=== PATIENT | male | born 1955 | race Caucasian/White ===

== ENCOUNTER 2021-10-07 08:50 | Outpatient (CLI) | payer MEDICARE, BC, SELFPAY ==
[2021-10-07 15:24] LABS: Basophils Absolute Auto 0.04 K/uL (0.00-0.30); Basophils Percent Auto 0.7 % (0.0-3.0); Eosinophils Absolute Auto 0.11 K/uL (0.00-0.50); Eosinophils Percent Auto 1.8 % (0.0-7.0); Hemoglobin* 15.2 gm/dL (13.5-17.5); Lymphocytes Absolute Auto 2.24 K/uL (0.90-2.90); Lymphocytes Percent Auto 36.6 % (20-44); Mean Corpuscular HGB Conc 32 gm/dL (32-36); Mean Corpuscular Hemoglobin 28 pg (26-34); Mean Corpuscular Volume 86 fL (80-100); Monocytes Percent Auto 10.8 % (0.0-11.0); Neutrophils Absolute Auto 3.07 K/uL (1.7-7.0); Neutrophils Percent Auto 50.1 % (42.0-72.0); Platelet Count* 306 K/uL (140-440); RDW Coefficient of Variation % 13.1 % (11.5-15.5); Red Blood Count 5.45 m/uL (4.30-5.90); White Blood Count* 6.12 K/uL (4.50-11.00)
[2021-10-07 15:26] LABS: Chloride* 105 mmol/L (96-114); Potassium* 4.9 mmol/L (3.6-5.1); Sodium* 140 mmol/L (135-149)
[2021-10-07 15:29] LABS: Blood Urea Nitrogen* 14 mg/dL (7-30); Calcium* 9.8 mg/dL (8.4-10.6); Carbon Dioxide* 26 mmol/L (20-32); Estimated Glomerular Filt Rate 82 ml/min; Glucose* 165 mg/dL (60-115)
[2021-10-07 15:34] LABS: Slide Review Reflex No
== END 2021-10-07 08:51 | disposition home or self-care (01) ==
LOC: KYNREF 08:52
PROVIDERS: PCP Nurse Practitioner Family; Visit Provider Nurse Practitioner Family
DX: Z01.818 Encounter for other preprocedural examination (principal)
CPT/HCPCS: 36415; 80048; 85025

== ENCOUNTER 2021-11-14 09:00 | Outpatient (RCR) | payer MEDICARE, BC, SELFPAY ==
--- NOTE | 2021-09-22 11:47 | PT.OPEX ---
PT [place] Outpatient Eval PT [facility] Outpatient Eval Start: 09/22/21 10:55 Freq: Status: Active Protocol: Document 09/22/21 11:01 JANETTE (Rec: 09/22/21 11:28 JANETTE [id number]) E-Signed By Alla Mcdaniel DPT Physical Therapy Outpatient Evaluation Insurance Information Recert Due Date 12/06/21 Insurance Name Medicare B,Blue Cross/Blue [employer] Medical Diagnosis L hip bursitis Treating Diagnosis L hip pain, LB/L buttock pain, core/hip/glut weakness, pelvic instability, limited tolerance for extended standing/walking Subjective Subjective Patient reports chronic L hip/ buttock/LB pain since last Jan . States he was working up on a ladder, trimming branches and had L hip pain afterward. Pain improved some over the winter but flared back up as patient was more active again this spring and summer. He c/ o L lateral hip pain, some pain into L buttock and LB. Denies any hx of issues/ surgery with LB or hip. He reports increased pain with WB , standing, walking, stairs pain up to 8/10. States he has minimal to no pain at rest . Sleep has been ok. He is not using pain meds. Tried ice/heat but with little relief. Patient reports standing/walking is limited to about 10 min and then patient needing to sit and rest. He reports occasional pain that wraps around the front of his thigh. He uses a stationary bike at home, 3-4x/week. Pain range 0-8/10. Date of Last Physician Visit 09/19/21 Current Work Status Retired Precautions Treatment Precautions/Contraindications DM Objective Strength core/hip/glut weakness with chronic L hip/buttock/LB pain and pelvic instability Palpation tight, tender with palpation L lateral hip, L ITB, L buttock region Assessment Assessment/Impression Patient is a 66 year old male with L hip pain, LB/L buttock pain, core/hip/glut weakness, pelvic instability, limited tolerance for extended standing/walking. Pain range 0-8/10. Patient with increased L hip/buttock pain with standing, walking, stairs . Recent xrays and MRI negative. Patient referred to PT for L hip bursitis. Patient is tight, tender with palpation L lateral hip, L ITB , L buttock, and L LB region. Pelvic rotation noted. Able to improve alignment with MET treatment this session. Core/ hip/glut weakness noted with pelvic instability and chronic LB/buttock/hip pain. Patient is limited with standing/ waling activities to about 10 min at this time. He would benefit from skilled PT for pain/sx management, core/hip/ glut strengthening, improved flexibility L hip/buttock/LE musculature, improved pelvic stability, posture/body mechanics training, and establishment of HEP. Plan of Care Rehabilitation Potential Good Physical Therapy Goals 1. Decrease L hip/buttock/LB pain to less than/equal to 4/ 10 with daily/work activities and with the progression of PT activities over the next 4-6 weeks. 2. Patient will be educated on posture/body mechanics and pain management strategies over the next 3-4 weeks for decreased stress to LB/pelvis/ hip and improved pelvic stability. 3. Improve core/hip/glut strength and posture over the next 8-10 weeks for improved posture/body mechanics, decreased stress to LB/pelvis/ hip, improved pelvic stability, and improved tolerance for extended standing/walking activities without flare up of pain. 4. Patient will be I with HEP within 10 weeks for progression toward above goals , ongoing self management of pain/sx, ongoing self improvements in core/hip/glut strength, posture/body mechanics, pelvic stability, and for return to [facility] with daily/work/leisure activities without flare up of pain. Coordination/Communication With Referral Source Treatment Plan/Direct Interventions Manual Therapy,Therapeutic Exercises Frequency/Duration 1-2x/week Patient Will Be Discharged From Therapy Completion of LTG(s),Skills Plateau,Independent w/HEP, Independently Progressing Evaluation Billing Untimed Code Treatment Minutes 18 Complexity Moderate Certification Information Initial Certification Date 09/22/21 Ending Certification Date 12/06/21
== END 2022-03-07 11:12 | disposition home or self-care (01) ==
PROVIDERS: PCP Nurse Practitioner Family; Visit Provider Orthopaedic Surgery
DX: M25.552 Pain in left hip (principal); M70.72 Other bursitis of hip, left hip; Z51.89 Encounter for other specified aftercare
CPT/HCPCS: 97110; 97140; 97162

== ENCOUNTER 2021-11-24 08:39 | Outpatient (CLI) | payer MEDICARE, BC, SELFPAY ==
--- OUTSIDE RECORDS SUMMARY | 2021-11-24 08:45 | XMS_ITS | Encounter Summary ---
:1955 Author Organization [facility] Address [address] [place] [address] Care Team Providers Name Role Phone No Ref-Primary, Physician Primary Care Provider [phone] Reason for Visit Auth/Cert Specialty Diagnoses / Procedures Referred By Contact Refer red To Contact Surgery Diagnoses Hydrocele of testis Hydrocele of testis [N43.3] Sh Periop Services Procedures HC REMV HYDROCELE,SPERM CORD,UNILAT RIGHT HYDROCELECTOMY [address] [place] [address] Phone: Referral ID Status Reason Start Date Expiration Date Visits Requ ested Visits Authorized [id number] 1 1 Encounter Details Date Type Department Care Team Description 10/10/2021 Hospital Encounter [facility] Daryl Barraza [facility] rocele in adult [facility] Phase II MD Siva (Primary Dx) [address] [facility] [place] [address] [address] [phone] [address] [place] [id number] Social History Tobacco Use Types Packs/Day Years Used Date Never Smoker Smokeless Tobacco: Never Used Alcohol Use Standard Drinks/Week Comments Yes 0 (1 standard drink = 0.6 oz pure alcoho l) rare Alcohol Habits Answer Date Recorded How often do you have a drink containing alcohol? Not asked How many drinks containing alcohol do you have on a typical Not asked day when you are drinking? How often do you have six or more drinks on one occasion? No t asked Comment: rare 10/10/2021 Sex Assigned at Date Recorded Not on file COVID-19 Exposure Response Date Recorded In the last 10 days, have you been in contact with No / Unsu re 10/10/2021 8:52 AM CDT someone who was confirmed or suspected to have Coronavirus/COVID-19? documented as of this encounter Last Filed Vital Signs Vital Sign Reading Time Taken Comments Blood Pressure 163/93 10/10/2021 12:30 PM CDT Pulse 77 10/10/2021 12:30 PM CDT Temperature 36.4 ??C (97.5 ??F) 10/10/2021 11:32 AM CDT Respiratory Rate 16 10/10/2021 12:30 PM CDT Oxygen Saturation 94% 10/10/2021 12:30 PM CDT Inhaled Oxygen Concentration - - Weight 110.5 kg (243 lb 9.6 oz) 10/10/2021 8:38 AM CDT Height 185.4 cm (6' 1) 10/10/2021 8:38 AM CDT Body Mass Index 32.14 10/10/2021 8:38 AM CDT documented in this encounter Discharge Instructions Discharge InstructionsVeronica Silva RN - 10/10/2021 12:00 PM CDT Same Day Surgery Discharge Instructions for Sedation and General Anesthesia It's not unusual to feel dizzy, light-headed or faint for up to 24 hours after surgery or while taking pain medication. If you have these symptoms: sit for a few minutes before standing and have someone assist you when you get up to walk or use the bathroom. You should rest and relax for the next 24 hours. We recommend you make arrangements to have an adultstay with you for at least 24 hours after your discharge. Avoid hazardous and strenuous activity. DO NOT DRIVE any vehicle or operate mechanical equipment for 24 hours following the end of your surgery. Even though you may feel normal, your reactions may be affected by the medication you have received. Do not drink alcoholic beverages for 24 hours following surgery. Slowly progress to your regular diet as you feel able. It's not unusual to feel nauseated and/or vomit after receiving anesthesia. If you develop these symptoms, drink clear liquids (apple juice, casey sally, broth, 7-up, etc. ) until you feel better. If your nausea and vomiting persists for 24 hours, please notify your surgeon. All narcotic pain medications, along with inactivity and anesthesia, can cause constipation. Drinking plenty of liquids and increasing fiber intake will help. For any questions of a medical nature, call your surgeon. Do not make important decisions for 24 hours. If you had general anesthesia, you may have a sore throat for a couple of days related to the breathing tube used during surgery. You may use Cepacol lozenges to help with this discomfort. If it worsens or if you develop a fever, contact your surgeon. If you feel your pain is not well managed with the pain medications prescribed by your surgeon, please contact your surgeon's office to let them know so they can address your concerns. Discharge Instructions for Hydrocele/Spermatocele During your recovery: To help reduce swelling, apply an ice pack or cold compress to the scrotum as directed. Do this for no longer than 15 minutes at a time. Continue using the cold pack for 2 days or until swelling improves. Take prescribed pain medications as directed. Care for your incision as instructed. Follow your surgeon???s guidelines for showering. Avoid swimming, tub baths, using a hot tub, and other activities that cause the incision to be covered with water until your doctor says it???s okay. Wear a jockstrap or snug underwear as directed. Avoid heavy lifting and strenuous exercise for 1 week or as directed by surgeon. Sexual intercourse may be resumed after your follow up appointment or as directed by surgeon Do not drive until you are no longer taking pain medication and your doctor says it???s okay. You may have a drain to reduce swelling and infection. The surgeon will remove it in the office. Call Your Surgeon If You Have Any of the Following: Chest pain or trouble breathing (call [phone]) Fever of 100.4??F or higher Symptoms of infection at the incision site such as increased redness or swelling, warmth, worsening pain, or foul-smelling drainage Bleeding from the incision site Pain gets worse or is not relieved by pain medications Increased pain or swelling in the scrotum or groin area Follow-Up Make a follow up appointment with your surgeon as directed. You may also have sutures that need to be removed. Call your surgeon if you have any questions or concerns about your recovery. If you have questions or concerns about your procedure, call Dr. Barraza at [phone] AttachmentsThe following attachments cannot be sent through Care Everywhere. Hydrocele Surgery (Hydrocelectomy) (Botswanan)documented in this encounter Medications at Time of Discharge Medication Sig Dispensed Refills Start Date End Date atorvastatin (LIPITOR) Take 20 mg by mouth 0 20 MG tablet daily celecoxib (CELEBREX) Take 1 capsule (100 mg) 14 capsule 0 100 MG by mouth 2 times daily capsuleIndications: for 7 days Hydrocele in adult gemfibrozil (LOPID) 600 Take 600 mg by mouth 2 0 MG tablet times daily (before meals) glimepiride (AMARYL) 4 Take 8 mg by mouth 0 MG tablet every morning (before breakfast) INSULIN GLARGINE SC Inject 40 Units 0 Subcutaneous At Bedtime losartan (COZAAR) 50 MG Take 50 mg by mouth 0 tablet daily metFORMIN (GLUCOPHAGE) Take 1,000 mg by mouth 0 1000 MG tablet 2 times daily (with meals) multivitamin w/minerals Take 1 tablet by mouth 0 (THERA-VIT-M) tablet daily oxyCODONE (ROXICODONE) Take 1-2 tablets (5-10 10 tablet 0 0 10/10/2021 5 MG tabletIndications: mg) by mouth every 4 Hydrocele in adult hours as needed for moderate to severe pain documented as of this encounter H&P Notes Stew Hsu MD - 10/10/2021 9:00 AM CDT I have reviewed the surgical (or preoperative) H&P that is linked to this encounter, and examined the patient. There are no significant changes Clinical Conditions Present on Arrival: Clinically Significant Risk Factors Present on Admission # Obesity: Estimated body mass index is 32.14 kg/m?? as calculated from the following: Height as of this encounter: 1.854 m (6' 1). Weight as of this encounter: 110.5 kg (243 lb 9.6 oz). Source Note - Tiffanie Bernal - 10/10/2021 6:47 AM CDT documented in this encounter Nursing Notes Debbi Allen RN - 10/10/2021 1:27 PM CDT Added oxycodone to allergy list. Spoke with who recommended just going home with the celebrex for pain. Oxycodone returned for credit. Debbi Allen RN - 10/10/2021 9:03 AM CDT Had covid antigen done 10/07/21-so test is outdated. Retested here. Awaiting result. documented in this encounter Miscellaneous Notes Op Note - Daryl Barraza MD - 10/10/2021 10:40 AM CDT OPERATIVE REPORT PATIENT: Hugh Dennis : 1955, AGE: [age] year old SSN: [id number] SURGEON Daryl Barraza MD Rn Relief Charge: Angelica Barfield, ARINA; Nikole Banks RN Relief Scrub: Kathy Arzate Scrub Person: Courtney Loving PREOP DIAGNOSIS: Right hydrocele POSTOP DIAGNOSIS: Same Procedure(s): RIGHT HYDROCELECTOMY ANESTHESIA General COMPLICATIONS: None FINDINGS Approximately 600 cc of serous fluid drained. Hydrocele sac closed using a Venetian-Blind technique. SPECIMEN 1. None IMPLANT 1. None EBL 20cc TECHNIQUE After informed consent was obtained within the preoperative care unit the patient was transferred tothe operative theater in stable condition. There he was transferred from his [facility] to the operative table placed in supine position. Bilateral lower extremity sequential compression devices were applied and perioperative antibiotic prophylaxis was undertaken with cefazolin. After appropriateinduction of general anesthesia the patient's genitalia was prepped and draped in the usual sterile fashion utilizing Betadine. This point a surgical timeout was performed with all those in attendance agreeing correct patient, procedure, and laterality. Began by creating a 7 cm incision along the midline scrotal raphae with a #15 blade. The Bovie electrocautery was then used to dissect the underlying dartos tissue down to the level of the hydrocele sac. A mixture of sharp and blunt dissection was used to free the sac of all of its attachments and delivered through the incision. Metzenbaum scissors was then used to carefully enter the sac opposite ofthe testicle and spermatic cord. A total of 600 cc of serous fluid was drained. And then used the Bovie to open the sac completely and the antimesenteric side. The edges of the hydrocele sac were then copiously fulgurated to ensure no internal bleeding. Using a Venetian blind technique the sac was then reduced and oversewn. The testicle was returned to its anatomical location and the wound was irrigated and hemostasis was ensured. The dartos tissue was then closed in 2 layers with a 3-0 Vicryl suture. The skin was then closed with a 4-0 Vicryl suture in a running horizontal mattress fashion. The incision was then anesthetized with 0.25% bupivacaine as well as a spermatic cord block. The incision was then dressed with surgical skin glue, scrotal fluffs, and mesh underwear thus concluding the case. Patient tolerated the procedure well and without complication. Estimated blood loss was 20 mL and all surgical counts were correct at its conclusion. Patient was awoken from general anesthesia before being transferred back to his hospital [facility] and discharged to the postanesthesia care unit in stablecondition. PLAN Patient to be discharged home will follow up with me in 4 to 6 weeks for postoperative evaluation. Daryl Barraza MD [facility] Pager: [phone] Office: [phone] Surgical [phone] documented in this encounter Plan of Treatment Not on filedocumented as of this encounter Procedures Procedure Name Priority Date/Time Associated Diagnosis Comme nts GLUCOSE BY METER Routine 10/10/2021 12:14 PM Resu lts for this CDT procedure are i n the results section. HYDROCELECTOMY, 10/10/2021 9:56 AM Hydrocele of testis SCROTAL APPROACH CDT GLUCOSE BY METER Routine 10/10/2021 9:45 AM Resul ts for this CDT procedure are i n the results section. COVID-19 VIRUS STAT 10/10/2021 8:50 AM Results for this (CORONAVIRUS) BY CDT procedure a re in PCR the results section. LAB RESULT - HIM 10/07/2021 12:00 AM SCAN CDT documented in this encounter Results Glucose by meter (10/10/2021 12:14 PM CDT) P athologist Signature GLUCOSE BY 88 70 - 99 10/10/2021 LABORATORY METER POCT mg/dL 12:21 PM CDT POC Specimen (Source) Anatomical Collection Method Collection Time Re ceived Time Location / / Volume Laterality Blood, Capillary BLOOD SPECIMEN / 10/10/2021 12:14 10/2021 Unknown PM CDT 12:21 PM CDT Daryl Amaya [facility] POCT Performing Organization Address City/State/ZIP Code Phon e Number LAB[place]ATORY [place] [address] Care [facility] [address] 1[address] floor, [address] (ABNORMAL) Glucose by meter (10/10/2021 9:45 AM CDT) P athologist Signature GLUCOSE BY 115 (H) 70 - 99 10/10/2021 LABORATORY METER POCT mg/dL 9:52 AM CDT POC Specimen Anatomical Collection Method Collection Time Receive d Time (Source) Location / / Volume Laterality Blood, venous BLOOD SPECIMEN / 10/10/2021 9:45 AM 08/0 10/2021 9:52 Unknown CDT AM CDT Daryl LOPEZ POCT Performing Organization Address City/State/ZIP Code Phon e Number [place]ORY [place] [address] Care Lab [address] floor, [address] Asymptomatic COVID-19 Virus (Coronavirus) by PCR Nasopharyngeal (10/10/2021 8:50 AM CDT) Analysis Performed At Patho logist Time Signature SARS CoV2 PCR Negative Negative 10/10/2021 LABORATORY 9:38 AM CDT Comment: NEGATIVE: SARS-CoV-2 (COVID-19) RNA not detected, presumed negative. Specimen Anatomical Location / Collection Method Collection Elias e Received Time (Source) Laterality / Volume Swab NASOPHARYNGEAL Non-blood 10/10/2021 8:50 10/10/2021 8:57 STRUCTURE / Unknown Collection / AM CDT AM CDT Unknown Narrative LABORATORY - 10/10/2021 9:38 AM CDT Testing was performed using the Xpert Xpress SARS-CoV-2 Assay on the [employer] Instrument Systems. A dditional information about this Emergency Use Authorization (EUA) a ssay can be found via the Lab Guide. This test should be ordered for t he detection of SARS-CoV-2 in individuals who meet SARS-CoV-2 clinical and/or epidemiological criteria. Test performance is unknown in asymptomatic patients. This test is for in vitro diagnostic use unde r the FDA EUA for laboratories certified under CLIA to per form high complexity testing. This test has not been FDA cleared or ap proved. A negative result does not rule out the presence of PCR in hibitors in the specimen or target RNA in concentration below the li andrea of detection for the assay. The possibility of a false negati ve should be considered if the patient's recent exposure or clinica l presentation suggests COVID-19. This test was validated by the [facility]. This laboratory is certified under the Clinical Laboratory Improvement Amendments of 1988 (CLIA-88) as qualified to perform high complexity laboratory testing. Daryl Barraza MD LAB - MICRO GENERAL ORDERABL ES Performing Organization Address City/State/ZIP Code Phon e Number LABORATORY [facility] [place] [address] [facility] [address], [address] LAB RESULT - HIM SCAN (10/07/2021 12:00 AM CDT) Specimen (Source) Anatomical Location Collection Method / Collectio n Time Received Time / Laterality Volume 10/07/2021 Narrative This result has an attachment that is no t available. Provider Outside NON-BEAKER LAB TESTING documented in this encounter Visit Diagnoses Diagnosis Hydrocele in adult - Primary documented in this encounter Administered Medications Inactive Administered Medications - up to 3 most recent administrations Medication Order MAR Action Action Date Dose Rate Site celecoxib (celeBREX) capsule 200 mg 200 mg, Oral, ONCE PRN, moderate pain (4 -6), or mild pain, Starting on Sun10/10/21 at 1139, For 1 dose, One time prior to discharge. HYDROcodone-acetaminophen (NORCO) 5-325 MG per tablet 1 tablet 1 tablet, Oral, ONCE PRN, other, pain co ntrol or improvement in physical function., Starting on Sun10/10/21 at 1139, For 1 dose, Notify pro vider to assess for uncontrolled pain or analgesic side effe cts. Maximum acetaminophen dose from all sources= 75 mg/kg/day not to exceed 4 grams documented in this encounter Active and Recently Administered Medications Times are shown in CDT. Scheduled Medication Order 10/08/2021 10/09/2021 10/10/2021 ceFAZolin Sodium (ANCEF) injection 2 g (COMPLETED) 1015 (Given - Provider: Angelica Ash APRN CRNA) Routine, 2 g, Intravenous, PRE-OP/PRE-PA OCEDURE, Starting on Sun10/10/21 at 0833, For 1 dose, Give first dose within 1 hour PRIOR to incision. If patient weight is greater than or equal to 120 kg increas e dose to 3 g., Indications: Perioperative Pharmacoprophylaxis, Pre-procedure Continuous Medication Order 10/08/2021 10/09/2021 10/10/2021 lactated ringers infusion (CANCELED) 1016 (New Bag - Provider: Angelica Ash APRN CRNA)1135 (New Bag - Provider: Angelica Ash APRN CRNA) at 100 mL/hr, Intravenous, CONTINUOUS, P re-procedure, Starting on Sun10/10/21 at 0900, Until Sun10/10/21 at 1134 PRN Medication Order 10/08/2021 10/09/2021 10/10/2021 bupivacaine (MARCAINE) 0.25 % injection (CANCELED) 1112 (Given - Provider: Daryl Barraza MD) PRN, Starting on Sun10/10/21 at 1112, Intra-procedure celecoxib (celeBREX) capsule 200 mg 200 mg, Oral, ONCE PRN, moderate pain, o r mild pain, Starting on Sun10/10/21 at 1139, For 1 dose, One time prior to discharge. HYDROcodone-acetaminophen (NORCO) 5-325 MG per tablet 1 tablet 1 tablet, Oral, ONCE PRN, other, pain co ntrol or improvement in physical function., Starting on Sun10/10/21 at 1139, For 1 dose, Notify provider to assess for uncontrolled pain or analgesic side effects. Maximum acetaminophen dose from all wilfrid rces= 75 mg/kg/day not to exceed 4 grams sodium chloride 0.9% (bottle) irrigation (CANCELED) 1040 (Given - Provider: Daryl Barraza MD) PRN, Starting on Sun10/10/21 at 1032, Intra-procedure documented in this encounter Care Teams Transportation Economics Teacher Relationship Specialty Start Date End Date No Ref-Primary, Physician PCP - General 10/10/21 documented as of this encounter
--- OUTSIDE RECORDS SUMMARY | 2021-11-24 08:45 | XMS_ITS | Encounter Summary ---
:1955 Author Organization [facility] Address [address] [place], [place] [address]. [place] [address] Care Team Providers Name Role Phone No Ref-Primary, Physician Primary Care Provider [phone] Reason for Visit Auth/Cert Specialty Diagnoses / Procedures Referred By Contact Refer red To Contact Surgery Diagnoses Hydrocele of testis Hydrocele of testis [N43.3] Sh Periop Services Procedures HC REMV HYDROCELE,SPERM CORD,UNILAT RIGHT HYDROCELECTOMY [address], [address] [place] [address] Phone: Referral ID Status Reason Start Date Expiration Date Visits Requ ested Visits Authorized [id number] 1 1 Encounter Details Date Type Department Care Team Description 10/10/2021 Anesthesia Event [facility] Stew Hsu MD [facility] [address] [phone] [facility] Angelica Reynoso, ROOF CEMENT AND PAINT MAKER HELPER HAT TRIMMER [address] [id number], [address] [place] [phone] Anesthesia Record Procedure Summary Procedure Name Responsible Anesthesia Start Anesthesia Stop Anesthesiologist Time Time RIGHT HYDROCELECTOMY Stew Hsu MD 10/10/21 1016 10/10/21 1 135 (Right Groin) Events Date Time Event Comment 10/10/2021 0903 1016 An Start 1017 An Start Data 1018 AN REASSESS I attest that I have identified and re-evaluated the patient immediat segundo before the induction of anesthesia and I am satisfi ed that the anesthetic plan is suitable for the patient' s condition and procedure. The first vital signs mario rded are pre- induction. Angelica Ash APRN HAT TRIMMER 1023 An Induction 1024 An LMA 1040 AN INCISION 1126 LMA Removed 1128 an stop data 1135 An Stop Electronically s igned by Angelica Ash APRN CRNA on October 10, 2021 1 1:35 AM Name Total fentaNYL (SUBLIMAZE) injection 100 mcg lidocaine 2% 100 mg midazolam 1mg/mL 2 mg ondansetron 2mg/mL 4 mg phenylephrine (QUIN-SYNEPHRINE) injection 100 mcg propofol (DIPRIVAN) injection 10 mg/mL vial 200 mg propofol infusion (mcg/kg/min) 58.73 mg ceFAZolin Sodium (ANCEF) injection 2 g 2 g lactated ringers infusion 1,000 mL Agents Name NO HELIOX O2 N2O Air Exp Sevoflurane Exp Isoflurane Exp Desflurane Exp N2O Ins Sevoflurane Ins Isoflurane Ins Desflurane O2 Auxiliary Blood No blood administrations on file. Lines, Drains, and Airways Type Details Placement Removal Incision/Surgical Site 10/10/21; 1101; 10/10/21 1101 by Right; Scrotum Nikole Banks RN Peripheral IV 10/10/21; 0954; 20 G; 10/10/21 0954 by 10/10/21 1333 by Left; Hand Debbi Allen, Amaya Allen RN RN Supraglottic Airway Placement Date: 10/10/21 1035 by 10/10/21 11 26 by 10/10/21; Placement Angelica Ash Da vid Allen, Time: 1034 (created AURELIO Uribe CRNA, APRN via procedure documentation); Airway Type: Standard LMA; Mask Ventilation: 1; LMA Size: 5; Airway Brand: Ambu AuraGain; Attempts: 1 documented in this encounter Social History Tobacco Use Types Packs/Day Years [...] have Coronavirus/COVID-19? documented as of this encounter OR Notes Anesthesia Postprocedure Evaluation - Stew Hsu MD - 10/10/2021 1:54 PM CDT Patient: Hugh Dennis Procedure: Procedure(s): RIGHT HYDROCELECTOMY Anesthesia Type: General Note: Disposition: Outpatient Postop Pain Control: Uneventful Sign Out: Well controlled pain PONV: No Neuro/Psych: Uneventful Sign Out: Acceptable/Baseline neuro status Airway/Respiratory: Uneventful Sign Out: Acceptable/Baseline resp. status CV/Hemodynamics: Uneventful Sign Out: Acceptable CV status; No obvious hypovolemia; No obvious fluid overload Other NRE: NONE DID A NON-ROUTINE EVENT OCCUR? No Last vitals: Vitals Value Taken Time BP 163/93 10/10/21 1230 Temp Pulse 77 10/10/21 1232 Resp 9 10/10/21 1232 SpO2 96 % 10/10/21 1232 Vitals shown include unvalidated device data. Electronically Signed By: Stew Hsu MD October 10, 2021 1:54 PM Anesthesia Procedure Notes - Angelica Ash APRN CRNA - 10/10/2021 10:35 AM CDTAssociated Order(s): Airway Airway Staff - Anesthesiologist: Stew Hsu MD HAT TRIMMER: Angelica Ash APRN HAT TRIMMER Performed By: HAT TRIMMER Consent for Airway Urgency: elective Indications and Patient Condition Indications for airway management: cherise-procedural Induction type:intravenous Mask difficulty assessment: 1 - vent by mask Final Airway Details Final airway type: supraglottic airway Supraglottic Airway Details Type: LMA Brand: Ambu AuraGain LMA size: 5 Post intubation assessment Placement verified by: capnometry, equal breath sounds and chest rise Number of attempts at approach: 1 Number of other approaches attempted: 0 Secured with: pink tape Ease of procedure: easy Dentition: Intact and Unchanged Anesthesia Preprocedure Evaluation - Stew Hsu MD - 10/10/2021 9:00 AM CDT Anesthesia Pre-Procedure Evaluation Patient: Hugh Dennis : 1955 Procedure : Procedure(s): RIGHT HYDROCELECTOMY Past Medical History: Diagnosis Date ??? Back pain ??? Diabetes (H) ??? Hydrocele in adult ? ? Hyperlipidemia LDL goal <100 ??? Hypertension Past Surgical History: Procedure Laterality Date ??? CERVICAL DISCECTOMY ??? COLONOSCOPY ??? HERNIA REPAIR ??? LAP VENTRAL HERNIA REPAIR ??? TOTAL SHOULDER REPLACEMENT No Known Allergies Social History Tobacco Use ??? Smoking status: Never Smoker ??? Smokeless tobacco: Never Used Substance Use Topics ??? Alcohol use: Yes Comment: rare Wt Readings from Last 1 Encounters: 10/10/21 110.5 kg (243 lb 9.6 oz) Anesthesia Evaluation Pt has had prior anesthetic. No history of anesthetic complications ROS/MED HX ENT/Pulmonary: Neurologic: Cardiovascular: (+) hypertension----- METS/Exercise Tolerance: Hematologic: Musculoskeletal: GI/Hepatic: (-) GERD Renal/Genitourinary: Endo: (+) type II DM, Psychiatric/Substance Use: Infectious Disease: Malignancy: Other: Physical Exam Airway Mallampati: I Neck ROM: full Respiratory Devices and Support Dental (+) caps Cardiovascular cardiovascular exam normal Pulmonary pulmonary exam normal OUTSIDE LABS: CBC: No results found for: WBC, HGB, HCT, PLT BMP: No results found for: NA, POTASSIUM, CHLORIDE, CO2, BUN, CR, GLC COAGS: No results found for: PTT, INR, FIBR POC: No results found for: BGM, HCG, HCGS HEPATIC: No results found for: ALBUMIN, PROTTOTAL, ALT, AST, GGT, ALKPHOS, BILITOTAL, BILIDIRECT, MARTIN OTHER: No results found for: PH, LACT, A1C, DAJUAN, PHOS, MAG, LIPASE, AMYLASE, TSH, T4, T3, CRP, SED Anesthesia Plan ASA Status: 2 NPO Status: NPO Appropriate Anesthesia Type: General. - Airway: LMA Induction: Intravenous. Maintenance: Balanced. Consents Anesthesia Plan(s) and associated risks, benefits, and realistic alternatives discussed. Questions answered and patient/apprenticeship representative(s) expressed understanding. - Discussed: - Discussed with: Patient Postoperative Care Pain management: IV analgesics. PONV prophylaxis: Ondansetron (or other 5HT-3) Comments: Stew Hsu MD documented in this encounter Miscellaneous Notes Anesthesia Care Transfer Note - Angelica Ash APRN CRNA - 10/10/2021 11:35 AM CDT Patient: Hugh Dennis Procedure: Procedure(s): RIGHT HYDROCELECTOMY Diagnosis: Hydrocele of testis [N43.3] Diagnosis Additional Information: No value filed. Anesthesia Type: General Note: Oropharynx: oropharynx clear of all foreign objects Level of Consciousness: awake Oxygen Supplementation: face mask Level of Supplemental Oxygen (L/min / FiO2): 6 Independent Airway: airway patency satisfactory and stable Dentition: dentition unchanged Vital Signs Stable: post-procedure vital signs reviewed and stable Report to RN Given: handoff report given Patient transferred to: PACU Handoff Report: Identifed the Patient, Identified the Reponsible Provider, Reviewed the pertinent medical history, Discussed the surgical course, Reviewed Intra-OP anesthesia mangement and issues during anesthesia, Set expectations for post-procedure period and Allowed opportunity for questions and acknowledgement of understanding Vitals: Vitals Value Taken Time BP Temp Pulse Resp SpO2 Electronically Signed By: Angelica Ash APRN CRNA October 10, 2021 11:35 AM documented in this encounter Plan of Treatment Not on filedocumented as of this encounter Procedures Procedure Name Priority Date/Time Associated Comments Diagnosis ANE AIRWAY Routine 10/10/2021 10:35 Results for this SUPRAGLOTTIC AM CDT procedure are i n PERFORMABLE the results section. documented in this encounter Results ANE AIRWAY SUPRAGLOTTIC PERFORMABLE (10/10/2021 10:35 AM CDT) Narrative Angelica sAh APRN CRNA - 10/10/2021 10:35 AM CDT Angelica Ash APRN CRNA ? 10/10/2021 10:35 AM Airway Staff - ? Anesthesiologist: ??Stew Hsu MD ? HAT TRIMMER: Angelica Ash APRN CRNA ? Performed By: HAT TRIMMER Consent for Airway ? Urgency: elective Indications and Patient Condition ? Indications for airway management : cherise-procedural ? Induction type:intravenous ? Mask difficulty assessment: 1 - v ent by mask Final Airway Details ? Final airway type: supraglottic a irway Supraglottic Airway Details ? Type: LMA ? Brand: Ambu AuraGain ? LMA size: 5 Post intubation assessment ? Placement verified by: capnometry , equal breath sounds and chest rise ? Number of attempts at approach: 1 ? Number of other approaches attemp chi: 0 ? Secured with: pink tape ? Ease of procedure: easy ? Dentition: Intact and Unchanged Stew Hsu MD [facility] documented in this encounter Visit Diagnoses Not on filedocumented in this encounter Administered Medications Inactive Administered Medications - up to 3 most recent administrations Medication Order MAR Action Action Date Dose Rate Site ceFAZolin Sodium (ANCEF) injection Given 10/10/2021 10:15 AM CDT 2 g 2 g Routine, 2 g, Intravenous, PRE-OP/PRE-PROCEDURE, Starting on Sun10/10/21 at 0833, For 1 dose, Give first dose within 1 hour PRIOR to incision. If patient weight is greater than or equal to 120 kg increase dose to 3 g., Indications: Perioperative Pharmacoprophylaxis, Pre-procedure fentaNYL (PF) (SUBLIMAZE) injection Given 10/10/2021 10:33 AM CDT 50 mcg Intravenous, PRN, Administer over 3-5 Minutes, Starting on Sun10/10/21 at 1025, Anesthesia Intra-op Given 10/10/2021 10:25 AM CDT 50 mcg lactated ringers infusion New Bag 10/10/2021 11:35 AM CDT at 100 mL/hr, Intravenous, CONTINUOUS, Pre-procedure, Starting on Sun10/10/21 at 0900, Until Sun10/10/21 at 1134 New Bag 10/10/2021 10:16 AM CDT lidocaine 2% injection (MDV) Given 10/10/2021 10:23 AM CDT 100 mg Other, PRN, Starting on Sun10/10/21 at 1023, Anesthesia Intra-op midazolam (VERSED) injection Given 10/10/2021 10:16 AM CDT 2 mg Intravenous, Administer over 2 Minutes, PRN, Starting on Sun10/10/21 at 1016, Anesthesia Intra-op ondansetron (ZOFRAN) injection Given 10/10/2021 10:56 AM CDT 4 mg Intravenous, PRN, Administer over 2-5 Minutes, Starting on Sun10/10/21 at 1056, Anesthesia Intra-op phenylephrine (QUIN-SYNEPHRINE) injection New Bag 10/10/2021 10:37 AM CDT 100 mcg Intravenous, CONTINUOUS PRN, Starting on Sun10/10/21 at 1037, Anesthesia Intra-op propofol (DIPRIVAN) injection New Bag 10/10/2021 10:23 AM 15 m cg/kg/min 7.191 mL/hr 10 mg/mL vial CDT Intravenous, CONTINUOUS PRN, Starting on Sun10/10/21 at 1023, Anesthesia Intra-op propofol (DIPRIVAN) injection 10 mg/mL v ial Given 10/10/2021 10:23 AM CDT 200 mg Intravenous, PRN, Starting on Sun10/10/21 at 1023, Anesthesia Intra-op documented in this encounter Care Teams Livestock Brands Inspector Relationship Specialty Start Date End Date No Ref-Primary, Physician PCP - General 10/10/21 documented as of this encounter
--- OUTSIDE RECORDS SUMMARY | 2021-11-24 08:45 | XMS_ITS | Clinical Summary ---
:1955 Author Organization [facility] Address [address] [place] [address] Care Team Providers Name Role Phone Karma Philip APRN C.N.P. Primary Care Provider [phone] Source Comments Patient records contain information from all sites at [facility]. For routine questions regarding patient records, call [phone] during business hours, M-F 8:00 AM - 5:00 PM Central Time. Record requests for emergency care only can be directed to [phone] at any time.[facility] Allergies No known active allergies Medications Medication Sig Dispensed Refills Start Date End Date Status aspirin [address] Take 1 tablet by 0 08/27/2015 Active tablet mouth daily. B complex-vitamins Take 1 tablet by 0 Active (BALANCE B-50) tablet mouth daily. multivitamin (Daily Take 1 tablet by 0 Active Vitamin Formula) mouth daily. tablet gemfibroziL (LOPID) TAKE 1 TABLET BY 180 tablet 3 10/19/2020 Active 600 mg MOUTH TWICE DAILY tabletIndications: BEFORE BREAKFAST Diabetes Mellitus Type AND DINNER 2 (HCC) glimepiride (AMARYL) 4 TAKE 2 TABLETS BY 180 tablet 3 10/20/19 21 Active mg tabletIndications: MOUTH DAILY WITH Diabetes Mellitus Type BREAKFAST 2 (HCC) atorvastatin (LIPITOR) TAKE 1 TABLET BY 90 tablet 3 10/19/2020 Active 20 mg MOUTH AT BEDTIME tabletIndications: Hyperlipidemia Mixed metFORMIN XR TAKE 4 TABLETS BY 360 tablet 3 10/19/2020 Active (GLUCOPHAGE-XR) 500 mg MOUTH DAILY WITH 24 hr BREAKFAST. tabletIndications: GENERIC Diabetes Mellitus Type EQUIVALENT FOR 2 (HCC) GLUCOPHAGE-XR losartan (COZAAR) 50 TAKE 1 TABLET BY 90 tablet 3 01/11/2021 Active mg tabletIndications: MOUTH DAILY Hypertension Essential Primary insulin glargine Inject 40 Units 40 mL 3 01/11/2021 Active (Lantus Solostar U-100 under the skin at Insulin) 100 unit/mL bedtime. (3 mL) injectionIndications: Diabetes Mellitus Type 2 (HCC), Feed Manager Use Of Insulin Active (HCC) Active Problems Patient Care Coordination Note Formatting of this note might be differe nt from the original. 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 from Last 3 Months Immunizations Name Administration Dates Next Due DT, Pediatric 11/13/2003 HepB, Unspecified 06/08/2004, 12/24/2003, 11/13/2003 Influenza Laiv (Nasal) (Discontinued) 12/20/2011 Influenza high dose QV(65 years or 11/30/2020, 11/26/2019 older) (PF) Influenza, Unspecified 12/17/2013, 02/19/2013, 02/19/2013, 12/20/2011, 01/17/2011, 12/09/2009, 11/19/2008 PCV13 01/23/2019 PPSV23 06/14/2020, 12/29/1999 RZV (SHINGRIX) 05/03/2021 SARS-COV-2 (COVID-19) - MODERNA 06/21/2021, 05/29/2020, 04/06 Tdap 08/03/2011 influenza high dose (65 years or 12/04/2018 older) (PF) typhoid vaccine, parenteral 04/20/2011 (discontinued) Family History Medical History Relation Name Comments Diabetes Father Heart attack Father Hyperlipidemia Father Hypertension Father Osteoarthritis Mother Eye disorder Sister Relation Name Status Comments Brother Alive Father (Age 64) Mother Alive Sister Alive Social History Tobacco Use Types Packs/Day Years Used Date Smoking Tobacco: Never Smokeless Tobacco: Never Tobacco Cessation: Counseling Given: Yes Alcohol Habits Answer Date Recorded How often do you have a drink containing alcohol? Monthly or less 06/23/2020 How many drinks containing alcohol do you have on a 1 or 2 06/23/2020 typical day when you are drinking? How often do you have six or more drinks on one Never 06/23/2020 occasion? Comment: Not asked Social Isolation Answer Date Recorded In a typical week, how many times do you talk on the phone T oscar a week 06/23/2020 with family, friends, or neighbors? How often do you get together with friends or relatives? Onc e a week 06/23/2020 How often do you attend samaritan or hoahaoism services? Never 06/23/2020 Do you belong to any clubs or organizations such as samaritan N o 06/23/2020 groups, unions, fraternal or athletic groups, or school groups? How often do you attend meetings of the clubs or Never 11/20/2019 organizations you belong to? Are you now , , , , never Mar ried 06/23/2020 or living with a partner? Physical Activity Answer Date Recorded On average, how many days per week do you engage in moderate to 6 days 06/23/2020 strenuous exercise (like walking fast, running, jogging, dancing, swimming, biking, or other activities that cause a light or heavy sweat)? On average, how many minutes do you engage in exercise at th is 30 min 06/23/2020 level? Stress Answer Date Recorded Do you feel stress - tense, restless, nervous, or Only a lit tle 06/23/2020 anxious, or unable to sleep at night because your mind is troubled all the time - these days? Financial Resource Strain Answer Date Recorded How hard is it for you to pay for the very basics like Not h jocelynn at all 06/23/2020 food, housing, medical care, and heating? Intimate Partner Violence Answer Date Recorded Within the last year, have you been afraid of your partner o r No 06/23/2020 ex-partner? Within the last year, have you been humiliated or emotionall y No 06/23/2020 abused in other ways by your partner or ex-partner? Within the last year, have you been kicked, hit, slapped, or No 06/23/2020 otherwise physically hurt by your partner or ex-partner? Within the last year, have you been raped or forced to have any No 06/23/2020 kind of sexual activity by your partner or ex-partner? Food Insecurity Answer Date Recorded Within the past 12 months, you worried that your food would Never true 06/23/2020 run out before you got money to buy more. Within the past 12 months, the food you bought just didn't N ever true 06/23/2020 last and you didn't have money to get more. Transportation Needs Answer Date Recorded In the past 12 months, has lack of transportation kept you f rom No 06/23/2020 medical appointments or from getting medications? In the past 12 months, has lack of transportation kept you f rom No 06/23/2020 meetings, work, or getting things needed for daily living? Housing Stability Answer Date Recorded In the last 12 months, was there a time when you were not ab le No 06/23/2020 to pay the mortgage or rent on time? In the last 12 months, how many places have you lived? 1 06/23/2020 In the last 12 months, was there a time when you did not hav e a No 06/23/[address] sleep or slept in a long-term (including now)? Education Answer Date Recorded What is the highest level of school Master's degree (e.g., M A, MS, 08/09/2018 you have completed or the highest Mookie, MEd, EXECUTIVE LEGAL SECRETARY, STEPHANIE) degree you have received? 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 Last Filed Vital Signs Vital Sign Reading Time Taken Comments Blood Pressure 136/79 01/04/2021 10:02 AM CDT Pulse 69 01/04/2021 10:02 AM CDT Temperature 36.8 ??C (98.2 ??F) 01/04/2021 9:55 AM CDT Respiratory Rate 12 01/04/2021 9:55 AM CDT Oxygen Saturation - - Inhaled Oxygen Concentration - - Weight 114 kg (252 lb 5.1 oz) 01/04/2021 9:55 AM CDT Height 187 cm (6' 1.62) 01/04/2021 9:55 AM CDT Body Mass Index 32.73 01/04/2021 9:55 AM CDT Plan of Treatment Health Maintenance Due Date Last Done Comments CT Colonography 1955 Cologuard 1955 FIT 1955 Hepatitis C Screening 1955 Dilated Eye Exam 08/01/2019 07/31/2018 (Performed elsewhere), 07/19/2013 Diabetes Education 11/23/2020 11/24/2019, 02/13/2019, 10/10/2017, Additional history exists Diabetic Office Visit with Foot 11/23/2020 11/24/2019, 02/02, Exam 10/10/2017, Additional history exists Depression Screening (Annual 03/05/2021 PHQ-2) Fall Risk Screen (Annual) 03/05/2021 Hemoglobin A1C 05/18/2021 11/18/2020, 05/18/2020, 11/21/2019, Additional history exists Visit: Chronic Disease, age 18+ 05/20/2021 05/20/2020, 05/03 Zoster Vaccines (2 of 2) 06/28/2021 05/03/2021 DTaP,Tdap,and Td Vaccines (3 - Td 08/02/2021 08/03/2011, or Tdap) COVID-19 Vaccine (5 - Booster for 08/16/2021 06/21/2021, , Moderna series) 05/29/2020, Additional history exists Sodium Level 11/18/2021 11/18/2020, 11/21/2019, 08/13/2018, Additional history exists Urine Albumin 11/18/2021 11/18/2020, 11/21/2019, 08/13/2018, Additional history exists Influenza Vaccine (#1) 2021 11/30/2020, 11/26/2019, 12/04/2018, Additional history exists Office Visit for Blood Pressure 01/04/2022 01/04/2021 Check / Re-check Creatinine Level 10/07/2022 10/07/2021, 11/18/2020, 11/21/2019, Additional history exists Potassium Level 10/07/2022 10/07/2021, 11/18/2020, 11/21/2019, Additional history exists Lipid (Cholesterol) Screening 11/18/2025 11/18/2020, 2019, 08/13/2018, Additional history exists Colonoscopy 07/24/2026 07/24/2016 Colorectal Cancer Screening 07/24/2026 Hepatitis B Vaccines Completed 06/08/2004, 06/08/2004, 12/24/2003, Additional history exists Pneumococcal vaccine (65+ years) Completed 06/14/2020, , 12/29/1999 Insurance Payer Benefit Plan Subscriber ID Effective Phone Address Typ e / Group Dates MEDICARE MEDICARE A [id number] 2018-Pres [address] [place] [address] BLUE CROSS BCBS [place] [id number] 2018-Pres [phone] [address] X Cost Share BLUE SHIELD BLUE COST ent [phone] [address] [place] [phone] (Work) [place] [phone] Care Teams Bilingual Hr Generalist Relationship Specialty Start Date End Date Karma Philip, SAP ARCHITECT, C.N.P. PCP - General 08/17/[address] [place] [address]
--- OUTSIDE RECORDS SUMMARY | 2021-11-24 08:45 | XMS_ITS | Encounter Summary ---
:1955 Author Organization [facility] Address [address] [place] [id number] Care Team Providers Name Role Phone No Ref-Primary, Physician Primary Care Provider [phone] Encounter Details Date Type Department Care Team Description 10/10/2021 Travel Social History Tobacco Use Types Packs/Day Years [...] have Coronavirus/COVID-19? documented as of this encounter Plan of Treatment Not on filedocumented as of this encounter Visit Diagnoses Not on filedocumented in this encounter Care Teams Analytical Engineer Relationship Specialty Start Date End Date No Ref-Primary, Physician PCP - General 10/10/21 documented as of this encounter
--- OUTSIDE RECORDS SUMMARY | 2021-11-24 08:45 | XMS_ITS | Clinical Summary ---
:1955 Author Organization [facility] Address [address] [place] [id number] Care Team Providers Name Role Phone No Ref-Primary, Physician Primary Care Provider [phone] Allergies Active Allergy Reactions Severity Noted Date Comments Oxycodone Other (See Comments) 10/10/2021 Confusi on and anxiety Medications Medication Sig Dispensed Refills Start Date End Date Status atorvastatin Take 20 mg by mouth 0 Active (LIPITOR) 20 MG daily tablet gemfibrozil (LOPID) Take 600 mg by 0 Active 600 MG tablet mouth 2 times daily (before meals) glimepiride (AMARYL) Take 8 mg by mouth 0 Active 4 MG tablet every morning (before breakfast) losartan (COZAAR) 50 Take 50 mg by mouth 0 Active MG tablet daily metFORMIN Take 1,000 mg by 0 Act temo (GLUCOPHAGE) 1000 MG mouth 2 times daily tablet (with meals) multivitamin Take 1 tablet by 0 Active w/minerals mouth daily (THERA-VIT-M) tablet INSULIN GLARGINE SC Inject 40 Units 0 Active Subcutaneous At Bedtime oxyCODONE Take 1-2 tablets 10 tablet 0 10/10/2021 Ac tive (ROXICODONE) 5 MG (5-10 mg) by mouth tabletIndications: every 4 hours as Hydrocele in adult needed for moderate to severe pain celecoxib (CELEBREX) Take 1 capsule (100 14 capsule 0 10/11/19 22 Active 100 MG mg) by mouth 2 capsuleIndications: times daily for 7 Hydrocele in adult days Active Problems Problem Noted Date Hydrocele in adult 10/10/2021 Encounters Date Type Specialty Care Team Description 10/10/2021 Anesthesia Event Surgery Stew Hsu M D Ihry, Amanda Renae Stephanie, APRN CRNA 10/10/2021 Surgery Surgery Daryl Barraza RIGHT HYDROCEL ECTOMY MD [facility] 10/10/2021 Hospital Encounter Daryl Barraza Hydrocel e in adult MD [facility] (Primary Dx) 10/10/2021 Travel from Last 3 Months Social History Tobacco Use Types Packs/Day Years [...] Assigned at Date Recorded Not on file Last Filed Vital Signs Vital Sign Reading [...] Mass Index 32.14 10/10/2021 8:38 AM CDT Plan of Treatment Health Maintenance Due Date Last Done Comments ADVANCE CARE PLANNING 1955 ANNUAL REVIEW OF HM ORDERS 1955 CT COLONOGRAPHY 1955 FIT-DNA (Cologuard) 1955 FIT 1955 FLEX SIG 1955 COLONOSCOPY 1963 COLORECTAL CANCER SCREENING 1963 HEPATITIS C SCREENING 1971 LIPID 1988 AORTIC ANEURYSM SCREENING 2018 (SYSTEM ASSIGNED) FALL RISK ASSESSMENT 2018 MEDICARE ANNUAL WELLNESS 2018 VISIT PHQ-2 (once per calendar 03/05/2021 year) DTAP/TDAP/TD IMMUNIZATION 08/02/2021 08/03/2011 (2 - Td or Tdap) INFLUENZA VACCINE (#1) 2021 11/30/2020, 11/26/2019, 12/04/2018, Additional history exists HEPATITIS B IMMUNIZATION Aged Out 06/08/2004, 06/08/2004, No longer eligible 12/24/2003, Additional based on patient's age history exists to complete this topic Pneumococcal Vaccine: 65+ Completed 06/14/2020, 01/23/2019 , Years 12/29/1999 COVID-19 Vaccine Completed 06/21/2021, 01/02/2021, 05/29/2020, Additional history exists ZOSTER IMMUNIZATION Completed 10/04/2021, 05/03/2021 IPV IMMUNIZATION Aged Out No longer eligi ble based on patient 's age to complete this topic MENINGITIS IMMUNIZATION Aged Out No longe r eligible based on patient 's age to complete this topic Procedures Procedure Name Priority Date/Time Associated Comments Diagnosis GLUCOSE BY METER Routine 10/10/2021 12:14 Results for this PM CDT procedure are i n the results section. ANE AIRWAY Routine 10/10/2021 10:35 Results for this SUPRAGLOTTIC AM CDT procedure are i n PERFORMABLE the results section. HYDROCELECTOMY, 10/10/2021 9:56 AM Hydrocele of testis SCROTAL APPROACH CDT GLUCOSE BY METER Routine 10/10/2021 9:45 AM Resul ts for this CDT procedure are i n the results section. COVID-19 VIRUS STAT 10/10/2021 8:50 AM Results for this (CORONAVIRUS) BY PCR CDT procedu re are in the results section. CREATININE (EXTERNAL Routine 10/07/2021 9:03 AM R esults for this RESULT) CDT procedure are i n the results section. GLUCOSE (EXTERNAL Routine 10/07/2021 9:03 AM Resu lts for this RESULT) CDT procedure are i n the results section. POTASSIUM (EXTERNAL Routine 10/07/2021 9:03 AM Re sults for this RESULT) CDT procedure are i n the results section. LAB RESULT - HIM SCAN 10/07/2021 12:00 AM CDT from Last 3 Months Results Glucose by meter (10/10/2021 12:14 PM CDT)Only the most recent of2 resultswithin the time period is included. P athologist Signature GLUCOSE BY 88 70 - 99 10/10/2021 LABORATORY METER POCT mg/dL 12:21 PM CDT POC Specimen (Source) Anatomical Collection Method Collection Time Re ceived Time Location / / Volume Laterality Blood, Capillary BLOOD SPECIMEN / 10/10/2021 12:14 10/2021 Unknown PM CDT 12:21 PM CDT Daryl Barraza MD LAB - BEAKER POCT Performing Organization Address City/State/ZIP Code Phon e Number LABORATORY [place] [facility] [address] Care Lab [address] 1[address] floor, Room 20B ANE AIRWAY SUPRAGLOTTIC PERFORMABLE (10/10/2021 10:35 AM CDT) Narrative Angelica Ash APRN CRNA - 10/10/2021 10:35 AM CDT Angelica Ash APRN CRNA ? 10/10/2021 10:35 AM Airway Staff - ? Anesthesiologist: ??Stew Hsu MD ? APPRENTICE EMBALMER: Angelica Ash APRN CRNA ? Performed By: APPRENTICE EMBALMER Consent for Airway ? Urgency: elective Indications [...] Dentition: Intact and Unchanged Stew Hsu MD DE ANESTHESIA Asymptomatic COVID-19 Virus (Coronavirus) by PCR Nasopharyngeal [...] the Xpert Xpress SARS-CoV-2 Assay on the [employer]. A dditional information about this [...] COVID-19. This test was validated by the [facility]. This laboratory is certified under the Clinical Laboratory Improvement Amendments of 1988 (CLIA-88) as qualified to perform high complexity laboratory testing. Daryl Barraza MD LAB - MICRO GENERAL ORDERABL ES Performing Organization Address City/State/ZIP Code Phon e Number LABORATORY [facility] [place] [address] Care Lab [address] 1[address] floor, Room [address]B Potassium (External Result) (10/07/2021 9:03 AM CDT) P athologist Signature Potassium 4.9 3.6 - 5.1 [facility] (External) mmol/L [facility] Specimen (Source) Anatomical Collection Method Collection Time Re ceived Time Location / / Volume Laterality Blood 10/07/2021 9:03 AM CDT [facility] - 10/07/2021 9:03 AM CDT LAB RESULTS [facility] ICS Provider Outside LAB - HIM EXTERNAL RESULT Performing Organization Address [facility]/ZIP Code Phon e Number [facility] [address] [place], [place] [address] [place] (ABNORMAL) Glucose (External Result) (10/07/2021 9:03 AM CDT) athologist Signature Glucose 165 (A) 60 - 115 [facility] (External) mg/dL [facility] Specimen (Source) Anatomical Collection Method Collection Time Re ceived Time Location / / Volume Laterality Blood 10/07/2021 9:03 AM CDT [facility] - 10/07/2021 9:03 AM CDT LAB RESULTS [facility] Provider Outside LAB - HIM EXTERNAL RESULT Performing Organization Address [facility]/ZIP [facility] Phon e Number [facility] [address] [place], [place] [address] [place] Creatinine (External Result) (10/07/2021 9:03 AM CDT) P athologist Signature Creatinine 1.0 0.5 - 1.5 [facility] (External) mg/dL [facility] Specimen (Source) Anatomical Collection Method Collection Time Re ceived Time Location / / Volume Laterality Blood 10/07/2021 9:03 AM CDT [facility] - 10/07/2021 9:03 AM CDT LAB RESULTS [facility] Provider Outside LAB - HIM EXTERNAL RESULT Performing Organization Address City/[facility]/ZIP [facility] Phon e Number [facility] [address] [place], [place] [address] [place] LAB RESULT - HIM SCAN (10/07/2021 12:00 AM CDT) Specimen (Source) Anatomical Location Collection Method / Collectio n Time Received Time / Laterality Volume 10/07/2021 Narrative This result has an attachment that is no t available. Provider Outside MH NON-BEAKER LAB TESTING from Last 3 Months Insurance Payer Benefit Plan / Subscriber ID Effective Phone Address T ype Group Dates BCBS BCBS UMKUMIUT [id number] 2018-Prese [phone] [address] [address] PPO BLUE nt 00 [place] [id number] MEDICARE MEDICARE FOR HB [id number] 2018-Prese [phone] ATTN CLAIMS Medicare SUPPLEMENT nt 40 [address] [place] [address] (Home) [place] [id number] [place] [employer] [phone] (Home) [place] [phone] (Work) Care Teams General Production Manager Relationship Specialty Start Date End Date No Ref-Primary, Physician PCP - General 10/10/21
--- OUTSIDE RECORDS SUMMARY | 2021-11-24 08:45 | XMS_ITS | Encounter Summary ---
:1955 Author Organization [facility] Address [address] [place] [address]. [place] [address] Care Team Providers Name Role Phone No Ref-Primary, Physician Primary Care Provider [phone] Reason for Visit Auth/Cert Specialty Diagnoses / Procedures Referred By Contact Refer red To Contact Surgery Diagnoses Hydrocele of testis Hydrocele of testis [N43.3] Periop Services Procedures HC REMV HYDROCELE,SPERM CORD,UNILAT RIGHT HYDROCELECTOMY [address] [place] [address] Phone: Referral ID Status Reason Start Date Expiration Date Visits Requ ested Visits Authorized [id number] 1 1 Encounter Details Date Type Department Care Team Description 10/10/[address] [facility] Daryl Barraza R IGHT HYDROCELECTOMY [facility] PeriOP MD Services [facility] [address] [place] [address] [place] [address] [phone] Surgery Details Date/Time Status Location OR Service Patient Case Class Case Tr auma Class Type Case? 10/10/21 10:10 Posted OR OR 30 Urology Same Day AM Surgery Panel 1 Procedure LRB Anes Op Region Wound Class Commen ts RIGHT HYDROCELECTOMY Right General Groin I-Clean Surgeon Surgeon Role Service Panel Daryl Barraza MD Primary Urology 1 documented in this encounter Social History [...] Sign Reading Time Taken Comments Blood Pressure 150/84 10/10/2021 12:00 PM CDT Pulse 82 10/10/2021 12:00 PM CDT Temperature 36.4 ??C (97.5 ??F) 10/10/2021 11:32 AM CDT Respiratory Rate 16 10/10/2021 12:00 PM CDT Oxygen Saturation 98% 10/10/2021 12:00 PM CDT Inhaled Oxygen Concentration - - [...] Following: Chest pain or trouble breathing (call 911) Fever of 100.4??F or higher Symptoms of [...] about your procedure, call Dr. Barraza at [phone] AttachmentsThe following attachments cannot be sent through Care Everywhere. Hydrocele Surgery (Hydrocelectomy) (British)documented in this encounter Medications at Time of [...] (243 lb 9.6 oz). Source Note - Dolores, Provider - 10/10/2021 6:47 AM CDT documented in [...] old SSN: [id number] SURGEON Daryl Barraza MD Forensic Pathologist: Angelica Barfield RN; Nikole Banks RN Relief Scrub: Kathy Arzate [...] condition. There he was transferred from his [facility] to the operative table placed in [...] anesthesia before being transferred back to his [facility] and discharged to the postanesthesia care unit in stablecondition. PLAN Patient to be discharged home will follow up with me in 4 to 6 weeks for postoperative evaluation. Daryl Barraza MD [facility] Pager: [phone] Office: [phone] Surgical [phone] documented in this encounter Plan of Treatment [...] Unknown PM CDT 12:21 PM CDT Daryl FLORES - AdTotumDAVIDSON POCT Performing Organization Address City/State/ZIP Code Phon e Number LABORATORY POC [facility] [place] [address] Care Lab [address] 1[address] floor, Room 20B (ABNORMAL) Glucose by meter (10/10/2021 9:45 AM CDT) athologist Signature GLUCOSE BY 115 (H) 70 - 99 10/10/2021 LABORATORY METER POCT mg/dL 9:52 AM CDT POC Specimen Anatomical Collection Method Collection Time Receive d Time (Source) Location / / Volume Laterality Blood, venous BLOOD SPECIMEN / 10/10/2021 9:45 AM 08/0 10/2021 9:52 Unknown CDT AM CDT Daryl Amaya BEDAVIDSON POCT Performing Organization Address City/State/ZIP Code Phon e Number LABORATORY POC [facility] [place] [address] Care Lab [address] [...] the Xpert Xpress SARS-CoV-2 Assay on the [employer]. A dditional information about this [...] COVID-19. This test was validated by the [facility]. This laboratory is certified under the Clinical Laboratory Improvement Amendments of 1988 (CLIA-88) as qualified to perform high complexity laboratory testing. Daryl Barraza MD LAB - MICRO GENERAL ORDERABL ES Performing Organization Address City/State/ZIP Code Phon e Number LABORATORY [facility] [place] [address] Care Lab [address] 1[address] floor, Room [address]B LAB RESULT - HIM SCAN (10/07/2021 12:00 AM CDT) Specimen (Source) Anatomical Location Collection Method / Collectio n Time Received Time / Laterality Volume 10/07/2021 Narrative This result has an attachment that is no t available. Provider Outside NON-BEAKER LAB TESTING documented in this encounter Visit Diagnoses Diagnosis Hydrocele in adult - Primary Hydrocele of testis Hydrocele, unspecified documented in this encounter Administered Medications Inactive Administered Medications - up to 3 most recent administrations Medication Order MAR Action Action Date Dose Rate Site bupivacaine (MARCAINE) Given 10/10/2021 11:12 30 mLs Operative 0.25 % injection AM CDT Site/Surgical S ite PRN, Starting on Sun10/10/21 at 1112, Intra-procedure [...] to exceed 4 grams sodium chloride 0.9% Given 10/10/2021 10:40 AM 1,000 mLs Operative (bottle) irrigation CDT Site/Surgical S ite PRN, Starting on Sun10/10/21 at 1032, Intra-procedure documented in this encounter Active and Recently Administered Medications Times are shown in CDT. Scheduled Medication Order 10/08/2021 10/09/2021 10/10/2021 ceFAZolin Sodium (ANCEF) injection 2 g (COMPLETED) 1015 (Given - Provider: Angelica Ash APRN SHOPPER INSIGHTS MANAGER) Routine, 2 g, Intravenous, PRE-OP/PRE-CO OCEDURE, Starting on Sun10/10/21 at 0833, For 1 dose, Give first dose within 1 hour PRIOR to incision. If patient weight is greater than or equal to 120 kg increas e dose to 3 g., Indications: Perioperative Pharmacoprophylaxis, Pre-procedure Continuous Medication Order 10/08/2021 10/09/2021 10/10/2021 lactated ringers infusion (CANCELED) 1016 (New Bag - Provider: Angelica Ash APRN SHOPPER INSIGHTS MANAGER)1135 (New Bag - Provider: Angelica Ash APRN SHOPPER INSIGHTS MANAGER) at 100 mL/hr, Intravenous, CONTINUOUS, P re-procedure, [...] Intra-procedure documented in this encounter Care Teams Manager Plumbing Relationship Specialty Start Date End Date No Ref-Primary, Physician PCP - General 10/10/21 documented as of this encounter
--- OUTSIDE RECORDS SUMMARY | 2021-11-24 08:46 | XMS_ITS | Encounter Summary ---
:1955 Author Organization [facility] Address [address] [place] [address] Care Team Providers Name Role Phone Karma Philip APRN, C.N.P. Primary Care Provider [phone] Reason for Visit Reason Comments Diabetes Check Outpatient (Routine) - Closed Specialty Diagnoses / Procedures Referred By Contact Refer red To Contact Family Medicine Diagnoses Diabetes Mellitus Type 2 (HCC) Retirement Use Of Insulin Active (HCC) Hypertension Essential Primary Hyperlipidemia Mixed Karma Philip APRN, [facility] C.N.P. [address] [place] [address] Referral ID Status Reason Start Date Expiration Date Visits Requ ested Visits Authorized [id number] Closed 02/12/2019 02/12/2020 1 1 Encounter Details Date Type Department Care Team Description 11/24/2019 Office Visit Department of Family Karma Philip Dia betes Mellitus Type 2 (HCC); Medicine, [place] AURELIO, C.N.P. Skip Load Driver Use Of Insulin Active (HCC); Clinic, in [place], [address] Hypertension Essential Primary; [place], [place] Hyperlipidemia Mixed [address] [address] [place], [place] [phone] [address] (Work) [phone] Social History Tobacco Use Types Packs/Day Years [...] week 06/23/2020 How often do you attend orthodoxy or latter-day services? Never 06/23/2020 Do you belong to any clubs or organizations such as orthodoxy N o 06/23/2020 groups, unions, fraternal or [...] place to sleep or slept in a nursing home (including now)? Education Answer Date Recorded What is the highest level of school Master's degree (e.g., M Lola, MS, 08/09/2018 you have completed or the highest Mookie, MEd, ASSET ACCOUNTANT, STEPHANIE) degree you have received? 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 - 11/24/2019 8:30 AM CDT Images from the original note were not included. Patient Education Common Questions & Answers About Diabetes and Nutrition Q: Is it true that I have to eat specific foods or follow a ???diabetic diet?? ? A: No. There is no ???diabetic diet?? or a specific diet that everyone with diabetes needs to follow. The best food choices and meal plans for you depend on your diabetes medication program and your lifestyle. A dietitian can help you make the best plan for you. Q: Are ALL carbohydrates bad for me? A: No. Your body needs carbohydrates for energy. To get a balance of nutrients, everyone is encouraged to eat some amount of carbohydrate at each meal. Carbohydrates are found in all starches, such as bread and cereal, potatoes, pasta and rice, plus milk, yogurt, fruit, and sweets. If you eat too many carbohydrates at one time, your blood sugar may go too high. The quinteros is to choose healthy carbohydrates and eat them in proper serving sizes, at consistent times. Q: My mother was diagnosed with diabetes 30 years ago. She was told then that she shouldn???t eat sugar or sweets of any kind. Is that true for me too? A: That???s not entirely true. You can still eat sugar and sweets in moderation. But everyone, whether they have diabetes or not, should be careful about how much and how often they eat sugar and sweets. Although our body uses sugars in basically the same way, a banana (which has natural sugar) and a brownie are very different types of food. The banana is a heart-healthy food that gives you nutrients, which the brownie does not do. If you choose to eat sugar in food other than dairy or fruit, keep the portion small or eat it on rare occasions. Research has advanced a lot on this topic in the past 20-plus years. How you manage your diabetes --healthy eating, exercise, medication, insulin -- affects your overall eating plan. This may be different for each person and it may globe changer time. Check with your care team, including a dietitian, often to ensure that you have current information. Q: If I avoid all white foods, such as breads, potatoes and rice, will this control my blood sugar? A: No. Avoiding a certain food type will not control your blood sugar. Many foods have carbohydrates. And chances are high that you???ll eat some of those during your typical day. This is okay. Regardless of the type of carbohydrate, when you choose healthy foods and eat them in proper serving sizes at consistent times, you are doing your best to help control your blood sugar. Q: Protein and fat don???t raise blood sugar like carbohydrates do. Does this mean I can eat as muchas I want of those foods? A: No. Protein and fat don???t have the same effect on blood sugar that carbohydrates do. But like many foods, eating too much can cause weight gain and other health problems. Also, if you eat a lot ofprotein and fat and very little carbohydrates, you may not get enough of the important nutrients that come from carbohydrate foods, such as fiber, vitamins and minerals. Q: Can beverages raise my blood sugar? A: Yes. All beverages with calories and sugar will raise your blood sugar. Be careful with portions.To best manage your blood sugar, you should avoid or limit your intake of regular pop/soda, fruit juice (even 100% juice), sugar-sweetened lemonade and tea, all forms of alcohol, and specialty coffee drinks (lattes, cappuccinos, frappuccinos, etc.). Even a healthy drink, like low-fat or fat-free milk,can raise blood sugar too high if your serving is too big. Q: I heard that I???m not supposed to drink diet soda and eat foods that have artificial sweeteners.What can you tell me about that? A: You can eat and drink foods and beverages with artificial sweeteners. The sweeteners used today in commercial products have been approved to eat and drink by the U.S. Food and Drug Administration. Artificial sweeteners do not raise blood sugar. Q: Am I supposed to eat ???sugar-free?? foods? A: This depends. Some ???diet?? or ???sugar-free?? foods, such as diet soda and sugar-free gelatin, do not raise blood sugar like the regular versions because most of the sugar and calories have beenreplaced with artificial sweetener. But some sugar-free foods -- including cookies, cake, pie, ice cream, candy, and other sweets -- still have calories, fat and carbohydrates that do affect your bloodsugar. No matter what the ingredients and nutrients are, sweets are meant to be special treats. Avoid eating them often. When you do have them, limit the amount you eat. Q: Now that I have diabetes, do I have to eat snacks to control blood sugar? A: No. Most people are encouraged to eat 3 balanced meals at regular times. If you follow this guideline, you are less likely to want to snack. Common reasons people eat snacks: ?? They skipped meals or have irregular eating times. ?? They don???t eat balanced meals. ?? They are bored. ?? It???s a habit. Triggers such as watching TV or drinking alcohol may prompt snacking. If you snack for any of these reasons, consider eating only at mealtimes. This may help you better control your weight and blood sugar. If you believe that having a snack helps you avoid over-eating during meals, choose one that???s healthy and fairly low in calories, such as vegetables. Q: Do I need to buy ???diabetic?? cookbooks and use ???diabetic?? recipes? A: No, not necessarily. You should choose heart-healthy recipes as much as possible because people with diabetes are at higher risk of cardiovascular disease. You may also choose cookbooks that have low-fat recipes or ???diabetes- friendly?? recipes. But remember to pay attention to the serving sizes.The amount of food you eat relates directly to your blood sugar control. And the type of food you eat relates to your heart health. Note: If the heart-healthy recipes need a boost of flavor, explore some new seasonings. Use herbs and spices for flavor rather than salt, fat or sugar. Other nutrition tips to consider ?? Meet with a dietitian. A dietitian can help you make healthier food choices, identify the servingsize you need, and help you meet your health and weight goals. ?? Write down what you eat. Sometimes writing down what you eat and drink can show you how much or how little you???re eating. Maybe you tend to reach for crackers every night or don???t realize that you only eat 1 piece of fruit per week. ?? Follow the ???plate method.?? The plate method is a tool to help you decide how much of each type of food to eat at each meal. (See image.) Think about a typical dinner plate like a angoon. It should include: ? Protein for one-quarter (1/4) of the plate. ? A starch for one-quarter (1/4) of the plate. ? Vegetables for the rest (1/2) of the plate -- as much as you need to feel ???full.?? ? Fruit and milk (or yogurt) may be added as well. This method is a simple way to help you eat a well-balanced meal using proper serving sizes. This material is for your education and information only. This content does not replace medical advice, diagnosis or treatment. New medical research may change this information. If you have questions about a medical condition, always talk with your health care provider. ? 2016 [facility] Medical Education and Research ([facility]). All rights reserved. [id number] documented in this encounter Progress Notes Karma Philip APRN, C.N.P. - 11/24/2019 8:30 AM CDT SUBJECTIVE CHIEF COMPLAINT: Chief Complaint Patient presents with ??? Diabetes Check HISTORY OF PRESENT ILLNESS: Hugh is here for diabetes recheck. Labs were drawn November 20. A1c stable at 7.3. He is currently on metformin 2000 mg daily, glimepiride 8 mg before breakfast and Lantus insulin 40 units before bed.He has experienced no hypoglycemia. Blood pressure stable on losartan 50 mg daily. Lipids are stableon atorvastatin 20 mg daily and gemfibrozil 600 mg twice daily without adverse effects. REVIEW OF SYSTEMS: Respiratory: Positive for dyspnea. Cardiovascular: Positive for shortness of breath when lying flat. Musculoskeletal: Positive for arthralgias and pain or stiffness in the joints. The following systems were negative: Constitutional, Skin, Eyes, ENT, GI, , Hematologic, Neuro, Psych The following portions of the patient's history were reviewed and updated as appropriate: allergies,current medications, family history, medical history, social history, surgical history and problem list. ALLERGIES: No Known Allergies MEDICATIONS: Current Outpatient Medications: ??? aspirin [address] tablet, Take 1 tablet by mouth daily. , Disp: , Rfl: ??? atorvastatin (LIPITOR) 20 mg tablet, Take 1 tablet (20 mg total) by mouth at bedtime., Disp: 90 tablet, Rfl: 3 ??? B complex-vitamins (BALANCE B-50) tablet, Take 1 tablet by mouth daily., Disp: , Rfl: ??? gemfibroziL (LOPID) 600 mg tablet, Take 1 tablet (600 mg total) by mouth 2 (two) times a day before breakfast and dinner., Disp: 180 tablet, Rfl: 3 ??? glimepiride (AMARYL) 4 mg tablet, Take 2 tablets (8 mg total) by mouth daily with breakfast., Disp: 180 tablet, Rfl: 3 ??? insulin glargine (Lantus Solostar U-100 Insulin) 100 unit/mL (3 mL) injection, Inject 40 Units under the skin at bedtime., Disp: 45 mL, Rfl: 3 ??? losartan (COZAAR) 50 mg tablet, Take 1 tablet (50 mg total) by mouth daily., Disp: 90 tablet, Rfl: 3 ??? metFORMIN XR (GLUCOPHAGE-XR) 500 mg 24 hr tablet, Take 4 tablets (2,000 mg total) by mouth dailywith breakfast., Disp: 360 tablet, Rfl: 3 ??? multivitamin (Daily Vitamin Formula) tablet, Take 1 tablet by mouth daily., Disp: , Rfl: OBJECTIVE LABS and DIAGNOSTICS: Results for orders placed or performed during the hospital encounter of 11/21/19 Albumin, Random, Urine Result Value Ref Range Microalbumin <7.0 mg/L Creatinine 104 mg/dL Albumin/Creatinine Ratio <7 <17 mg/g VITAL SIGNS: Temperature: [37 ??C] 37 ??C Resp Rate: [20] 20 Blood Pressure: (138)/(64-74) 138/74 Pulse Rate: [71] 71 PHYSICAL EXAM: General: In general, the patient is pleasant and appears stated age. Skin: Without lesion. Eyes: PERRLA. EOMI intact. Fundi sharp discs. Conjunctiva and lids normal. ENT: Tympanic membranes clear bilaterally. Nasal mucosa without erythema or congestion. Mouth without erythema or exudate. Lymph Nodes: Neck supple without adenopathy, no thyromegaly. Carotid pulses are equal bilaterally. Peripheral Vessels: Femoral, dorsal, pedal and posterior tibial pulses are equal. Heart: Regular rate and rhythm without murmur. Lungs: Clear to auscultation, good inspiratory effort. Abdomen: Soft, nontender, no palpable mass, no hepatosplenomegaly. Extremities: Warm, dry, no cyanosis or peripheral edema. Normal sensation tops and bottoms of feet with monofilament. Mental Status: Alert and oriented times three. Neurologic: Deep tendon reflexes are +2 and symmetrical. ASSESSMENT / PLAN #1 Diabetes Mellitus Type 2 (HCC) #2 Retirement Use Of Insulin Active (HCC) Overview: A1c stable at 7.3. Medication refills provided. Schedule dilated eye exam. Recheck A1c in 6 months. ROUTINE DIABETES CARE / DIABETES EDUCATION: Recommend a consistent carbohydrate diet and at least 30 minutes of daily exercise for healthy lifestyle. Standard diabetes management includes: Hemoglobin A1c checked every 3 months (every 6 months ifA1c is within target range); urine checked for microalbumin annually; annual dilated eye exam to scre en for diabetic retinopathy; and meticulous foot care. Your goal blood pressure less than 140/90. You should be on statin therapy and have an annual lipid profile. DM II (or NOS), uncontrolled Orders: - metFORMIN XR (GLUCOPHAGE-XR) 500 mg 24 hr tablet; Take 4 tablets (2,000 mg total) by mouth daily with breakfast., Starting Sun11/24/2019, Normal - glimepiride (AMARYL) 4 mg tablet; Take 2 tablets (8 mg total) by mouth daily with breakfast., Starting Sun11/24/2019, Normal Overview: Retirement Use Of Insulin Active Orders: - insulin glargine (Lantus Solostar U-100 Insulin) 100 unit/mL (3 mL) injection; Inject 40 Units under the skin at bedtime., Starting Sun11/24/2019, Normal #3 Hypertension Essential Primary Stable, no change in medications. Overview: Hypertension (HTN) Essential Primary NOS Orders: - losartan (COZAAR) 50 mg tablet; Take 1 tablet (50 mg total) by mouth daily., Starting Sun11/24/2019, Normal #4 Hyperlipidemia Mixed Continue atorvastatin 20 mg daily and gemfibrozil 600 mg twice daily. - atorvastatin (LIPITOR) 20 mg tablet; Take 1 tablet (20 mg total) by mouth at bedtime., Starting Sun11/24/2019, Normal - gemfibroziL (LOPID) 600 mg tablet; Take 1 tablet (600 mg total) by mouth 2 (two) times a day before breakfast and dinner., Starting Sun11/24/2019, Normal Other orders - Family Medicine office visit (clinic) Learning needs assessment was performed. No learning barriers were identified. Explained diagnosis and treatment plan. Patient expressed understanding and was able to teach back. HEALTH MAINTENANCE: Due for dilated eye exam. documented in this encounter Plan of Treatment Not on filedocumented as of this encounter Visit Diagnoses Diagnosis Diabetes Mellitus Type 2 (HCC) Retirement Use Of Insulin Active (HCC) Hypertension Essential Primary Hyperlipidemia Mixed documented in this encounter Care Teams Housing And Residence Life Director Relationship Specialty Start Date End Date Karma Philip APRN, C.N.P. PCP - General 08/17/[address] [place] [phone] documented as of this encounter
--- OUTSIDE RECORDS SUMMARY | 2021-11-24 08:46 | XMS_ITS | Encounter Summary ---
:1955 Author Organization [facility] Address [address] [place] [address] Care Team Providers Name Role Phone Karma Philip APRN, C.N.P. Primary Care Provider [phone] Encounter Details Date Type Department Care Team Description 12/29/2020 Orders Only [facility] Sa gregory Martell M.D. [address] [place], [place] [phone] (Wo rk) Social History Tobacco Use Types Packs/Day Years Used Date Smoking Tobacco: Never Smokeless Tobacco: Never Alcohol Habits Answer Date Recorded How often [...] do you talk on the phone T wice a week 06/23/2020 with family, friends, or neighbors? How often do you get together with friends or relatives? Onc e a week 06/23/2020 How often do you attend zoroastrianism or sabianist services? Never 06/23/2020 Do you belong to any clubs or organizations such as zoroastrianism N o 06/23/2020 groups, unions, fraternal or [...] place to sleep or slept in a senior care (including now)? Education Answer Date Recorded What is the highest level of school Master's degree (e.g., Ed Davila, , 08/09/2018 you have completed or the highest Mookie, Estefani, WET PROCESS MILLER, STEPHANIE) degree you have received? Sex Assigned at Date Recorded Male 02/12/2017 11:58 AM QUEBRACHO TANNER documented as of this encounter Plan of Treatment Not on filedocumented as of this encounter Visit Diagnoses Not on filedocumented in this encounter Care Teams Sustainable Communities Designer Relationship Specialty Start Date End Date Karma Philip, AURELIO, C.N.P. PCP - General 08/17/16 [address], [place] [address] documented as of this encounter
--- OUTSIDE RECORDS SUMMARY | 2021-11-24 08:46 | XMS_ITS | Encounter Summary ---
:1955 Author Organization [facility] Address [address] [place] [address] Care Team Providers Name Role Phone Karma Philip APRN, C.N.P. Primary Care Provider [phone] Encounter Details Date Type Department Care Team Description 11/09/2020 Orders Only [facility] [place] Karma Philip D iabetes Mellitus Type AURELIO, C.N.P. 2 ([facility]) [address] [place] [address] Social History Tobacco Use Types Packs/Day Years [...] week 06/23/2020 How often do you attend yazdanism or anglican services? Never 06/23/2020 Do you belong to any clubs or organizations such as yazdanism N o 06/23/2020 groups, unions, fraternal or [...] place to sleep or slept in a correction (including now)? Education Answer Date Recorded What is the highest level of school Master's degree (e.g., Ed Davila, MS, 08/09/2018 you have completed or the highest Mookie, MEd, MOBILE SERVICE RV TECHNICIAN, STEPHANIE) degree you have received? Sex Assigned at Date Recorded Male 02/12/2017 11:58 AM SKI BASE TRIMMER documented as of this encounter Plan of Treatment Not on filedocumented as of this encounter Visit Diagnoses Diagnosis Diabetes Mellitus Type 2 (HCC) documented in this encounter Care Teams Forestry Technician Relationship Specialty Start Date End Date Karma Philip, AURELIO, C.N.P. PCP - General 08/17/16 [address] [place] [phone] documented as of this encounter
--- OUTSIDE RECORDS SUMMARY | 2021-11-24 08:46 | XMS_ITS | Encounter Summary ---
:[address] [facility] Address [address] [place] [address] Care Team Providers Name Role Phone Karma Philip APRN C.N.PFrederick Primary Care Provider [phone] Reason for Referral Outpatient (Routine) - Authorized Specialty Diagnoses / Procedures Referred By Contact Refer red To Contact Urology Diagnoses Hydrocele Kary Sims C.N.PFrederick [facility] [address] [place], [place] [address] Referral ID Status Reason Start Date Expiration Date Visits V isits Requested Authorized [id number] Authorized 06/30/2021 06/30/2022 1 1 Encounter Details Date Type Department Care Team Description 06/30/2021 [facility] Kary Sims (Primary AND CLINICS Ed, C.N.P. Dx) [address] [place] [address] [place] [address] [phone] Social History Tobacco Use Types Packs/Day Years [...] week 06/23/2020 How often do you attend mormon or shinto services? Never 06/23/2020 Do you belong to any clubs or organizations such as mormon N o 06/23/2020 groups, unions, fraternal or [...] place to sleep or slept in a group home (including now)? Education Answer Date Recorded What is the highest level of school Master's degree (e.g., M A, MS, 08/09/2018 you have completed or the highest Mookie, MEd, SUPERVISOR PROPELLANT CHARGE LOADING, STEPHANIE) degree you have received? 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 PCP - General 08/17/16 [address], [place] [phone] documented as of this encounter
--- OUTSIDE RECORDS SUMMARY | 2021-11-24 08:46 | XMS_ITS | Encounter Summary ---
:1955 Author Organization [facility] Address [address] [place] [address] Care Team Providers Name Role Phone Karma Philip APRN, C.N.P. Primary Care Provider [phone] Encounter Details Date Type Department Care Team Description 11/21/2019 Hospital Encounter Department of Karma Philip s Mellitus Type 2 (HCC); Laboratory Medicine AURELIO Odonnell, C.N .PFrederick Hypertension Essential Primary; in [place], [address] [place], [place] [address] [facility] [address] [place], [place] [phone] [address] (Work) [phone] Social History Tobacco Use Types Packs/Day Years [...] week 06/23/2020 How often do you attend druze or alevism services? Never 06/23/2020 Do you belong to any clubs or organizations such as druze N o 06/23/2020 groups, unions, fraternal or [...] have completed or the highest Mookie, MEd, SEAPORT PLANNING MANAGER, STEPHANIE) degree you have received? 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 B complex-vitamins Take 1 tablet by 0 (BALANCE B-50) tablet mouth daily. multivitamin (Daily Take 1 tablet by 0 Vitamin Formula) tablet mouth daily. atorvastatin (LIPITOR) 20 Take 1 tablet (20 90 tablet 3 04/201811/24/2019 mg tabletIndications: mg total) by mouth Hyperlipidemia Mixed at bedtime. gemfibrozil (LOPID) 600 Take 1 tablet (600 180 tablet 3 04/201811/24/2019 mg tabletIndications: mg total) by mouth Diabetes Mellitus Type 2 2 (two) times a day (HCC) before breakfast and dinner. glimepiride (AMARYL) 4 mg TAKE 2 TABLETS BY 180 tablet 3 11/24/2019 tabletIndications: MOUTH EVERY DAY Diabetes Mellitus Type 2 WITH BREAKFAST (HCC) insulin glargine (Lantus Inject 40 Units 45 mL 3 201811/24/2019 Solostar U-100 Insulin) under the skin at 100 unit/mL (3 mL) bedtime. injectionIndications: Breastfeeding Peer Counselor Use Of Insulin Active (HCC) losartan (COZAAR) 50 mg Take 1 tablet (50 90 tablet 3 11/0411/24/2019 tabletIndications: mg total) by mouth Hypertension Essential daily. Primary metFORMIN XR Take 4 tablets 120 tablet 0 10/21/2019 11/24/19 20 (GLUCOPHAGE-XR) 500 mg 24 (2,000 mg total) by hr tabletIndications: mouth daily with Diabetes Mellitus Type 2 breakfast. (HCC) documented as of this encounter Plan of Treatment Not on filedocumented as of this encounter Procedures Procedure Name Priority Date/Time Associated Diagnosis Comme nts LIPID PANEL, S Routine 11/21/2019 8:19 Hyperlipidemia Mixed Re sults for this AM CDT procedure are i n the results section. ASPARTATE Routine 11/21/2019 8:19 Hyperlipidemia Mixed Resu lts for this AMINOTRANSFERASE (AST), AM CDT proc edure are in S/P the results section. HEMOGLOBIN A1C, B Routine 11/21/2019 8:19 Diabetes Mellitus Re sults for this AM CDT Type 2 (HCC) procedure are i n the results section. GLUCOSE, FASTING, S/P Routine 11/21/2019 8:19 Diabetes Mellitu s Results for this AM CDT Type 2 (HCC) procedure are i n the results section. BASIC METABOLIC PANEL, Routine 11/21/2019 8:19 Hypertension Re sults for this S/P AM CDT Essential Primary procedure are in the results section. documented in this encounter Results AST (Aspartate Aminotransferase) (11/21/2019 8:19 AM CDT) Patholo gist Method Time Signature Aspartate 26 8 - 48 11/21/2019 [facility] Aminotransferase U/L 11:09 AM CDT (AST), P Specimen Anatomical Collection Method Collection Time Receive d Time (Source) Location / / Volume Laterality Blood (Blood, 11/21/2019 8:19 AM 11/21/19 20 Venous) CDT 10:33 AM CDT Karma Philip APRN CFrederickN.P. LAB BLOOD ADD-ON Performing Organization Address City/State/ZIP Code Phon e Number [facility] [address] [place] [address] [facility] [place] [address] System in [place] [address] (ABNORMAL) Lipid Panel (11/21/2019 8:19 AM CDT) P athologist Signature Cholesterol, 109 mg/dL 11/21/2019 [facility] Total 11:09 AM CDT Comment: ----REFERENCE VALUE---- Desirable: < 200 Borderline high: 200 - 239 High: > or = 240 Triglycerides 141 mg/dL 11/21/2019 11:09 AM CDT [facility] Comment: ----REFERENCE VALUE---- Normal: <150 Borderline high: 150-199 High: 200-499 Very high: > or =500 Cholesterol, HDL 36 (L) >=40 mg/dL 11/21/2019 11:09 AM CD T [facility] Calculated LDL 45 mg/dL 11/21/2019 11:09 AM CDT O JOAN Comment: ----REFERENCE VALUE---- Desirable: <100 Above Desirable: 100-129 Borderline high: 130-159 High: 160-189 Very high: > or =190 Cholesterol, Non-HDL, Calculated 73 mg/dL 020 11:09 AM CDT [facility] Comment: ----REFERENCE VALUE---- Desirable: <130 Above Desirable: 130-159 Borderline high: 160-189 High: 190-219 Very high: > or =220 Specimen Anatomical Collection Method Collection Time Receive d Time (Source) Location / / Volume Laterality Blood (Blood, 11/21/2019 8:19 AM 11/21/19 20 Venous) CDT 10:33 AM CDT Karma Philip APRN, C.N.P. LAB BLOOD ADD-ON Performing Organization Address City/State/ZIP Code Phon e Number [facility]- [address] [place] [address] [facility] [place] [address] System in [place] [address] [facility] (ABNORMAL) Glucose, Fasting (11/21/2019 8:19 AM CDT) P athologist Signature Glucose, P 145 (H) 70 - 100 11/21/2019 [facility] mg/dL 11:13 AM CDT Last Intake 14 hr 11/21/2019 [facility] 10:31 AM CDT Specimen Anatomical Collection Method Collection Time Receive d Time (Source) Location / / Volume Laterality Blood (Blood, 11/21/2019 8:19 AM 11/21/19 20 Venous) CDT 10:31 AM CDT Karma Philip APRN, C.N.P. LAB BLOOD NON ADD-ON Performing Organization Address City/State/ZIP Code Phon e Number [facility]- [address] [place] [address] [facility] [place] [address] System in [place] [address] Basic Metabolic Panel (11/21/2019 8:19 AM CDT) P athologist Signature Potassium, P 4.4 3.6 - 5.2 11/21/2019 [facility] mmol/L 11:09 AM CDT Sodium, P 141 135 - 145 11/21/2019 [facility] mmol/L 11:09 AM CDT Chloride, P 105 98 - 107 11/21/2019 [facility] mmol/L 11:09 AM CDT Bicarbonate, P 26 22 - 29 11/21/2019 [facility] mmol/L 11:09 AM CDT Anion Gap, P 10 7 - 15 11/21/2019 [facility] 11:09 AM CDT BUN (Blood Urea 15 8 - 24 11/21/2019 [facility] Nitrogen), P mg/dL 11:09 AM CDT Creatinine 0.83 0.74 - 11/21/2019 [facility] 1.35 mg/dL 11:09 AM CDT eGFR-Black/Afric >90 >=60 11/21/[address] [place] mL/min/BSA 11:09 AM CDT Comment: ----ADDITIONAL INFORMATION---- Estimated GFR calculated using the 2009 CKD_EPI creatinine equation. eGFR Non-Black/ >90 >=60 mL/min/BSA 11/21/2019 11:09 AM CDT [facility] Comment: ----ADDITIONAL INFORMATION---- Estimated GFR calculated using the 2009 CKD_EPI creatinine equation. Calcium, Total, P 9.2 8.8 - 10.2 mg/dL 11/21/2019 11:0 9 AM CDT [facility] Glucose, P CANCELED mg/dL 11/21/2019 10:33 AM CDT [facility] Comment: Test not performed. See Fasting Glucose result. Result canceled by the ancillary. Specimen Anatomical Collection Method Collection Time Receive d Time (Source) Location / / Volume Laterality Blood (Blood, 11/21/2019 8:19 AM 11/21/19 20 Venous) CDT 10:33 AM CDT Karma Philip APRN, C.N.P. LAB BLOOD ADD-ON Performing Organization Address City/State/ZIP Code Phon e Number [facility]- [address] [place] [address] [place] [address] System in [place] [address] (ABNORMAL) Hemoglobin A1c (11/21/2019 8:19 AM CDT) P athologist Signature Hemoglobin A1c, 7.3 (H) 4.2 - 5.6 11/21/2019 [facility] B % 10:54 AM CDT Comment: Hemoglobin A1c values greater than or eq ual to 6.5 percent are diagnostic for diabetes mellitus. ?? Diagnosis should be confirmed by repeat testing. ??In diabet ic patients, HbA1c goals should be discussed with healthcar e provider. Specimen Anatomical Collection Method Collection Time Receive d Time (Source) Location / / Volume Laterality Blood (Blood, 11/21/2019 8:19 AM 11/21/19 20 Venous) CDT 10:33 AM CDT Karma Philip APRN, C.N.P. LAB BLOOD ADD-ON Performing Organization Address City/State/ZIP Code Phon e Number [facility]- [address] [place] [address] [place] [address] System in [place] [address] [facility] documented in this encounter Visit Diagnoses Diagnosis Diabetes Mellitus Type 2 (HCC) Hypertension Essential Primary Hyperlipidemia Mixed documented in this encounter Care Teams Pony Worker Relationship Specialty Start Date End Date Karma Philip APRN, C.N.P. PCP - General 08/17/[address] [place] [address] documented as of this encounter
--- OUTSIDE RECORDS SUMMARY | 2021-11-24 08:46 | XMS_ITS | Encounter Summary ---
:1955 Author Organization [facility] Address [address] [place] [address] Care Team Providers Name Role Phone Karma Philip APRN, C.N.P. Primary Care Provider [phone] Encounter Details Date Type Department Care Team Description 05/18/2020 Hospital Encounter Department of Karma Philip s Mellitus Type 2 (HCC); Laboratory Medicine AURELIO Odonnell, C.N .PFrederick Screening Examination Prostate Cancer in [address] [address] [place], [place] [phone] [address] (Work) [phone] Social History Tobacco Use Types Packs/Day Years [...] week 06/23/2020 How often do you attend protestant or anabaptist services? Never 06/23/2020 Do you belong to any clubs or organizations such as protestant N o 06/23/2020 groups, unions, fraternal or [...] place to sleep or slept in a fpc (including now)? Education Answer Date Recorded What is the highest level of school Master's degree (e.g., M A, MS, 08/09/2018 you have completed or the highest Mookie, MEd, DUMPER MOLD CLEANER, STEPHANIE) degree you have received? 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 gemfibroziL (LOPID) 600 Take 1 tablet (600 180 tablet 3 11/0410/19/2020 mg tabletIndications: mg total) by mouth Diabetes Mellitus Type 2 2 (two) times a day (HCC) before breakfast and dinner. glimepiride (AMARYL) 4 mg Take 2 tablets (8 180 tablet 3 10/19/2020 tabletIndications: mg total) by mouth Diabetes Mellitus Type 2 daily with (HCC) breakfast. Lantus Solostar U-100 INJECT 40 UNITS 30 mL 3 1 01/11/2021 Insulin 100 unit/mL (3 UNDER THE SKIN AT mL) injectionIndications: BEDTIME Diabetes Mellitus Type 2 (HCC), Fpc Use Of Insulin Active (HCC) losartan (COZAAR) 50 mg Take 1 tablet (50 90 tablet 3 11/2305/20/2020 tabletIndications: mg total) by mouth Hypertension Essential daily. Primary metFORMIN XR Take 4 tablets 360 tablet 3 11/24/2019 10/20/19 21 (GLUCOPHAGE-XR) 500 mg 24 (2,000 mg total) by hr tabletIndications: mouth daily with Diabetes Mellitus Type 2 breakfast. (HCC) documented as of this encounter Miscellaneous Notes Result Encounter Note - Karma Philip APRN, C.N.P. - 05/18/2020 7:20 PM CDT A1c has improved. We will discuss results at your upcoming appointment. documented in this encounter Plan of Treatment Not on filedocumented as of this encounter Procedures Procedure Name Priority Date/Time Associated Diagnosis Comme nts PROSTATE-SPECIFIC AG Routine 05/18/2020 3:04 PM Screening R esults for this (PSA) SCRN, S CDT Examination Prostate proced ure are in Cancer the results section. HEMOGLOBIN A1C, B Routine 05/18/2020 3:04 PM Diabetes Mellitus Results for this CDT Type 2 (HCC) procedure are i n the results section. documented in this encounter Results PSA (Prostate-Specific Antigen) Screen (05/18/2020 3:04 PM CDT) P athologist Signature Prostate-Specif 3.2 <=4.5 ng/mL 05/18/2020 [facility] ic Ag 6:35 PM CDT Comment: Biotin has been identified by the mili garcia as a potential interfering substance. ??Higher concentr ations of biotin may be found in multivitamins, hair/nail supple ments, and workout supplements. ??If the result does not ma [facility] clinical observations, repeat testing after patient refrains fr om the use of supplements for at least 12 hours. ----ADDITIONAL INFORMATION---- The testing method is an electrochemilum inescence assay manufactured by [employer] and performed on the Modular or Tea system . Values obtained with different assay met hods or kits may be different and cannot be used inte rchangeably. Test results cannot be interpreted as ab solute evidence for the presence or absence of malignant disease. Specimen Anatomical Collection Method Collection Time Receive d Time (Source) Location / / Volume Laterality Blood (Blood, 05/18/2020 3:04 PM 05/19/19 21 5:59 Venous) CDT PM CDT Karma Philip APRN, C.N.P. LAB BLOOD ADD-ON Performing Organization Address City/State/ZIP Code Phon e Number [facility]- [address] [place] [address] [place] [address] System in [place] [address] (ABNORMAL) Hemoglobin A1c (05/18/2020 3:04 PM CDT) P athologist Signature Hemoglobin A1c, 6.8 (H) 4.2 - 5.6 05/18/2020 [facility] B % 6:26 PM CDT Comment: Hemoglobin A1c values greater than or eq ual to 6.5 percent are diagnostic for diabetes mellitus. ?? Diagnosis should be confirmed by repeat testing. ??In diabet ic patients, HbA1c goals should be discussed with healthcar e provider. Specimen Anatomical Collection Method Collection Time Receive d Time (Source) Location / / Volume Laterality Blood (Blood, 05/18/2020 3:04 PM 05/19/19 21 5:59 Venous) CDT PM CDT Karma Philip APRN, CFrederickN.P. LAB BLOOD ADD-ON Performing Organization Address City/State/ZIP Code Phon e Number [facility]- [address] [place] [address] [place] [address] System in [place] [address] [facility] documented in this encounter Visit Diagnoses Diagnosis Diabetes Mellitus Type 2 (HCC) Screening Examination Prostate Cancer documented in this encounter Care Teams Third Shift Lieutenant Relationship Specialty Start Date End Date Karma Philip APRN, C.N.P. PCP - General 08/17/[address] [place] [address] documented as of this encounter
--- OUTSIDE RECORDS SUMMARY | 2021-11-24 08:46 | XMS_ITS | Encounter Summary ---
:1955 Author Organization [facility] Address [address] [place] [address] Care Team Providers Name Role Phone Karma Philip APRN C.N.P. Primary Care Provider Encounter Details Date Type Department Care Team Description 11/18/2020 Hospital Encounter Department of Karma Philip s Mellitus Laboratory Medicine AURELIO Odonnell C.N .PFrederick Type 2 (HCC) in [address] [address] [place], [place] [phone] [address] (Work) [phone] Social History Tobacco Use Types Packs/Day Years [...] week 06/23/2020 How often do you attend taoist or scientologist services? Never 06/23/2020 Do you belong to any clubs or organizations such as taoist N o 06/23/2020 groups, unions, fraternal or [...] minutes do you engage in exercise at is 30 min 06/23/2020 level? Stress Answer [...] place to sleep or slept in a skilled nursing (including now)? Education Answer Date Recorded What is the highest level of school Master's degree (e.g., M A, MS, 08/09/2018 you have completed or the highest Mookie, MEd, HEARING EXAMINER, STEPHANIE) degree you have received? 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 atorvastatin (LIPITOR) TAKE 1 TABLET BY 90 tablet 3 021 20 mg tabletIndications: MOUTH AT BEDTIME Hyperlipidemia Mixed B complex-vitamins Take 1 tablet by 0 (BALANCE B-50) tablet mouth daily. gemfibroziL (LOPID) 600 TAKE 1 TABLET BY 180 tablet 3 2020 mg tabletIndications: MOUTH TWICE DAILY Diabetes Mellitus Type 2 BEFORE BREAKFAST AND ([facility]) DINNER glimepiride (AMARYL) 4 TAKE 2 TABLETS BY 180 tablet 3 2020 mg tabletIndications: MOUTH DAILY WITH Diabetes Mellitus Type 2 BREAKFAST ([facility]) metFORMIN XR TAKE 4 TABLETS BY 360 tablet 3 10/19/2020 (GLUCOPHAGE-XR) 500 mg MOUTH DAILY WITH 24 hr tabletIndications: BREAKFAST. GENERIC Diabetes Mellitus Type 2 EQUIVALENT FOR ([facility]) GLUCOPHAGE-XR multivitamin (Daily Take 1 tablet by 0 Vitamin Formula) tablet mouth daily. Lantus Solostar U-100 INJECT 40 UNITS 30 mL 3 1 01/11/2021 Insulin 100 unit/mL (3 UNDER THE SKIN AT mL) BEDTIME injectionIndications: Diabetes Mellitus Type 2 (HCC), Curing Finisher Use Of Insulin Active (HCC) losartan (COZAAR) 50 mg Take 1.5 tablets (75 135 tablet 3 01/11/2021 tabletIndications: mg total) by mouth Hypertension Essential daily. Primary documented as of this encounter Plan of Treatment Not on filedocumented as of this encounter Procedures Procedure Name Priority Date/Time Associated Diagnosis Comme nts ALBUMIN, RANDOM, U Routine 11/18/2020 10:03 AM Diabetes Mellit us Results for this CDT Type 2 (HCC) procedure are i n the results section. documented in this encounter Results Albumin, Random, Urine (11/18/2020 10:03 AM CDT) P athologist Signature Microalbumin <12.0 mg/L 11/18/2020 [facility] 1:49 PM CDT Comment: If clinically indicated, contac t the lab for additional testing. Creatinine 73 mg/dL 11/18/2020 1:49 PM CDT [facility] Albumin/Creatinine Ratio <16 <17 mg/g 11/18/2020 1:49 PM CDT [facility] Comment: This ratio may not correspond with the r eference range because one or both of the values used t o calculate the ratio was above or below the quantificat ion limits. Specimen Anatomical Collection Method Collection Time Receive d Time (Source) Location / / Volume Laterality Urine (Urine, 11/18/2020 10:03 11/18/2020 1:15 Clean Catch) AM CDT PM CDT Karma Philip APRN, C.N.P. LAB URINE ORDERABLES Performing Organization Address City/State/ZIP Code Phon e Number [facility]- [address] [place] [address] [place] [address] System in [place] [address] [facility] documented in this encounter Visit Diagnoses Diagnosis Diabetes Mellitus Type 2 (HCC) documented in this encounter Care Teams Iron Carrier Relationship Specialty Start Date End Date Karma Philip APRN, C.N.P. PCP - General 08/17/[address] [place] [address] documented as of this encounter
--- OUTSIDE RECORDS SUMMARY | 2021-11-24 08:46 | XMS_ITS | Encounter Summary ---
:1955 Author Organization [facility] Address [address] [place] [address] Care Team Providers Name Role Phone Karma Philip APRN, C.N.P. Primary Care Provider [phone] Reason for Visit Reason Comments Med Refill Encounter Details Date Type Department Care Team Description 01/10/2021 Refill Department of Family Medicine, [place] Philip APRN, Med Refill [facility], in [place], [place] [address] [address] [place] [address] [phone] Social History Tobacco Use Types Packs/Day Years [...] week 06/23/2020 How often do you attend adventist or temple services? Never 06/23/2020 Do you belong to any clubs or organizations such as adventist N o 06/23/2020 groups, unions, fraternal or [...] place to sleep or slept in a long term (including now)? Education Answer Date Recorded What is the highest level of school Master's degree (e.g., M Lola, MS, 08/09/2018 you have completed or the highest Mookie, MEd, CODING SPECIALIST, STEPHANIE) degree you have received? 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 PCP - General 08/17/16 [address] [place] [address] documented as of this encounter
--- OUTSIDE RECORDS SUMMARY | 2021-11-24 08:46 | XMS_ITS | Encounter Summary ---
:1955 Author Organization [facility] Address [address] [place] [address] Care Team Providers Name Role Phone Karma Philip APRN, C.N.P. Primary Care Provider [phone] Reason for Visit Outpatient (Routine) - Closed Specialty Diagnoses / Procedures Referred By Contact Refer red To Contact Diagnoses Hypertension Essential Primary Karma Philip APRN, [facility] C.N.P. [address] [place] [address] Referral ID Status Reason Start Date Expiration Date Visits Requ ested Visits Authorized [id number] Closed 06/14/2020 06/14/2021 1 1 Encounter Details Date Type Department Care Team Description 06/23/2020 Nurse Only Department of Family Rachel Philip APRN, C.N.P. [address] [place] [address] [facility] [address] [place] [address] [address] Social History Tobacco Use Types Packs/Day Years [...] week 06/23/2020 How often do you attend taoism or mu-ism services? Never 06/23/2020 Do you belong to any clubs or organizations such as taoism N o 06/23/2020 groups, unions, fraternal or [...] place to sleep or slept in a detention (including now)? Education Answer Date Recorded What is the highest level of school Master's degree (e.g., M Lola, MS, 08/09/2018 you have completed or the highest Mookie, MEd, MANAGER QUALITY SYSTEMS, STEPHANIE) degree you have received? 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 - 06/23/2020 1:45 PM CDT Patient was not seen for appointment. documented in this encounter Plan of Treatment Not on filedocumented as of this encounter Visit Diagnoses Diagnosis Hypertension Essential Primary documented in this encounter Care Teams Chaser Helper Relationship Specialty Start Date End Date Karma Philpi APRN, C.N.P. PCP - General 08/17/16 [address], [place] [address] documented as of this encounter
--- OUTSIDE RECORDS SUMMARY | 2021-11-24 08:46 | XMS_ITS | Encounter Summary ---
:1955 Author Organization [facility] Address [address] [place] [address] Care Team Providers Name Role Phone Karma Philip APRN, C.N.P. Primary Care Provider [phone] Reason for Referral Outpatient (Routine) - Authorized Specialty Diagnoses / Procedures Referred By Contact Refer red To Contact Family Medicine Diagnoses Hyperlipidemia Mixed Diabetes Mellitus Type 2 (HCC) Isa Thompson, [facility] [address] [place] [address] Referral ID Status Reason Start Date Expiration Date Visits V isits Requested Authorized [id number] Authorized 11/22/2021 11/21/2024 1 1 Encounter Details Date Type Department Care Team Description 11/21/2021 Clinical Communication Department of [facility] Magnolia Philip, Medicine, [place] APRN, C.N.PFrederick [facility], in [facility] [address] [place], [place] [address] [facility] [address] [place], [place] [phone] [address] (Work) [phone] Social History Tobacco Use Types Packs/Day Years [...] week 06/23/2020 How often do you attend uatsdin or quaker services? Never 06/23/2020 Do you belong to any clubs or organizations such as uatsdin N o 06/23/2020 groups, unions, fraternal or [...] have completed or the highest Mookie, MEd, EYEGLASS CUTTER, STEPHANIE) degree you have received? 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 male, currently paneled to Karma Philip APRN, C.N.P. Summary of Chart Review Recent Labs 11/18/20 1005 05/18/20 1504 11/21/19 0819 02/12/19 0806 HGBA1C 6.9 H 6.8 H 7.3 H 7.6 H LDLCALC 59 -- 45 -- BP Readings from Last 2 Encounters: 01/04/21 136/79 06/14/20 128/71 Social History Tobacco Use Smoking Status Never Smokeless Tobacco Never Upon today's chart review, patient is not meeting the following D5 criteria: A1C Patient does not have a visit scheduled in Primary Care within the next 3 months. Recent Updates to Diabetes Management Plan The following recommendations regarding patient's diabetes management plan have been made within thelast 12 months: No changes to patient's diabetes management plan have been recommended within the last 12 months. Recommended follow-up RN will: request orders for labs and appt. Orders placed last year are . . Additional Notes Additional notes: None documented in this encounter Plan of Treatment Scheduled Orders Name Type Priority Associated Diagnoses Order S chedule Albumin, Random, Urine Lab Routine Hyperlipi demia Mixed Expected: 11/22/2021 Diabetes Mellitus Type 2 (Ap proximate), (HCC) Expires: 2022 Lipid Panel Lab Routine Hyperlipidemia M ixed Expected: 11/22/2021 Diabetes Mellitus Type 2 (Ap proximate), (HCC) Expires: 2022 Basic Metabolic Panel Lab Routine Hyperlipid emia Mixed Expected: 11/22/2021 Diabetes Mellitus Type 2 (Ap proximate), (HCC) Expires: 2022 AST (Aspartate Lab Routine Hyperlipidemia M ixed Expected: 11/22/2021 Aminotransferase) Diabetes Mellitus Type 2 (Approximate), (HCC) Expires: 2022 Hemoglobin A1c Lab Routine Hyperlipidemia M ixed Expected: 11/22/2021 Diabetes Mellitus Type 2 (Ap proximate), (HCC) Expires: 2022 Scheduled Referrals Name Type Priority Associated Diagnoses [facility] Outpatient Referral Routine Hyperlipidem ia Mixed Expected: office visit Diabetes Mellitus Type 11/22 (clinic) 2 (HCC) (Approximate), Expires: 02/20/2023 documented as of this encounter Visit Diagnoses Diagnosis Hyperlipidemia Mixed - Primary Diabetes Mellitus Type 2 (HCC) documented in this encounter Care Teams Die Casting Machine Setter Relationship Specialty Start Date End Date Karma Philip, CAR BODY MECHANIC, C.N.P. PCP - General 08/17/[address] [place] [address] documented as of this encounter
--- OUTSIDE RECORDS SUMMARY | 2021-11-24 08:46 | XMS_ITS | Encounter Summary ---
:1955 Author Organization [facility] Address [address] [place] [address] Care Team Providers Name Role Phone Karma Philip APRN, C.N.P. 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 [address] [place] [address] Referral ID Status Reason Start Date Expiration Date Visits Requ ested Visits Authorized [id number] Closed 11/18/2020 11/18/2021 1 1 Scheduling Instructions Diabetes recheck Encounter Details Date Type Department Care Team Description 11/18/2020 Orders Only Department of Family Karma Philip Dia betes Mellitus Type 2 (HCC) (Primary Dx); Medicine, [facility] AURELIO, C.N.P. Body Mass Index 33.0 To 33.9 Adult; Clinic, in [facility], [address] Train Brake Operator Use Of Insulin Active (HCC); [place], [place] Hypertension Essential Prima ry; [address] [address] Hyperlipidemia Mixed [place], [place] [phone] [address] (Work) [phone] Social History Tobacco Use Types Packs/Day Years [...] week 06/23/2020 How often do you attend nondenominational or confucianism services? Never 06/23/2020 Do you belong to any clubs or organizations such as nondenominational N o 06/23/2020 groups, unions, fraternal or [...] have completed or the highest Mookie, MEd, HEALTH AIDE, STEPHANIE) degree you have received? 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 documented as of this encounter Plan of Treatment Scheduled Orders Name Type Priority Associated Diagnoses Order S chedule Hemoglobin A1c Lab Routine Diabetes Mellitus Type 2 E xpected: 05/18/2021 (HCC) (Approximate), Expires: 2021 AST (Aspartate Lab Routine Hyperlipidemia Mixed Expec chi: 11/18/2021 Aminotransferase) (Approxima te), Expires: 2021 Basic Metabolic Panel Lab Routine Hypertension Essent ial Expected: 11/18/2021 Primary (Approximate), Expires: 2021 Glucose, Fasting Lab Routine Diabetes Mellitus Type 2 Expected: 11/18/2021 (HCC) (Approximate), Expires: 2021 Lipid Panel Lab Routine Hyperlipidemia Mixed Expecte d: 11/18/2021 (Approximate), Expires: 2021 Albumin, Random, Urine Lab Routine Diabetes Mellitus Type 2 Expected: 11/18/2021 (HCC) (Approximate), Expires: 2021 Scheduled Referrals Name Type Priority Associated Diagnoses Order S [facility] Family Medicine Outpatient Referral Routine Diabetes Mellitus Expected: office visit Type 2 ([facility]) 05/18/2021 (clinic) Body Mass Index 33.0 (Approx imate), To 33.9 Adult Expires: Detention Use Of 11/19/2023 Insulin Active ( [facility]) Hypertension Essential Primar y Hyperlipidemia Mixed documented as of this encounter Visit Diagnoses Diagnosis Diabetes Mellitus Type 2 (HCC) - Primary Body Mass Index 33.0 To 33.9 Adult 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 PCP - General 08/17/16 [address] [place] [address] documented as of this encounter
--- OUTSIDE RECORDS SUMMARY | 2021-11-24 08:46 | XMS_ITS | Encounter Summary ---
:1955 Author Organization [facility] Address [address] [place] [address] Care Team Providers Name Role Phone Karma Phiilp APRN, C.N.P. Primary Care Provider [phone] Encounter Details Date Type Department Care Team Description 05/18/2020 Orders Only Department of Family Karma Philip Dia betes Mellitus Type 2 (HCC) (Primary Dx); Medicine, [place] AURELIO C.N.P. Half-Way Use Of Insulin Active (HCC); Clinic, in [place], [address] Hypertension Essential Primary; [place], [place] Hyperlipidemia Mixed; [facility] [address] [address] Screening Examination Prostate Cancer [place], [place] [phone] (Work) [phone] Social History Tobacco Use Types Packs/Day Years [...] week 06/23/2020 How often do you attend christianity or sabianist services? Never 06/23/2020 Do you belong to any clubs or organizations such as christianity N o 06/23/2020 groups, unions, fraternal or [...] place to sleep or slept in a usp (including now)? Education Answer Date Recorded What is the highest level of school Master's degree (e.g., M Lola, MS, 08/09/2018 you have completed or the highest Mookie, MEd, MANAGER FAST FOOD, STEPHANIE) degree you have received? 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 ?? Diagnosis should be confirmed by repeat testing. ??In diabet ic patients, HbA1c goals should be discussed with healthcar e provider. Specimen Anatomical Collection Method Collection Time Receive d Time (Source) Location / / Volume Laterality Blood (Blood, 11/18/2020 10:05 11/18/2020 1:17 Venous) AM CDT PM CDT Karma Philip APRN, C.N.P. LAB BLOOD ADD-ON Performing Organization Address City/State/ZIP Code Phon e Number [facility]- [address] [place] [address] [place] [address] System in [place] [address] documented in this encounter Visit Diagnoses Diagnosis Diabetes Mellitus Type 2 (HCC) - Primary Skeins Yarn Examiner Use Of Insulin Active (HCC) Hypertension Essential Primary Hyperlipidemia Mixed Screening Examination Prostate Cancer documented in this encounter Care Teams Town Administrator Relationship Specialty Start Date End Date Karma Philip, AURELIO, C.N.P. PCP - General 08/17/[address] [address] documented as of this encounter
--- OUTSIDE RECORDS SUMMARY | 2021-11-24 08:46 | XMS_ITS | Encounter Summary ---
:1955 Author Organization [facility] Address [address] [place] [address] Care Team Providers Name Role Phone Karma Philip APRN C.N.PFrederick Primary Care Provider [phone] Encounter Details Date Type Department Care Team Description 06/14/2020 Orders Only Department of Family Karma Philip, Hyp ertension Essential Medicine, [place] AURELIO C.N.PFrederick [facility], in [address] [address] [place], [place] [phone] (Work) [phone] Social History Tobacco Use Types Packs/Day Years [...] week 06/23/2020 How often do you attend amish or nondenominational services? Never 06/23/2020 Do you belong to any clubs or organizations such as amish N o 06/23/2020 groups, unions, fraternal or [...] place to sleep or slept in a snf (including now)? Education Answer Date Recorded What is the highest level of school Master's degree (e.g., M Lola, MS, 08/09/2018 you have completed or the highest Mookie, MEd, PARTS AND SERVICE MANAGER, STEPHANIE) degree you have received? 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 PCP - General 08/17/160 [address] [address] documented as of this encounter
--- OUTSIDE RECORDS SUMMARY | 2021-11-24 08:46 | XMS_ITS | Encounter Summary ---
:1955 Author Organization [facility] Address [address] [place] [address] Care Team Providers Name Role Phone Karma Philip APRN, C.N.P. Primary Care Provider [phone] Encounter Details Date Type Department Care Team Description 11/21/2019 Hospital Encounter Department of Karma Philipete s Mellitus Laboratory Medicine AURELIO Odonnell C.N .PFrederick Type 2 (HCC) in [address] [address] [place], [place] [phone] [address] (Work) [phone] Social History Tobacco Use Types Packs/Day Years [...] week 06/23/2020 How often do you attend catholic or advent services? Never 06/23/2020 Do you belong to any clubs or organizations such as catholic N o 06/23/2020 groups, unions, fraternal or [...] place to sleep or slept in a halfway (including now)? Education Answer Date Recorded What is the highest level of school Master's degree (e.g., M A, MS, 08/09/2018 you have completed or the highest Mookie, MEd, SLURRY WORKER, STEPHANIE) degree you have received? 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 injectionIndications: Supervisor Forming Department Use Of Insulin Active (HCC) losartan (COZAAR) [...] Diagnosis Comme nts ALBUMIN, RANDOM, U Routine 11/21/2019 8:15 AM Diabetes Mellitu s Results for this CDT Type 2 (HCC) procedure are i n the results section. documented in this encounter Results Albumin, Random, Urine (11/21/2019 8:15 AM CDT) P athologist Signature Microalbumin <7.0 mg/L 11/21/2019 [place] 11:19 AM CDT Creatinine 104 mg/dL 11/21/2019 [place] 11:19 AM CDT Albumin/Creatinin <7 <17 mg/g 11/21/2019 [place] e Ratio 11:19 AM CDT Comment: This ratio may not correspond with the r eference range because one or both of the values used t o calculate the ratio was above or below the quantificat ion limits. Specimen Anatomical Collection Method Collection Time Receive d Time (Source) Location / / Volume Laterality Urine (Urine, 11/21/2019 8:15 AM 11/21/19 20 Clean Catch) CDT 10:31 AM CDT Karma Philip APRN, C.N.P. LAB URINE ORDERABLES Performing Organization Address City/State/ZIP Code Phon e Number [facility]- [address] [place] [address] [place] [address] System in [place] [address] [facility] documented in this encounter Visit Diagnoses Diagnosis Diabetes Mellitus Type 2 (HCC) documented in this encounter Care Teams Medical Secretary Teacher Relationship Specialty Start Date End Date Karma Philip APRN, C.N.P. PCP - General 08/17/[address] [place] [address] documented as of this encounter
--- OUTSIDE RECORDS SUMMARY | 2021-11-24 08:46 | XMS_ITS | Encounter Summary ---
:1955 Author Organization [facility] Address [address] [place] [address] Care Team Providers Name Role Phone Karma Philip APRN C.N.PFrederick Primary Care Provider [phone] Reason for Referral Outpatient (Routine) - Closed Specialty Diagnoses / Procedures Referred By Contact Refer red To Contact Diagnoses Preoperative Exam Clark Ramos M.D. [facility] Procedures ECG [address] [place] [address] Referral ID Status Reason Start Date Expiration Date Visits Requ ested Visits Authorized [id number] Closed 01/04/2021 01/04/2022 1 1 Reason for Visit Outpatient (Routine) - Closed Specialty Diagnoses / Procedures Referred By Contact Refer red To Contact Diagnoses Preoperative Exam [facility] Procedures ECG [address] [place] [address] Referral ID Status Reason Start Date Expiration Date Visits Requ ested Visits Authorized [id number] Closed 01/04/2021 01/04/2022 1 1 Encounter Details Date Type Department Care Team Description 01/04/2021 Hospital Encounter Department of Clark Ramos Preo perative Exam Laboratory Medicine Marilynn in [address] [facility] [address] [place], [place] [phone] [address] (Work) [phone] Social History Tobacco Use Types Packs/Day Years [...] week 06/23/2020 How often do you attend muslim or restorationist services? Never 06/23/2020 Do you belong to any clubs or organizations such as muslim N o 06/23/2020 groups, unions, fraternal or [...] have completed or the highest Mookie, MEd, LOCKSMITH HELPER, STEPHANIE) degree you have received? Sex Assigned at Date Recorded Male 02/12/2017 11:58 AM BREAD ICER documented as of this encounter Medications at [...] Diabetes Mellitus Type 2 BEFORE BREAKFAST AND (HCC) DINNER glimepiride (AMARYL) 4 TAKE 2 TABLETS BY 180 tablet 3 2020 mg tabletIndications: MOUTH DAILY WITH Diabetes Mellitus Type 2 BREAKFAST (HCC) metFORMIN XR TAKE 4 TABLETS BY 360 tablet 3 10/19/2020 (GLUCOPHAGE-XR) 500 mg MOUTH DAILY WITH 24 hr tabletIndications: BREAKFAST. GENERIC Diabetes Mellitus Type 2 EQUIVALENT FOR ([facility]) GLUCOPHAGE-XR multivitamin (Daily Take 1 tablet by 0 Vitamin Formula) tablet mouth daily. Lantus Solostar U-100 INJECT 40 UNITS 30 mL 3 01/11/2021 Insulin 100 unit/mL (3 UNDER THE SKIN AT mL) BEDTIME injectionIndications: Diabetes Mellitus Type 2 ([facility]), Skilled Nursing Use Of Insulin Active ([facility]) losartan (COZAAR) 50 mg Take 1.5 tablets (75 135 tablet 3 01/11/2021 tabletIndications: mg total) by mouth Hypertension Essential daily. Primary documented as of this encounter Plan of Treatment Not on filedocumented as of this encounter Procedures Procedure Name Priority Date/Time Associated Diagnosis Comme nts ECG Routine 01/04/2021 10:41 AM Preoperative Exam Res ults for this CDT procedure are i n the results section . documented in this encounter Results ECG 12 Lead (01/04/2021 10:41 AM CDT) P athologist Signature Ventricular Rate 69 BPM MUSE ECG/Min LA Interval 200 ms MUSE QRSD Interval 88 ms MUSE QT Interval 380 ms MUSE QTC Interval 407 ms MUSE P Bim 16 degrees MUSE R Bim 12 degrees MUSE T Wave Bim 35 degrees MUSE Specimen Anatomical Collection Method Collection Time Receive d Time (Source) Location / / Volume Laterality 01/04/2021 10:41 01/04/2021 AM CDT 10:45 AM CDT Impressions MUSE - 01/04/2021 10:45 AM CDT Normal sinus rhythm Normal ECG No previous ECGs available Reviewed by ROEL Cardenas Narrative This result has an attachment that is no t available. Procedure Note Tobi Shah M.D. - 01/04/2021Format ting of this note might be different from the original. IMPRESSION: Normal sinus rhythm Normal ECG No previous ECGs available Reviewed by ROEL Cardenas Clark Ramos M.D. ECG ORDERABLES Performing Organization Address City/State/ZIP Code Phon e Number MUSE MUSE NA documented in this encounter Visit Diagnoses Diagnosis Preoperative Exam documented in this encounter Care Teams Bottom Finisher Relationship Specialty Start Date End Date Karma Philip, AURELIO, C.N.P. PCP - General 08/17/160 [address] [place] [address] documented as of this encounter
--- OUTSIDE RECORDS SUMMARY | 2021-11-24 08:46 | XMS_ITS | Encounter Summary ---
:1955 Author Organization [facility] Address [address] [place] [address] Care Team Providers Name Role Phone Karma Philip APRN C.N.P. Primary Care Provider [phone] Encounter Details Date Type Department Care Team Description 06/14/2020 Clinical Communication Department of [facility] Magnolia Philip, Medicine, [place] AURELIO C.N.PFrederick [facility], in [address] [address] [place], [place] [phone] [address] (Work) [phone] Social History Tobacco Use Types Packs/Day Years [...] week 06/23/2020 How often do you attend spiritism or church services? Never 06/23/2020 Do you belong to any clubs or organizations such as spiritism N o 06/23/2020 groups, unions, fraternal or [...] place to sleep or slept in a prison (including now)? Education Answer Date Recorded What is the highest level of school Master's degree (e.g., M A, MS, 08/09/2018 you have completed or the highest Mookie, MEd, INTELLIGENCE CHIEF, STEPHANIE) degree you have received? 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 - 06/14/2020 3:09 PM CDT SUBJECTIVE CHIEF COMPLAINT / REASON FOR CALL No chief complaint on file. PLAN The following information was provided: Verified with Kev/pharmacist that the Losartan refill was for 50mg and takes 1.5mg tab daily, also notified Hugh that his script was re filled Information/Education: patient/caller able to teach back The following references were used: provider Karma Philip documented in this encounter Plan of Treatment Not on filedocumented as of this encounter Visit Diagnoses Not on filedocumented in this encounter Care Teams Radiology Assistant Relationship Specialty Start Date End Date Karma Philip APRN, C.N.P. PCP - General 08/17/16 [address], [place] [address] documented as of this encounter
--- OUTSIDE RECORDS SUMMARY | 2021-11-24 08:46 | XMS_ITS | Encounter Summary ---
:1955 Author Organization [facility] Address [address] [place] [address] Care Team Providers Name Role Phone Karma Philip APRN C.N.P. Primary Care Provider [phone] Encounter Details Date Type Department Care Team Description 06/14/2020 Clinical Communication Department of [facility] Magnolia Philip, Medicine, [place] AURELIO C.N.PFrederick [facility], in [address] [address] [place], [place] [phone] [address] (Work) [phone] Social History Tobacco Use Types Packs/Day Years [...] How often do you attend taoist or jain services? Never 06/23/2020 Do you belong to [...] place to sleep or slept in a half-way (including now)? Education Answer Date Recorded What is the highest level of school Master's degree (e.g., M A, MS, 08/09/2018 you have completed or the highest Mookie, MEd, HOSPICE ADMINISTRATOR, STEPHANIE) degree you have received? 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 - 06/14/2020 3:11 PM CDT SUBJECTIVE CHIEF COMPLAINT / REASON FOR CALL No chief complaint on file. PLAN The following information was provided: Notified Hugh that his Losartan dose will remain the same 50mg and he takes 1.5 tabs daily, pharmacist/Kev also confirmed this Information/Education: patient/caller able to teach back The following references were used: provider Karma Philip Telephone Encounter - Nishi Betts L.P.N. - 06/14/2020 2:52 PM CDT I entered his blood pressure reading from today, sorry I failed to do that earlier...bp was 128/71 and his pulse was 66 this morning.... Telephone Encounter - Nishi Betts L.P.N. - 06/14/2020 2:49 PM CDT ----- Message from Karma Philip APRN, C.N.P. sent at 06/14/2020 2:00 PM CDT ----- Regarding: Hypertension Increase losartan to 100 mg daily. Use up losartan 50 mg by taking 2 daily. I sent a new prescription for losartan 100 mg to his pharmacy. Recheck blood pressure in 1 week. ----- Message ----- From: Nishi Betts L.P.N. Sent: 06/14/2020 10:51 AM CDT To: Karma Philip APRN, C.NMarcus documented in this encounter Plan of Treatment Not on filedocumented as of this encounter Visit Diagnoses Not on filedocumented in this encounter Care Teams Greens Keeper Relationship Specialty Start Date End Date Karma Philip APRN, C.NFrederickP. PCP - General 08/17/[address] [address] documented as of this encounter
--- OUTSIDE RECORDS SUMMARY | 2021-11-24 08:46 | XMS_ITS | Encounter Summary ---
:1955 Author Organization [facility] Address [address] [place] [address] Care Team Providers Name Role Phone Karma Philip APRN C.N.P. Primary Care Provider [phone] Encounter Details Date Type Department Care Team Description 07/13/2020 Clinical Communication Department of [facility] [place] Philip, Medicine, [place] AURELIO C[facility]N.[facility], in [address] [address] [place], [place] [phone] (Work) [phone] Social History Tobacco Use Types Packs/Day Years [...] week 06/23/2020 How often do you attend adventism or adventist services? Never 06/23/2020 Do you belong to any clubs or organizations such as adventism N o 06/23/2020 groups, unions, fraternal or [...] place to sleep or slept in a jail (including now)? Education Answer Date Recorded What is the highest level of school Master's degree (e.g., M Lola, MS, 08/09/2018 you have completed or the highest Mookie, MEd, FOREIGN BROADCAST SPECIALIST, STEPHANIE) degree you have received? 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 PCP - General 08/17/[address] [place] [address] documented as of this encounter
--- OUTSIDE RECORDS SUMMARY | 2021-11-24 08:46 | XMS_ITS | Encounter Summary ---
:[address] [facility] Address [address] [place] [id number] Care Team Providers Name Role Phone Karma Philip APRN C.N.PFrederick Primary Care Provider [phone] Reason for Referral Outpatient (Routine) - Closed Specialty Diagnoses / Procedures Referred By Contact Refer red To Contact Diagnoses Preoperative Exam Clark Ramos M.D. [facility] Procedures ECG [address] [place] [address] Referral ID Status Reason Start Date Expiration Date Visits Requ ested Visits Authorized [id number] Closed 01/04/2021 01/04/2022 1 1 Reason for Visit Reason Comments Pre-op Exam shoulder surgery Appointment Request (Routine) - Closed Specialty Diagnoses / Procedures Referred By Contact Refer red To Contact Family Medicine Referral ID Status Reason Start Date Expiration Date Visits Requ ested Visits Authorized [id number] Closed 11/23/2020 11/23/2021 1 1 Encounter Details Date Type Department Care Team Description 01/04/2021 Office Visit Department of Family Clark Ramos, Pre operative Exam MedicineaDvid M.D. (Primary Dx) Clinic, in [address] [facility] [address] [place], [place] [phone] [address] (Work) [phone] Social History Tobacco Use Types Packs/Day Years [...] week 06/23/2020 How often do you attend hindu or anabaptism services? Never 06/23/2020 Do you belong to any clubs or organizations such as hindu N o 06/23/2020 groups, unions, fraternal or [...] have completed or the highest Mookie, MEd, HAT BINDER, STEPHANIE) degree you have received? 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 - 01/04/2021 10:00 AM CDT Chief Complaints: 1. Preanesthetic Medical Consultation Date of Surgery: 01/18/2021 Requesting Physician: Dr. Rodriguez at [facility] History of Present Illness Hugh Dennis is a 65 y.o. male who comes in for a preanesthetic medical consultation for right shoulder surgery. Patient has history of diabetes type 2 on insulin, hyperlipidemia, hypertension, and chronic back pain. He denies any cardiopulmonary disease. He presents at his baseline health and declines any symptoms of chest pain, shortness of breath or exercise intolerance. He is able to conduct his regular activities including going up and down the stairs without any issues. He also declines any past issues with abnormal bleeding, clotting or problems with anesthesia. Past Medical History Past Medical History: Diagnosis Date ??? Diabetes Mellitus Type 2 (HCC) 12/28/2014 DM II (or NOS), uncontrolled ??? Displacement of cervical intervertebral disc without myelopathy 08/04/2009 ??? Hyperlipidemia Mixed 06/15/2016 ??? Hypertension Essential Primary 06/15/2016 Hypertension (HTN) Essential Primary NOS ??? 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 EXCISION OF CERVICAL INTERVERTEBRAL DISC N/A 09/29/2010 Discectomy, anterior, with decompression of spinal cord and/or nerve root(s), including osteophytectomy; cervical, each additional interspace (List separately in addition to code for primary procedure).. ??? HERNIA REPAIR N/A 08/17/2001 Herniorrhaphy ??? REPAIR OF VENTRAL HERNIA N/A 08/18/2003 Ventral herniorrhaphy Family History Family History Problem Relation Age of Onset ??? Osteoarthritis Mother ??? Heart attack Father ??? Diabetes Father ??? Hypertension Father ??? Hyperlipidemia Father ??? Eye disorder Sister Social History Social History Socioeconomic History ??? Marital status: Spouse name: Not on file ??? Number of children: Not on file ??? Years of education: Not on file ??? Highest education level: Master's degree (e.g., MA, MS, Mookie, MEd, HAT BINDER, STEPHANIE) Occupational History ??? Not on file Tobacco Use ??? Smoking status: Never Smoker ??? Smokeless tobacco: Never Used Substance and Sexual Activity ??? Alcohol use: Not on file ??? Drug use: Not on file ??? Sexual activity: Not on file Other Topics Concern ??? Not on file Social History Narrative ??? Not on file Social Determinants of Health Financial Resource Strain: Low Risk ??? Difficulty of Paying Living Expenses: Not hard at all Food Insecurity: No Food Insecurity ??? Worried About Running Out of Food in the Last Year: Never true ??? Ran Out of Food in the Last Year: Never true Transportation Needs: No Transportation Needs ??? Lack of Transportation (Medical): No ??? Lack of Transportation (Non-Medical): No Physical Activity: Sufficiently Active ??? Days of Exercise per Week: 6 days ??? Minutes of Exercise per Session: 30 min Stress: No Stress Concern Present ??? Feeling of Stress : Only a little Social Connections: Moderately Isolated ??? Frequency of Communication with Friends and Family: Twice a week ??? Frequency of Social Gatherings with Friends and Family: Once a week ??? Attends Caodaism Services: Never ??? Active Member of Clubs or Organizations: No ??? Attends Club or Organization Meetings: Not on file ??? Marital Status: Intimate Partner Violence: Not At Risk ??? Fear of Current or Ex-Partner: No ??? Emotionally Abused: No ??? Physically Abused: No ??? Sexually Abused: No Housing Stability: Low Risk ??? Unable to Pay for Housing in the Last Year: No ??? Number of Places Lived in the Last Year: 1 ??? Unstable Housing in the Last Year: No Current Medications Current Outpatient Medications Medication Sig Dispense Refill ??? atorvastatin (LIPITOR) 20 mg tablet TAKE 1 TABLET BY MOUTH AT BEDTIME 90 tablet 3 ??? B complex-vitamins (BALANCE B-50) tablet Take 1 tablet by mouth daily. ??? gemfibroziL (LOPID) 600 mg tablet TAKE 1 TABLET BY MOUTH TWICE DAILY BEFORE BREAKFAST AND TAFUID691 tablet 3 ??? glimepiride (AMARYL) 4 mg tablet TAKE 2 TABLETS BY MOUTH DAILY WITH BREAKFAST 180 tablet 3 ??? Lantus Solostar U-100 Insulin 100 unit/mL (3 mL) injection INJECT 40 UNITS UNDER THE SKIN AT BEDTIME 30 mL 3 ??? losartan (COZAAR) 50 mg tablet Take 1.5 tablets (75 mg total) by mouth daily. 135 tablet 3 ??? metFORMIN XR (GLUCOPHAGE-XR) 500 mg 24 hr tablet TAKE 4 TABLETS BY MOUTH DAILY WITH BREAKFAST. GENERIC EQUIVALENT FOR GLUCOPHAGE-XR 360 tablet 3 ??? multivitamin (Daily Vitamin Formula) tablet Take 1 tablet by mouth daily. ??? aspirin [address] tablet Take 1 tablet by mouth daily. No current facility-administered medications for this visit. Allergies No Known Allergies Review of Systems: All systems reviewed and otherwise negative unless noted above. Specifically, no fevers, chills or sweats. No chest pain and no increasing shortness of breath on exertion. Physical Examination: Vitals: BP 136/79 (BP Location: Left arm, Patient Position: Sitting, Cuff Size: Large) Pulse 69 Temp 36.8 ??C (Temporal) Resp 12 Ht 187 cm Wt 114 kg BMI 32.73 kg/m?? GENERAL: In no apparent distress, comfortable and cooperative. EYES: ZEYAD, EOMI, no conjunctival injection. ENT: Normal tympanic membrane, normal light reflex, bony landmarks visible. External nares normal and patent with no erythema or discharge. Oropharynx appears normal with no lesions. Uvula is midline and there is no significant tonsillar swelling. NECK: Supple with no lymphadenopathy. There is no apparent thyroid enlargement or masses. CARDIOVASCULAR: Heart sounds are normal S1, S2, no S3 or S4. Regular rate and rhythm, no murmurs or rubs. RESPIRATORY: Clear to auscultation, no wheezes. Air entry is equal bilaterally. ABDOMEN: Generally normal to inspection, palpation, percussion, and auscultation. There is no apparent hepatosplenomegaly. MUSCULOSKELETAL: No digital clubbing, cyanosis or edema. Full range of motion at all joints. NEUROLOGICAL: Alert and oriented x3. Cranial nerves II-XII grossly normal. Normal symmetrical reflexes, tone, power, and sensation. VASCULAR: Peripheral pulses generally normal and symmetrical. No peripheral cyanosis or edema. SKIN: Normal with no acute lesions. PSYCH: Mental status appears normal. Results for HUGH DENNIS ( ) as of 01/04/2021 10:15 Ref. Range 11/18/2020 10:05 Sodium, P Latest Ref Range: 135 - 145 mmol/L 142 Potassium, P Latest Ref Range: 3.6 - 5.2 mmol/L 5.1 Chloride, P Latest Ref Range: 98 - 107 mmol/L 105 Bicarbonate, P Latest Ref Range: 22 - 29 mmol/L 28 Anion Gap, P Latest Ref Range: 7 - 15 9 BUN (Blood Urea Nitrogen), P Latest Ref Range: 8 - 24 mg/dL 15 Creatinine, P Latest Ref Range: 0.74 - 1.35 mg/dL 0.97 eGFR-Black/ Latest Ref Range: >=60 mL/min/BSA >90 eGFR Non-Black/ Latest Ref Range: >=60 mL/min/BSA 80 Calcium, Total, P Latest Ref Range: 8.8 - 10.2 mg/dL 10.1 Glucose Latest Ref Range: 70 - 100 mg/dL 79 Glucose, P Latest Units: mg/dL CANCELED Aspartate Aminotransferase (AST), P Latest Ref Range: 8 - 48 U/L 28 Last Intake Latest Units: hr 16 Cholesterol, Total, P Latest Units: mg/dL 113 Cholesterol, HDL, P Latest Ref Range: >=40 mg/dL 36 (L) Calculated LDL Latest Units: mg/dL 59 Triglycerides, Fasting, P Latest Units: mg/dL 89 Non HDL Cholesterol Latest Units: mg/dL 77 Hemoglobin A1c, B Latest Ref Range: 4.2 - 5.6 % 6.9 (H) Normal EKG. Impression / Report / Plan Preop clearance for right shoulder surgery Hugh Dennis is a 65 y.o. male considered a low risk patient undergoing a moderate risk procedure. His physical activity is currently above 4 mets and he currently declines any issues. he is currently medically optimized for the procedure. Patient appears capable of doing at least 4 METs of activity. There is no chest pain and no increasing shortness of breath with activity. There is mild obstructive sleep apnea. We will advise patient to take relevant medications with a sip of water the morning of procedure and otherwise be fasting from midnight the night before. Blood thinners including aspirin will be held one week prior, unless patient requires anticoagulation for hypercoaguability, or artificial heart valve, in which case patientwill be bridged with low molecular weight heparin with 1/2 dose the day prior to procedure. Overall patient appears optimized for the procedure. (Floyd ORTIZ et al. ACC/AHA 2007 Guidelines on Perioperative Cardiovascular Evaluation and Care for Noncardiac Surgery: A Report of the [place] [employer] /[place] [employer] Task Force on Practice Guidelines. Journal of the [place] [employer] 2007; 50: [id number]) documented in this encounter Plan of Treatment Not on filedocumented as of this encounter Results ECG 12 Lead (01/04/2021 10:41 AM CDT) P athologist Signature Ventricular Rate 69 BPM MUSE ECG/Min [place] Interval 200 ms MUSE QRSD Interval 88 ms MUSE QT Interval 380 ms MUSE QTC Interval 407 ms MUSE P [place] 16 degrees MUSE R [place] 12 degrees MUSE T Wave [place] 35 degrees MUSE Specimen Anatomical Collection Method [...] this encounter Visit Diagnoses Diagnosis Preoperative Exam - Primary Preoperative Exam documented in this encounter Care Teams Reactor Operator Relationship Specialty Start Date End Date Karma Philip, AURELIO, C.N.P. PCP - General 08/17/16 [address] [facility] [place] [address] documented as of this encounter
--- OUTSIDE RECORDS SUMMARY | 2021-11-24 08:46 | XMS_ITS | Encounter Summary ---
:1955 Author Organization [facility] [place] [facility] Address [address] [place] [address] Care Team Providers Name Role Phone Karma Philip APRN, C.N.P. Primary Care Provider [phone] Reason for Referral Outpatient (Routine) - Closed Specialty Diagnoses / Procedures Referred By Contact Refer red To Contact Diagnoses Need Vaccine Immunization Pneumococcal Karma Philip APRN, [facility] Celia on C.N.P. [address] [phone] Referral ID Status Reason Start Date Expiration Date Visits Requ ested Visits Authorized [id number] Closed 05/20/2020 05/20/2021 1 1 Scheduling Instructions Pneumovax 23 Outpatient (Routine) - Closed Specialty Diagnoses / Procedures Referred By Contact Refer red To Contact Diagnoses Hypertension Essential Primary Karma Philip APRN, [facility] C.N.P. [address] [place] [phone] Referral ID Status Reason Start Date Expiration Date Visits Requ ested Visits Authorized [id number] Closed 05/20/2020 05/20/2021 1 1 Reason for Visit Reason Comments Follow-up review labs. Outpatient (Routine) - Closed Specialty Diagnoses / Procedures Referred By Contact Refer red To Contact Family Medicine Diagnoses Diabetes Mellitus Type 2 (HCC) [place] Use Of Insulin Active (HCC) Hypertension Essential Primary Hyperlipidemia Mixed Karma Philip APRN, [facility] C.N.P. [address] [place] [phone] Referral ID Status Reason Start Date Expiration Date Visits Requ ested Visits Authorized [id number] Closed 11/21/2019 11/20/2020 1 1 Encounter Details Date Type Department Care Team Description 05/20/2020 Office Visit Department of Family Karma Philip Nee d Vaccine Immunization Pneumococcal (Primary Dx); Medicine, [place] AURELIO, C.N.P. Diabetes Mellitus Type 2 (HCC); Clinic, in [place], [address] Body Mass Index 33.0 To 33.9 Adult; [place], [place] Use Of Insulin Act temo (HCC); [address] [id number] Hypertension Essential Primary; [place], [place] [phone] Hyperlipidemia Mixed [id number] (Work) [phone] Social History Tobacco Use Types Packs/Day Years [...] week 06/23/2020 How often do you attend jewish or yazidism services? Never 06/23/2020 Do you belong to any clubs or organizations such as jewish N o 06/23/2020 groups, unions, fraternal or [...] place to sleep or slept in a assisted (including now)? Education Answer Date Recorded What is the highest level of school Master's degree (e.g., M [place]ola, [place], 08/09/2018 you have completed or the highest Mookie, MEd, EDI ANALYST, STEPHANIE) degree you have received? 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 - 05/20/2020 11:30 AM CDT Images from the original note were not included. Patient Education High Blood Pressure (Hypertension) Introduction High blood pressure is one of the main causes of stroke, heart attack, congestive heart failure, kidney failure and premature . About 1 in every 3 Americans has high blood pressure. Many don???t know they have it. High blood pressure, or hypertension, means you have increased pressure or tension in your arteries.It doesn???t mean you have nervous tension or that you are ???hyper.?? You can be a calm, relaxed person and still have high blood pressure or hypertension. Generally, you are diagnosed with high blood pressure only after you have several high blood pressure readings. The silent killer High blood pressure has no specific signs or symptoms. You can have high blood pressure for years without knowing it. That???s why it???s sometimes called the ???silent killer.?? Your blood pressure should be checked at least once a year. You can take an active role in controlling high blood pressure. Your health care provider works withyou to do this. The following material talks about high blood pressure and how it can be controlled.It talks about causes, treatments and your role in caring for yourself. If you have questions about this information or your blood pressure, talk with your health care provider. Blood pressure Your blood flows against the adler of your arteries as it moves through your body. Blood pressure measures the force of the blood flow. The following factors may affect the amount of force on the artery adler: ?? How fast the heart pumps. ?? Volume or amount of blood the heart pumps. ?? Resistance from the artery adler. Thicker or clogged artery adler have more resistance. ?? Elasticity of the arteries. Less elastic arteries expand less, and the resistance is greater. Blood pressure is measured with a blood pressure cuff and pressure gauge, called a sphygmomanometer (zypz-kaz-yen-NOM-uh-tur). There are two kinds of sphygmomanometers (Figure 1) available for home use. What do the numbers mean? There are two numbers in a blood pressure reading that are expressed in millimeters of mercury (mm Hg). This measure tells how high in millimeters the pressure of your blood raises a column of mercury.The numbers usually are shown as a fraction. An example of a blood pressure reading is 120/80 mm Hg. Systolic pressure If you have a blood pressure of 120/80, the first, or top, number (120) is the systolic pressure. The systolic pressure is the measure of your blood pressure as the heart contracts and pumps blood. During systole, the heart muscle squeezes blood out of your heart???s pumping chambers (ventricles) (Figure 2). Diastolic pressure If you have blood pressure of 120/80, the second, or lower, number (80) is the diastolic pressure. It is the measure taken when your heart is at rest. During diastole, your heart muscle relaxes and expands. This allows blood to flow into the pumping chambers (ventricles) from the atria. See Figure 2. High blood pressure High blood pressure is persistent, increased pressure in your arteries. Eventually, this increased pressure can cause your arteries to become scarred, thickened, hardened and less elastic. This makes it harder for your heart to pump blood through your body. Your blood pressure is considered high when you consistently have either a systolic pressure of 130 mm Hg or higher or a diastolic pressure of 80 mm Hg or higher, or both, when taken during a visit to your health care provider. The diagnosis and treatment of high blood pressure may depend on other health problems you have. Treating high blood pressure Blood Pressure Category Systolic pressure Diastolic pressure Normal 120 below 80 below High Blood pressure 130 or higher 80 or higher Based on the average of two or more readings taken at each of two or more visits after an initial screening. Systolic blood pressure When measuring blood pressure, both numbers (systolic and diastolic) are important. However, as people age, the systolic measure may become especially meaningful. In older people, the elevation of the systolic pressure is the most common type of high blood pressure. In the past, high systolic pressure was thought to be a natural part of the aging process. However, recent studies show that high systolic pressure in older people often predicts complications such as heart attack and stroke. When high blood pressure is treated and the systolic pressure is lowered, the risk of complications lessens. Diagnosis Generally, a diagnosis of high blood pressure is made only after several blood pressure readings. A one-time high reading, unless it???s extremely high, doesn???t mean you have high blood pressure. Your blood pressure changes throughout the day. It may be higher when you visit your health care provider. Your health care provider will take several readings over time before diagnosing high blood pressure. Your blood pressure may be measured while you stand, sit or lie down. Have your blood pressure checked when you have your preventive care visits. If your blood pressure is normal, get it checked once a year. If you have high blood pressure, get it checked as often as your health care provider tells you to. Measuring your blood pressure does not hurt. A blood pressure cuff is wrapped around your upper arm and inflated to stop the blood flow for a few seconds. Then the air is released from the cuff and your health care provider listens to the sounds of your blood rushing through an artery. Your provider may use a stethoscope or an electronic monitor. The first sound registers the systolic pressure. The last sound heard as more air is released from the cuff is the diastolic pressure. If you are diagnosed with high blood pressure, your health care provider may order other tests. Thisis done to rule out conditions that may cause high blood pressure. Usually, no specific cause for high blood pressure is found. Tests also may be done: ?? To check whether high blood pressure has damaged your heart or kidneys. ?? To find out whether you have risk factors such as diabetes or high cholesterol. Together with high blood pressure, diabetes or high cholesterol increase the risk of a heart attack or stroke. Complications of High Blood Pressure It is important to control high blood pressure because over time, the increased pressure in your blood vessels can affect many parts of your body and cause serious problems (Figure 3). Generally, high blood pressure tends to affect your arteries, heart, brain, kidneys and eyes. Research shows a direct relationship between high blood pressure and increased risk for stroke, heart attack, and heart and kidney failure. Arteries. The increased pressure in your arteries may cause the following problems: ?? Hardening of the arteries. ?? Accumulation of fatty deposits, causing narrowing. Heart. ?? Coronary artery disease. When plaque builds up in your arteries, there is less blood flow to yourheart. This can lead to a heart attack. ?? Hypertrophy (enlargement) of the heart. When the heart has to work harder to pump blood, the muscle may become enlarged. The risk of heart attack, heart failure or sudden goes up if the heart is enlarged. ?? Heart failure. When you have high blood pressure, your heart has to work harder. If blood pressure isn???t controlled, over time your heart muscle can get weaker and work less efficiently. Signs and Symptoms of a Heart Attack ?? Intense, prolonged chest pain, often described as a feeling of heavy pressure. ?? Pain that may extend beyond the chest to the left shoulder and arm, back, teeth and jaw. ?? Prolonged pain in the upper abdomen. ?? Shortness of breath. ?? Nausea, vomiting, fainting, intense sweating. If you think you are having a heart attack, seek emergency help right away. Call 911 or your local emergency number. Or contact an emergency room. ?? Brain. High blood pressure significantly increases your risk for a stroke. High blood pressure also may contribute to cognitive decline, such as Alzheimer ???s disease. Signs and Symptoms of Stroke A stroke (brain attack) occurs when the blood supply to the brain is blocked or when a blood vessel in the brain ruptures. This may cause brain cell damage. You may have any of the following signs: ?? Sudden numbness, weakness or paralysis (inability to move a body part) in the face, arm or leg, usually on one side of the body. ?? Trouble speaking or understanding others. ?? Sudden blurred, decreased or double vision. ?? Dizziness, loss of balance or loss of coordination. ?? Sudden, severe headache. If you think you are having a stroke, seek emergency help right away. Call 911 or your local emergency number. Or contact an emergency room. ?? Kidneys. If the blood vessels in your kidneys get weaker or narrowed because of high blood pressure, the kidneys can be damaged. They may have a hard time getting rid of your body???s waste. Over time, your kidneys may stop working completely. ?? Erectile dysfunction (ED). Untreated high blood pressure can be a risk factor for ED. It may alsobe a side effect of some of the medications used to treat high blood pressure. If ED occurs after you start treatment for high blood pressure, talk to your health care provider. Do not stop taking yourmedication without first checking with your health care provider. ?? Eyes. High blood pressure may cause the blood vessels in your eyes to thicken and narrow. Causes of High Blood Pressure In most people, about 95 percent of the cases, the cause of high blood pressure is unknown. This is called primary or essential high blood pressure. However, in 5 percent of people with high blood pressure, a cause can be found. This type of high blood pressure is secondary to some other condition or cause. It is called secondary high blood pressure. Some possible causes of secondary high blood pressure include the following: ?? Kidney disease. ?? Renal artery stenosis. ?? Primary aldosteronism - Abnormal metabolism caused when the body secretes too much of the hormonealdosterone. It???s also called hyperaldosteronism. ?? Pheochromocytoma - A tumor, usually not cancerous, of the adrenal medulla. ?? Thyroid disease. ?? Ricardo???s syndrome - Condition that results from a tumor in the adrenal cortex or the pituitarygland. ?? Medications. ?? Preeclampsia during . ?? Blood vessel abnormalities. ?? Illicit drug use. ?? Some medications, both prescription and uzdy-wcy-ingeebz. ?? Some herbal supplements. control pills If you take control pills, your blood pressure may go up. If you do take oral contraceptives, have your blood pressure checked regularly. If you do get high blood pressure, talk with your health care provider. You may need to change or stop the pills and switch to another form of control. If you have questions about control pills or other medications that may cause high blood pressure, ask your health care provider. If you have questions about other causes of high blood pressure, ask your health care provider. Mostof the time, however, no single cause of high blood pressure can be found. Medications and your blood pressure Some prescription and ehcv-gyy-lqkbdpv medications can cause your blood pressure to rise. Examples include: ?? Prednisone and other immunosuppressant medications. ?? Some cold medicines and nasal decongestants. ?? Some nonsteroidal anti-inflammatory medications (NSAIDs) such as ibuprofen (Advil???, Motrin???),naproxen (Aleve???, Naprosyn???). Use of illegal stimulants such as meth and cocaine also can raise your blood pressure. Some medications can lower your blood pressure. Talk to your health care provider about all the medications you take. Risk Factors There generally is no single cause of high blood pressure. But certain factors may mean you are morelikely to get high blood pressure. Certain traits or lifestyle habits may play an important part in high blood pressure. In general, the more risk factors you have, the more likely you are to develop high blood pressure. Although you can change most risk factors, there are some that you cannot control. Factors you cannot change ?? Age. As you get older, your risk for high blood pressure increases. ?? Race. High blood pressure occurs more frequently in blacks and often at an earlier age. ?? Family history. If your parents or other close relatives have high blood pressure, you are more likely to have it, too. ?? Pre-eclampsia while you are . You are more likely to get high blood pressure in later years if you had it when you were . Factors you can change Several aspects of lifestyle can be changed to control or prevent high blood pressure. These include: ?? Diet - The food you eat - especially foods high in sodium - affects your heart and blood vessels. ?? Activity level - Being physically active can prevent or lower high blood pressure and help to lower your risk of heart disease. ?? Healthy weight - Blood pressure rises as your weight increases. ?? Other factors - Drinking alcoholic beverages in excess can lead to high blood pressure. Other lifestyle choices also may affect your blood pressure. If you have questions about how variousaspects of your lifestyle affect your blood pressure, ask your health care provider. Treatment and Prevention of High Blood Pressure It is possible to treat high blood pressure. If you have high blood pressure, follow your treatment plan. Many health care providers believe that it is best to start with lifestyle changes. Then, if those changes alone do not lower your blood pressure, medication also may be prescribed. Measuring blood pressure at home If you are diagnosed with high blood pressure, your health care provider may ask you to measure yourblood pressure at home. In order to do that, you will need to borrow or buy a sphygmomanometer. Ask your health care provider for information about the most accurate ones. You also need to learn the proper way to measure your blood pressure at home. Generally, devices that measure your blood pressure from your finger are not recommended. Wrist units may be acceptable for some people. Also, it is not a good idea to check your blood pressure at a machine in a public place. These machines may not be checked for accuracy on a regular basis, so they may not give you an accurate measurement. Lifestyle changes Stay at a healthy weight When your weight increases, so does your blood pressure. If you are overweight, even losing 10 pounds may help to lower your blood pressure to normal levels or prevent the need for medications. Losing weight and keeping it off means a change in eating habits. Avoid crash or fad diets. The healthiest way to lose weight is to do so slowly. Eat a variety of foods and choose foods low in caloriesto lose weight in a healthy way. Ask your health care provider about weight loss and healthy diets. Research suggests that ???Dietary Approaches to Stop Hypertension,?? or DASH may help to lower highblood pressure. The DASH eating plan is rich in grains, fruits, vegetables and low-fat dairy products. The plan limits fat, saturated fat and cholesterol, and it provides enough fiber, potassium, calcium and magnesium. Sodium (salt) restriction Sodium in salt and salty foods makes your body retain fluid. That may increase the volume of your blood and, in turn, raise your blood pressure. Studies show that limiting salt intake lowers blood pressure in some people. Ask your health care provider about limiting your salt intake. Many processed and packaged foods have a lot of sodium. Learn to read labels. Avoid foods that have a large amount of sodium. Ways to limit sodium and salt in your diet include: ?? Do not add salt at the table or in cooking. You may want to lower the amount of salt you use gradually, until you are not using any at all. ?? Instead of using salt to season foods, try other seasonings such as pepper, garlic, onion, basil,thyme, parsley, oregano, tarragon or lemon. ?? Limit your use of processed foods. These include canned soups, broth, bouillon, smoked or salt-cured meats, pickles, olives and sauerkraut. ?? Use fresh, frozen and canned fruits. ?? Use vegetables that are fresh, frozen with no sauce, or canned without salt. ?? Check labels for the amount of sodium in foods. Look for products that say ???sodium free,?very low sodium,?low sodium,?reduced sodium,?? or ???unsalted.?? In general, in processed food, look for less than 200 mg sodium per serving. Look for beverages with less than 100 mg sodium per serving. Check with your health care provider before you use salt substitutes. Exercise Being physically active may benefit you in many ways. It may help you lose weight, lower your risk for heart disease, help lower your cholesterol and help lower your blood pressure. However, before youstart an exercise program, check with your health care provider, especially if you have high blood pressure and have not been active in the past. Diabetes If you have diabetes, make sure you follow your treatment plan. Keep your blood sugar at the appropriate levels. If you have diabetes and high blood pressure, your risk for heart disease, stroke or other complications goes up. Other factors Smoking and drinking beverages with caffeine may raise your blood pressure in the short term. However, there is conflicting evidence about the role of caffeine and smoking in long-term high blood pressure. Regardless of the effects of smoking on your blood pressure, smoking does increase the risk of heart attack and stroke. Too much alcohol also may increase your blood pressure. Women should limit their alcohol intake to no more than one drink per day. Men should have no more than two drinks per day. If you have questions about the role of smoking, caffeine, alcohol, or other lifestyle factors in high blood pressure, talk with your health care provider. Medications If you can???t control your blood pressure with lifestyle changes alone, you may need to take medication. Some people with high blood pressure can control their blood pressure with just one medication.Others may need a combination of two or three medications. Most people who take medications for highblood pressure have few or no side effects. However, finding the right medication or combination of medications may take time and patience. Medications used to treat high blood pressure include the following: ?? Diuretics - Also known as water pills, diuretics are often the first medications chosen to treat high blood pressure. Diuretics act to help your body eliminate excess sodium and water. ?? ELIZABETH inhibitors and angiotensin receptor blockers - Angiotensin converting enzyme (ELIZABETH) inhibitorshelp relax your blood vessels. They block the formation of a natural body chemical called angiotensin II, which narrows your blood vessels. Some people who take ELIZABETH inhibitors get a cough. If the coughis bothersome, a different medication may be recommended. ?? Calcium channel blockers - These medications help relax blood vessels. ?? Beta and alpha-beta adrenergic blockers - These medications block the effects of certain chemicals in your body. With some of these medications, your heart may beat more slowly and less forcefully. With others, your blood vessels may dilate. The medication(s) your health care provider prescribes depends on your individual situation. If you control your blood pressure successfully with medication and make lifestyle changes, you may be able to stop the medication at some time in the future. However, never stop medication on your own. Alwaystalk first with your health care provider. Frequently Asked Questions What are the most common prescribed or xdeu-nux-jxibxdu medications that might raise my blood pressure? Some of the most common medications that may interfere with your blood pressure control are nonsteroidal anti-inflammatory medications (NSAIDs). Some examples include Advil???, Motrin???, Aleve???, Celebrex???. In some people, these medications interfere with the kidneys??? ability to remove salt and water. That results in higher blood pressure. Decongestant nasal sprays or pills may also raise blood pressure. Some examples of sprays are Afrin??? and Dagoberto-Synephrine???. Examples of pills include Sudafed???, Actifed???, Contac???. Certain vquh-hpb-toscawo weight loss pills such as Dexatrim??? and Acutrim??? also may raise blood pressure. Tell your health care provider whether you take any of these medications. If you have questions about the effects of any medications or herbal remedies on your blood pressure, ask your health care provider. My potassium level is always low. Could this be related to my high blood pressure? Potassium is a mineral that helps your body get rid of excess sodium in your cells. If your diet doesn???t include enough potassium, or your body isn???t able to retain a proper amount of potassium, too much sodium may build up in your body. Low potassium may also be a symptom of an adrenal gland disorder. This increases your risk to develop high blood pressure. I am told not to add salt to my food, but don???t I need some salt in my diet? Even if you don???t add salt to your food, many foods naturally have some sodium. However, most sodium comes from sodium added to foods during processing. Most Americans get from 3,000 to 4,000 milligrams every day. Research shows that people who consume at most 1500 mg of sodium a day have the greatest reduction of their blood pressure. Less restriction might be possible in people older than 70 years old. Talk with your health care provider about the amount of salt you should have. I never add salt when I cook or at the table, so my sodium intake should be low, right? It is important to read labels. Even if you don???t add salt to your food, you may be eating foods that are high in sodium. Ask your dietitian about sodium in food and guidelines for reading labels. What if my medications cause side effects? If you think your medications are causing side effects, talk with your health care provider. Do not stop your medications without talking with your health care provider. How do I know if medications are causing side effects? Before you start medications, talk with your health care provider about possible side effects. How do I know if my blood pressure is too low? Most people???s blood pressure is better at home. That is why you should check your blood pressure at home. Ask your health care provider about your blood pressure goal. If you get light-headed when you stand up, your blood pressure may be too low. Talk to your health care provider. This material is for your education and information only. This content does not replace medical advice, diagnosis or treatment. New medical research may change this information. If you have questions about a medical condition, always talk with your health care provider. ? 2015 [facility] ([facility]). All rights reserved. [id number] documented in this encounter Progress Notes Karma Philip APRN CFrederickN.P. - 05/20/2020 11:30 AM CDT SUBJECTIVE CHIEF COMPLAINT: Chief Complaint Patient presents with ??? Follow-up review labs. HISTORY OF PRESENT ILLNESS: Hugh is here for diabetes recheck. BMI is elevated at 33.5. Labs were drawn May 18. A1c has improved from 7.3 to 6.8. He is currently on metformin 2000 mg daily, glimepiride 8 mg with breakfast andLantus insulin 40 units at bedtime. He has experienced no hypoglycemia. Blood pressure elevated on 2checks today, 148/63 and 165/71. Lipids are stable on atorvastatin 20 mg daily and gemfibrozil 600 mg twice daily without adverse effects. The following portions of the patient's history were reviewed and updated as appropriate: allergies,current medications, family history, medical history, social history, surgical history and problem list. OBJECTIVE LABS and DIAGNOSTICS: Results for orders placed or performed during the hospital encounter of 05/18/20 Hemoglobin A1c Result Value Ref Range Hemoglobin A1c, B 6.8 (H) 4.2 - 5.6 % PSA (Prostate-Specific Antigen) Screen Result Value Ref Range Prostate-Specific Ag 3.2 <=4.5 ng/mL VITAL SIGNS: Temperature: [36 ??C] 36 ??C Resp Rate: [16] 16 Blood Pressure: (148-165)/(63-71) 148/63 Pulse Rate: [74-75] 75 PHYSICAL EXAM: General: In general, the patient [...] Warm, dry, no cyanosis or peripheral edema. Mental Status: Alert and oriented times three. Neurologic: Deep tendon reflexes are +2 and symmetrical. ASSESSMENT / PLAN #1 Diabetes Mellitus Type 2 (HCC) #2 Body Mass Index 33.0 To 33.9 Adult #3 Jail Use Of Insulin Active (HCC) Overview: Continue to work on diet exercise with weight loss. Recheck A1c in 6 months. He will return for Pneumovax 23 as he recently had his COVID 19 immunization and needs to wait 2 weeks. ROUTINE DIABETES CARE / DIABETES EDUCATION: Recommend [...] therapy and have an annual lipid profile. Jail Use Of Insulin Active #4 Hypertension Essential Primary Overview: Blood pressure elevated on 2 checks today. Increase losartan from 50 mg daily to 75 mg daily. Recheck blood pressure in 1 week. 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 #6 Need Vaccine Immunization Pneumococcal - Primary Care nurse visit (clinic) - [facility] Region; Immunization; Immunization due; Future; Expected date: 06/14/2020 BILLIN minutes spent in a combination of the following activities: visit with the patient; reviewing records; interpreting test results; discussing plans with the patient and/or family; discussingand coordinating care with other team members. Learning needs assessment was performed. No learning barriers were identified. Explained diagnosis and treatment plan. Patient expressed understanding and was able to teach back. 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 Primary Care nurse Outpatient Referral Routine Need Vaccine Ex pected: visit (clinic) - [facility] Immunization 2020 [facility]; Pneumococcal (Approximate), Immunization; Expires: Immunization due 05/21/2023 documented as of this encounter Visit Diagnoses Diagnosis Need Vaccine Immunization Pneumococcal - Primary Diabetes Mellitus Type 2 (HCC) Body Mass Index 33.0 To 33.9 Adult [place] Use Of Insulin Active (HCC) Hypertension Essential Primary Hyperlipidemia Mixed documented in this encounter Care Teams Wet Mixer Relationship Specialty Start Date End Date Karma Philip APRN, C.N.P. PCP - General 08/17/[address] [place] [id number] documented as of this encounter
--- OUTSIDE RECORDS SUMMARY | 2021-11-24 08:46 | XMS_ITS | Encounter Summary ---
:1955 Author Organization [facility] Address [address] [place] [address] Care Team Providers Name Role Phone Karma Philip APRN, C.N.P. Primary Care Provider [phone] Encounter Details Date Type Department Care Team Description 11/18/2020 Hospital Encounter Department of Karma Philip Hyperli pidemia Mixed; Laboratory Medicine AURELIO Odonnell C.N .PFrederick Hypertension Essential Primary; in [facility] [address] Diabetes Mellitus Type 2 (HCC) [address] [address] [place], [place] [phone] [address] (Work) [phone] Social History Tobacco Use Types Packs/Day Years [...] week 06/23/2020 How often do you attend denominational or roman catholic services? Never 06/23/2020 Do you belong to any clubs or organizations such as denominational N o 06/23/2020 groups, unions, fraternal or [...] place to sleep or slept in a alf (including now)? Education Answer Date Recorded What is the highest level of school Master's degree (e.g., M Lola, MS, 08/09/2018 you have completed or the highest Mookie, MEd, GLUTEN SETTLING TENDER, STEPHANIE) degree you have received? 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 GENERIC Diabetes Mellitus Type 2 EQUIVALENT FOR ([facility]) GLUCOPHAGE-XR multivitamin (Daily Take 1 tablet by 0 Vitamin Formula) tablet mouth daily. Lantus Solostar U-100 INJECT 40 UNITS 30 mL 3 1 01/11/2021 Insulin 100 unit/mL (3 UNDER THE SKIN AT mL) BEDTIME injectionIndications: Diabetes Mellitus Type 2 (HCC), [facility] Use Of Insulin Active (HCC) losartan (COZAAR) 50 mg Take 1.5 tablets (75 135 tablet 3 01/11/2021 tabletIndications: mg total) by mouth Hypertension Essential daily. Primary documented as of this encounter Plan of Treatment Not on filedocumented as of this encounter Procedures Procedure Name Priority Date/Time Associated Diagnosis Comme nts LIPID PANEL, S Routine 11/18/2020 10:05 Hyperlipidemia Mixed R esults for this AM CDT procedure are i n the results section. ASPARTATE Routine 11/18/2020 10:05 Hyperlipidemia Mixed Res ults for this AMINOTRANSFERASE (AST), AM CDT proc edure are in S/P the results section. HEMOGLOBIN A1C, B Routine 11/18/2020 10:05 Diabetes Mellitus R esults for this AM CDT Type 2 (HCC) procedure are i n the results section. GLUCOSE, FASTING, S/P Routine 11/18/2020 10:05 Diabetes Mellit us Results for this AM CDT Type 2 (HCC) procedure are i n the results section. BASIC METABOLIC PANEL, Routine 11/18/2020 10:05 Hypertension R esults for this S/P AM CDT Essential Primary procedure are in the results section. documented in this encounter Results (ABNORMAL) Hemoglobin A1c (11/18/2020 [...] Venous) AM CDT PM CDT Karma Philip APRN CFrederickN.P. LAB BLOOD ADD-ON Performing Organization Address City/State/ZIP Code Phon e Number [facility]- [address] [place] [address] [facility] [place] [place] [address] System in [place] [address] (ABNORMAL) Lipid Panel (11/18/2020 10:05 AM CDT) athologist Signature Cholesterol, 113 mg/dL 11/18/2020 [facility] Total 1:55 PM CDT Comment: ----REFERENCE VALUE---- Desirable: < 200 Borderline high: 200 - 239 High: > or = 240 Triglycerides 89 mg/dL 11/18/2020 1:55 PM CDT [place] T Comment: ----REFERENCE VALUE---- Normal: <150 Borderline high: 150-199 High: 200-499 Very high: > or =500 Cholesterol, HDL 36 (L) >=40 mg/dL 11/18/2020 1:55 PM CDT [facility] Calculated LDL 59 mg/dL 11/18/2020 1:55 PM CDT [facility] Comment: ----REFERENCE VALUE---- Desirable: <100 mg/dL Above Desirable: 100-129 mg/dL Borderline High: 130-159 mg/dL High: 160-189 mg/dL Very High: >=190 mg/dL Cholesterol, Non-HDL, Calculated 77 mg/dL 021 1:55 PM CDT [facility] Comment: ----REFERENCE VALUE---- Desirable: <130 Above Desirable: 130-159 Borderline high: 160-189 High: 190-219 Very high: > or =220 Specimen Anatomical Collection Method Collection Time Receive d Time (Source) Location / / Volume Laterality Blood (Blood, 11/18/2020 10:05 11/18/2020 1:17 Venous) AM CDT PM CDT Karma Philip APRN, C.N.P. LAB BLOOD ADD-ON Performing Organization Address City/State/ZIP Code Phon e Number [facility]- [address] [place] [address] [place] [address] System in [place] [address] Glucose, Fasting (11/18/2020 10:05 AM CDT) athologist Signature Glucose, P 79 70 - 100 11/18/2020 [facility] mg/dL 1:42 PM CDT Last Intake 16 hr 11/18/2020 [facility] 1:15 PM CDT Specimen Anatomical Collection Method Collection Time Receive d Time (Source) Location / / Volume Laterality Blood (Blood, 11/18/2020 10:05 11/18/2020 1:15 Venous) AM CDT PM CDT Karma Philip APRN, C.N.P. LAB BLOOD NON ADD-ON Performing Organization Address City/State/ZIP Code Phon e Number [facility]- [address] [place] [address] [place] [address] System in [place] [address] Basic Metabolic Panel (11/18/2020 10:05 AM CDT) P athologist Signature Potassium, P 5.1 3.6 - 5.2 11/18/2020 [facility] mmol/L 1:55 PM CDT Sodium, P 142 135 - 145 11/18/2020 [facility] mmol/L 1:55 PM CDT Chloride, P 105 98 - 107 11/18/2020 [facility] mmol/L 1:55 PM CDT Bicarbonate, P 28 22 - 29 11/18/2020 [facility] mmol/L 1:55 PM CDT Anion Gap, P 9 7 - 15 11/18/2020 [facility] 1:55 PM CDT BUN (Blood Urea 15 8 - 24 11/18/2020 [facility] Nitrogen), P mg/dL 1:55 PM CDT Creatinine 0.97 0.74 - 11/18/2020 [facility] 1.35 mg/dL 1:55 PM CDT eGFR-Black/Afric >90 >=60 11/18/2020 [facility] an Portuguese mL/min/BSA 1:55 PM CDT Comment: ----ADDITIONAL INFORMATION---- Estimated GFR calculated using the 2009 CKD_EPI creatinine equation. eGFR Non-Black/ 80 >=60 mL/min/BSA 1:55 PM CDT [facility] Comment: ----ADDITIONAL INFORMATION---- Estimated GFR calculated using the 2009 CKD_EPI creatinine equation. Calcium, Total, P 10.1 8.8 - 10.2 mg/dL 11/18/2020 1:55 PM CDT [facility] Glucose, P CANCELED mg/dL 11/18/2020 1:19 PM CDT [facility] Comment: Test not performed. See Fasting Glucose result. Result canceled by the ancillary. Specimen Anatomical Collection Method Collection Time Receive d Time (Source) Location / / Volume Laterality Blood (Blood, 11/18/2020 10:05 11/18/2020 1:17 Venous) AM CDT PM CDT Karma Philip APRN, C.N.P. LAB BLOOD ADD-ON Performing Organization Address City/State/ZIP Code Phon e Number [facility]- [address] [place] [address] [facility] [place] [address] System in [place] [address] AST (Aspartate Aminotransferase) (11/18/2020 10:05 AM CDT) [facility] gist Method Time Signature Aspartate 28 8 - 48 11/18/2020 [facility] Aminotransferase U/L 1:55 PM CDT (AST), P Specimen Anatomical Collection Method Collection Time Receive d Time (Source) Location / / Volume Laterality Blood (Blood, 11/18/2020 10:05 11/18/2020 1:17 Venous) AM CDT PM CDT Karma Philip APRN, C.N.P. LAB BLOOD ADD-ON Performing Organization Address City/State/ZIP Code Phon e Number [facility] [address] [place] [address] [place] [address] System in [place] [address] documented in this encounter Visit Diagnoses Diagnosis Hyperlipidemia Mixed Hypertension Essential Primary Diabetes Mellitus Type 2 (HCC) documented in this encounter Care Teams Ramp Attendant Relationship Specialty Start Date End Date Karma Philip APRN, C.N.P. PCP - General 08/17/16 [address] [place] [address] documented as of this encounter
--- OUTSIDE RECORDS SUMMARY | 2021-11-24 08:46 | XMS_ITS | Encounter Summary ---
:1955 Author Organization [facility] Address [address] [place] [address] Care Team Providers Name Role Phone Karma Philip APRN, C.N.P. Primary Care Provider [phone] Reason for Visit Reason Comments Med Refill Encounter Details Date Type Department Care Team Description 03/24/2020 Refill Department of Family Medicine, [place] Philip APRN, Med Refill [facility], in [facility] [place], [place] [address] [phone] [place] [address] [phone] Social History Tobacco Use Types Packs/Day Years [...] week 06/23/2020 How often do you attend scientology or samaritan services? Never 06/23/2020 Do you belong to any clubs or organizations such as scientology N o 06/23/2020 groups, unions, fraternal or [...] place to sleep or slept in a chcf (including now)? Education Answer Date Recorded What is the highest level of school Master's degree (e.g., M Lola, MS, 08/09/2018 you have completed or the highest Mookie, MEd, LAW REPORTER, STEPHANIE) degree you have received? 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 PCP - General 08/17/16 [address] [place] [address] documented as of this encounter
--- OUTSIDE RECORDS SUMMARY | 2021-11-24 08:46 | XMS_ITS | Encounter Summary ---
:1955 Author Organization [facility] Address [address] [place] [address] Care Team Providers Name Role Phone Elle Mills APRN, C.N.P. Primary Care Provider [phone] Reason for Referral Outpatient (Routine) - Closed Specialty Diagnoses / Procedures Referred By Contact Refer red To Contact Diagnoses Hypertension Essential Primary Elle Mills APRN, [facility] Region C[facility] [address] [phone] Referral ID Status Reason Start Date Expiration Date Visits Requ ested Visits Authorized [id number] Closed 06/14/2020 06/14/2021 1 1 Reason for Visit Reason Comments Nurse Visit blood pressure check and pnu emonia shot Outpatient (Routine) - Closed Specialty Diagnoses / Procedures Referred By Contact Refer red To Contact Diagnoses Hypertension Essential Primary Elle Mills APRN, [facility] Region C.N.P. [address] [place] [address] Referral ID Status Reason Start Date Expiration Date Visits Requ ested Visits Authorized [id number] Closed 05/20/2020 05/20/2021 1 1 Encounter Details Date Type Department Care Team Description 06/14/2020 Nurse Only Department of Family Rachel Mills APRN, C.N.P. [address] [place] [phone] Nurse Visit (blood Medicine, David Nishi Betts, LFrederickP.N. [address] [place] [address] pressure check and Clinic, in l[place]say [place] isabela shot) [place] [address] [facility] [place] [address] Social History Tobacco Use Types Packs/Day Years [...] How often do you attend orthodoxy or jew services? Never 06/23/2020 Do you belong to [...] have completed or the highest Mookie, MEd, SHELL PRESS OPERATOR, STEPHANIE) degree you have received? 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 - 06/14/2020 10:45 AM CDT The patient is seen today for an blood pressure measurement. The patient is taking their blood pressure medication as prescribed and his readings from last week were 120's/60's The patient states they are currently having the following symptoms:none (denies symptoms of blurry vision, dizziness, feeling faint, lightheaded or severe headache) Based on today's readings: The provider will be notified of today's visit and the patient was dismissed. documented in this encounter Miscellaneous Notes Addendum Note - Elle Mills APRN, C.N.P. - 06/14/2020 10:45 AM CDT Addended by: ELLE MILLS on: 06/14/2020 02:00 PM Modules accepted: Orders documented in this encounter Plan of Treatment Scheduled Referrals Name Type Priority Associated Diagnoses Order S [facility] Primary Care Outpatient Referral Routine Hypertension 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 PCP - General 08/17/16 [address] [place] [address] documented as of this encounter
--- OUTSIDE RECORDS SUMMARY | 2021-11-24 08:46 | XMS_ITS | Encounter Summary ---
:1955 Author Organization [facility] Address [address] [place] [address] Care Team Providers Name Role Phone Karma Philip APRN, C.N.P. Primary Care Provider [phone] Reason for Referral Outpatient (Routine) - Closed Specialty Diagnoses / Procedures Referred By Contact Refer red To Contact Family Medicine Diagnoses Diabetes Mellitus Type 2 (HCC) Field Liability Generalist Use Of Insulin Active (HCC) Hypertension Essential Primary Hyperlipidemia Mixed Karma Philip APRN, [facility] C.N.P. [address] [place] [address] Referral ID Status Reason Start Date Expiration Date Visits Requ ested Visits Authorized [id number] Closed 11/21/2019 11/20/2020 1 1 Scheduling Instructions Diabetes recheck Encounter Details Date Type Department Care Team Description 11/21/2019 Orders Only Department of Family Karma Philip Dia betes Mellitus Type 2 (HCC) (Primary Dx); Medicine, [place] AURELIO, C.N.P. Field Liability Generalist Use Of Insulin Active (HCC); Clinic, in [place], [address] Hypertension Essential Primary; [place] Hyperlipidemia Mixed; [address] [address] Screening Examination Prostate Cancer [place], [place] [phone] [address] (Work) [phone] Social History Tobacco Use Types Packs/Day Years [...] week 06/23/2020 How often do you attend lutheran or yarsanism services? Never 06/23/2020 Do you belong to any clubs or organizations such as lutheran N o 06/23/2020 groups, unions, fraternal or [...] place to sleep or slept in a fdc (including now)? Education Answer Date Recorded What is the highest level of school Master's degree (e.g., M A, MS, 08/09/2018 you have completed or the highest Mookie, MEd, ROUGH ROUNDER, STEPHANIE) degree you have received? 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 encounter Plan of Treatment Scheduled Referrals Name Type Priority Associated Diagnoses Order S [facility] Medicine Outpatient Referral Routine Diabetes Mellitus Expected: office visit Type 2 (HCC) 05/20/2020 (clinic) Halfway Use Of (Approximat e), Insulin Active ( HCC) Expires: Hypertension 11/20/2022 Essential Primar y Hyperlipidemia Mixed documented as of this encounter Results (ABNORMAL) Lipid Panel (11/18/2020 10:05 AM CDT) P athologist Signature Cholesterol, 113 mg/dL 11/18/2020 [facility] [...] Organization Address City/State/ZIP Code Phon e Number [facility]- [address] [place] [address] [place] [address] System in [place] [address] Glucose, Fasting (11/18/2020 10:05 AM CDT) P athologist Signature Glucose, P 79 70 - [...] Organization Address City/State/ZIP Code Phon e Number [facility]- [address] [place] [address] [facility] [place] [address] System in [place] [address] Basic Metabolic Panel (11/18/2020 10:05 AM CDT) [...] CDT eGFR-Black/Afric >90 >=60 11/18/2020 [place] an Singaporean mL/min/BSA 1:55 PM CDT Comment: ----ADDITIONAL INFORMATION---- [...] 11/18/2020 1:17 Venous) AM CDT PM CDT lAlison Stone APRNN.P. LAB BLOOD ADD-ON Performing Organization Address City/State/ZIP Code Phon e Number [facility]- [address] [place] [address] [facility] [place] [facility] [place] [address] System in [place] [address] AST (Aspartate Aminotransferase) (11/18/2020 10:05 AM CDT) Patholo gist Method Time Signature Aspartate 28 8 - 48 11/18/2020 [place] Aminotransferase U/L 1:55 PM CDT (AST), P Specimen Anatomical Collection Method Collection Time Receive d Time (Source) Location / / Volume Laterality Blood (Blood, 11/18/2020 10:05 11/18/2020 1:17 Venous) AM CDT PM CDT Allison Stone APRNN.P. LAB BLOOD ADD-ON Performing Organization Address City/[facility]/ZIP Code Phon e Number [facility]- [address] [place] [address] [place] [address] System in [place] [address] Albumin, Random, Urine (11/18/2020 10:03 AM CDT) [...] 1:15 Clean Catch) AM CDT PM CDT Allison Stone APRNNFrederickPFrederick LAB URINE ORDERABLES Performing Organization Address City/State/ZIP Code Phon e Number [facility]- [address] [place] [address] [place] [address] System in [place] [address] PSA (Prostate-Specific Antigen) Screen (05/18/2020 3:04 PM CDT) athologist Signature Prostate-Specif 3.2 <=4.5 ng/mL 05/18/2020 [facility] ic Ag 6:35 PM CDT Comment: Biotin has been identified by the mili garcia as a potential interfering substance. ??Higher concentr ations of biotin may be found in multivitamins, hair/nail supple ments, and workout supplements. ??If the result does not ma tch clinical observations, repeat testing after patient refrains [...] 05/19/19 21 5:59 Venous) CDT PM CDT Allison Stone APRNN.P. LAB BLOOD ADD-ON Performing Organization Address City/State/ZIP Code Phon e Number [facility]- [address] [place] [address] [place] [address] System in [place] [address] (ABNORMAL) Hemoglobin A1c (05/18/2020 3:04 PM CDT) athologist Signature Hemoglobin A1c, 6.8 (H) 4.2 [...] Organization Address City/State/ZIP Code Phon e Number [facility]- [address] [place] [address] [place] [address] System in [place] [address] documented in this encounter Visit Diagnoses Diagnosis Diabetes Mellitus Type 2 (HCC) - Primary Halfway Use Of Insulin Active (HCC) Hypertension Essential Primary Hyperlipidemia Mixed Screening Examination Prostate Cancer documented in this encounter Care Teams Miner Placer Relationship Specialty Start Date End Date Karma Philip APRN, C.N.P. PCP - General 08/17/[address] [place] [address] documented as of this encounter
--- OUTSIDE RECORDS SUMMARY | 2021-11-24 08:46 | XMS_ITS | Encounter Summary ---
:1955 Author Organization [facility] Address [address] [place] [address] Care Team Providers Name Role Phone Karma Philip APRN, C.N.P. Primary Care Provider [phone] Reason for Visit Reason Comments Med Refill Encounter Details Date Type Department Care Team Description 10/18/2020 Refill Department of Family Medicine, [place] Philip APRN, Med Refill [facility], in C.N.P. [place], [place] [address] [address] [place] [address] [phone] Social History Tobacco Use Types Packs/Day Years [...] week 06/23/2020 How often do you attend episcopal or voodoo services? Never 06/23/2020 Do you belong to any clubs or organizations such as episcopal N o 06/23/2020 groups, unions, fraternal or [...] have completed or the highest Mookie, MEd, PROTECTION ENGINEER, STEPHANIE) degree you have received? 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 PCP - General 08/17/16 [address], [place] [address] documented as of this encounter
--- OUTSIDE RECORDS SUMMARY | 2021-11-24 08:47 | XMS_ITS | Encounter Summary ---
:1955 Author Organization [facility] Address [address] [place] [address] Care Team Providers Name Role Phone Karma Philip APRN, C.N.P. Primary Care Provider [phone] Encounter Details Date Type Department Care Team Description 06/16/2018 Orders Only Department of Family Karma Philip APR N, Medicine, [facility], C.N. P. in [facility] [address] [address] [place], [place] [address] [phone] Social History Tobacco Use Types Packs/Day Years [...] week 06/23/2020 How often do you attend gnosticist or yarsani services? Never 06/23/2020 Do you belong to any clubs or organizations such as gnosticist N o 06/23/2020 groups, unions, fraternal or [...] or slept in a halfway (including now)? 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 PCP - General 08/17/16 [address] [phone] documented as of this encounter
--- OUTSIDE RECORDS SUMMARY | 2021-11-24 08:47 | XMS_ITS | Encounter Summary ---
:1955 Author Organization [facility] Address [address] [place] [address] Care Team Providers Name Role Phone Karma Philip APRN, C.N.P. Primary Care Provider [phone] Encounter Details Date Type Department Care Team Description 10/21/2019 Orders Only Department of Family Karma Philip, [facility] Medicine, [place] AURELIO C.N.PFrederick (Primary Dx) Clinic, in [facility] [address] [address] [place], [place] [phone] [address] (Work) [phone] Social History Tobacco Use Types Packs/Day Years [...] week 06/23/2020 How often do you attend evangelical or alevism services? Never 06/23/2020 Do you belong to any clubs or organizations such as evangelical N o 06/23/2020 groups, unions, fraternal or [...] have completed or the highest Mookie, MEd, CAFETERIA CASHIER, STEPHANIE) degree you have received? 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 LAB BLOOD ADD-ON Performing Organization Address City/State/ZIP Code Phon e Number [facility]- [address] [place] [address] [place] [address] System in [place] [address] (ABNORMAL) Lipid Panel (11/21/2019 8:19 AM CDT) [...] Organization Address City/State/ZIP Code Phon e Number [facility]- [address] [address] [place] [address] System in [place] [address] [place] [address] documented in this encounter Visit Diagnoses Diagnosis Hyperlipidemia Mixed - Primary documented in this encounter Care Teams Vice President Business Development Relationship Specialty Start Date End Date Karma Philip APRN, C.N.P. PCP - General 08/17/[address] [address] documented as of this encounter
--- OUTSIDE RECORDS SUMMARY | 2021-11-24 08:47 | XMS_ITS | Encounter Summary ---
:1955 Author Organization [facility] Address [address] [place] [address] Care Team Providers Name Role Phone Karma Philip APRN, C.N.P. Primary Care Provider [phone] Encounter Details Date Type Department Care Team Description 08/13/2018 Hospital Encounter Department of Karma Philip s Mellitus Laboratory Medicine AURELIO Odonnell C.N .PFrederick Type 2 (HCC) in [address] [address] [place], [place] [phone] [address] (Work) [phone] Social History Tobacco Use Types Packs/Day Years [...] week 06/23/2020 How often do you attend presybeterian or church services? Never 06/23/2020 Do you belong to any clubs or organizations such as presybeterian N o 06/23/2020 groups, unions, fraternal or [...] place to sleep or slept in a fci (including now)? Education Answer Date Recorded What is the highest level of school Master's degree (e.g., M A, MS, 08/09/2018 you have completed or the highest Mookie, MEd, CORPORATE BOND TRADER, STEPHANIE) degree you have received? 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 atorvastatin (LIPITOR) 20 Take 1 tablet (20 90 tablet 3 01/201911/04/2018 mg tabletIndications: mg total) by mouth Hyperlipidemia Mixed at bedtime. gemfibrozil (LOPID) 600 Take 1 tablet (600 180 tablet 3 08/0311/04/2018 mg tabletIndications: mg total) by mouth Diabetes Mellitus Type 2 2 (two) times a day (HCC) before breakfast and dinner. glimepiride (AMARYL) 4 mg Take 2 tablets (8 180 tablet 1 01/201911/04/2018 tabletIndications: mg total) by mouth Diabetes Mellitus Type 2 daily with (HCC) breakfast. insulin glargine (LANTUS Inject 0.4 mL (40 45 mL 3 08/0311/04/2018 SOLOSTAR U-100 INSULIN) Units total) under 100 unit/mL (3 mL) the skin at injectionIndications: bedtime. Diabetes Mellitus Type 2 (HCC), Intermediate Use Of Insulin Active (HCC) losartan (COZAAR) 50 mg Take 1 tablet (50 90 tablet 3 08/1311/04/2018 tabletIndications: mg total) by mouth Hypertension Essential daily. Primary metFORMIN XR Take 4 tablets 360 tablet 1 08/13/2018 11/05/19 19 (GLUCOPHAGE-XR) 500 mg 24 (2,000 mg total) by hr tabletIndications: mouth daily before Diabetes Mellitus Type 2 dinner. (HCC) MULTIVITAMIN ORAL Take by mouth 0 01/04 daily. documented as of this encounter Plan of Treatment Not on filedocumented as of this encounter Procedures Procedure Name Priority Date/Time Associated Diagnosis Comme nts ALBUMIN, RANDOM, U Routine 08/13/2018 9:01 AM Diabetes Mellitu s Results for this CDT Type 2 (HCC) procedure are i n the results section. documented in this encounter Results (ABNORMAL) Microalbumin, Random, Urine (08/13/2018 9:01 AM CDT) Analysis Performed At Patho logist Time Signature Microalbumin 20.0 mg/L 08/13/2018 11:21 AM CDT Creatinine 91 mg/dL 08/13/2018 11:21 AM CDT Albumin/Creatinin 22 (H) <17 mg/g 08/13/2018 e Ratio 11:21 AM CDT Specimen Anatomical Collection Method Collection Time Receive d Time (Source) Location / / Volume Laterality Urine (Urine, 08/13/2018 9:01 AM 08/14/19 19 Clean Catch) CDT 10:38 AM CDT Karma Philip APRN, C.N.P. LAB URINE ORDERABLES Performing Organization Address City/State/ZIP Code Phon e Number [facility] [address] [place] [address] LAB documented in this encounter Visit Diagnoses Diagnosis Diabetes Mellitus Type 2 (HCC) documented in this encounter Care Teams Er Nurse Relationship Specialty Start Date End Date Karma Philip APRN, C.N.P. PCP - General 08/17/[address] [address] documented as of this encounter
--- OUTSIDE RECORDS SUMMARY | 2021-11-24 08:47 | XMS_ITS | Encounter Summary ---
:[address] [facility] Address [address] [place] [address] Care Team Providers Name Role Phone Karma Philip APRN, C.N.P. Primary Care Provider [phone] Reason for Visit Reason Comments Med Refill Encounter Details Date Type Department Care Team Description 06/14/2018 Refill Department of Family Medicine, Whitley johns M.D. Med Refill [facility], in [address] [place] [address] [place] [address] [place] [address] [place] [address] [phone] Social History Tobacco Use Types Packs/Day Years [...] week 06/23/2020 How often do you attend yarsani or scientology services? Never 06/23/2020 Do you belong to any clubs or organizations such as yarsani N o 06/23/2020 groups, unions, fraternal or [...] slept in a senior care (including now)? 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 - 06/19/2018 5:02 PM CDT Have made 3 attempts to contact [facility]. No return call. Telephone Encounter - Christa Spicer L.P.N. - 06/19/2018 2:30 PM CDT Attempted to contact [facility] in regards to refill and the need to schedule lab and appointment with Karma. Message left to return my call. Telephone Encounter - Kate Godfrey L.P.N. - 06/18/2018 9:25 AM CDT Attempted to contact [facility] in regards to refill and the need to schedule lab appointment and appointment with Karma. Message left to return my call. Telephone Encounter - Christa Spicer L.P.N. - 06/17/2018 8:45 AM CDT Attempted to contact [facility] in regards to refill and the need to schedule lab appointment and appointment with Karma. Message left to return my call. documented in this encounter Plan of Treatment Not on filedocumented as of this encounter Visit Diagnoses Diagnosis Diabetes Mellitus Type 2 (HCC) documented in this encounter Care Teams Retinal Angiographer Relationship Specialty Start Date End Date Karma Phliip, AURELIO, C.N.P. PCP - General 08/17/[address] [phone] documented as of this encounter
--- OUTSIDE RECORDS SUMMARY | 2021-11-24 08:47 | XMS_ITS | Encounter Summary ---
:1955 Author Organization [facility] Address [address] [place] [address] Care Team Providers Name Role Phone Karma Philip APRN, C.N.P. Primary Care Provider Encounter Details Date Type Department Care Team Description 08/13/2018 Hospital Encounter Department of Karma Philip Diabkamron s Mellitus Type 2 (HCC); Laboratory Medicine AURELIO Odonnell, C.N .PFrederick Hyperlipidemia Mixed; in [facility] [address] Hypertension Essential Primary; [place], [place] Screening Examination Prosta te Cancer [address] [facility] [address] [place], [place] [phone] (Work) [phone] Social History Tobacco Use Types Packs/Day Years [...] How often do you attend episcopal or islam services? Never 06/23/2020 Do you belong to [...] have completed or the highest Mookie, MEd, SLUG PRESS OPERATOR, STEPHANIE) degree you have received? 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 MULTIVITAMIN ORAL Take by mouth daily. 0 01/23/2019 documented as of this encounter Plan of Treatment Not on filedocumented as of this encounter Procedures Procedure Name Priority Date/Time Associated Diagnosis Comme nts LIPID PANEL, S Routine 08/13/2018 9:03 Hyperlipidemia Mixed Re sults for this AM CDT procedure are i n the results section. PROSTATE-SPECIFIC AG Routine 08/13/2018 9:03 Screening Examina tion Results for this (PSA) SCRN, S AM CDT Prostate Cancer procedure a re in the results section. CBC WITH DIFFERENTIAL, Routine 08/13/2018 9:03 Hypertension Re sults for this B AM CDT Essential Primary procedure are in the results section. ASPARTATE Routine 08/13/2018 9:03 Hyperlipidemia Mixed Resu lts for this AMINOTRANSFERASE (AST), AM CDT proc edure are in S/P the results section. HEMOGLOBIN A1C, B Routine 08/13/2018 9:03 Diabetes Mellitus Re sults for this AM CDT Type 2 (HCC) procedure are i n the results section. GLUCOSE, FASTING, S/P Routine 08/13/2018 9:03 Diabetes Mellitu s Results for this AM CDT Type 2 (HCC) procedure are i n the results section. BASIC METABOLIC PANEL, Routine 08/13/2018 9:03 Hypertension Re sults for this S/P AM CDT Essential Primary procedure are in the results section. documented in this encounter Results PSA (Prostate-Specific Antigen) Screen (08/13/2018 9:03 AM CDT) athologist Signature Prostate-Specif 3.2 <=4.5 ng/mL 08/13/2018 ic Ag 11:12 AM CDT Comment: Biotin has been identified by the mili garcia as a potential interfering substance. ??Higher concentr ations of biotin may be found in multivitamins, hair/nail supple ments, and workout supplements. ??If the result does not ma [facility] clinical observations, repeat testing after patient refrains fr om the use of supplements for at least 12 hours. ----ADDITIONAL INFORMATION---- The testing method is an electrochemilum inescence assay manufactured by [id number] and performed on the Modular or Tea system . Values obtained with different assay met hods or kits may be different and cannot be used inte rchangeably. Test results cannot be interpreted as ab solute evidence for the presence or absence of malignant disease. Specimen Anatomical Collection Method Collection Time Receive d Time (Source) Location / / Volume Laterality Blood (Blood, 08/13/2018 9:03 AM 08/14/19 19 Venous) CDT 10:38 AM CDT Karma Philip APRN C.N.P. LAB BLOOD ADD-ON Performing Organization Address City/State/ZIP Code Phon e Number [facility] [address] [place] [id number] LAB Lipid Panel (08/13/2018 9:03 AM CDT) athologist Signature Cholesterol, 126 mg/dL 08/13/2018 Total 11:24 AM CDT Comment: ----REFERENCE VALUE---- Desirable: < 200 Borderline high: 200 - 239 High: > or = 240 Triglycerides 110 mg/dL 08/13/2018 11:24 AM CDT Comment: ----REFERENCE VALUE---- Normal: <150 Borderline high: 150-199 High: 200-499 Very high: > or =500 Cholesterol, HDL, S 40 >=40 mg/dL 08/13/2018 11:24 AM CDT Calculated LDL 64 mg/dL 08/13/2018 11:24 AM CDT Comment: ----REFERENCE VALUE---- Desirable: <100 Above Desirable: 100-129 Borderline high: 130-159 High: 160-189 Very high: > or =190 Cholesterol, Non-HDL, Calculated 86 mg/dL 019 11:24 AM CDT Comment: ----REFERENCE VALUE---- Desirable: <130 Above Desirable: 130-159 Borderline high: 160-189 High: 190-219 Very high: > or =220 Specimen Anatomical Collection Method Collection Time Receive d Time (Source) Location / / Volume Laterality Blood (Blood, 08/13/2018 9:03 AM 08/14/19 19 Venous) CDT 10:38 AM CDT Karma Philip APRN, C.N.P. LAB BLOOD ADD-ON Performing Organization Address City/[facility] Phon e Number [facility] [address] [place] [address] LAB (ABNORMAL) Glucose, Fasting (08/13/2018 9:03 AM CDT) athologist Signature Glucose, P 130 (H) 70 - 100 08/13/2018 mg/dL 11:43 AM CDT Last Intake 14 hr 08/13/2018 10:37 AM CDT Specimen Anatomical Collection Method Collection Time Receive d Time (Source) Location / / Volume Laterality Blood (Blood, 08/13/2018 9:03 AM 08/14/19 19 Venous) CDT 10:37 AM CDT Karma Philip APRN, C.N.P. LAB BLOOD NON ADD-ON Performing Organization Address City/[facility]/ZIP [facility] Phon e Number [facility] [address] [place] [address] LAB CBC with Differential, Blood (08/13/2018 9:03 AM CDT) P athologist Signature Hemoglobin 14.6 13.2 - 08/13/2018 16.6 g/dL 9:07 AM CDT Hematocrit 45.7 38.3 - 08/13/2018 48.6 % 9:07 AM CDT Erythrocytes 5.27 4.35 - 08/13/2018 5.65 9:07 AM CDT x10(12)/L MCV 86.7 78.2 - 08/13/2018 97.9 fL 9:07 AM CDT RBC Distrib Width 13.4 11.8 - 08/13/2018 14.5 % 9:07 AM CDT Platelet Count 309 135 - 317 08/13/2018 x10(9)/L 9:07 AM CDT Leukocytes 6.7 3.4 - 9.6 08/13/2018 x10(9)/L 9:07 AM CDT Neutrophils 4.04 1.56 - 08/13/2018 6.45 9:07 AM CDT x10(9)/L Lymphocytes 2.03 0.95 - 08/13/2018 3.07 9:07 AM CDT x10(9)/L Monocytes 0.55 0.26 - 08/13/2018 0.81 9:07 AM CDT x10(9)/L Eosinophils 0.05 0.03 - 08/13/2018 0.48 9:07 AM CDT x10(9)/L Basophils 0.06 0.01 - 08/13/2018 0.08 9:07 AM CDT x10(9)/L Specimen Anatomical Collection Method Collection Time Receive d Time (Source) Location / / Volume Laterality Blood (Blood, 08/13/2018 9:03 AM 08/14/19 19 9:03 Venous) CDT AM CDT Karma Philip APRN, C.N.P. LAB BLOOD ADD-ON Performing Organization Address City/State/ZIP Code Phon e Number [facility] [address] [place] [address] LAB (ABNORMAL) Basic Metabolic Panel (08/13/2018 9:03 AM CDT) P athologist Signature Potassium, S 5.5 (H) 3.6 - 5.2 08/13/2018 mmol/L 11:24 AM CDT Sodium, S 142 135 - 145 08/13/2018 mmol/L 11:24 AM CDT Chloride, S 104 98 - 107 08/13/2018 mmol/L 11:24 AM CDT Bicarbonate, S 26 22 - 29 08/13/2018 mmol/L 11:24 AM CDT Anion Gap 12 7 - 15 08/13/2018 11:24 AM CDT BUN (Blood Urea 10 8 - 24 08/13/2018 Nitrogen), S mg/dL 11:24 AM CDT Creatinine 0.90 0.74 - 08/13/2018 1.35 mg/dL 11:24 AM CDT eGFR-Non 89 >=60 08/13/2018 Black/ mL/min/BSA 11:24 AM CDT Mauritian Comment: ----ADDITIONAL INFORMATION---- Estimated GFR calculated using the 2009 CKD_EPI creatinine equation. eGFR-Black/ >90 >=60 mL/min/BSA 2018 11:24 AM CDT Comment: ----ADDITIONAL INFORMATION---- Estimated GFR calculated using the 2009 CKD_EPI creatinine equation. Calcium, Total, S 10.5 (H) 8.8 - 10.2 mg/dL 08/13/2018 11:2 4 AM CDT Glucose, S CANCELED mg/dL 08/13/2018 10:38 AM CDT Comment: Test not performed. See Fasting Glucose result. Result canceled by the ancillary. Specimen Anatomical Collection Method Collection Time Receive d Time (Source) Location / / Volume Laterality Blood (Blood, 08/13/2018 9:03 AM 08/14/19 19 Venous) CDT 10:38 AM CDT Karma Philip APRN, C.N.P. LAB BLOOD ADD-ON Performing Organization Address City/[facility]/ZIP Code Phon e Number [facility] [address] [place] [address] LAB AST (Aspartate Aminotransferase) (08/13/2018 9:03 AM CDT) [facility] gist Method Time Signature Aspartate 20 8 - 48 08/13/2018 Aminotransferase U/L 11:24 AM CDT (AST), S Specimen Anatomical Collection Method Collection Time Receive d Time (Source) Location / / Volume Laterality Blood (Blood, 08/13/2018 9:03 AM 08/14/19 19 Venous) CDT 10:38 AM CDT Karma Philip APRN, C.N.P. LAB BLOOD ADD-ON Performing Organization Address City/[facility]/ZIP Code Phon e Number [facility] [address] [place] [address] LAB (ABNORMAL) Hemoglobin A1c (08/13/2018 9:03 AM CDT) P athologist Signature Hemoglobin A1c, 6.9 (H) 4.2 - 5.6 08/13/2018 B % 12:39 PM CDT Comment: Hemoglobin A1c values greater than or eq ual to 6.5 percent are diagnostic for diabetes mellitus. ?? Diagnosis should be confirmed by repeat testing. ??In diabet ic patients, HbA1c goals should be discussed with healthcar e provider. Specimen Anatomical Collection Method Collection Time Receive d Time (Source) Location / / Volume Laterality Blood (Blood, 08/13/2018 9:03 AM 08/14/19 19 Venous) CDT 10:37 AM CDT Karma Philip APRN, C.N.P. LAB BLOOD ADD-ON Performing Organization Address City/State/ZIP Code Phon e Number [facility] [address] [place] [address] LAB documented in this encounter Visit Diagnoses Diagnosis Diabetes Mellitus Type 2 (HCC) Hyperlipidemia Mixed Hypertension Essential Primary Screening Examination Prostate Cancer documented in this encounter Care Teams Watch Crystal Grinder Relationship Specialty Start Date End Date Karma Philip APRN, C.N.P. PCP - General 08/17/[address] [address] documented as of this encounter
--- OUTSIDE RECORDS SUMMARY | 2021-11-24 08:47 | XMS_ITS | Encounter Summary ---
:1955 Author Organization [facility] Address [address] [place] [address] Care Team Providers Name Role Phone Karma Philip APRN, C.N.P. Primary Care Provider [phone] Encounter Details Date Type Department Care Team Description 10/09/2017 Orders Only Department of Family Karma Philip, Hyp erlipidemia Mixed (Primary Dx); Medicine, [place] AURELIO C.N.PFrederick Hypertension Essential Primary; Clinic, in [facility] [address] Flask Carrier Use Of Insulin Active (HCC); [place], [place] Diabetes Mellitus Type 2 (HC C); [address] [place] [address] [address]VE [address] Screening Examination Prostate Cancer [place], [place] [phone] (Work) [phone] Social History Tobacco Use Types Packs/Day Years [...] How often do you attend druze or episcopal services? Never 06/23/2020 Do you belong to [...] place to sleep or slept in a retirement (including now)? 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 ??Higher concentr ations of biotin may be found in multivitamins, hair/nail supple ments, and workout supplements. ??If the result does not ma [facility] clinical observations, repeat testing after [...] Organization Address City/State/ZIP Code Phon e Number [facility] [address] [place] [address] LAB Lipid Panel (08/13/2018 9:03 AM CDT) P athologist Signature Cholesterol, 126 mg/dL 08/13/2018 Total [...] Organization Address City/State/ZIP Code Phon e Number [facility] [address] [place] [address] LAB (ABNORMAL) Glucose, Fasting (08/13/2018 9:03 AM CDT) P athologist Signature Glucose, P 130 (H) 70 [...] Organization Address City/State/ZIP Code Phon e Number [facility] [address] [facility] [place] [address] LAB CBC with Differential, Blood (08/13/2018 9:03 [...] Organization Address City/State/ZIP Code Phon e Number [address] [place] [address] LAB (ABNORMAL) Basic Metabolic Panel (08/13/2018 9:03 [...] >=60 08/13/2018 Black/ mL/min/BSA 11:24 AM CDT Albanian Comment: ----ADDITIONAL INFORMATION---- Estimated GFR calculated using [...] Organization Address City/State/ZIP Code Phon e Number [facility] [address] [facility] [place] [address] LAB AST (Aspartate Aminotransferase) (08/13/2018 9:03 AM CDT) Patholo gist Method Time Signature Aspartate 20 8 - 48 08/13/2018 Aminotransferase U/L 11:24 AM CDT (AST), S Specimen Anatomical Collection Method Collection Time Receive d Time (Source) Location / / Volume Laterality Blood (Blood, 08/13/2018 9:03 AM 08/14/19 19 Venous) CDT 10:38 AM CDT Allison Stone APRNNFrederickP. LAB BLOOD ADD-ON Performing Organization Address City/[facility] Phon e Number [facility] [address] [place] [address] LAB (ABNORMAL) Hemoglobin A1c (08/13/2018 9:03 AM [...] 08/14/19 19 Venous) CDT 10:37 AM CDT Allison Stone APRNN.P. LAB BLOOD ADD-ON Performing Organization Address [facility] Phon e Number [facility] [address] [place] [address] LAB (ABNORMAL) Microalbumin, Random, Urine (08/13/2018 9:01 AM [...] Catch) CDT 10:38 AM CDT Karma Philip APRN CFrederickNFrederickPFrederick LAB URINE ORDERABLES Performing Organization Address City/State/ZIP Code Phon e Number [facility] [address] [place] [address] LAB documented in this encounter Visit Diagnoses Diagnosis Hyperlipidemia Mixed - Primary Hypertension Essential Primary Flask Carrier Use Of Insulin Active (HCC) Diabetes Mellitus Type 2 (HCC) Screening Examination Prostate Cancer documented in this encounter Care Teams Technical Account Representative Relationship Specialty Start Date End Date Karma Philip APRN, C.N.P. PCP - General 08/17/[address], [place] [address] documented as of this encounter
--- OUTSIDE RECORDS SUMMARY | 2021-11-24 08:47 | XMS_ITS | Encounter Summary ---
:1955 Author Organization [facility] Address [address] [place] [address] Care Team Providers Name Role Phone Karma Philip APRN, C.N.P. Primary Care Provider [phone] Reason for Visit Reason Comments Other consult, right hydrocele Outpatient (Routine) - Closed Specialty Diagnoses / Procedures Referred By Contact Refer red To Contact Urology Diagnoses Hydrocele Karma Philip APRN, C.N.PFrederick [facility] [address] [address] Referral ID Status Reason Start Date Expiration Date Visits Requ ested Visits Authorized [id number] Closed 01/23/2019 01/23/2020 1 1 Encounter Details Date Type Department Care Team Description 02/03/2019 Comprehensive Visit Department of Urology Adela Zapata, Hydrocele in [place], APRN, RJamilah [place] [address] [phone] [phone] Social History Tobacco Use Types Packs/Day Years [...] week 06/23/2020 How often do you attend restoration or gnosticist services? Never 06/23/2020 Do you belong to any clubs or organizations such as restoration N o 06/23/2020 groups, unions, fraternal or [...] have completed or the highest Mookie, MEd, PRESIDENT [employer], STEPHANIE) degree you have received? 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 - 02/03/2019 3:00 PM CST SUBJECTIVE REQUESTING PROVIDER Karma Philip APRN, C.N.P. REASON FOR CONSULT Urinary symptoms HISTORY OF PRESENT ILLNESS Hugh is a pleasant 63-year-old male here today for a consultation for hydrocele. This has been present since October and seems to be increasing in size. It is not painful or bothersome to him at this time, it has not interfered with urinary symptoms. Please see below for further details. Lower Urinary Symptoms # of UTI's in past year: None The following portions of the patient's history were reviewed and updated as appropriate: allergies,current medications, family history, medical history, social history, surgical history and problem list. REVIEW OF SYSTEMS Genitourinary: Hydrocele became noticable in October, still growing. Not painful, has been slightly bothersome. Had vasectomy in 1988, no other urological issues. No inguinal hernias. OBJECTIVE Vitals: 02/03/19 1452 BP: 146/80 Patient Position: Sitting Pulse: 80 Temp: 37.5 ??C PHYSICAL EXAM Vitals and nursing note reviewed. General: Well developed, well nourished, well groomed male in no acute distress. Neurological: Alert, cooperative, oriented x3. Appropriate mood and affect. Head: Normal appearance, no abnormalities, normocephalic. Neck: Symmetrical and supple, trachea is midline. Cardiac: regular rate, regular rhythm. Respiratory: Respirations are unlabored with normal respiratory rate and normal respiratory movements. Abdomen: Soft, non-tender, non-distended Vascular: There are +2 pulses noted in both upper and lower extremities. : Skin color and turgor appropriate for region. No ulcers, erythema, rashes, or pigmented lesions noted. MALE: Penis is circumcised without abnormal skin, contour changes or plaques. Meatus appears normal and is located in normal position on glans penis. No urethral discharge. Testicles of normal size, descended bilaterally with no masses or tenderness. Small right-sided hydrocele present. No thickening or tenderness of the epididymis or spermatic cords. Bilateral inguinal exam reveals no hernia and no inguinal lymphadenopathy. Extremities: Warm, without edema or ulcerations. Musculoskeletal: [place] is symmetrical and balanced. ASSESSMENT / PLAN #1 Hydrocele Had an in-depth discussion hydroceles and how they are managed. We discussed it is completely acceptable to simply monitor his hydrocele. At this time and is not large enough to have surgical intervention. We discussed possibility of draining the hydrocele in clinic as well as surgical procedure. Thistime, we will continue to monitor. He will contact us if he has significant growth of this or if he begins to have pain or discomfort from it. All of his questions are answered today and he is in agreement with the plans we have made. Signed by: Haley Zapata APRN, C.N.P. 02/03/2019 3:05 PM NG MACHINE TENDER documented in this encounter Plan of Treatment Not on filedocumented as of this encounter Visit Diagnoses Diagnosis Hydrocele documented in this encounter Care Teams Millwright Helper Relationship Specialty Start Date End Date Karma Philip APRN, C.N.P. PCP - General 08/17/16 [address], [place] [address] documented as of this encounter
--- OUTSIDE RECORDS SUMMARY | 2021-11-24 08:47 | XMS_ITS | Encounter Summary ---
:1955 Author Organization [facility] Address [address] [place] [address] Care Team Providers Name Role Phone Karma Philip APRN, C.N.P. Primary Care Provider [phone] Reason for Visit Reason Comments Diabetes Did labs on 10/09/17. Encounter Details Date Type Department Care Team Description 10/10/2017 Office Visit Department of Family Karma Philip, Hyp erlipidemia Mixed (Primary Dx); Medicine, David CAREY, C.N.P. Hypertension Essential Primary; Clinic, in [place], [address] Hse Advisor Use Of Insulin Active (HCC); [place], [place] Diabetes Mellitus Type 2 (HC C); [address] [place] [id number] Need Vaccine Immunization Shingles Monik [place] [phone] (Work) [phone] Social History Tobacco Use Types Packs/Day Years [...] week 06/23/2020 How often do you attend worship or pentecostalism services? Never 06/23/2020 Do you belong to any clubs or organizations such as worship N o 06/23/2020 groups, unions, fraternal or [...] place to sleep or slept in a care home (including now)? 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 - 10/10/2017 8:30 AM CDT It was a pleasure seeing you in the clinic! My goal is to always provide excellent care for my patients. If you receive a clinic survey in the mail and felt you received great care, I would sure appreciate you filling it out and sending it in. Thanks and take care! AttachmentsThe following attachments cannot be sent through Care Everywhere. Lowering High Cholesterol Through Diet (Irish)documented in this encounter Progress Notes Karma Philip APRN, C.N.P. - 10/10/2017 8:30 AM CDT SUBJECTIVE CHIEF COMPLAINT: Chief Complaint Patient presents with ??? Diabetes Did labs on 10/09/17. HISTORY OF PRESENT ILLNESS: Hugh is here for diabetes recheck. Labs were drawn yesterday. A1c has improved from 8.8 to 6.8. He states he has been paying more attention to blood sugars, he has been testing every morning and has been vigilant about taking insulin every evening. He is due for dilated eye exam. Lipids are stable onatorvastatin and gemfibrozil without adverse effects. Blood pressure is stable on Cozaar. He needs refills of all medications. He would like to receive Shingrix immunization at his pharmacy. REVIEW OF SYSTEMS: Reviewed encounter review of systems and pertinent responses are noted in the history. Answers for HPI/ROS submitted by the patient on 10/06/2017 No general issues: Yes No eye issues: Yes No ENT issues: Yes No heart issues: Yes No respiratory issues: Yes No GI issues: Yes Pain or stiffness in the joints: Yes No skin issues: Yes No neurologic issues: Yes No mental health issues: Yes No blood/lymph issues: Yes No urinary/reproductive issues: Yes The following portions of the patient's history were reviewed and updated as appropriate: allergies,current medications, family history, medical history, social history, surgical history and problem list. ALLERGIES: No Known Allergies MEDICATIONS: Current Outpatient Prescriptions: ??? ASPIRIN ORAL, Take 1 tablet by mouth daily., Disp: , Rfl: ??? atorvastatin (LIPITOR) 20 mg tablet, Take 1 tablet (20 mg total) by mouth at bedtime., Disp: 90 tablet, Rfl: 3 ??? gemfibrozil (LOPID) 600 mg tablet, Take 1 tablet (600 mg total) by mouth 2 (two) times a day before breakfast and dinner., Disp: 180 tablet, Rfl: 3 ??? glimepiride (AMARYL) 4 mg tablet, Take 2 tablets (8 mg total) by mouth daily with breakfast., Disp: 180 tablet, Rfl: 1 ??? insulin glargine (LANTUS SOLOSTAR U-100 INSULIN) 100 unit/mL (3 mL) injection, Inject 0.37 mL (37 Units total) under the skin at bedtime., Disp: 45 mL, Rfl: 3 ??? losartan (COZAAR) 50 mg tablet, Take 1 tablet (50 mg total) by mouth daily., Disp: 90 tablet, Rfl: 3 ??? metFORMIN XR (GLUCOPHAGE-XR) 500 mg 24 hr tablet, Take 4 tablets (2,000 mg total) by mouth dailywith dinner., Disp: 360 tablet, Rfl: 1 ??? MULTIVITAMIN ORAL, Take by mouth daily. , Disp: , Rfl: ??? SITagliptin (JANUVIA) 100 mg tablet, Take 1 tablet (100 mg total) by mouth once daily., Disp: 90tablet, Rfl: 1 ??? RZV: herpes zoster (SHINGRIX, PF,) 50 mcg/0.5 mL vaccine, Inject 0.5 mL intramuscularly once for1 dose., Disp: 2 each, Rfl: 0 OBJECTIVE LABS and DIAGNOSTICS: Results for orders placed or performed during the hospital encounter of 10/09/17 Microalbumin, Random, Urine Result Value Ref Range Microalbumin <7.0 mg/L Creatinine 162 mg/dL Albumin/Creatinine Ratio <4 <17 mg/g VITAL SIGNS: Temperature: [36.6 ??C] 36.6 ??C Resp Rate: [16] 16 Blood Pressure: (136-144)/(72) 136/72 Pulse Rate: [80] 80 PHYSICAL EXAM: GENERAL: In general, the patient is pleasant and appears stated age. SKIN: Without lesion. EYES: PERRLA. EOMI intact. Fundi sharp discs. Conjunctiva and lids normal. ENT: Tympanic membranes clear bilaterally. Nasal mucosa without erythema or congestion. Mouth without erythema or exudate. LYMPH NODES: Neck: Supple without adenopathy, no thyromegaly. Carotid pulses are equal bilaterally. PERIPHERAL VESSELS: Femoral, dorsal, pedal and posterior tibial pulses are equal. HEART: Regular rate and rhythm without murmur. LUNGS: Clear to auscultation, good inspiratory effort. ABDOMEN: Soft, nontender, no palpable mass, no hepatosplenomegaly. EXTREMITIES: Warm, dry, no cyanosis or peripheral edema. Normal sensation tops and bottoms of feet with monofilament. MENTAL: Alert and oriented times three. NEUROLOGIC: Deep tendon reflexes are +2 and symmetrical. ASSESSMENT /PLAN: #1 Hyperlipidemia Mixed Stable on atorvastatin and gemfibrozil. No change in medications. Refills provided. #2 Hypertension Essential Primary Stable on Cozaar. BMP normal. #3 Diabetes Mellitus Type 2 (HCC) #4 Longterm Use Of Insulin Active (HCC) Check blood sugars daily, continue to work on diet and exercise with weight loss. Schedule dilated eye exam. Recheck A1c in 6 months. [place] driving form completed. ROUTINE DIABETES CARE: / Diabetes Education: Recommend a consistent carbohydrate diet and at [...] therapy and have an annual lipid profile. #5 Need Vaccine Immunization Shingles Zoster Order for Shingrix vaccination sent to the patient's pharmacy. It is understood a 2nd Shingrix vaccination will be due 2 months after the first vaccination is administered. HEALTH MAINTENANCE: Due for dilated eye exam. documented in this encounter Plan of Treatment Not on filedocumented as of this encounter Visit Diagnoses Diagnosis Hyperlipidemia Mixed - Primary Hypertension Essential Primary Hse Advisor Use Of Insulin Active (HCC) Diabetes Mellitus Type 2 (HCC) Need Vaccine Immunization Shingles Zoste r documented in this encounter Care Teams Cardiovascular Surgical Tech Relationship Specialty Start Date End Date Karma Philip APRN, C.N.P. PCP - General 08/17/16 [address] [place] [phone] documented as of this encounter
--- OUTSIDE RECORDS SUMMARY | 2021-11-24 08:47 | XMS_ITS | Encounter Summary ---
:1955 Author Organization [facility] Address [address] [place] [address] Care Team Providers Name Role Phone Karma Philip APRN, C.N.P. Primary Care Provider [phone] Reason for Visit Reason Comments Med Refill Encounter Details Date Type Department Care Team Description 05/17/2019 Refill Department of Family Medicine, [place] Philip APRN, Med Refill [facility], in [place], [place] [address] [address] [place] [address] [phone] Social History Tobacco Use Types Packs/Day Years [...] week 06/23/2020 How often do you attend sabianism or baptism services? Never 06/23/2020 Do you belong to any clubs or organizations such as sabianism N o 06/23/2020 groups, unions, fraternal or [...] have completed or the highest Mookie, MEd, COMMERCIAL CREDIT HEAD, STEPHANIE) degree you have received? 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 PCP - General 08/17/16 [address] [place] [phone] documented as of this encounter
--- OUTSIDE RECORDS SUMMARY | 2021-11-24 08:47 | XMS_ITS | Encounter Summary ---
:1955 Author Organization [facility] Address [address] [place] [address] Care Team Providers Name Role Phone Karma Philip APRN, C.N.P. Primary Care Provider [phone] Reason for Visit Reason Comments Med Refill Encounter Details Date Type Department Care Team Description 07/16/2018 Refill Department of Family Medicine, [place] Philip APRN, Med Refill [facility], in [place], [place] [address] [address] [place] [address] [phone] Social History Tobacco Use Types Packs/Day Years [...] week 06/23/2020 How often do you attend jain or jainism services? Never 06/23/2020 Do you belong to any clubs or organizations such as jain N o 06/23/2020 groups, unions, fraternal or [...] place to sleep or slept in a intermediate (including now)? 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 PCP - General 08/17/16 [address] [place] [phone] documented as of this encounter
--- OUTSIDE RECORDS SUMMARY | 2021-11-24 08:47 | XMS_ITS | Encounter Summary ---
:1955 Author Organization [facility] Address [address] [place] [address] Care Team Providers Name Role Phone Karma Philip APRN, C.N.P. Primary Care Provider [phone] Encounter Details Date Type Department Care Team Description 10/20/2019 Clinical Communication Department of [facility] [place] Philip, Medicine, [place] AURELIO, C.N.PFrederick [facility], in [address] [address] [place], [place] [phone] (Work) [phone] Social History Tobacco Use Types Packs/Day Years [...] How often do you attend mormon or synagogue services? Never 06/23/2020 Do you belong to [...] have completed or the highest Mookie, MEd, HOME HEALTH BILLING SPECIALIST, STEPHANIE) degree you have received? 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 1. Do you have a pending COVID test because you had symptoms or exposure to someone with COVID or you have tested positive for COVID in the last 30 days? no 2. In the past 14 days, do you, anyone in the household, or anyone you have had prolonged exposure have any of the following? a. Fever greater than or equal to 37.8 C (100.0 F)? no b. New symptoms (Specifically: headache, cough, shortness of breath, respiratory distress, sore throat, diarrhea, nausea, vomiting, chills and repeated shaking with chills, myalgia's (muscle aches), loss of smell, or change or loss of taste sensation)? no Route reply to: Scheduling Contact Number: documented in this encounter Plan of Treatment Not on filedocumented as of this encounter Visit Diagnoses Not on filedocumented in this encounter Care Teams Die Cutter Operator Relationship Specialty Start Date End Date Karma Philip, AURELIO, C.N.P. PCP - General 08/17/16 [address] [place] [facility] [address] documented as of this encounter
--- OUTSIDE RECORDS SUMMARY | 2021-11-24 08:47 | XMS_ITS | Encounter Summary ---
:1955 Author Organization [facility] Address [address] [place] [address] Care Team Providers Name Role Phone Karma Philip APRN, C.N.P. Primary Care Provider [phone] Reason for Visit Reason Comments Med Refill Encounter Details Date Type Department Care Team Description 05/08/2018 Refill Department of Family Medicine, [place] Philip APRN, Med Refill [facility], in [place], [place] [address] [address] [place] [address] [phone] Social History Tobacco Use Types Packs/Day Years [...] week 06/23/2020 How often do you attend judaism or voodoo services? Never 06/23/2020 Do you belong to any clubs or organizations such as judaism N o 06/23/2020 groups, unions, fraternal or [...] to sleep or slept in a senior living (including now)? Sex Assigned at Date Recorded Male 02/12/2017 11:58 AM SUPERVISOR CYTOLOGY documented as of this encounter Plan of Treatment Not on filedocumented as of this encounter Visit Diagnoses Diagnosis Diabetes Mellitus Type 2 (HCC) documented in this encounter Care Teams Research Instrumentation Technician Relationship Specialty Start Date End Date Karma Philip, NEWS LIBRARY DIRECTOR, C.N.P. PCP - General 08/17/16 [address] [place] [phone] documented as of this encounter
--- OUTSIDE RECORDS SUMMARY | 2021-11-24 08:47 | XMS_ITS | Encounter Summary ---
:1955 Author Organization [facility] Address [address] [place] [address] Care Team Providers Name Role Phone Karma Philip APRN, C.N.P. Primary Care Provider [phone] Reason for Visit Reason Comments Diabetes Did labs on 02/12/19. Has a red raised area on right hip that he would like checked. Outpatient (Routine) - Closed Specialty Diagnoses / Procedures Referred By Contact Refer red To Contact Family Medicine Diagnoses Diabetes Mellitus Type 2 (HCC) Skilled Nursing Use Of Insulin Active (HCC) Hypertension Essential Primary Hyperlipidemia Mixed Karma Philip APRN, [facility] [address] [place] [address] Referral ID Status Reason Start Date Expiration Date Visits Requ ested Visits Authorized [id number] Closed 08/13/2018 08/13/2019 1 1 Encounter Details Date Type Department Care Team Description 02/13/2019 Office Visit Department of Family Karma Philip Lon g Term Use Of Insulin Active (HCC) (Primary Dx); Medicine, [place] AURELIO, C.N.P. Diabetes Mellitus Type 2 (HCC); Clinic, in [place], [address] Hypertension Essential Primary; [place], [place] Hyperlipidemia Mixed [address] [address] [place], [place] [phone] (Work) [phone] Social History Tobacco Use Types Packs/Day Years [...] week 06/23/2020 How often do you attend christian or congregational services? Never 06/23/2020 Do you belong to any clubs or organizations such as christian N o 06/23/2020 groups, unions, fraternal or [...] have completed or the highest Mookie, MEd, CRAB MEAT PROCESSOR, STEPHANIE) degree you have received? 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 documented as of this encounter Last Filed Vital Signs Vital Sign Reading Time Taken Comments Blood Pressure 129/66 02/13/2019 11:15 AM TILE SETTER SUPERVISOR Pulse 89 02/13/2019 11:15 AM TILE SETTER SUPERVISOR Temperature 36.4 ??C (97.5 ??F) 02/13/2019 11:15 AM TILE SETTER SUPERVISOR Respiratory Rate 16 02/13/2019 11:15 AM TILE SETTER SUPERVISOR Oxygen Saturation - - Inhaled Oxygen Concentration - - Weight 117 kg (258 lb 13.1 oz) 02/13/2019 11:15 AM TILE SETTER SUPERVISOR Height 184.5 cm (6' 0.64) 02/13/2019 11:15 AM TILE SETTER SUPERVISOR Body Mass Index 34.49 02/13/2019 11:15 AM TILE SETTER SUPERVISOR documented in this encounter Patient Instructions AttachmentsThe following attachments cannot be sent through Care Everywhere. Diabetes Self-Management: Healthy Eating ([place] Citizen)documented in this encounter Progress Notes Karma Philip, AURELIO, C.N.P. - 02/13/2019 11:30 AM CST SUBJECTIVE CHIEF COMPLAINT: Chief Complaint Patient presents with ??? Diabetes Did labs on 02/12/19. Has a red raised area on right hip that he would like checked. HISTORY OF PRESENT ILLNESS: Hugh is here for diabetes recheck. Labs were drawn February 12. A1c has increased from 6.9 to 7.6.He is currently on metformin 2000 mg daily, glimepiride 8 mg at breakfast and Lantus insulin 35 units at bedtime. He states 90 day blood sugar average is 115. Over his numbers were higher.. He has experienced no hypoglycemia. Blood pressure stable on losartan 50 mg daily. Lipids are stable on atorvastatin 20 mg daily and Lopid 600 mg twice daily without adverse effects. He has a skin lesion on his right upper thigh he would like checked, it scabbed over after his picked at it. REVIEW OF SYSTEMS: Skin: Positive for change in mole or skin spot. Respiratory: Positive for sleep disturbances due to breathing. Musculoskeletal: Positive for arthralgias and pain or stiffness in the joints. Psychiatric/Behavioral: Positive for stop breathing, choking, or gasping while asleep. The following systems were negative: Constitutional, Eyes, ENT, CV, GI, , Hematologic, Neuro The following portions of the patient's history [...] by mouth daily., Disp: , Rfl: ??? gemfibrozil (LOPID) 600 mg tablet, Take [...] Inject 40 Units under the skin at bedtime. , Disp: 45 mL, Rfl: 3 ??? losartan (COZAAR) 50 mg tablet, Take 1 tablet (50 mg total) by mouth daily., Disp: 90 tablet, Rfl: 3 ??? metFORMIN XR (GLUCOPHAGE-XR) 500 mg 24 hr tablet, Take 4 tablets (2,000 mg total) by mouth dailybefore dinner., Disp: 360 tablet, Rfl: 3 ??? multivitamin (Daily Vitamin Formula) tablet, Take 1 tablet by mouth daily., Disp: , Rfl: OBJECTIVE LABS and DIAGNOSTICS: Results for orders placed or performed during the hospital encounter of 02/12/19 Hemoglobin A1c Result Value Ref Range Hemoglobin A1c, B 7.6 (H) 4.2 - 5.6 % VITAL SIGNS: Temperature: [36.4 ??C] 36.4 ??C Resp Rate: [16] 16 Blood Pressure: (129)/(66) 129/66 Pulse Rate: [89] 89 PHYSICAL EXAM: General: In general, the patient is pleasant and appears stated age. Skin: Inflamed seborrheic keratosis right thigh. Eyes: PERRLA. EOMI intact. Fundi sharp discs. [...] are +2 and symmetrical. ASSESSMENT /PLAN: #1 Diabetes Mellitus Type 2 (HCC) #2 Administrative Program Specialist Use Of Insulin Active (HCC) Continue to work on diet exercise with weight loss. Pay careful attention to carbohydrate intake. Recheck A1c in 6 months. ROUTINE DIABETES [...] therapy and have an annual lipid profile. #3 Hypertension Essential Primary Stable, no change in medications. #4 Hyperlipidemia Mixed Continue atorvastatin 20 mg daily and Lopid 600 mg twice daily. HEALTH MAINTENANCE: Up-to-date. SETTER SUPERVISOR documented in this encounter Plan of Treatment Not on filedocumented as of this encounter Visit Diagnoses Diagnosis Administrative Program Specialist Use Of Insulin Active (HCC) - Primary Diabetes Mellitus Type 2 (HCC) Hypertension Essential Primary Hyperlipidemia Mixed documented in this encounter Care Teams Can Operator Relationship Specialty Start Date End Date Karma Philip APRN, C.N.P. PCP - General 08/17/16 [address] [place] [address] documented as of this encounter
--- OUTSIDE RECORDS SUMMARY | 2021-11-24 08:47 | XMS_ITS | Encounter Summary ---
:1955 Author Organization [facility] Address [address] [place] [address] Care Team Providers Name Role Phone Karma Philip APRN, C.N.P. Primary Care Provider [phone] Encounter Details Date Type Department Care Team Description 08/20/2019 Orders Only [facility] PCP [facility] Karma Philip, Monitor ing For Therapeutic Drug Therapy; AURELIO C.N.P. Diabetes Mellitus Type 2 (HCC) [address] [place] [address] (Wo rk) Social History Tobacco Use Types [...] week 06/23/2020 How often do you attend yazidism or jewish services? Never 06/23/2020 Do you belong to any clubs or organizations such as yazidism N o 06/23/2020 groups, unions, fraternal or [...] slept in a senior living (including now)? Education Answer Date Recorded What is the highest level of school Master's degree (e.g., M A, MS, 08/09/2018 you have completed or the highest [place], MEd, LOAN COLLECTOR, STEPHANIE) degree you have received? Sex Assigned at Date Recorded Male 02/12/2017 11:58 AM WELLNESS GUIDE documented as of this encounter Plan of Treatment Not on filedocumented as of this encounter Results Albumin, Random, Urine (11/21/2019 [...] Organization Address City/State/ZIP Code Phon e Number [facility] [address] [place] [address] [facility] [place] [address] System in [place] [address] documented in this encounter Visit Diagnoses Diagnosis Monitoring For Therapeutic Drug Therapy Diabetes Mellitus Type 2 (HCC) documented in this encounter Care Teams Customer Service Assistant Relationship Specialty Start Date End Date Karma Philip APRN, C.N.P. PCP - General [id number] [place] [address] documented as of this encounter
--- OUTSIDE RECORDS SUMMARY | 2021-11-24 08:47 | XMS_ITS | Encounter Summary ---
:1955 Author Organization [facility] Address [address] [place] [address] Care Team Providers Name Role Phone Karma Philip APRN, C.N.P. Primary Care Provider Reason for Visit Reason Comments Pain Outpatient (Routine) - Closed Specialty Diagnoses / Procedures Referred By Contact Refer red To Contact Orthopedic Surgery Diagnoses Pain Shoulder Right Arthritis Shoulder PAR Bradley Rossi D.O. [facility] Procedures ORS CON [address] [place] [address] Referral ID Status Reason Start Date Expiration Date Visits Requ ested Visits Authorized [id number] Closed 08/05/2018 08/05/2019 1 1 Encounter Details Date Type Department Care Team Description 08/09/2018 Comprehensive Visit Department of Pedro Pablo Fuentes, Pain Shoulder Right; Orthopedic Surgery M.DFrederick Arthritis Shoulder in [place], [address] [place] [address] [place] [phone] Social History Tobacco Use Types Packs/Day Years [...] How often do you attend episcopal or anabaptist services? Never 06/23/2020 Do you [...] have completed or the highest Mookie, MEd, STOCK TRANSFER CLERK, STEPHANIE) degree you have received? 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 - 08/09/2018 9:45 AM CDT Pain reported: Site 1 Pain Score: 8, Pain Location: Shoulder, Pain Orientation: Right, Pain Descriptors: Aching, Pain Frequency: Constant/continuous, (08/09/18 0919 : Paola Rasmussen, L.P.N.) REASON FOR CONSULT Hugh Dennis is a 63 y.o. male who presents for evaluation of Pain of the Right Shoulder and is under the care of Karma Philip APRN, C.N.P.. HISTORY OF PRESENT ILLNESS This is a 63-year-old man with complaints of right shoulder pain present for many years. Pain has been getting gradually worse over time and becoming more of a functional issue. He has had no real treatment for today. He does take occasional Aleve in the evenings which does seem to help him at night. His current list of health issues include: #1 Pain Shoulder Right #2 Arthritis Shoulder #3 Hypertension Essential Primary #4 Assisted Use Of Insulin Active (HCC) #5 Diabetes Mellitus Type 2 (HCC) #6 Hyperlipidemia Mixed #7 Displacement of cervical intervertebral disc without myelopathy His surgical history is notable for: Past Surgical History: Procedure Laterality Date ??? EXCISION OF CERVICAL INTERVERTEBRAL DISC N/A 09/29/2010 Discectomy, anterior, with decompression of spinal cord and/or nerve root(s), including osteophytectomy; cervical, each additional interspace (List separately in addition to code for primary procedure).. ??? HERNIA REPAIR N/A 08/17/2001 Herniorrhaphy ??? REPAIR OF VENTRAL HERNIA N/A 08/18/2003 Ventral herniorrhaphy Tobacco history is Social History Tobacco Use Smoking Status Never Smoker Smokeless Tobacco Never Used . The following portions of the patient's history were reviewed and updated as appropriate: allergies,current medications, family history, medical history, social history, surgical history and problem list. REVIEW OF SYSTEMS Respiratory: Positive for sleep disturbances due to breathing. Musculoskeletal: Positive for arthralgias, back pain and pain or stiffness in the joints. Neurological: Positive for numbness or shooting pain in hands, arms, legs, or feet. Psychiatric/Behavioral: Positive for stop breathing, choking, or gasping while asleep. All other systems reviewed and are negative. The following systems were negative: Constitutional, Skin, Eyes, ENT, CV, GI, , Hematologic OBJECTIVE PHYSICAL EXAM Ortho Exam The patient is a very pleasant cooperative gentleman in no acute distress. His right shoulder has noatrophy and no deformity. Scapular motion is good. Can reach only about 90?? abduction and flexion actively and with passive assistance it is limited to about 110?? by pain. Internal rotation is possible to his back pocket. Just minimal tenderness with palpation somewhat globally around the shoulder. Moderate crepitus is noted with range of motion. DIAGNOSTICS Hemoglobin A1c, B Date Value Ref Range Status 10/09/2017 6.8 (H) 4.2 - 5.6 % Final Comment: Hemoglobin A1c values greater than or equal to 6.5 percent are diagnostic for diabetes mellitus. Diagnosis should be confirmed by repeat testing. In diabetic patients, HbA1c goals should be discussed with healthcare provider. IMAGING Patient did have x-rays about a year and a half ago which I reviewed personally independently and show advanced osteoarthritis of the shoulder joint. ASSESSMENT / PLAN #1 Pain Shoulder Right #2 Arthritis Shoulder Osteoarthritis right shoulder. He has had no real conservative care. We discussed the usual treatment algorithm and at this point recommended he take Aleve on a regular basis starting 1 tablet twice a day increasing to 2 tablets twice a day if needed. Follow up with me in about a month and consider steroid injection at that time if necessary. Answers for HPI/ROS submitted by the patient on 08/09/2018 On average, how many servings of fruits and/or vegetables do you eat a day (serving size is equal to1 tennis ball)?: 2-3 Do you use extra virgin olive oil as your main source of fat in your diet?: Yes Do you have a regular dentist that you see at least once a year for a check-up?: Yes documented in this encounter Plan of Treatment Not on filedocumented as of this encounter Visit Diagnoses Diagnosis Pain Shoulder Right Arthritis Shoulder documented in this encounter Care Teams Microbiology Teacher Relationship Specialty Start Date End Date Karma Philip APRN, C.N.P. PCP - General 08/17/[address] [address] documented as of this encounter
--- OUTSIDE RECORDS SUMMARY | 2021-11-24 08:47 | XMS_ITS | Encounter Summary ---
:1955 Author Organization [facility] Address [address] [place] [address] Care Team Providers Name Role Phone Karma Philip APRN, C.N.P. Primary Care Provider [phone] Reason for Referral Outpatient (Routine) - Closed Specialty Diagnoses / Procedures Referred By Contact Refer red To Contact Family Medicine Diagnoses Diabetes Mellitus Type 2 (HCC) Senior Living Use Of Insulin Active (HCC) Hypertension Essential Primary Hyperlipidemia Mixed Karma Philip APRN, [facility] C.N.P. [address] [place] [address] Referral ID Status Reason Start Date Expiration Date Visits Requ ested Visits Authorized [id number] Closed 02/12/2019 02/12/2020 1 1 Scheduling Instructions Diabetes recheck MAKER BENCH Encounter Details Date Type Department Care Team Description 02/12/2019 Orders Only Department of Family Karma Philip Dia betes Mellitus Type 2 (HCC) (Primary Dx); Medicine, [place] APRN, C.N.P. Senior Living Use Of Insulin Active (HCC); Clinic, in [place], [address] Hypertension Essential Primary; [place], [place] Hyperlipidemia Mixed [address] [address] [place], [place] [phone] [address] (Work) [phone] Social History Tobacco Use Types Packs/Day Years [...] week 06/23/2020 How often do you attend mu-ism or baptism services? Never 06/23/2020 Do you belong to any clubs or organizations such as mu-ism N o 06/23/2020 groups, unions, fraternal or [...] completed or the highest Mookie, MEd, STOCK COUNTER, STEPHANIE) degree you have received? 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- [address] [place] [address] [place] [address] System in [place] [address] documented in this encounter Visit Diagnoses Diagnosis Diabetes Mellitus Type 2 (HCC) - Primary Senior Living Use Of Insulin Active (HCC) Hypertension Essential Primary Hyperlipidemia Mixed documented in this encounter Care Teams Merchandising Lead Relationship Specialty Start Date End Date Karma Philip APRN, C.N.P. PCP - General 08/17/[address] [place] [address] documented as of this encounter
--- OUTSIDE RECORDS SUMMARY | 2021-11-24 08:47 | XMS_ITS | Encounter Summary ---
:1955 Author Organization [facility] Address [address] [place] [address] Care Team Providers Name Role Phone Karma Philip APRN, C.NFrederickPFrederick Primary Care Provider [phone] Encounter Details Date Type Department Care Team Description 01/23/2019 Hospital Encounter Department of Karma Philip Swel ling Testicle Radiology in [place], [place] [address] [phone] Social History Tobacco Use Types Packs/Day Years [...] week 06/23/2020 How often do you attend latter-day or catholic services? Never 06/23/2020 Do you belong to any clubs or organizations such as latter-day N o 06/23/2020 groups, unions, fraternal or [...] have completed or the highest Mookie, MEd, ACID BLEACHER, STEPHANIE) degree you have received? 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 insulin glargine (Lantus Inject 40 Units 45 mL 3 201811/24/2019 Solostar U-100 Insulin) under the skin at 100 unit/mL (3 mL) bedtime. injectionIndications: Professor Of Environmental Science Use Of Insulin Active (HCC) losartan (COZAAR) 50 mg Take 1 tablet (50 90 tablet 3 11/0411/24/2019 tabletIndications: mg total) by mouth Hypertension Essential daily. Primary metFORMIN XR Take 4 tablets 360 tablet 0 11/04/2018 02/14/20 19 (GLUCOPHAGE-XR) 500 mg 24 (2,000 mg total) by hr tabletIndications: mouth daily before Diabetes Mellitus Type 2 dinner. (HCC) documented as of this encounter Plan of Treatment Not on filedocumented as of this encounter Procedures Procedure Name Priority Date/Time Associated Diagnosis Comme nts US SCROTUM STAT 01/23/2019 1:41 PM Swelling Testicle Resu lts for this INTERPERSONAL COMMUNICATIONS PROFESSOR procedure are i n the results section . documented in this encounter Results US Scrotum (01/23/2019 1:41 PM INTERPERSONAL COMMUNICATIONS PROFESSOR) Anatomical Region Laterality Modality Testes, Ultrasound RST LOS, Ultrasound ARZ LOS, Ultrasound F LA N/A Ultrasound LOS Specimen (Source) Anatomical Collection Method Collection Time Re ceived Time Location / / Volume Laterality 01/23/2019 2:05 PM INTERPERSONAL COMMUNICATIONS PROFESSOR Impressions 01/23/2019 2:09 PM INTERPERSONAL COMMUNICATIONS PROFESSOR Large right hydrocele. Narrative 01/23/2019 2:09 PM INTERPERSONAL COMMUNICATIONS PROFESSOR EXAM: US SCROTUM COMPARISON: None. FINDINGS: Right testicle: Normal size, echotexture , and blood flow pattern. No focal mass. Right testis volume: 12.9 ml Epididymis: Normal. No mass or hyperemia . Other: Large hydrocele. No varicocele. Left testicle: Normal size, echotexture, and blood flow pattern. No focal mass. Left testis volume: 11.1 ml Epididymis: Normal. No mass or hyperemia . Other: No hydrocele. No varicocele. Procedure Note Tapan Garcia M.D. - 01/23/2019 EXAM: US SCROTUM COMPARISON: None. FINDINGS: Right testicle: Normal size, echotexture , and blood flow pattern. No focal mass. Right testis volume: 12.9 ml Epididymis: Normal. No mass or hyperemia . Other: Large hydrocele. No varicocele. Left testicle: Normal size, echotexture, and blood flow pattern. No focal mass. Left testis volume: 11.1 ml Epididymis: Normal. No mass or hyperemia . Other: No hydrocele. No varicocele. IMPRESSION: Large right hydrocele. Karma Philip APRN, C.NFrederickPFrederick SANTIAGO US PROCEDURES documented in this encounter Visit Diagnoses Diagnosis Swelling Testicle documented in this encounter Care Teams Precast Worker Relationship Specialty Start Date End Date Karma Philip, AURELIO, C.N.P. PCP - General 08/17/[address] [place] [address] documented as of this encounter
--- OUTSIDE RECORDS SUMMARY | 2021-11-24 08:47 | XMS_ITS | Encounter Summary ---
:1955 Author Organization [facility] Address [address] [place] [address] Care Team Providers Name Role Phone Karma Philip APRN, C.N.P. Primary Care Provider [phone] Reason for Visit Reason Comments Med Refill Encounter Details Date Type Department Care Team Description 07/16/2018 Refill Department of Family Medicine, Whitley johns M.D. Med Refill [facility], in [address] [place] [address] [place] [address] [place] [address] [place] [address] [phone] Social History Tobacco Use Types Packs/Day Years [...] week 06/23/2020 How often do you attend religious or anabaptism services? Never 06/23/2020 Do you belong to any clubs or organizations such as religious N o 06/23/2020 groups, unions, fraternal or [...] at Date Recorded Male 02/12/2017 11:58 AM ENROLLMENT COUNSELOR documented as of this encounter Miscellaneous Notes Telephone Encounter - Sheeba Gill - 07/18/2018 10:35 AM CDT Left message for patient to call in and schedule an appointment. Telephone Encounter - Lesli Ramirez C.M.AFrederick - 07/18/2018 8:49 AM CDT Please call patient and schedule appts Telephone Encounter - Emi Colmenares L.PFrederickN. - 07/17/2018 2:11 PM CDT Message left for patient to return our call. Patient's medication refill request was completed, however he will need an appointment prior to an additional refills. documented in this encounter Plan of Treatment Not on filedocumented as of this encounter Visit Diagnoses Diagnosis Diabetes Mellitus Type 2 (HCC) documented in this encounter Care Teams Communication Electronic Technician Relationship Specialty Start Date End Date Karma Philip APRN, C.N.P. PCP - General 08/17/16 [address], [place] [address] documented as of this encounter
--- OUTSIDE RECORDS SUMMARY | 2021-11-24 08:47 | XMS_ITS | Encounter Summary ---
:1955 Author Organization [facility] Address [address] [place] [address] Care Team Providers Name Role Phone Karma Philip APRN, C.N.P. Primary Care Provider [phone] Reason for Referral Outpatient (Routine) - Closed Specialty Diagnoses / Referred By Contact Referred To Contact Procedures Physical Medicine and Diagnoses Bradley Stearns D.O. [facility] Rehabilitation Procedures pmr [address] [place] [address] Referral ID Status Reason Start Date Expiration Date Visits Requ ested Visits Authorized [id number] Closed 07/30/2018 07/30/2019 1 1 Scheduling Instructions 30 minute appointment Encounter Details Date Type Department Care Team Description 07/26/2018 Clinical Communication Department of Pérez [place], [place] [address] [place], [place] [address] [facility] [address] [place], [place] [phone] [phone] (Work) [phone] Social History Tobacco Use Types Packs/Day Years [...] How often do you attend worship or evangelical services? Never 06/23/2020 Do you belong to [...] at Date Recorded Male 02/12/2017 11:58 AM FOSTER PARENT documented as of this encounter Miscellaneous Notes Telephone Encounter - Sheeba Gill - 07/30/2018 12:59 PM CDT Patient is scheduled to see Dr. Rossi on SundayAugust 05 for his right shoulder. Telephone Encounter - Bradley Rossi D.O. - 07/30/2018 11:27 AM CDT Please call the patient to confirm that will be seen for his right shoulder and if so no new x-rays are needed at this time. If to be seen for his left shoulder, will need to order left shoulder x-raysfor further evaluation. Please call the patient to schedule a 30 minute clinical appointment with referral placed. Bradley Rossi DO, BORIS Automotive Painter Farm Machine Operator Physical Medicine & Rehabilitation Telephone Encounter - Kiya Hayes L.P.N. - 07/30/2018 11:03 AM CDT Please review and advise Telephone Encounter - Wilbur Annalise Ward - 07/26/2018 1:45 PM CDT Reason for Communication: Patient calling, would like to be seen for ongoing shoulder pain that is increasing. Former patient of Dr. Felix Current Can Nursing/Provider leave a detailed message: yes Did the patient refuse triage through Nurse line? (for symptom based concerns): Action Needed: Name of Medication (if relevant): documented in this encounter Plan of Treatment Scheduled Referrals Name Type Priority Associated Order Schedule Diagnoses Physical Medicine and Outpatient Referral Routine Expected: Rehabilitation office 2018 visit (clinic) (Approximate) , Expires: 07/30/2021 documented as of this encounter Visit Diagnoses Not on filedocumented in this encounter Care Teams Carton Stapler Relationship Specialty Start Date End Date Karma Philip, AURELIO, C.N.P. PCP - General 08/17/16 [address] [place] [address] documented as of this encounter
--- OUTSIDE RECORDS SUMMARY | 2021-11-24 08:47 | XMS_ITS | Encounter Summary ---
:[address] [facility] Address [address] [place] [address] Care Team Providers Name Role Phone Karma Philip APRN, C.N.P. Primary Care Provider [phone] Encounter Details Date Type Department Care Team Description 11/04/2018 Orders Only Department of Family Karma Philip Dia betes Mellitus Type 2 (HCC); Medicine, [place] AURELIO C.N.PFrederick Correction Use Of Insulin Active (HCC); Clinic, in [place], [address] Hypertension Essential Primary; [place], [place] Hyperlipidemia Mixed [address] [address] [place], [place] [phone] [address] (Work) [phone] Social History Tobacco Use Types Packs/Day Years [...] week 06/23/2020 How often do you attend confucianism or adventist services? Never 06/23/2020 Do you belong to any clubs or organizations such as confucianism N o 06/23/2020 groups, unions, fraternal or [...] or slept in a intermediate (including now)? Education Answer Date Recorded What is the highest level of school Master's degree (e.g., M Lola, MS, 08/09/2018 you have completed or the highest Mookie, Estefani, FOOTBALL PAD REPAIRER, STEPHANIE) degree you have received? 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 PCP - General 08/17/16 [address], [place] [address] documented as of this encounter
--- OUTSIDE RECORDS SUMMARY | 2021-11-24 08:47 | XMS_ITS | Encounter Summary ---
:1955 Author Organization [facility] Address [address] [place] [address] Care Team Providers Name Role Phone Elle Mills APRN, C.N.P. Primary Care Provider [phone] Reason for Referral Outpatient (Routine) - Closed Specialty Diagnoses / Procedures Referred By Contact Refer red To Contact Urology Diagnoses Hydrocele Elle Mills APRN, C.N.P. [facility] [address] [place] [address] Referral ID Status Reason Start Date Expiration Date Visits Requ ested Visits Authorized [id number] Closed 01/23/2019 01/23/2020 1 1 STER PIANO ACTION Reason for Visit Reason Comments Other Enlarged testicle on the rig ht. Becames worse over the last 2 months. Appointment Request (Routine) - Closed Specialty Diagnoses / Procedures Referred By Contact Refer red To Contact Family Medicine Referral ID Status Reason Start Date Expiration Date Visits Requ ested Visits Authorized [id number] Closed 01/22/2019 01/22/2020 1 1 Encounter Details Date Type Department Care Team Description 01/23/2019 Office Visit Department of Family Elle Mills Swe lling Testicle (Primary Dx); Medicine, [place] APRN, C.N.P. Hydrocele; Clinic, in [place], [address] Sn[address] Use Of Insulin Active (HCC) [place], [place] [address] [address] [place], [place] [phone] (Work) [phone] Social History Tobacco Use Types Packs/Day Years [...] week 06/23/2020 How often do you attend moravian or moravian services? Never 06/23/2020 Do you belong to any clubs or organizations such as moravian N o 06/23/2020 groups, unions, fraternal or [...] place to sleep or slept in a mcc (including now)? Education Answer Date Recorded What is the highest level of school Master's degree (e.g., M A, MS, 08/09/2018 you have completed or the highest Mookie, MEd, HUMAN RESOURCES SAFETY MANAGER, STEPHANIE) degree you have received? Sex Assigned at Date Recorded Male 02/12/2017 11:58 AM ADJUSTER PIANO ACTION documented as of this encounter Last Filed Vital Signs Vital Sign Reading Time Taken Comments Blood Pressure 155/86 01/23/2019 1:44 PM ADJUSTER PIANO ACTION Pulse 88 01/23/2019 1:31 PM ADJUSTER PIANO ACTION Temperature 36.5 ??C (97.7 ??F) 01/23/2019 1:31 PM ADJUSTER PIANO ACTION Respiratory Rate 20 01/23/2019 1:31 PM ADJUSTER PIANO ACTION Oxygen Saturation - - Inhaled Oxygen Concentration - - Weight 121 kg (266 lb 1.5 oz) 01/23/2019 1:31 PM ADJUSTER PIANO ACTION Height - - Body Mass Index 34.52 08/09/2018 9:20 AM CDT documented in this encounter Patient Instructions AttachmentsThe following attachments cannot be sent through Care Everywhere. Hydroceles and Spermatoceles (Sinhala)documented in this encounter Progress Notes Elle Mills, AURELIO, Benny - 01/23/2019 3:00 PM CST SUBJECTIVE CHIEF COMPLAINT: Chief Complaint Patient presents with ??? Other Enlarged testicle on the right. Becames worse over the last 2 months. HISTORY OF PRESENT ILLNESS: Hugh states his right side of his scrotum has been getting larger over the past 2 months. It is uncomfortable when he sleeps at night, otherwise no pain. No redness or fever. REVIEW OF SYSTEMS: A 10 system review of constitutional, cardiovascular, respiratory, musculoskeletal, endocrine, skin,HEENT, genitourinary, psychiatric and neurologic systems was obtained and is unremarkable except as noted above. The following portions of the patient's history [...] daily with breakfast., Disp: 180 tablet, Rfl: 0 ??? insulin glargine (Lantus Solostar U-100 Insulin) 100 unit/mL (3 mL) injection, Inject 0.35 mL (35 Units total) under the skin at bedtime., Disp: 45 mL, Rfl: 3 ??? losartan (COZAAR) 50 mg tablet, Take 1 tablet (50 mg total) by mouth daily., Disp: 90 tablet, Rfl: 3 ??? metFORMIN XR (GLUCOPHAGE-XR) 500 mg 24 hr tablet, Take 4 tablets (2,000 mg total) by mouth dailybefore dinner., Disp: 360 tablet, Rfl: 0 ??? multivitamin (Daily Vitamin Formula) tablet, Take 1 tablet by mouth daily., Disp: , Rfl: OBJECTIVE LABS and DIAGNOSTICS: Us Scrotum Result Date: 01/23/2019 Impression: Large right hydrocele. VITAL SIGNS: Temperature: [36.5 ??C] 36.5 ??C Resp Rate: [20] 20 Blood Pressure: (152-155)/(77-86) 155/86 Pulse Rate: [88] 88 PHYSICAL EXAM: General: Pleasant male who appears his stated age. Skin: Without lesions. Lymph Nodes: Neck supple, without adenopathy, no thyromegaly. Carotid pulses are equal bilaterally. Heart: Regular rate and rhythm without murmur. Lungs: Clear to auscultation, there is good inspiratory effort. Abdomen: Soft and nontender. No palpable mass. No hepatosplenomegaly. Genitalia: Normal penis, no discharge. No scrotal tenderness or masses. Testicles normal. Right hydrocele. No inguinal hernia. Spine: Straight without CVA tenderness. Extremities: Warm and dry. No cyanosis or peripheral edema. Mental: Alert and oriented. Neurologic: Reflexes 2+ and symmetrical. ASSESSMENT /PLAN: #1 Hydrocele Ultrasound reveals a large right hydrocele. We discussed the benign nature of a hydrocele, fluid collection surrounding the testicle, causing scrotal swelling. Requires treatment only if symptomatic. He states it bothers him and it has been getting larger. He is interested in urology consult for hydrocelectomy. #2 Need Vaccine Immunization Pneumococcal Prevnar 13 immunization given today. HEALTH MAINTENANCE: Up-to-date. STER PIANO ACTION documented in this encounter Miscellaneous Notes Addendum Note - Elle Mills APRN, C.N.P. - 01/23/2019 3:00 PM ADJUSTER PIANO ACTION Addended by: ELLE MILLS on: 01/23/2019 03:23 PM Modules accepted: Orders STER PIANO ACTION documented in this encounter Plan of Treatment Scheduled Referrals Name Type Priority Associated Order Schedule Diagnoses Urology - Outpatient Referral Routine Hydrocele Expected : Other/benign - 01/23/2019 scrotal / testicular (Approx imate), consult (clinic) Expires: 01/23/2022 documented as of this encounter Results US Scrotum (01/23/2019 1:41 PM ADJUSTER PIANO ACTION) Anatomical Region Laterality Modality Testes, Ultrasound RST LOS, Ultrasound ARZ LOS, Ultrasound F LA N/A Ultrasound LOS Specimen (Source) Anatomical Collection Method Collection Time Re ceived Time Location / / Volume Laterality 01/23/2019 2:05 PM ADJUSTER PIANO ACTION Impressions 01/23/2019 2:09 PM ADJUSTER PIANO ACTION Large right hydrocele. Narrative 01/23/2019 2:09 PM ADJUSTER PIANO ACTION EXAM: US SCROTUM COMPARISON: None. FINDINGS: Right [...] hydrocele. No varicocele. IMPRESSION: Large right hydrocele. Elle Mills APRN, C.N.P. IMG US PROCEDURES documented in this encounter Visit Diagnoses Diagnosis Swelling Testicle - Primary Hydrocele Systems Administrator Use Of Insulin Active (HCC) Swelling Testicle documented in this encounter Care Teams Market Maker Relationship Specialty Start Date End Date Elle Mills, AURELIO, C.N.P. PCP - General 08/17/[address], [place] [phone] documented as of this encounter
--- OUTSIDE RECORDS SUMMARY | 2021-11-24 08:47 | XMS_ITS | Encounter Summary ---
:1955 Author Organization [facility] Address [address] [place] [address] Care Team Providers Name Role Phone Karma Philip APRN, C.N.P. Primary Care Provider [phone] Reason for Referral Outpatient (Routine) - Closed Specialty Diagnoses / Procedures Referred By Contact Refer red To Contact Family Medicine Diagnoses Diabetes Mellitus Type 2 (HCC) Hydro Electric Station Operator Use Of Insulin Active (HCC) Hypertension Essential Primary Hyperlipidemia Mixed Karma Philip APRN, [facility] C.N.P. [address] [place] [address] Referral ID Status Reason Start Date Expiration Date Visits Requ ested Visits Authorized [id number] Closed 08/13/2018 08/13/2019 1 1 Scheduling Instructions Diabetes recheck Reason for Visit Reason Comments Diabetes re check Encounter Details Date Type Department Care Team Description 08/13/2018 Office Visit Department of Family Karma Philip Dia betes Mellitus Type 2 (HCC) (Primary Dx); Medicine, [place] AURELIO, C.N.P. Senior Living Use Of Insulin Active (HCC); Clinic, in [place], [address] Hypertension Essential Primary; [place], [place] Hyperlipidemia Mixed; [address] [address] Screening Examination Prostate Cancer [place], [place] [phone] (Work) [phone] Social History Tobacco Use Types Packs/Day Years [...] How often do you attend sabianism or sabianist services? Never 06/23/2020 Do you [...] have completed or the highest Mookie, MEd, ELECTRICAL CONSTRUCTION PROJECT MANAGER, STEPHANIE) degree you have received? 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 Common Questions & Answers About Diabetes and Nutrition (Polish)documented in this encounter Progress Notes Karma Philip APRN, C.N.P. - 08/13/2018 9:45 AM CDT SUBJECTIVE CHIEF COMPLAINT: Chief Complaint Patient presents with ??? Diabetes re check HISTORY OF PRESENT ILLNESS: Hugh is here for diabetes recheck. Labs were drawn this morning. He is currently on glimepiride 8 mg daily, metformin 2000 mg daily, Januvia 100 mg daily and Lantus insulin 40 units at bedtime. He states Januvia it is very expensive on his new Medicare, he feels blood sugars have been excellent and wo uld like to try discontinuing Januvia. He states blood sugars have been running between 90 and 120. He has experienced no hypoglycemia. He had dilated eye exam last week. Blood pressure stable on losartan 50 mg daily. Lipids are stable on atorvastatin 20 mg daily without adverse effects. REVIEW OF SYSTEMS: A 10 system review of constitutional, cardiovascular, respiratory, musculoskeletal, endocrine, skin,HEENT, genitourinary, psychiatric and neurologic systems was obtained and is unremarkable except as noted above. Answers for HPI/ROS submitted by the patient [...] once a year for a check-up?: Yes No general issues: Yes No eye issues: Yes No ENT issues: Yes No heart issues: Yes No respiratory issues: Yes No GI issues: Yes Pain or stiffness in the joints: Yes Back pain/stiffness: Yes No skin issues: Yes Numbness or shooting pain in hands, arms, legs or feet: Yes Stop breathing, choking, or gasping while asleep: Yes No blood/lymph issues: Yes No urinary/reproductive issues: Yes The following portions of the patient's history were reviewed and updated as appropriate: allergies,current medications, family history, medical history, social history, surgical history and problem list. ALLERGIES: No Known Allergies MEDICATIONS: Current Outpatient Medications: ??? ASPIRIN ORAL, Take 1 tablet by mouth daily., Disp: , Rfl: ??? atorvastatin (LIPITOR) 20 mg tablet, Take 1 tablet (20 mg total) by mouth at bedtime., Disp: 90 tablet, Rfl: 3 ??? gemfibrozil (LOPID) 600 mg tablet, Take 1 tablet (600 mg total) by mouth 2 (two) times a day before breakfast and dinner., Disp: 180 tablet, Rfl: 3 ??? insulin glargine (LANTUS SOLOSTAR U-100 INSULIN) 100 unit/mL (3 mL) injection, Inject 0.4 mL (40Units total) under the skin at bedtime., Disp: 45 mL, Rfl: 3 ??? losartan (COZAAR) 50 mg tablet, Take 1 tablet (50 mg total) by mouth daily., Disp: 90 tablet, Rfl: 3 ??? metFORMIN XR (GLUCOPHAGE-XR) 500 mg 24 hr tablet, Take 4 tablets (2,000 mg total) by mouth dailybefore dinner., Disp: 360 tablet, Rfl: 1 ??? MULTIVITAMIN ORAL, Take by mouth daily. , Disp: , Rfl: ??? glimepiride (AMARYL) 4 mg tablet, Take 2 tablets (8 mg total) by mouth daily with breakfast., Disp: 180 tablet, Rfl: 1 OBJECTIVE LABS and DIAGNOSTICS: A1c, BMP, microalbumin, Lipids, AST, CBC and PSA are pending. VITAL SIGNS: Temperature: [36.5 ??C] 36.5 ??C Blood Pressure: (138)/(80) 138/80 Pulse Rate: [80] 80 PHYSICAL EXAM: GENERAL: [...] #1 Diabetes Mellitus Type 2 (HCC) #2 Senior Living Use Of Insulin Active ([facility]) Continue to work on diet and exercise with weight loss. I will contact him with A1c results. He willdiscontinue Januvia. If blood sugars are running over 150 he will increase Lantus insulin to 42 units at bedtime. Recheck A1c in 6 months. ROUTINE DIABETES CARE: / Diabetes Education: Recommend [...] annual lipid profile. #3 Hypertension Essential Primary BMP is pending. Continue losartan 50 mg daily. Refill provided. #4 Hyperlipidemia Mixed Fasting lipids are pending. Continue atorvastatin 20 mg daily. Refill provided. #5 Screening Examination Prostate Cancer HEALTH MAINTENANCE: Up-to-date. documented in this encounter Plan of Treatment Scheduled Referrals Name Type Priority Associated Diagnoses Order [facility] Outpatient Referral Routine Diabetes Mellitus Expected: office visit Type 2 (HCC) 02/12/2019 (clinic) Senior Living Use Of (Approximat e), Insulin Active ( [facility]) Expires: Hypertension 08/13/2021 Essential Primar y Hyperlipidemia Mixed documented as of this encounter Results (ABNORMAL) Hemoglobin A1c (02/12/2019 8:06 AM SOFTWARE VALIDATION ENGINEER) P athologist Signature Hemoglobin A1c, 7.6 (H) 4.2 - 5.6 02/12/2019 OWAT B % 11:38 AM SOFTWARE VALIDATION ENGINEER Comment: Hemoglobin A1c values greater than or eq ual to 6.5 percent are diagnostic for diabetes mellitus. ?? Diagnosis should be confirmed by repeat testing. ??In diabet ic patients, HbA1c goals should be discussed with healthcar e provider. Specimen Anatomical Collection Method Collection Time Receive d Time (Source) Location / / Volume Laterality Blood (Blood, 02/12/2019 8:06 AM 02/13/20 19 Venous) SOFTWARE VALIDATION ENGINEER 10:46 AM SOFTWARE VALIDATION ENGINEER Karma Philip APRN C.N.P. LAB BLOOD ADD-ON Performing Organization Address City/State/ZIP Code Phon e Number [facility] [address] [place] [address] [place] [address] System in [place] [address] documented in this encounter Visit Diagnoses Diagnosis Diabetes Mellitus Type 2 (HCC) - Primary Hydro Electric Station Operator Use Of Insulin Active (HCC) Hypertension Essential Primary Hyperlipidemia Mixed Screening Examination Prostate Cancer documented in this encounter Care Teams Negative Turner Relationship Specialty Start Date End Date Karma Philip APRN, C.N.P. PCP - General 08/17/[address] [place] [phone] documented as of this encounter
--- OUTSIDE RECORDS SUMMARY | 2021-11-24 08:47 | XMS_ITS | Encounter Summary ---
:1955 Author Organization [facility] Address [address] [place] [address] Care Team Providers Name Role Phone Karma Philip APRN, C.N.P. Primary Care Provider [phone] Reason for Visit Reason Comments Med Refill Encounter Details Date Type Department Care Team Description 08/05/2019 Refill Department of Family Medicine, [place] Philip APRN, Med Refill [facility], in [place], [place] [address] [address] [place] [address] [phone] Social History Tobacco Use Types Packs/Day Years [...] How often do you attend scientology or evangelical services? Never 06/23/2020 Do you [...] have completed or the highest Mookie, MEd, CENTER MEDICAL DIRECTOR, STEPHANIE) degree you have received? 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 PCP - General 08/17/16 [address] [place] [phone] documented as of this encounter
--- OUTSIDE RECORDS SUMMARY | 2021-11-24 08:47 | XMS_ITS | Encounter Summary ---
:1955 Author Organization [facility] Address [address] [place] [address] Care Team Providers Name Role Phone Karma Philip APRN, C.N.P. Primary Care Provider [phone] Reason for Visit Reason Comments Med Refill Encounter Details Date Type Department Care Team Description 10/21/2019 Refill Department of Family Medicine, [place] Philip APRN, Med Refill [facility], in [place], [place] [address] [address] [place] [address] [phone] Social History Tobacco Use Types Packs/Day Years [...] How often do you attend scientology or hinduism services? Never 06/23/2020 Do you belong to [...] have completed or the highest Mookie, MEd, FELT MACHINE MECHANIC, STEPHANIE) degree you have received? 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 PCP - General 08/17/16 [address] [place] [phone] documented as of this encounter
--- OUTSIDE RECORDS SUMMARY | 2021-11-24 08:47 | XMS_ITS | Encounter Summary ---
:1955 Author Organization [facility] Address [address] [place] [address] Care Team Providers Name Role Phone Karma Philip APRN, C.N.P. Primary Care Provider Reason for Visit Reason Comments Med Refill Encounter Details Date Type Department Care Team Description 08/02/2018 Refill Department of Family Medicine, [place] Philip APRN, Med Refill [facility], in [place], [place] [address] [address] [place] [address] [phone] Social History Tobacco Use Types Packs/Day Years [...] How often do you attend muslim or baptist services? Never 06/23/2020 Do you belong to [...] slept in a skilled nursing (including now)? 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 PCP - General 08/17/16 [address] [place] [phone] documented as of this encounter
--- OUTSIDE RECORDS SUMMARY | 2021-11-24 08:47 | XMS_ITS | Encounter Summary ---
:1955 Author Organization [facility] Address [address] [place] [address] Care Team Providers Name Role Phone Karma Philip APRN C.N.PFrederick Primary Care Provider [phone] Reason for Referral Outpatient (Routine) - Closed Specialty Diagnoses / Procedures Referred By Contact Refer red To Contact Orthopedic Surgery Diagnoses Pain Shoulder Right Arthritis Shoulder PAR Bradley Rossi D.O. [facility] [place] [facility] Procedures [place] [address] [place] [address] Referral ID Status Reason Start Date Expiration Date Visits Requ ested Visits Authorized [id number] Closed 08/05/2018 08/05/[address] Fuentes Reason for Visit Reason Comments Shoulder Pain right Outpatient (Routine) - Closed Specialty Diagnoses / Referred By Contact Referred To Contact Procedures Physical Medicine and Diagnoses par [facility] [place] [facility] Procedures pmr [id number] [place] [address] Referral ID Status Reason Start Date Expiration Date Visits Requ ested Visits Authorized [id number] Closed 07/30/2018 07/30/2019 1 1 Encounter Details Date Type Department Care Team Description 08/05/2018 Office Visit Department of Physical Bradley Rossi, Pain Shoulder Right (Primary Dx); Medicine and [place] [address] [address] [place] [address] Social History Tobacco Use Types Packs/Day [...] week 06/23/2020 How often do you attend baptism or tenriism services? Never 06/23/2020 Do you belong to any clubs or organizations such as baptism N o 06/23/2020 groups, unions, fraternal or [...] place to sleep or slept in a [place] (including now)? 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 - 08/05/2018 10:30 AM CDT Follow-Up Plan: __ Prescription medications: None __ Sport/school/work note __ Referrals/labs/imaging/procedures/DME (orders): Referral to orthopedic surgery for consideration of operative intervention for further treatment purposes __ Follow-up phone call/portal message: If interested in nonsurgical treatment options including formal physical therapy referral, glenohumeral joint corticosteroid injection with ultrasound guidance, etc as discussed __ Follow-up clinic appointment: As needed at this time for further evaluation/medical care __ Scheduling desk Please feel free to call ([phone]) or message me on the [facility] Patient Portal if you have any questions. I want to thank you for coming into the clinic today. I enjoyed meeting you and am happy that you have trusted us to provide medical care for you today and beyond. I take pride in getting to know to mypatients and understanding their medical history and conditions. This allows me to work with each individual patient on designing an individualized treatment plan to provide the best medical care to optimize improving pain and/or function. As a PM&R (physical medicine & rehabilitation) and sports medicine physician/chip tuner, mymain goal is to help patients like you restore movement and function so you can remain as active as possible. I treat non-surgical, or non-operative,musculoskeletal medicine, orthopedic, and sports medicine conditions including, but not limited to: ??? Neck pain (disc disease/arthritis, herniated disc, spinal stenosis, strain) ??? Elbow pain (tennis elbow, golfers elbow, bursitis) ??? Wrist/hand pain (tendonitis, trigger finger, ganglion cysts) ??? Low back pain (disc disease/arthritis, herniated disc, spinal stenosis, strain) ??? Hip pain (bursitis, tendonitis, piriformis syndrome, impingement, strain) ??? Knee pain (tendonitis, Knutson???s cyst, meniscus tears, sprains, IT band) ??? Foot/ankle pain (sprains, tendonitis, plantar fasciitis, martinez splints) ??? Fractures (stress fractures, compression fractures) ??? Arthritis (knee, shoulder, hip, wrist/hand, elbow, foot/ankle) ??? Adult and pediatric sports medicine ??? Sports-related concussions ??? Ligament, joint and tendon injuries, conditions and disorders ??? Nerve disorders (sciatica, carpal tunnel, tarsal tunnel) Advanced technology that I use to treat patients like yourself includes musculoskeletal ultrasound, steroid injections, platelet rich plasma injections, and TENEX, that have benefits that include improving pain and providing faster recovery times. For more information about the services I offer or for my full profile, I invite you to visit [email or web address]. If you are in need of a clinic appointment for any of the additional services I provide, please call to schedule an appointment at your convenience. documented in this encounter Consult Notes Bradley Rossi D.O. - 08/05/2018 10:30 AM CDT Physical Medicine & Rehabilitation Follow-Up Clinic Note Hugh Dennis is a 63 y.o. right handed male who is seen in follow up for evaluation of right shoulder pain. SUBJECTIVE Last visit was in February [address] Felix. Been using Aleve, heat, ice, and massage for furthertreatment purposes. Notes diffuse right shoulder pain. Pain is 8/10 at its worst and 5/10 at its best. Symptoms are worse with reaching overhead, straining, in the evening, when in bed at night, and with lying on his right side and better with rest. Denies any consistent weakness/numbness/tingling of the right upper extremity. Notes difficulty with sleep due to pain. Denies any previous right shoulder surgeries. Denies any trauma/falls since his last clinical visit or in the last year. The following portions of the patient's history were reviewed and updated as appropriate: allergies,surgical history, problem list, current medications, family history, medical history and social history OBJECTIVE Vitals: 08/05/18 1010 BP: 151/64 Pulse: 74 Temp: 37.1 ??C BMI Readings from Last 3 Encounters: 10/10/17 34.16 kg/m?? 02/15/17 34.46 kg/m?? Wt Readings from Last 3 Encounters: 10/10/17 117 kg 02/15/17 118 kg Physical Exam General: healthy, alert, obese, and in mild distress Neurologic: motor exam as noted below Musculoskeletal: Right shoulder Inspection: Atrophy noted compared to the left upper extremity Palpation: Tenderness - acromion and anterior capsule No tenderness - AC joint and greater tuberosity Crepitus - present Active Range of Motion: Abduction 700 / FF 1100 / ER 450 / IR hip pocket Passive Range of Motion: Abduction and forward flexion limited by pain Strength: ER 4/5 / IR 4-/5 Special Tests: Positive: Neer's, Hawkin's, empty can and belly Negative: cross arm abduction and Yergason's Diagnostics no x-rays indicated during today's clinical visit and previous film(s) were reviewed today, independent interpretation/visualization of images was completed, and results were discussed with the patient Right shoulder x-rays - 02/15/2017 IMPRESSION: Comparison 12/01/08. Severe glenohumeral degenerative joint disease with complete joint space loss, large osteophytes, subchondral sclerosis, and several intra-articular ossicles. Severe acromioclavicular degenerative joint disease with large inferior osteophytes. No fracture or dislocation. ASSESSMENT / PLAN #1 Right shoulder pain consistent with glenohumeral joint osteoarthrosis and rotator cuff tear related to age and previous shoulder dislocation Discussed further treatment options with the patient today including activity modification, oral pain medication management, injection therapy, etc along with referral to orthopedic surgery for consideration of operative intervention and need for further diagnostic/repeat diagnostic testing. At this time, patient wished to proceed with use of Tylenol/ice/heat as needed for improvement of pain/discomfort and to modify activities for improvement of his current medical state. Wished to proceed with surgical consultation with referral placed to orthopedic surgery for consideration of a total shoulder arthroplasty vs a reverse total shoulder arthroplasty for further treatment purposes. Will defer further diagnostic imaging to orthopedic surgery at this time with consideration of a repeat right shoulder x-ray series, CT of the right shoulder without contrast, MRI of the right shoulder without contrast, etc as deemed appropriate moving forward. Instructed the patient to call/send a portal message if in terested in any nonsurgical cares moving forward including formal physical therapy referral and/or aright glenohumeral joint corticosteroid injection with ultrasound guidance for further treatment purposes. Follow-up as needed at this time for further evaluation/medical care. Bradley Rossi DO, CAQSM Commissioning Manager Digital Associate Media Director Physical Medicine & Rehabilitation Patient's conditions were thoroughly discussed during today's visit with greater than 50% of the visit spent counseling the patient with total time spent [id number]-it-[id number] with the patient being 25 minutes. documented in this encounter Plan of Treatment Scheduled Referrals Name Type Priority Associated Order Schedule Diagnoses Orthopedic Surgery - Outpatient Referral Routine Pain Sh oulder Right Expected: Shoulder (no prior Arthritis Shoulder 05/2018 replacement) (Approximate), surgical consult Expires: (clinic) 08/05/2021 documented as of this encounter Visit Diagnoses Diagnosis Pain Shoulder Right - Primary Arthritis Shoulder documented in this encounter Care Teams Director Social Relationship Specialty Start Date End Date Kamra Philip, AURELIO, C.N.P. PCP - General 08/17/[address] [address] documented as of this encounter
--- OUTSIDE RECORDS SUMMARY | 2021-11-24 08:47 | XMS_ITS | Encounter Summary ---
:1955 Author Organization [facility] Address [address] [place] [address] Care Team Providers Name Role Phone Karma Philip APRN, C.N.P. Primary Care Provider [phone] Encounter Details Date Type Department Care Team Description 02/12/2019 Hospital Encounter Department of Karma Philip s [facility] AURELIO Odonnell C.N .PFrederick Type 2 (HCC) in [address] [address] [place], [place] [phone] [address] (Work) [phone] Social History Tobacco Use Types Packs/Day Years [...] week 06/23/2020 How often do you attend orthodox or hindu services? Never 06/23/2020 Do you belong to any clubs or organizations such as orthodox N o 06/23/2020 groups, unions, fraternal or [...] have completed or the highest Mookie, MEd, DRUG ENFORCEMENT ADMINISTRATION AGENT, STEPHANIE) degree you have received? 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 injectionIndications: Mcc Use Of Insulin Active (HCC) losartan (COZAAR) [...] Name Priority Date/Time Associated Diagnosis Comme nts HEMOGLOBIN A1C, B Routine 02/12/2019 8:06 AM Diabetes Mellitus Results for this GRAPPLER Type 2 (HCC) procedure are i n the results section. documented in this encounter Results (ABNORMAL) Hemoglobin A1c (02/12/2019 8:06 AM GRAPPLER) P athologist Signature Hemoglobin A1c, 7.6 (H) 4.2 - 5.6 02/12/2019 OWAT B % 11:38 AM GRAPPLER Comment: Hemoglobin A1c values greater than or eq ual to 6.5 percent are diagnostic for diabetes mellitus. ?? Diagnosis should be confirmed by repeat testing. ??In diabet ic patients, HbA1c goals should be discussed with healthcar e provider. Specimen Anatomical Collection Method Collection Time Receive d Time (Source) Location / / Volume Laterality Blood (Blood, 02/12/2019 8:06 AM 02/13/20 19 Venous) GRAPPLER 10:46 AM GRAPPLER Karma Philip APRN, C.N.P. LAB BLOOD ADD-ON Performing Organization Address City/State/ZIP Code Phon e Number [id number] [address] [place] [address] [place] [address] System in [place] [address] documented in this encounter Visit Diagnoses Diagnosis Diabetes Mellitus Type 2 (HCC) documented in this encounter Care Teams Press Operator Assistant Relationship Specialty Start Date End Date Karma Philip APRN, C.N.P. PCP - General 08/17/[address] [place] [address] documented as of this encounter
--- OUTSIDE RECORDS SUMMARY | 2021-11-24 08:48 | XMS_ITS | Encounter Summary ---
:1955 Author Organization [facility] Address [address] [place] [address] Care Team Providers Name Role Phone Unavailable Primary Care Provider Unavailable Encounter Details Date Type Department Care Team Description 06/13/2016 Hospital Encounter HX [facility] Elle Mills, Lola MORAES, C.N.P. [address], [place] [address] (Wo rk) Social History Tobacco Use Types Packs/Day Years Used Date Smoking Tobacco: Never Alcohol Habits Answer Date Recorded [...] week 06/23/2020 How often do you attend hoahaoism or mosque services? Never 06/23/2020 Do you belong to any clubs or organizations such as hoahaoism N o 06/23/2020 groups, unions, fraternal or [...] or slept in a jail (including now)? 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 gemfibrozil (for_LOPID) Take 600 mg by 0 08/05/19 10 10/10/2017 600 mg tablet mouth. documented as of this encounter Miscellaneous Notes Miscellaneous - Elle Mills APRN, C.N.P. - 06/14/2016 11:54 AM CDT From: ELLE MILLS APRN RN DOCUMENTATION To: HUGH DENNIS Sent: 06/14/2016 11:54:15 CDT Hugh, Increase Lantus to 37 units daily. Recheck A1c in 3 months. Elle Results: Date Result Name Ind Value Ref Range 06/13/2016 15:38 Hgb A1c (H) 8.0 % A1C ( - <=5.6) Source: [facility] POWERCHART Document Id: [id number] Electronically signed by Conversion, [facility] Monitor [id number] at 08/15/2016 7:08 AM CDT documented in this encounter Plan of Treatment Not on filedocumented as of this encounter Procedures Procedure Name Priority Date/Time Associated Diagnosis Comme nts HEMOGLOBIN A1C, B Routine 06/13/2016 3:38 PM Resu lts for this CDT procedure are i n the results section. documented in this encounter Results (ABNORMAL) Hemoglobin A1c (06/13/2016 3:38 PM CDT) P athologist Signature Hemoglobin A1c, 8.0 (H) <=5.6 A1C POWERCHART B Specimen (Source) Anatomical Collection Method Collection Time Re ceived Time Location / / Volume Laterality Blood 06/13/2016 3:38 PM CDT Elle Mills APRN, C.N.P. LAB BLOOD ADD-ON Performing Organization Address City/State/ZIP Code Phon e Number POWERCHART documented in this encounter Visit Diagnoses Not on filedocumented in this encounter
--- OUTSIDE RECORDS SUMMARY | 2021-11-24 08:48 | XMS_ITS | Encounter Summary ---
:1955 Author Organization [facility] Address [address] [place] [address] Care Team Providers Name Role Phone Karma Philip APRN, C.N.P. Primary Care Provider [phone] Encounter Details Date Type Department Care Team Description 02/15/2017 Orders Only Department of Family Karma Philip APR N, Medicine, [facility], C.N. P. in [facility] [address] [address] [place], [place] [address] [phone] Social History Tobacco Use Types Packs/Day Years [...] week 06/23/2020 How often do you attend anabaptist or sabianist services? 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 PCP - General 08/17/16 [address] [address] documented as of this encounter
--- OUTSIDE RECORDS SUMMARY | 2021-11-24 08:48 | XMS_ITS | Encounter Summary ---
:1955 Author Organization [facility] Address [address] [place] [address] Care Team Providers Name Role Phone Unavailable Primary Care Provider Unavailable Encounter Details Date Type Department Care Team Description 06/15/2016 Hospital Encounter HX [facility] MyrElle franco, SALES MARKETING MANAGER, C.N.P. [address] [place], [place] [phone] (Wo rk) Social History [...] week 06/23/2020 How often do you attend sabianist or latter day services? Never 06/23/2020 Do you belong to any clubs or organizations such as sabianist N o 06/23/2020 groups, unions, fraternal or [...] or slept in a detention (including now)? 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 documented as of this encounter Last Filed Vital Signs Vital Sign Reading Time Taken Comments Blood Pressure 128/72 06/15/2016 3:41 PM CDT Pulse 84 06/15/2016 3:37 PM CDT Temperature - - Respiratory Rate 20 06/15/2016 3:37 PM CDT Oxygen Saturation - - Inhaled Oxygen Concentration - - Weight 119 kg (263 lb 1.9 oz) 06/15/2016 3:37 PM CDT Height 185 cm (6' 0.84) 06/15/2016 3:41 PM CDT Body Mass Index 34.87 06/15/2016 3:37 PM CDT documented in this encounter Medications at Time of Discharge Medication Sig Dispensed Refills Start Date End Date aspirin [address] tablet Take 1 tablet by 0 2015 mouth daily. gemfibrozil (for_LOPID) Take 600 mg by 0 08/05/19 10 10/10/2017 600 mg tablet mouth. documented as of this encounter Progress Notes Elle Mills, AURELIO, C.N.P. - 06/15/2016 4:02 PM CDT Clinic Full Note CHIEF COMPLAINT/REASON FOR VISIT Diabetic check and pre-op for colonoscopy. Has lump on left side of forehead would like checked. Freezing area with OTC. HISTORY OF PRESENT ILLNESS Hugh is here for diabetes recheck. States blood sugars have been stable. He had A1c drawn on 06/13/2016 it was elevated at 8.0. We reviewed Lantus insulin, my record indicates she should have been taking 37 units daily and he has only been taking 35 units daily. He will increase Lantus to 37 units now and will recheck A1c in 3 months. He is due for dilated eye exam. Lipids are stable on atorvastatinwithout adverse effects. He will be due for fasting lipids the end of August. Blood pressure stable onlosartan 50 milligrams daily. MEDICATIONS aspirin 81 mg oral tablet, 81 mg, 1 tab(s), PO, Daily atorvastatin 20 mg oral tablet, 20 mg, 1 tab(s), PO, Bedtime, 1 refills glimepiride 4 mg oral tablet, 8 mg, 2 tab(s), with breakfast, PO, Daily, 1 refills Januvia 100 mg oral tablet, 100 mg, 1 tab(s), Appointment needed for further refills., PO, Daily, 1refills Lantus Solostar Pen 100 units/mL subcutaneous solution, 37 units, Subcut., Bedtime, 3 refills losartan 50 mg oral tablet, 50 mg, 1 tab(s), PO, Daily, 1 refills metFORMIN 500 mg oral tablet, extended release, 2,000 mg, 4 tab(s), with evening meal, PO, Daily Supper, 1 refills ALLERGIES NKA PAST MEDICAL HISTORY Chronic DM II (or NOS), controlled DM II (or NOS), uncontrolled Hyperlipidemia Mixed Hypertension (HTN) Essential Primary NOS Shelter Use Of Insulin Active Low back pain Neuropathy Ulnar Nerve Obesity NOS Trigger finger Historical Closed fracture of foot NOS Herniated Disc NOS Radiculopathy Cervical PROCEDURES/SURGICAL HISTORY Discectomy, anterior, with decompression of spinal cord and/or nerve root(s), including osteophytectomy; cervical, each additional interspace (List separately in addition to code for primary procedure).. (09/29/2010), MRI of cervical spine (07/17/2009), Colonoscopy (04/09/2006), Ventral herniorrhaphy (08/18/2003), Herniorrhaphy (08/17/2001). SOCIAL HISTORY Date Time: 06/15/2016 15:37 Tobacco: Smoking Status: Never smoker Exposure: Other: Never Alcohol: Use: Yes Recreational Drugs: Use: None Type: No Results Found FAMILY HISTORY Mother:Positive: Degenerative joint disease Father ( at 64 year(s)):Positive: Diabetes mellitus; Hyperlipidemia; Hypertension; Myocardial infarction Sister: Negative: Brother: Negative: HEALTH MAINTENANCE Due for eye exam. Scheduling colonoscopy with Dr. Craven. SYSTEMS REVIEW Positive for that mentioned in the History of Present Illness and Past Medical History. All other systems were reviewed and were negative. VITAL SIGNS T: 36.8 ??C (Core) HR: 84 RR: 20 BP: 128 / 72 SpO2: 96% HT: 185 cm WT: 119.35 kg BMI: 34.87 PHYSICAL EXAMINATION GENERAL: Well-developed, well-nourished, in no acute distress. SKIN: Warm and dry. HEENT: TMs clear. Throat clear. NECK: Supple. No lymphadenopathy or thyromegaly. HEART: Regular rate and rhythm. S1, S2. No murmur. LUNGS: Clear to auscultation. No wheezes or rales. ABDOMEN: Soft, nontender. No hepatosplenomegaly. EXTREMITIES: Warm, dry. No peripheral edema. Normal sensation tops and bottoms of feet with monofilament. IMPRESSION/REPORT/PLAN DM II (or NOS), uncontrolled Worsening, increase Lantus insulin to 37 daily. Will recheck A1c at the end of August when he comes in for fasting labs. He will schedule eye exam. Diabetes education done today. Please see [facility]ainer Intake form in the Electronic Health Record. Ordered: OV Est Pt Level 4 - 17762 - 25 min Hyperlipidemia Mixed Stable on atorvastatin without adverse effects. Fasting lipids will be checked the end of August. Ordered: OV Est Pt Level 4 - 52096 - 25 min Hypertension (HTN) Essential Primary NOS Stable on losartan, no change in medication. Ordered: OV Est Pt Level 4 - 40002 - 25 min [employer] Use Of Insulin Active Increase Lantus insulin to 37 units daily. Ordered: OV Est Pt Level 4 - 28521 - 25 min Screening Exam Prostate Ca Ordered: OV Est Pt Level 4 - 19424 - 25 min Orders: atorvastatin, 20 mg = 1 tab(s), PO, Bedtime, # 90 tab(s), 1 Refill(s), Maintenance, [facility]acy: [facility], Does not need refill today. glimepiride, 8 mg = 2 tab(s), PO, Daily, with breakfast, # 180 tab(s), 1 Refill(s), Pharmacy: [facility], Does not need refill today. insulin glargine, 37 units, Subcut., Bedtime, # 45 mL, 3 Refill(s), Pharmacy: [facility], Does not need refill today. losartan, 50 mg = 1 tab(s), PO, Daily, # 90 tab(s), 1 Refill(s), Pharmacy: [facility], Does not need refill today. metFORMIN, 2,000 mg = 4 tab(s), PO, Daily Supper, with evening meal, # 360 tab(s), 1 Refill(s), Pharmacy: [facility], Does not need refill today. SITagliptin, 100 mg = 1 tab(s), PO, Daily, # 90 tab(s), 1 Refill(s), Maintenance, [facility], Does not need refill today. Hemoglobin A1c Prostate Specific Antigen-Screen Electronically Signed By: ELLE MILLS APRN, CNP On: 06/15/2016 04:07 PM Source: [facility] POWERCHART Document Id: [id number] documented in this encounter Nursing Notes Elle Mills APRN, C.N.P. - 06/15/2016 3:55 PM CDT Ambulatory Patient Education The following Patient Education Materials have been given to the patient: Patient Education Materials: Ambulatory DIABETIC FOOT CARE Ambulatory Diabetic Foot Care Diabetes can lead to a number of different foot complications. Fortunately, most of these complications can be prevented with a little extra foot care. If diabetes is not well controlled, the high blood sugar can cause damage to blood vessels and result in poor circulation to the foot. When the skin does not get enough blood flow, it becomes prone to pressure sores and ulcers, which heal slowly. High blood sugar can also damage nerves, interfering with the ability to feel pain and pressure. When you cant feel your foot normally, it is easy to injure your skin, bones and joints without knowing it. For these reasons diabetes increases the risk of fungal infections, bunions and ulcers. Deep ulcers can lead to bone infection. Gangrene is the most serious foot complication of diabetes. It usuallyoccurs on the tips of the toes as blacked areas of skin. The black area is tissue. In severe cases, gangrene spreads to involve the entire toe, other toes and the entire foot. Foot or toe amputation may be required. Good foot care and blood sugar control can prevent this. Home Care Wear comfortable, proper fitting shoes. Wash your feet daily with warm water and mild soap. After drying, apply a moisturizing cream or lotion. Check your feet daily for skin breaks, blisters, swelling, or redness. Look between your toes also. Wear cotton socks and change them every day. Trim toe nails carefully and do not cut your cuticles. Strive to keep your blood sugar under control with a combination of medicines, diet and activity. If you smoke and have diabetes, it is very important that you stop. Smoking reduces blood flow to your foot. Avoid activities that increase your risk of foot injury: ?? Do not walk barefoot. ?? Do not use heating pads or hot water bottles on your feet. ?? Do not put your foot in a hot tub without first checking the temperature with your hand. 10) Schedule yearly foot exams. Follow Up with your doctor or as advised by our staff. Report any cut, puncture, scrape, other injury, blister, bunion, ingrown toenail or ulcer on your foot. Get Prompt Medical Attention if any of the following occur: -- Black skin color anywhere on the foot -- Open ulcer with pus draining from the wound -- Increasing foot or leg pain -- New areas of redness or swelling or tender areas of the foot ?? [id number] [place] [address]. All rights reserved. This information is not intended as a substitute for professional medical care. Always follow your healthcare professional's instructions. Source: [facility] POWERCHART Document Id: [id number] documented in this encounter Miscellaneous Notes Miscellaneous - Peter Benavieds - 12/07/2016 11:15 AM CDT *General Message Document Contains Addenda Addendum by ELLE MILLS APRN, CNP on December 07, 2016 11:59:02 CDT From: ELLE MILLS APRN, CNP To: PETER BENAVIDES; Sent: 12/07/2016 11:59:02 CDT Subject: RE: *General Message There is not a message? From: PETER BENAVIDES To: ELLE MILLS APRN FIELD CLINICAL ENGINEER; Sent: 12/07/2016 11:15:50 CDT Subject: *General Message Source: [facility] [employer] Operating System Document Id: [id number] Miscellaneous - Analisa Franco - 08/09/2016 3:40 PM CDT A message from your Primary Care Provider and your Care Team From: ANALISA FRANCO LPN To: HUGH DENNIS Sent: 08/09/2016 15:40:05 CDT Subject: A message from your Primary Care Provider and your Care Team Hugh Abdullahiana [facility] Number: [phone] [place] [id number] : 1955 Mr. Dennis, We have developed a six-month overview of preventive and recommended services that apply to your unique health care needs. Some may be past due or may be coming due in the next three months. If youhave already scheduled any or all of these services, thank you. We recognize that this may or may not include all of your individualized health care needs; however, we are happy to help you with any and all primary care concerns you may have. Past Due Eye Exam for Diabetes Coming Due (in the next three months) Creatinine Test (on or soon after Sep 01, 2016) Urine Microalbumin Test (on or soon after Sep 01, 2016) Fasting Lipid Panel (on or soon after Sep 02, 2016) Hemoglobin A1c Lab Test for Diabetes (on or soon after Sep 12, 2016) It may be possible to bundle some of the above services together to make your visit with us more convenient. Please call [phone] to schedule services that are past due or that may shortly become due (thank you if you have already done so). We will follow up in three to six months should you have more services to schedule at that time. If you have already received any of the listed past due or upcoming services outside of [facility], please call [phone] to add them to your medical record. You may want to consider contacting your health insurance company to make sure these services are covered and find out if there will be any [id number] expense. If you have any questions about the services listed above, or if you are no longer receiving care from [facility], please contact us at [phone]. Thank you for partnering to provide you with the best care possible. Thank you for choosing us, Elle Mills APRN, C.N.P. and the [facility] Team, for your health care needs! Source: [employer] Document Id: [id number] Miscellaneous - Mike Villela L.P.N. - 06/27/2016 9:37 AM CDT [facility] From: MIKE VILLELA LPN ( Surgery Nurse) To: [facility] Sociology Faculty Member/Prior Authorizations; Sent: 06/27/2016 09:37:01 CDT Subject: [facility] SURGERY [facility] Surgery Clinic Checklist Patient Contact Number: _ [phone] Surgeon: _GUS Surgical Service: (_) Orthopedics (_X) General surgery (_) Ophthalmology (_) Podiatry (_) ENT (_) Urology (_) OB / Gynecology (_) Other Date of Surgery: _07/24/16 Place of Surgery: _[facility] Pre-Admit FIN: _ Procedure (as written on Consent): _COLONOSCOPY Right, Left, Bilateral, N/A: _ Diagnosis (reason for surgery): _SCREENING ICD-10: _Z12.11 CPT:_2567 Work Comp: (X_) No (_) Yes Surgeon Anticipated Time: _9 Case Type: (_X) Outpatient (_) AM Admit (_) Inpatient (_) Other Pre-op MD: _ Post-Op Appt:(time frame when to return) _ Surgery Brochure Given: (_) Yes (_) No (X_) Mailed to Patient Source: [employer] Document Id: [id number] Miscellaneous - Mike Villela LFrederickPFrederickN. - 06/27/2016 9:36 AM CDT notify of colonoscopy From: MIKE VILLELA LPN ( Surgery Nurse) To: JANESSA CRAVEN MD; ELLE MILLS APRN, CNP; Sent: 06/27/2016 09:36:14 CDT Subject: notify of colonoscopy SCHEDULED FOR: COLONOSCOPY AT [facility] WITH DR. CRAVEN DATE of Procedure: 07/24/16 TIME of Procedure: 9 PER: ELLE MILLS /DR. FLORES ORDERS. MIRALAX Prep instructions have been sent to the patient. *Patient instructed to contact their primary provider if taking any blood thinners or diabetic medication at least 10 days prior to procedure for medication instructions. *Patient advised to not take aspirin, naproxen, fish oil, vitamin E, ibuprofen for 10 days prior to the scheduled procedure. *Insurance referral done Source: [facility] POWERCHART Document Id: [id number] Miscellaneous - Elle Mills APRN, C.N.P. - 06/15/2016 3:55 PM CDT Ambulatory Patient Summary [facility] [address] [place] [id number] Visit Information Name: HUGH DENNIS [facility] Number: [phone] Current Date: 06/15/2016 15:55:32 Physicians Attending Provider: ELLE MILLS APRN, CNP Primary Care Provider: ELLE MILLS APRN, CNP HUGH DENNIS has been given the following list of follow-up instructions, medication list, and patient education materials: Follow-up Instructions Your Medications Here is a list of your medications. It is important to take your medications as directed. Use a pillbox or chart to help remind you to take your medications. Please let your doctor or nurse know if you have problems taking your medications. Medication/Strength How to Take Indications/Special Instructions/Comments/Notes for Patient Medication Changes/Routing aspirin (aspirin 81 mg oral tablet) 1 Tablet(s), Oral, once a day atorvastatin (atorvastatin 20 mg oral tablet) 1 Tablet(s), Oral, once a day (at bedtime) Routed to [facility] [address] [place] [address] glimepiride (glimepiride 4 mg oral tablet) 2 Tablet(s), Oral, once a day with breakfast [facility] [address] [place] [address] insulin glargine (Lantus Solostar Pen 100 units/mL subcutaneous solution) 37 units, Subcutaneous, once a day (at bedtime) Routed to [facility] [address] [place] [address] losartan (losartan 50 mg oral tablet) 1 Tablet(s), Oral, once a day [facility] [address] [place] [address] metFORMIN (metFORMIN 500 mg oral tablet, extended release) 4 Tablet(s), Oral, Daily Supper with evening meal [facility] [address] [place] [address] SITagliptin (Januvia 100 mg oral tablet) 1 Tablet(s), Oral, once a day [facility] [address] [place] [address] Stop Taking the Following Medications: Medication list as of 06-15-16 15:55 Attention: If you have any medications at home that are not on this list, DO NOT take them until youcontact your provider for clarification. Give a copy of your medication list to your primary care provider. Update your medication list any time medications or doses are changed and carry your medication list at all times in case of emergency. Electronically Signed By: ELLE MILLS APRN, CNP Signed On:15-JUN-2016 15:55:05 Your Allergies & Intolerances Substance Reaction Symptoms Category Comments No Known Allergies Drug Your Problem List Problem Status Onset Comments Obesity NOS Active Neuropathy Ulnar Nerve Active Trigger finger Active 03/19/2012 05/09/12 left thumb Low back pain Active 06/08/2012 08/08/12 right DM II (or NOS), uncontrolled Active Shelter Use Of Insulin Active Active Hyperlipidemia Mixed Active Hypertension (HTN) Essential Primary NOS Active Your Upcoming Appointments Date Time Location Provider No Appointments found Attention: Contact your local Clinic if further appointment detail needed. Diabetic Foot Care Diabetes can lead to a number of different foot complications. Fortunately, most of these complications can be prevented with a little extra foot care. If diabetes is not well controlled, the high blood sugar can cause damage to blood vessels and result in poor circulation to the foot. When the skin does not get enough blood flow, it becomes prone to pressure sores and ulcers, which heal slowly. High blood sugar can also damage nerves, interfering with the ability to feel pain and pressure. When you cant feel your foot normally, it is easy to injure your skin, bones and joints without knowing it. For these reasons diabetes increases the risk of fungal infections, bunions and ulcers. Deep ulcers can lead to bone infection. Gangrene is the most serious foot complication of diabetes. It usuallyoccurs on the tips of the toes as blacked areas of skin. The black area is tissue. In severe cases, gangrene spreads to involve the entire toe, other toes and the entire foot. Foot or toe amputation may be required. Good foot care and blood sugar control can prevent this. Home Care Wear comfortable, proper fitting shoes. Wash your feet daily with warm water and mild soap. After drying, apply a moisturizing cream or lotion. Check your feet daily for skin breaks, blisters, swelling, or redness. Look between your toes also. Wear cotton socks and change them every day. Trim toe nails carefully and do not cut your cuticles. Strive to keep your blood sugar under control with a combination of medicines, diet and activity. If you smoke and have diabetes, it is very important that you stop. Smoking reduces blood flow to your foot. Avoid activities that increase your risk of foot injury: ?? Do not walk barefoot. ?? Do not use heating pads or hot water bottles on your feet. ?? Do not put your foot in a hot tub without first checking the temperature with your hand. 10) Schedule yearly foot exams. Follow Up with your doctor or as advised by our staff. Report any cut, puncture, scrape, other injury, blister, bunion, ingrown toenail or ulcer on your foot. Get Prompt Medical Attention if any of the following occur: -- Black skin color anywhere on the foot -- Open ulcer with pus draining from the wound -- Increasing foot or leg pain -- New areas of redness or swelling or tender areas of the foot ?? [id number] [employer] [facility], [address] [place] [address]. All rights reserved. This information is not intended as a substitute for professional medical care. Always follow your healthcare professional's instructions. Consider Using Patient Online Services Patient Online Services is a secure online and Mobile application that lets you: ?? View lab and test results ?? View portions of your medical record including clinical notes, immunizations and discharge summaries ?? Request an appointment or medication refill ?? Review your appointment schedule ?? Send secure messages to your care team Its easy to create an account if you dont have one. Go to [email or web address] and click on Create Your Account. Then, follow the directions to complete the online form. Youll be asked for your [facility] number which you can find at the top of this document. Your Goals/Additional instructions: Source: [facility] POWERCHART Document Id: [id number] Miscellaneous - Elle Mills APRN, C.N.P. - 06/15/2016 3:55 PM CDT Ambulatory Discharge Medication List [address] [id number] Visit Information Name: HUGH DENNIS [facility] Number: [id number] Current Date: 06/15/2016 15:55:31 Attending Provider: ELLE MILLS APRN FIELD CLINICAL ENGINEER Primary Care Provider: ELLE MILLS APRN FIELD CLINICAL ENGINEER ABDULLAHIHUGH LEE has been given the following list of medications: Your Medications It is important to take your medications as directed. Use a pill box or chart to help remind you to take your medications. Please let your doctor or nurse know if you have problems taking your medications. Medication/Strength How to Take Indications/Special Instructions/Comments/Notes for Patient Medication Changes/Routing aspirin (aspirin 81 mg oral tablet) 1 Tablet(s), Oral, once a day atorvastatin (atorvastatin 20 mg oral tablet) 1 Tablet(s), Oral, once a day (at bedtime) Routed to [address] [address] glimepiride (glimepiride 4 mg oral tablet) 2 Tablet(s), Oral, once a day with breakfast Routed to [address] [address] insulin glargine (Lantus Solostar Pen 100 units/mL subcutaneous solution) 37 units, Subcutaneous, once a day (at bedtime) Routed to [facility] [address] [place] [address] losartan (losartan 50 mg oral tablet) 1 Tablet(s), Oral, once a day [facility] [address] [place] [address] metFORMIN (metFORMIN 500 mg oral tablet, extended release) 4 Tablet(s), Oral, Daily Supper with evening meal Routed to [facility] [address] [place] [address] SITagliptin (Januvia 100 mg oral tablet) 1 Tablet(s), Oral, once a day Routed to [facility] [address] [place] [address] Stop Taking the Following Medications: Medication list as of 06-15-16 15:55 Attention: If you have any medications at home that are not on this list, DO NOT take them until youcontact your provider for clarification. Give a copy of your medication list to your primary care provider. Update your medication list any time medications or doses are changed and carry your medication list at all times in case of emergency. Electronically Signed By: ELLE MILLS APRN FIELD CLINICAL ENGINEER Signed On:15-JUN-2016 15:55:05 Additional Information: Source: [facility] POWERCHART Document Id: [id number] Miscellaneous - Elle Mills APRN, C.N.P. - 06/15/2016 3:48 PM CDT Addendum by GENE FLORES on June 20, 2016 14:02:15 CDT Letter mailed to patient to call back to schedule. Addendum by MIKE VILLELA LPN on June 19, 2016 10:38:40 CDT From: MIKE VILLELA LPN ( Surgery Nurse) To: GENE FLORES; Sent: 06/19/2016 10:38:40 CDT Subject: FW: From: ELLE MILLS APRN, CNP To: Surgery Nurse; Sent: 06/15/2016 15:48:21 CDT Please call patient to schedule colonoscopy. Source: [facility] POWERCHART Document Id: [id number] Miscellaneous - Christa Swanson L.P.NFrederick - 06/15/2016 3:41 PM CDT Ambulatory Vitals Height Weight Ambulatory Vitals Height Weight Entered On: 06/15/2016 15:42 CDT Performed On: 06/15/2016 15:41 CDT by CHRISTA SWANSON LPN Vitals/Ht/Wt Systolic Blood Pressure : 128 mmHg Diastolic Blood Pressure : 72 mmHg NIBP Mean : 91 mmHg BP Location : Left upper extremity Blood Pressure Cuff Size : Large Height : 185 cm(Converted to: 6 ft 1 inch(es), 73 inch(es)) CHRISTA SWANSON LPN - 06/15/2016 15:41 CDT Source: [facility] POWERCHART Document Id: [id number] CDT!8 Miscellaneous - Christa Swanson L.PFrederickNFrederick - 06/15/2016 3:37 PM CDT Adult Winch Derrick Operator Intake/History Adult Winch Derrick Operator Intake/History Entered On: 06/15/2016 15:39 CDT Performed On: 06/15/2016 15:37 CDT by CHRISTA SWANSON LPN Intake Chief Complaint : Diabetic check and pre-op for colonoscopy. Has lump on left side of forehead wouldlike checked. Freezing area with OTC. Temperature Core : 36.8 DegC(Converted to: 98.2 DegF) Peripheral Pulse Rate : 84 /min Respiratory Rate : 20 /min Heart Rhythm : Regular Systolic Blood Pressure : 156 mmHg (HI) Diastolic Blood Pressure : 74 mmHg NIBP Mean : 101 mmHg BP Location : Left upper extremity Blood Pressure Cuff Size : Large SpO2 : 96 % Oxygen Therapy : Room air Height : 185 cm(Converted to: 6 ft 1 inch(es), 73 inch(es)) Actual Weight : 119.35 kg(Converted to: 263 lb 2 oz) Weight Source : Standing scale Dosing Weight Clinic : 119.35 kg Clinic BSA : 2.48 Body Mass Index : 34.87 kg/m2 CHRISTA SWANSON LPN - 06/15/2016 15:37 CDT General Info Information Given By : Patient Preferred Communication Mode : Verbal Languages : Togolese Is Patient Female and 13-50 no hysterectomy : No CHRISTA SWANSON LPN - 06/15/2016 15:37 CDT Subjective Pain Symptoms : No CHRISTA SWANSON LPN - 06/15/2016 15:37 CDT Dependent Habits Exposure to Tobacco Smoke : Other: Never Smoking Status : Never smoker Tobacco 2A : No Tobacco Use/Currently Using : No Tobacco Use/Last 30 Days : No Tobacco Use/Last 12 months : No Alcohol Use : Yes CHRISTA SWANSON LPN - 06/15/2016 15:37 CDT Caffeine Use Grid Caffeine Use : Current Type : Coffee Frequency : Daily Amount : 6 cups Last Use : 09/07/2015 CHRISTA SWANSON LPN - 06/15/2016 15:37 CDT Recreational Drug Use Grid Drug Use : None SKY CHRISTA BLAKE LPN - 06/15/2016 15:37 CDT Source: [employer] Document Id: [id number] CDT!45 Christa Gloria L.P.N. - 06/15/2016 3:37 PM CDT Obstructive Sleep Apnea Obstructive Sleep Apnea Entered On: 06/15/2016 15:40 CDT Performed On: 06/15/2016 15:37 CDT by CHRISTA SWANSON LPN AARTI Screening Known Obstructive Sleep Apnea : No - NOT diagnosed with AARTI AARTI Score : No qualifying data available. AARTI Results : No qualifying data available. CHRISTA SWANSON LPN - 06/15/2016 15:37 CDT AARTI Assessment Do you have high blood pressure or have you been told to take medication for high blood pressure? : No Frequency of Snoring : Occasionally (4-8 times per year) Frequency of Gasping, Choking, Snorting : Occasionally (4-8 times per year) Total Number of Historical Features : 0 Neck Circumference (cm) : 46/47 Total Sleep Apnea Clinical Score Calc : 10 CHRISTA SWANSON LPN - 06/15/2016 15:37 CDT Source: [employer] Document Id: [id number] CDT!12 Christa Gloria L.P.N. - 06/15/2016 3:34 PM CDT Health Assessment Health Assessment Entered On: 06/15/2016 15:36 CDT Performed On: 06/15/2016 15:34 CDT by SKY CHRISTARONDA BLAKE LPN Health Assessment Complete Health Assessment Complete or Modified : Annual Health Assessment Annual Health Assessment Completed : Yes CHRISTA SWANSON MAREK - 06/15/2016 15:34 CDT Nutrition Nutrition Risk Factors by History Adult : None CHRISTA SWANSON MAREK - 06/15/2016 15:34 CDT Functional Current Daily Living Assistance : None CHRISTA SWANSON MAREK - 06/15/2016 15:34 CDT Dependent Habits Exposure to Tobacco Smoke : Other: Never Smoking Status : Never smoker Tobacco 2A : No Tobacco Use/Currently Using : No Tobacco Use/Last 30 Days : No Tobacco Use/Last 12 months : No Alcohol Use : Yes CHRISTA SWANSON MAREK - 06/15/2016 15:34 CDT Caffeine Use Grid Caffeine Use : Current Type : Coffee Frequency : Daily Amount : 6 cups Last Use : 09/07/2015 CHRISTA SWANSON MAREK - 06/15/2016 15:34 CDT Recreational Drug Use Grid Drug Use : None CHRISTA SWANSON MAREK - 06/15/2016 15:34 CDT AUDIT Tool How Often Do You Have A Drink : 2 to 4 times a month How Many Drinks in a Day When Drinking : 3 or 4 Six or More Drinks On One Occassion : Never Audit Phase 1 Score : 3 CHRISTA SWANOSN MAREK - 06/15/2016 15:34 CDT Psychosocial Domestic Abuse Concerns : None Behavioral Health Screen/Safety Assmt : No Mu-Ism Preference : Unknown CHRISTA SWANSON MAREK - 06/15/2016 15:34 CDT Advance Directive Advanced Directives : Yes Advance Directive Type : Living will Advance Directive Location : Other: Will bring it CHRISTA SWANSON MAREK - 06/15/2016 15:34 CDT Educ Needs Learning Style Preference Adult Grid Patient : Printed materials, Verbal explanation Family : Verbal explanation, Printed materials CHRISTA SWANSON MAREK - 06/15/2016 15:34 CDT Source: [facility] POWERCHART Document Id: [id number] CDT!43 documented in this encounter Plan of Treatment Not on filedocumented as of this encounter Visit Diagnoses Not on filedocumented in this encounter
--- OUTSIDE RECORDS SUMMARY | 2021-11-24 08:48 | XMS_ITS | Encounter Summary ---
:1955 Author Organization [facility] Address [address] [place] [address] Care Team Providers Name Role Phone Karma Philip APRN, C.N.P. Primary Care Provider [phone] Encounter Details Date Type Department Care Team Description 02/15/2017 Hospital Encounter Department of Karma Philip s Mellitus Laboratory Medicine AURELIO Odonnell C.N .PFrederick Type 2 (HCC) in [address] [address] [place], [place] [phone] [address] (Work) [phone] Social History Tobacco Use Types Packs/Day Years [...] week 06/23/2020 How often do you attend jainism or sabianism services? Never 06/23/2020 Do you belong to any clubs or organizations such as jainism N o 06/23/2020 groups, unions, fraternal or [...] slept in a group home (including now)? 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 aspirin-calcium carbonate Take 81 mg by mouth. 0 10/10/2017 81 mg-300 mg calcium(777 mg) tablet atorvastatin Take 1 tablet by 0 12/06/20162016 (for_LIPITOR) 20 mg mouth at bedtime. tablet bisacodyl (for_DULCOLAX) Take 2 tablets by 0 06/0410/10/2017 5 mg EC tablet mouth once. gemfibrozil (for_LOPID) Take 600 mg by 0 08/05/19 10 10/10/2017 600 mg tablet mouth. glimepiride (for_AMARYL) Take 2 tablets by 0 06/201602/20/2017 4 mg tablet mouth daily. GLYBURIDE ORAL Take 8 mg by mouth. 0 0 10/10/2017 insulin glargine (LANTUS Inject 37 Units 0 201602/20/2017 SOLOSTAR) 100 unit/mL (3 under the skin at mL) injection bedtime. losartan (for_COZAAR) 50 Take 1 tablet by 0 12/0610/10/2017 mg tablet mouth daily. magnesium citrate Take 300 mL by mouth 0 06/30/19 17 10/10/2017 (for_CITROMA) solution once. metFORMIN XR Take 4 tablets by 0 08/02/201602/20 (for_GLUCOPHAGE-XR) 500 mouth daily with mg 24 hr tablet dinner. MULTIVITAMIN ORAL Take by mouth daily. 0 01/23/2019 POLYETHYLENE GLYCOL 3350 Take 238 g by mouth 0 10/10/2017 ORAL once. SITagliptin (JANUVIA) 100 Take 1 tablet by 0 /03/201602/20/2017 mg tablet mouth daily. documented as of this encounter Plan of Treatment Not on filedocumented as of this encounter Procedures Procedure Name Priority Date/Time Associated Diagnosis Comme nts ALBUMIN, RANDOM, U Routine 02/15/2017 7:54 AM Diabetes Mellitu s Results for this CIGAR MACHINE FEEDER Type 2 (HCC) procedure are i n the results section. documented in this encounter Results Microalbumin, Random, Urine (02/15/2017 7:54 AM CIGAR MACHINE FEEDER) athologist Signature Microalbumin 12.7 mg/L 02/15/2017 [facility] 11:46 AM [facility] Creatinine 144 mg/dL 02/15/2017 [facility] 11:46 AM [facility] Albumin/Creatinin 9 <17 mg/g 02/15/2017 [facility] e Ratio 11:46 AM [facility] Specimen Anatomical Collection Method Collection Time Receive d Time (Source) Location / / Volume Laterality Urine (Urine, 02/15/2017 7:54 AM 02/16/20 17 Clean Catch) CIGAR MACHINE FEEDER 10:53 AM CIGAR MACHINE FEEDER Karma Philip APRN, C.N.P. LAB URINE ORDERABLES Performing Organization Address City/State/ZIP Code Phon e Number [facility] [address] [place] [address] LAB documented in this encounter Visit Diagnoses Diagnosis Diabetes Mellitus Type 2 (HCC) documented in this encounter Care Teams Astronomy Instructor Relationship Specialty Start Date End Date Karma Philip APRN, C.N.P. PCP - General 08/17/16 [address], [place] [address] documented as of this encounter
--- OUTSIDE RECORDS SUMMARY | 2021-11-24 08:48 | XMS_ITS | Encounter Summary ---
:1955 Author Organization [facility] Address [address] [place] [address] Care Team Providers Name Role Phone Karma Philip APRN C.N.P. Primary Care Provider [phone] Encounter Details Date Type Department Care Team Description 02/07/2017 Abstract Department of Family Medicine, Provider, Historical [facility], in [place], [place] [address] [place] [address] [facility] [phone] Social History Tobacco Use Types Packs/Day Years [...] How often do you attend christianity or gnosticist services? 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 PCP - General 08/17/16 [address], [place] [phone] documented as of this encounter
--- OUTSIDE RECORDS SUMMARY | 2021-11-24 08:48 | XMS_ITS | Encounter Summary ---
:1955 Author Organization [facility] Address [address] [place] [address] Care Team Providers Name Role Phone Karma Philip APRN, C.N.P. Primary Care Provider [phone] Encounter Details Date Type Department Care Team Description 04/02/2017 Nurse Triage Department of Avril Mcintyre R.N. Medicine, [facility], in [place], [place] [address] [place] [address] Social History Tobacco Use Types Packs/Day Years [...] week 06/23/2020 How often do you attend rastafari or jewish services? 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 PCP - General 08/17/16 [address] [place] [address] documented as of this encounter
--- OUTSIDE RECORDS SUMMARY | 2021-11-24 08:48 | XMS_ITS | Encounter Summary ---
:1955 Author Organization [facility] Address [address] [place] [address] Care Team Providers Name Role Phone Karma Philip APRN, C.N.P. Primary Care Provider [phone] Encounter Details Date Type Department Care Team Description 02/15/2017 Hospital Encounter Department of Karma Philip Diabete s Mellitus Type Laboratory Medicine AURELIO Odonnell, C.N .P. 2 Hyperglycemia (HCC) in [place] [address] [place] [address] [place], [place] [phone] [address] (Work) [phone] Social History Tobacco Use Types Packs/Day Years [...] How often do you attend amish or amish services? 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 atorvastatin Take 1 tablet by 0 12/06/20162016 (for_LIPITOR) 20 mg mouth at bedtime. tablet bisacodyl (for_DULCOLAX) Take 2 tablets by 0 /09/201610/10/2017 5 mg EC tablet mouth once. gemfibrozil (for_LOPID) Take 600 mg by 0 08/05/19 10 10/10/2017 600 mg tablet mouth. glimepiride (for_AMARYL) Take 2 tablets by 0 06/201602/20/2017 4 mg tablet mouth daily. insulin glargine (LANTUS Inject 37 Units 0 [...] daily with mg 24 hr tablet dinner. POLYETHYLENE GLYCOL 3350 Take 238 g by mouth 0 10/10/2017 ORAL once. SITagliptin (JANUVIA) 100 Take 1 tablet by 0 05/3 03/201602/20/2017 mg tablet mouth daily. documented as of this encounter Plan of Treatment Not on filedocumented as of this encounter Procedures Procedure Name Priority Date/Time Associated Diagnosis Comme nts HEMOGLOBIN A1C, B Routine 02/15/2017 7:57 AM Diabetes Mellitus Type Results for this MEDICAL SERVICES MANAGER 2 Hyperglycemia (HCC) proced ure are in the results section. documented in this encounter Results (ABNORMAL) Hemoglobin A1c (02/15/2017 7:57 AM MEDICAL SERVICES MANAGER) P athologist Signature Hemoglobin A1c, 8.8 (H) 4.2 - 5.6 02/15/2017 [facility] B % 11:53 AM [facility] Comment: Hemoglobin A1c values greater than or eq ual to 6.5 percent are diagnostic for diabetes mellitus. ?? Diagnosis should be confirmed by repeat testing. ??In diabet ic patients, HbA1c goals should be discussed with healthcar e provider. Specimen Anatomical Collection Method Collection Time Receive d Time (Source) Location / / Volume Laterality Blood 02/15/2017 7:57 AM 7 MEDICAL SERVICES MANAGER 10:52 AM MEDICAL SERVICES MANAGER Karma Philip APRN C.N.P. LAB BLOOD ADD-ON Performing Organization Address City/State/ZIP Code Phon e Number [facility] [address] [place] [address] LAB documented in this encounter Visit Diagnoses Diagnosis Diabetes Mellitus Type 2 Hyperglycemia ( HCC) documented in this encounter Care Teams Tanning Salon Attendant Relationship Specialty Start Date End Date Kamra Philip APRN, C.N.P. PCP - General 08/17/16 [address], [place] [address] documented as of this encounter
--- OUTSIDE RECORDS SUMMARY | 2021-11-24 08:48 | XMS_ITS | Encounter Summary ---
:1955 Author Organization [facility] Address [address] [place] [address] Care Team Providers Name Role Phone Karma Philip APRN, C.N.P. Primary Care Provider [phone] Encounter Details Date Type Department Care Team Description 02/15/2017 Orders Only Department of Family Karma Philip, Hyp erlipidemia Mixed (Primary Dx); Medicine, [place] AURELIO C.N.P. Screening Examination Prostate Cancer; Clinic, in [place], [address] Diabetes Mellitus Type 2 (HCC) [place], [place] [address] [facility] [address] [place], [place] [phone] [address] (Work) [phone] Social History Tobacco Use Types Packs/Day Years [...] How often do you attend moravian or samaritan services? 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 Comment: Biotin has been identified by the mili garcia as a potential interfering substance. ??Higher concentr ations of biotin may be found in multivitamins, hair/nail supple ments, and workout supplements. ??If the result does not [facility] clinical observations, repeat testing after patient [...] Location / / Volume Laterality Blood (Blood, 02/15/2017 7:57 AM 02/16/20 17 6:25 Venous) ELECTRONICS WORKER PM ELECTRONICS WORKER Karma Philip APRN, C.N.P. LAB BLOOD ADD-ON Performing Organization Address City/State/ZIP Code Phon e Number [facility] [address] [place] [address] LAB AST (Aspartate Aminotransferase) (02/15/2017 7:57 AM ELECTRONICS WORKER) Patholo gist Method Time Signature Aspartate 19 8 - 48 02/15/2017 [facility] Aminotransferase U/L 7:19 PM [facility] Specimen Anatomical Collection Method Collection Time Receive d Time (Source) Location / / Volume Laterality Blood 02/15/2017 7:57 AM 7 6:23 ELECTRONICS WORKER PM ELECTRONICS WORKER Karma Philip APRN CFrederickNFrederickPFrederick LAB BLOOD ADD-ON Performing Organization Address City/State/ZIP Code Phon e Number [facility] [address] [place] [address] LAB (ABNORMAL) Lipid Panel (02/15/2017 7:57 AM [facility]) P athologist Signature Cholesterol, 132 mg/dL 02/15/2017 [facility] Total 7:19 PM [facility] LAB Comment: ----REFERENCE VALUE---- Desirable: < 200 Borderline high: 200 - 239 High: > or = 240 Triglycerides 170 (H) mg/dL 02/15/2017 7:19 PM [facility] [place] [facility] Comment: ----REFERENCE VALUE---- Normal: <150 Borderline high: 150-199 High: 200-499 Very high: > or =500 Cholesterol, HDL, S 40 >=40 mg/dL 02/15/2017 7:19 PM [facility] LAB Calculated LDL 58 mg/dL 02/15/2017 7:19 PM [facility] [place] [facility] Comment: ----REFERENCE VALUE---- Desirable: <100 Above Desirable: 100-129 Borderline high: 130-159 High: 160-189 Very high: > or =190 Cholesterol, Non-HDL, 92 mg/dL 02/15/2017 7:19 PM [facility] [place] B Comment: ----REFERENCE VALUE---- Desirable: <130 Above Desirable: 130-159 Borderline high: 160-189 High: 190-219 Very high: > or =220 Specimen Anatomical Collection Method Collection Time Receive d Time (Source) Location / / Volume Laterality Blood 02/15/2017 7:57 AM 7 6:23 ELECTRONICS WORKER PM ELECTRONICS WORKER Karma Philip APRN, C.N.P. LAB BLOOD ADD-ON Performing Organization Address City/State/ZIP Code Phon e Number [facility] [address] [place] [address] LAB documented in this encounter Visit Diagnoses Diagnosis Hyperlipidemia Mixed - Primary Screening Examination Prostate Cancer Diabetes Mellitus Type 2 (HCC) documented in this encounter Care Teams 911 Emergency Dispatcher Relationship Specialty Start Date End Date Karma Philip APRN C.N.P. PCP - General 08/17/[address] [place] [address] documented as of this encounter
--- OUTSIDE RECORDS SUMMARY | 2021-11-24 08:48 | XMS_ITS | Encounter Summary ---
:1955 Author Organization [facility] Address [address] [place] [address] Care Team Providers Name Role Phone Karma Philip APRN, C.N.P. Primary Care Provider [phone] Encounter Details Date Type Department Care Team Description 08/23/2017 Orders Only Department of [facility] [place] fauzia [facility], [facility], [address] [place] [address] [place] [address] [place] [address] Social History Tobacco Use Types [...] week 06/23/2020 How often do you attend cheondoism or presybeterian services? Never 06/23/2020 Do you belong to any clubs or organizations such as cheondoism N o 06/23/2020 groups, unions, fraternal or [...] place to sleep or slept in a [facility] (including now)? 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 PCP - General 08/17/[address] [place] [address] documented as of this encounter
--- OUTSIDE RECORDS SUMMARY | 2021-11-24 08:48 | XMS_ITS | Encounter Summary ---
:1955 Author Organization [facility] Address [address] [place] [address] Care Team Providers Name Role Phone Karma Philip APRN, C.N.P. Primary Care Provider [phone] Encounter Details Date Type Department Care Team Description 02/06/2017 Orders Only Department of Family Karma Philip Dia betes Mellitus Type Medicine, [place] AURELIO, C.N.P. 2 ([facility]) (Primary Dx) Clinic, in [facility] [address] [address] [place], [place] [phone] [address] (Work) [phone] Social History Tobacco Use Types Packs/Day Years [...] week 06/23/2020 How often do you attend temple or scientologist services? 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 EDUCATOR documented as of this encounter Plan of Treatment Not on filedocumented as of this encounter Results (ABNORMAL) BMP (Basic Metabolic Panel) (02/15/2017 7:57 AM CLINICAL SYSTEMS EDUCATOR) athologist Signature Potassium, S 4.6 3.6 - 5.2 02/15/2017 [facility] mmol/L 11:25 AM [facility] [employer] Sodium, S 142 135 - 145 02/15/2017 [facility] mmol/L 11:25 AM [facility] Chloride, S 101 98 - 107 02/15/2017 [facility] mmol/L 11:25 AM [facility] Bicarbonate, S 29 22 - 29 02/15/2017 [facility] mmol/L 11:25 AM [facility] Anion Gap 12 7 - 15 02/15/2017 [facility] 11:25 AM [facility] BUN (Blood Urea 12 8 - 24 02/15/2017 [facility] Nitrogen), S mg/dL 11:25 AM [facility] Creatinine 0.91 0.74 - 02/15/2017 [facility] 1.35 mg/dL 11:25 AM [facility] eGFR 89 >=60 02/15/2017 [facility] Non-Black/Afric mL/min/BSA 11:25 AM [facility] Hopela [facility]- an [place] [facility] Comment: ----ADDITIONAL INFORMATION---- Estimated GFR calculated using the 2009 CKD_EPI creatinine equation. eGFR Black/ >90 >=60 mL/min/BSA 02/15/2017 11:2 5 AM [facility] Russian CLINICAL SYSTEMS EDUCATOR SYSTEM- [facility] Comment: ----ADDITIONAL INFORMATION---- Estimated GFR calculated using the 2009 CKD_EPI creatinine equation. Calcium, Total, S 10.0 8.9 - 10.1 mg/dL 02/15/2017 11:[address] [facility] Glucose, S 171 (H) 70 - 140 mg/dL 02/15/2017 11:[address] [facility] Specimen Anatomical Collection Method Collection Time Receive d Time (Source) Location / / Volume Laterality Blood (Blood, 02/15/2017 7:57 AM 02/16/20 17 Venous) CLINICAL SYSTEMS EDUCATOR 10:54 AM CLINICAL SYSTEMS EDUCATOR Karma Philip APRN, C.N.P. LAB BLOOD ADD-ON Performing Organization Address City/State/ZIP Code Phon e Number [facility] [address] [place] [address] LAB Microalbumin, Random, Urine (02/15/2017 7:54 AM CLINICAL SYSTEMS EDUCATOR) athologist Signature Microalbumin 12.7 mg/L 02/15/2017 [facility] 11:46 AM [facility] Creatinine 144 mg/dL 02/15/2017 [facility] 11:46 AM [facility] Albumin/Creatinin 9 <17 mg/g 02/15/2017 [facility] e Ratio 11:46 AM [facility] Specimen Anatomical Collection Method Collection Time Receive d Time (Source) Location / / Volume Laterality Urine (Urine, 02/15/2017 7:54 AM 02/16/20 17 Clean Catch) CLINICAL SYSTEMS EDUCATOR 10:53 AM CLINICAL SYSTEMS EDUCATOR Karma Philip APRN, C.N.P. LAB URINE ORDERABLES Performing Organization Address City/State/ZIP Code Phon e Number [facility] [address], [place] [address] LAB documented in this encounter Visit Diagnoses Diagnosis Diabetes Mellitus Type 2 (HCC) - Primary documented in this encounter Care Teams Wildlife Refuge Specialist Relationship Specialty Start Date End Date Karma Philip APRN, C.N.P. PCP - General 08/17/160 [address], [place] [address] documented as of this encounter
--- OUTSIDE RECORDS SUMMARY | 2021-11-24 08:48 | XMS_ITS | Encounter Summary ---
:1955 Author Organization [facility] Address [address] [place] [address] Care Team Providers Name Role Phone Karma Philip APRN C.NFrederickPFrederick Primary Care Provider [phone] Encounter Details Date Type Department Care Team Description 08/13/2017 Clinical Communication Department of [facility], in [address] [address] [place], [place] [phone] (Work) [phone] Social History Tobacco Use Types Packs/Day Years [...] week 06/23/2020 How often do you attend caodaism or oriental orthodox services? Never 06/23/2020 Do you belong to any clubs or organizations such as caodaism N o 06/23/2020 groups, unions, fraternal or [...] or slept in a fpc (including now)? 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 - 08/22/2017 11:15 AM CDT Have made 4 attempts to contact Hugh. No return call and no appointment is scheduled as of today. Telephone Encounter - Angelica Contreras R.N. - 08/21/2017 4:03 PM CDT Attempted to call patient, left another message for patient to return call. Telephone Encounter - Christa Spicer L.P.N. - 08/16/2017 11:26 AM CDT Attempted to contact Hugh in regards to forms. Message left to return my call. Telephone Encounter - Christa Spicer L.P.N. - 08/15/2017 11:34 AM CDT Attempted to contact Hugh in regards to forms. Telephone Encounter - Christa Spicer L.P.N. - 08/13/2017 2:40 PM CDT Attempted to contact Hugh in regards to completing forms. Has not been seen for over a year. Needs labs also before form can be completed. documented in this encounter Plan of Treatment Not on filedocumented as of this encounter Visit Diagnoses Not on filedocumented in this encounter Care Teams Olericulture Teacher Relationship Specialty Start Date End Date Karma Philip, AURELIO, C.N.P. PCP - General 08/17/16 [address], [place] [address] documented as of this encounter
--- OUTSIDE RECORDS SUMMARY | 2021-11-24 08:48 | XMS_ITS | Encounter Summary ---
:1955 Author Organization [facility] Address [address] [place] [address] Care Team Providers Name Role Phone Karma Philip APRN C.N.PFrederick Primary Care Provider [phone] Encounter Details Date Type Department Care Team Description 08/13/2017 Orders Only Department of Family Karma Philip, [facility] Medicine, [place] AURELIO C.N.PFrederick Prostate Cancer Clinic, in [facility] [address] (Primary Dx) [address] [address] [place], [place] [phone] (Work) [phone] Social History Tobacco Use Types Packs/Day Years [...] week 06/23/2020 How often do you attend alevism or pentecostalism services? Never 06/23/2020 Do you belong to any clubs or organizations such as alevism N o 06/23/2020 groups, unions, fraternal or [...] place to sleep or slept in a residential (including now)? 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 ??Higher concentr ations of biotin may be found in multivitamins, hair/nail supple ments, and workout supplements. ??If the result does not [facility] clinical observations, repeat testing after patient [...] Location / / Volume Laterality Blood (Blood, 10/09/2017 8:18 AM 10/10/19 18 Venous) CDT 11:09 AM CDT Karma Philip APRN, C.N.P. LAB BLOOD ADD-ON Performing Organization Address City/State/ZIP Code Phon e Number - [place] [address] [place] [address] LAB documented in this encounter Visit Diagnoses Diagnosis Screening Examination Prostate Cancer - Primary documented in this encounter Care Teams Network Management Specialist Relationship Specialty Start Date End Date Karma Philip, AURELIO, C.N.P. PCP - General 08/17/[address] [address] documented as of this encounter
--- OUTSIDE RECORDS SUMMARY | 2021-11-24 08:48 | XMS_ITS | Encounter Summary ---
:1955 Author Organization [facility] Address [address] [place] [address] Care Team Providers Name Role Phone Karma Philip APRN, C.N.P. Primary Care Provider [phone] Encounter Details Date Type Department Care Team Description 10/09/2017 Hospital Encounter Department of Karma Philip s Mell[facility] Laboratory Medicine AURELIO Odonnell C.N .PFrederick Type 2 (HCC) in [address] [address] [place], [place] [phone] [address] (Work) [phone] Social History Tobacco Use Types Packs/Day Years [...] week 06/23/2020 How often do you attend mandaen or confucianism services? 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 aspirin-calcium Take 81 mg by mouth. 0 10/10/2017 carbonate 81 mg-300 mg calcium(777 mg) tablet atorvastatin TAKE 1 TABLET AT 90 tablet 0 02/20/20172017 (for_LIPITOR) 20 mg BEDTIME tabletIndications: Hyperlipidemia Mixed bisacodyl (for_DULCOLAX) Take 2 tablets by 0 06/0410/10/2017 5 mg EC tablet mouth once. gemfibrozil (for_LOPID) Take 600 mg by 0 08/05/19 10 10/10/2017 600 mg tablet mouth. glimepiride (AMARYL) 4 Take 2 tablets (8 mg 180 tablet 0 10/10/2017 mg tabletIndications: total) by mouth Diabetes Mellitus Type 2 daily with (HCC) breakfast. Due for lab and an appointment before next refill. GLYBURIDE ORAL Take 8 mg by mouth. 0 0 10/10/2017 JANUVIA 100 mg TAKE 1 TABLET DAILY 90 tablet 0 02/20/2017 0 10/10/2017 tabletIndications: Diabetes Mellitus Type 2 (HCC) LANTUS SOLOSTAR 100 INJECT 37 UNITS 45 mL 0 02/20/2017 10/10/2017 unit/mL (3 mL) UNDER THE SKIN AT injectionIndications: BEDTIME Diabetes Mellitus Type 2 (HCC), System Configuration Specialist Use Of Insulin Active (HCC) losartan (for_COZAAR) 50 Take 1 tablet by 0 12/0610/10/2017 mg tablet mouth daily. magnesium citrate Take 300 mL by mouth 0 06/30/19 17 10/10/2017 (for_CITROMA) solution once. metFORMIN XR Take 4 tablets 360 tablet 0 07/30/2017 10/11/19 18 (GLUCOPHAGE-XR) 500 mg (2,000 mg total) by 24 hr tabletIndications: mouth daily with Diabetes Mellitus Type 2 dinner. Due for lab (HCC) and an appointment before next refill. MULTIVITAMIN ORAL Take by mouth daily. 0 01/23/2019 POLYETHYLENE GLYCOL 3350 Take 238 g by mouth 0 10/10/2017 ORAL once. documented as of this encounter Plan of Treatment Not on filedocumented as of this encounter Procedures Procedure Name Priority Date/Time Associated Diagnosis Comme nts ALBUMIN, RANDOM, U Routine 10/09/2017 8:14 AM Diabetes Mellitu s Results for this CDT Type 2 (HCC) procedure are i n the results section. documented in this encounter Results Microalbumin, Random, Urine (10/09/2017 8:14 AM CDT) athologist Signature Microalbumin <7.0 mg/L 10/09/2017 [facility] 12:39 PM T [facility] Creatinine 162 mg/dL 10/09/2017 [facility] 12:39 PM [facility] Albumin/Creatinin <4 <17 mg/g 10/09/2017 [facility] e Ratio 12:39 PM T [facility] Comment: This ratio may not correspond with the r eference range because one or both of the values used t o calculate the ratio was above or below the quantificat ion limits. Specimen Anatomical Collection Method Collection Time Receive d Time (Source) Location / / Volume Laterality Urine 10/09/2017 8:14 AM 8 CDT 11:09 AM CDT Karma Philip APRN, C.N.P. LAB URINE ORDERABLES Performing Organization Address City/State/ZIP Code Phon e Number [facility] [address] [place] [address] LAB documented in this encounter Visit Diagnoses Diagnosis Diabetes Mellitus Type 2 (HCC) documented in this encounter Care Teams Cna Instructor Relationship Specialty Start Date End Date Karma Philip APRN, C.N.P. PCP - General 6/[address] [place] [address] documented as of this encounter
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
--- OUTSIDE RECORDS SUMMARY | 2021-11-24 08:48 | XMS_ITS | Encounter Summary ---
:[address] [facility] Address [address] [place] [address] Care Team Providers Name Role Phone Karma Philip APRN, C.N.P. Primary Care Provider [phone] Encounter Details Date Type Department Care Team Description 10/09/2017 Hospital Encounter Department of Karma Philip Diabkamron s Mellitus Type 2 (HCC); Laboratory Medicine AURELIO Odonnell, C.N .PFrederick Hyperlipidemia Mixed; in [facility] [address] Hypertension Essential Primary; [place], [place] Screening Examination Prosta te Cancer [address] [facility] [address] [place], [place] [phone] [address] (Work) [phone] Social History Tobacco Use Types Packs/Day Years [...] week 06/23/2020 How often do you attend buddhist or gnosticist services? 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 PROSTATE-SPECIFIC AG Routine 10/09/2017 8:18 Screening Examina tion Results for this (PSA) SCRN, S AM CDT Prostate Cancer procedure a re in the results section. CBC WITH DIFFERENTIAL, Routine 10/09/2017 8:18 Hypertension Re sults for this B AM CDT Essential Primary procedure are in the results section. ASPARTATE Routine 10/09/2017 8:18 Hyperlipidemia Mixed Resu lts for this AMINOTRANSFERASE (AST), AM CDT proc edure are in S/P the results section. HEMOGLOBIN A1C, B Routine 10/09/2017 8:18 Diabetes Mellitus Re sults for this AM CDT Type 2 (HCC) procedure are i n the results section. GLUCOSE, FASTING, S/P Routine 10/09/2017 8:18 Diabetes Mellitu s Results for this AM CDT Type 2 (HCC) procedure are i n the results section. BASIC METABOLIC PANEL, Routine 10/09/2017 8:18 Diabetes Mellit us Results for this S/P AM CDT Type 2 (HCC) procedure are i n the results section. documented in this encounter Results PSA (Prostate-Specific Antigen) Screen (10/09/2017 8:18 AM CDT) P athologist Signature Prostate-Specif 3.3 <=4.5 10/09/2017 [facility] ic Ag ng/mL 11:53 AM CDT [facility] Comment: Biotin has been identified by the mili garcia as a potential interfering substance. ??Higher concentr ations of biotin may be found in multivitamins, hair/nail supple ments, and workout supplements. ??If the result does not [facility] clinical observations, repeat testing after patient [...] 10/10/19 18 Venous) CDT 11:09 AM CDT Allison Stone APRNNFrederickP. LAB BLOOD ADD-ON Performing Organization Address City/State/ZIP Code Phon e Number [facility] [address] [place] [address] LAB (ABNORMAL) Lipid Panel (10/09/2017 8:18 AM CDT) athologist Signature Cholesterol, 121 mg/dL 10/09/2017 [facility] Total 11:43 AM CDT [facility] Comment: ----REFERENCE VALUE---- Desirable: < 200 Borderline high: 200 - 239 High: > or = 240 Triglycerides 129 mg/dL 10/09/2017 11:43 AM CDT [facility] Comment: ----REFERENCE VALUE---- Normal: <150 Borderline high: 150-199 High: 200-499 Very high: > or =500 Cholesterol, HDL, S 38 (L) >=40 mg/dL 10/09/2017 11:43 AM CDT [facility] Calculated LDL 57 mg/dL 10/09/2017 11:43 AM CDT [facility] Comment: ----REFERENCE VALUE---- Desirable: <100 Above Desirable: 100-129 Borderline high: 130-159 High: 160-189 Very high: > or =190 Cholesterol, Non-HDL, 83 mg/dL 10/09/2017 11:43 A M CDT [facility] [place] ANGEL Sheldon Comment: ----REFERENCE VALUE---- Desirable: <130 Above Desirable: 130-159 Borderline high: 160-189 High: 190-219 Very high: > or =220 Specimen Anatomical Collection Method Collection Time Receive d Time (Source) Location / / Volume Laterality Blood 10/09/2017 8:18 AM 8 CDT 11:09 AM CDT Karma Philip APRN, C.N.P. LAB BLOOD ADD-ON Performing Organization Address City/[facility]/ZIP Code Phon e Number [facility] [address] [place] [address] LAB (ABNORMAL) Glucose, Fasting (10/09/2017 8:18 AM CDT) athologist Signature Glucose, 125 (H) 70 - 99 10/09/2017 [facility] Fasting, S mg/dL 11:43 AM CDT [facility] Specimen Anatomical Collection Method Collection Time Receive d Time (Source) Location / / Volume Laterality Blood 10/09/2017 8:18 AM 8 CDT 11:09 AM CDT Karma Philip APRN, C.N.P. LAB BLOOD NON ADD-ON Performing Organization Address City/[facility]/ZIP Code Phon e Number [facility] [address] [place] [address] LAB CBC with Differential (10/09/2017 8:18 AM CDT) P athologist Signature Hemoglobin 15.0 13.2 - 10/09/2017 [facility] 16.6 g/dL 9:08 AM CDT [facility] Hematocrit 45.5 38.3 - 10/09/2017 [facility] 48.6 % 9:08 AM CDT [facility] Erythrocytes 5.30 4.35 - 10/09/2017 [facility] 5.65 9:08 AM CDT HEALTH x10(12)/L [facility]- [facility] LAB MCV 85.8 78.2 - 10/09/2017 [facility] 97.9 fL 9:08 AM CDT [facility] RBC Distrib Width 13.4 11.8 - 10/09/2017 [facility] 14.5 % 9:08 AM T [facility] Platelet Count 277 135 - 317 10/09/2017 [facility] x10(9)/L 9:08 AM T [facility] [place] [facility] Leukocytes 8.7 3.4 - 9.6 10/09/2017 [facility] x10(9)/L 9:08 AM T [facility] Neutrophils 5.11 1.56 - 10/09/2017 [facility] 6.45 9:08 AM CDT [facility] x10(9)/L [facility]- [facility] Lymphocytes 2.73 0.95 - 10/09/2017 [facility] 3.07 9:08 AM CDT [facility](9[facility] Monocytes 0.73 0.26 - 10/09/2017 [facility] 0.81 9:08 AM CDT [facility](9)/[facility] Eosinophils 0.14 0.03 - 10/09/2017 [facility] 0.48 9:08 AM CDT [facility](9)/[facility] Basophils 0.02 0.01 - 10/09/2017 [facility] 0.08 9:08 AM CDT [facility] x[facility](9)/L [facility] Specimen Anatomical Collection Method Collection Time Receive d Time (Source) Location / / Volume Laterality Blood 10/09/2017 8:18 AM 8 8:21 CDT AM CDT Karma Philip APRN, C.N.P. LAB BLOOD ADD-ON Performing Organization Address City/State/ZIP Code Phon e Number [facility]- [address] [place] [address] [facility]- [address] [facility] [place], [place] [address] BMP (Basic Metabolic Panel) (10/09/2017 8:18 AM CDT) P athologist Signature Potassium, S 4.8 3.6 - 5.2 10/09/2017 [facility] mmol/L 11:43 AM T [facility] [place] [facility] Sodium, S 140 135 - 145 10/09/2017 [facility] mmol/L 11:43 AM [facility] Chloride, S 103 98 - 107 10/09/2017 [facility] mmol/L 11:43 AM [facility] Bicarbonate, S 26 22 - 29 10/09/2017 [facility] mmol/L 11:43 AM [facility] Anion Gap 11 7 - 15 10/09/2017 [facility] 11:43 AM [facility] BUN (Blood Urea 13 8 - 24 10/09/2017 [facility] Nitrogen), S mg/dL 11:43 AM [facility] Creatinine 0.89 0.74 - 10/09/2017 [facility] 1.35 mg/dL 11:43 AM [facility] [place] eGFR-Non >90 >=60 10/09/2017 [facility] Black/ mL/min/BSA 11:43 AM [facility] [employer] [facility] [employer] [place] Comment: ----ADDITIONAL INFORMATION---- Estimated GFR calculated using the 2009 CKD_EPI creatinine equation. eGFR-Black/ >90 >=60 mL/min/BSA 2017 11:43 [facility] Comment: ----ADDITIONAL INFORMATION---- Estimated GFR calculated using the 2009 CKD_EPI creatinine equation. Calcium, Total, S 9.8 8.8 - 10.2 mg/dL 10/09/2017 11:4 3 AM [facility] Glucose, S CANCELED mg/dL 10/09/2017 11:09 AM [facility] [place] [facility] Comment: Test not performed. See Fasting Glucose result. Result canceled by the ancillary Specimen Anatomical Collection Method Collection Time Receive d Time (Source) Location / / Volume Laterality Blood 10/09/2017 8:18 AM 8 CDT 11:09 AM CDT Karma Philip APRN, C.N.P. LAB BLOOD ADD-ON Performing Organization Address City/State/ZIP Code Phon e Number [facility] [employer] [address] [place] [address] LAB AST (Aspartate Aminotransferase) (10/09/2017 8:18 AM CDT) Patholo gist Method Time Signature Aspartate 18 8 - 48 10/09/2017 [facility] Aminotransferase U/L 11:43 AM CDT [facility] (AST), [facility] Specimen Anatomical Collection Method Collection Time Receive d Time (Source) Location / / Volume Laterality Blood 10/09/2017 8:18 AM 8 CDT 11:09 AM CDT Karma Philip APRN, C.N.P. LAB BLOOD ADD-ON Performing Organization Address City/[facility]/ZIP Code Phon e Number [facility] [address] [place] [address] LAB (ABNORMAL) Hemoglobin A1c (10/09/2017 8:18 AM CDT) P athologist Signature Hemoglobin A1c, 6.8 (H) 4.2 - 5.6 10/09/2017 [facility] B % 11:48 AM CDT [facility] Comment: Hemoglobin A1c values greater than or eq ual to 6.5 percent are diagnostic for diabetes mellitus. ?? Diagnosis should be confirmed by repeat testing. ??In diabet ic patients, HbA1c goals should be discussed with healthcar e provider. Specimen Anatomical Collection Method Collection Time Receive d Time (Source) Location / / Volume Laterality Blood 10/09/2017 8:18 AM 8 CDT 11:09 AM CDT Karma Philip APRN, C.N.P. LAB BLOOD ADD-ON Performing Organization Address City/State/ZIP Code Phon e Number [facility] [address], [place] [address] LAB documented in this encounter Visit Diagnoses Diagnosis Diabetes Mellitus Type 2 (HCC) Hyperlipidemia Mixed Hypertension Essential Primary Screening Examination Prostate Cancer documented in this encounter Care Teams Clinical Laboratory Medical Director Relationship Specialty Start Date End Date Karma Philip APRN, C.N.P. PCP - General 08/17/160 [place] [phone] documented as of this encounter
--- OUTSIDE RECORDS SUMMARY | 2021-11-24 08:48 | XMS_ITS | Encounter Summary ---
:1955 Author Organization [facility] Address [address] [place] [address] Care Team Providers Name Role Phone Karma Philip APRN, C.N.P. Primary Care Provider [phone] Encounter Details Date Type Department Care Team Description 02/15/2017 Hospital Encounter Department of Karma Philip s Mellitus Laboratory Medicine AURELIO Odonnell C.N .PFrederick Type 2 (HCC) in [address] [address] [place], [place] [phone] [address] (Work) [phone] Social History Tobacco Use Types Packs/Day Years [...] How often do you attend christianity or church services? 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 documented in this encounter Results (ABNORMAL) BMP (Basic Metabolic Panel) (02/15/2017 7:57 AM MOTION PICTURE SET UP WORKER) P athologist Signature Potassium, S 4.6 3.6 - 5.2 02/15/2017 [facility] mmol/L 11:25 AM [facility] Sodium, S 142 135 - 145 02/15/2017 [facility] mmol/L 11:25 AM [facility] Chloride, S 101 98 - 107 02/15/2017 [facility] mmol/L 11:25 AM [facility] Bicarbonate, S 29 22 - 29 02/15/2017 [facility] mmol/L 11:25 AM [facility] Anion Gap 12 7 - 15 02/15/2017 [facility] 11:25 AM [facility] BUN (Blood Urea 12 8 - 24 02/15/2017 [facility] Nitrogen), S mg/dL 11:25 AM [facility] Creatinine 0.91 0.74 - 02/15/2017 [facility] 1.35 mg/dL 11:25 AM [facility] LAB eGFR 89 >=60 02/15/2017 [facility] Non-Black/Afric mL/min/BSA 11:25 AM [facility] [employer]- [facility] [place] [facility] Comment: ----ADDITIONAL INFORMATION---- Estimated GFR calculated using the 2009 CKD_EPI creatinine equation. eGFR Black/ >90 >=60 mL/min/BSA 02/15/2017 11:2 5 AM [facility] [place] [facility] Comment: ----ADDITIONAL INFORMATION---- Estimated GFR calculated using the 2009 CKD_EPI creatinine equation. Calcium, Total, S 10.0 8.9 - 10.1 mg/dL 02/15/2017 11:2 5 AM [facility] [place] [facility] Glucose, S 171 (H) 70 - 140 mg/dL 02/15/2017 11:25 AM [facility] [place] [facility] Specimen Anatomical Collection Method Collection Time Receive d Time (Source) Location / / Volume Laterality Blood (Blood, 02/15/2017 7:57 AM 02/16/20 17 Venous) MOTION PICTURE SET UP WORKER 10:54 AM MOTION PICTURE SET UP WORKER Karma Philip APRN C.N.PFrederick LAB BLOOD ADD-ON Performing Organization Address City/State/ZIP Code Phon e Number [facility] [place] [address] [place] [address] LAB documented in this encounter Visit Diagnoses Diagnosis Diabetes Mellitus Type 2 (HCC) documented in this encounter Care Teams Gynecologist Relationship Specialty Start Date End Date Karma Philip APRN, C.N.P. PCP - General 08/17/160 [address] [address] documented as of this encounter
--- OUTSIDE RECORDS SUMMARY | 2021-11-24 08:48 | XMS_ITS | Encounter Summary ---
:1955 Author Organization [facility] Address [address] [place] [address] Care Team Providers Name Role Phone Karma Philip APRN, C.N.P. Primary Care Provider [phone] Reason for Visit Reason Comments Med Refill Encounter Details Date Type Department Care Team Description 07/26/2017 Refill Department of Family Medicine, Magnolia Philip APRN, Med Refill [facility], in [place], [place] [address] [address] [place] [address] [phone] Social History Tobacco Use Types Packs/Day Years [...] How often do you attend yarsani or quaker services? Never 06/23/2020 Do you [...] or slept in a snf (including now)? 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 - 07/31/2017 9:59 AM CDT Attempted to contact Hugh. Left message to return my call. documented in this encounter Plan of Treatment Not on filedocumented as of this encounter Visit Diagnoses Diagnosis Diabetes Mellitus Type 2 (HCC) documented in this encounter Care Teams Print Journalist Relationship Specialty Start Date End Date Karma Philip, AURELIO, C.N.P. PCP - General 08/17/16 [address], [place] [address] documented as of this encounter
--- OUTSIDE RECORDS SUMMARY | 2021-11-24 08:48 | XMS_ITS | Encounter Summary ---
:1955 Author Organization [facility] Address [address] [place] [address] Care Team Providers Name Role Phone Karma Philip APRN, C.N.P. Primary Care Provider [phone] Encounter Details Date Type Department Care Team Description 01/02/2017 Orders Only Department of Family Karma Philip, Hyp erlipidemia; Medicine, [place] AURELIO C.N.P. Diabetes Mellitus Type 2 Hyperglycemia ( HCC); Clinic, in [facility] [address] Screening Examination Prostate Cancer [place], [place] [address] [facility] [address] [address] [place], [place] [phone] [address] (Work) [phone] Social History Tobacco Use Types Packs/Day Years [...] week 06/23/2020 How often do you attend scientologist or bahai services? 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 ?? Diagnosis should be confirmed by repeat testing. ??In diabet ic patients, HbA1c goals should be discussed with healthcar e provider. Specimen Anatomical Collection Method Collection Time Receive d Time (Source) Location / / Volume Laterality Blood 02/15/2017 7:57 AM 7 WOODWORKING MACHINE SETTER 10:52 AM WOODWORKING MACHINE SETTER Karma Philip APRN, C.N.P. LAB BLOOD ADD-ON Performing Organization Address City/State/ZIP Code Phon e Number [facility] [address] [place] [address] LAB documented in this encounter Visit Diagnoses Diagnosis Hyperlipidemia Diabetes Mellitus Type 2 Hyperglycemia ( HCC) Screening Examination Prostate Cancer documented in this encounter Care Teams Email Developer Relationship Specialty Start Date End Date Karma Philip APRN, C.N.P. PCP - General 08/17/[address] [place] [address] documented as of this encounter
--- OUTSIDE RECORDS SUMMARY | 2021-11-24 08:48 | XMS_ITS | Encounter Summary ---
:1955 Author Organization [facility] Address [address] [place] [address] Care Team Providers Name Role Phone Karma Philip APRN, C.N.P. Primary Care Provider [phone] Reason for Visit Reason Comments Med Refill Encounter Details Date Type Department Care Team Description 02/20/2017 Refill Department of Family Medicine, Magnolia Philip APRN, Med Refill [facility], in [place], [place] [address] [address] [place] [address] [phone] Social History Tobacco Use Types Packs/Day Years [...] week 06/23/2020 How often do you attend roman catholic or mormonism services? Never 06/23/2020 Do you belong to any clubs or organizations such as roman catholic N o 06/23/2020 groups, unions, fraternal [...] or slept in a correction (including now)? 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 PCP - General 08/17/[address] [address] documented as of this encounter
--- OUTSIDE RECORDS SUMMARY | 2021-11-24 08:48 | XMS_ITS | Encounter Summary ---
:1955 Author Organization [facility] Address [address] [place] [address] Care Team Providers Name Role Phone Karma Philip APRN, C.N.P. Primary Care Provider [phone] Encounter Details Date Type Department Care Team Description 02/15/2017 Hospital Encounter Department of Karma Philip Hyperli pidemia Mixed; Laboratory Medicine AURELIO Odonnell, C.N .P. Screening Examination Prostate Cancer; in [address] Diabetes Mellitus Type 2 (HCC) [address] [address] [place], [place] [phone] (Work) [phone] Social History Tobacco Use Types Packs/Day Years [...] How often do you attend taoist or latter day services? Never 06/23/2020 Do [...] slept in a long term (including now)? Sex Assigned at Date Recorded Male 02/12/2017 11:58 AM CREDIT ADJUSTER documented as of this encounter Medications at [...] (JANUVIA) 100 Take 1 tablet by 0 07/0502/20/2017 mg tablet mouth daily. documented as of this encounter Plan of Treatment Not on filedocumented as of this encounter Procedures Procedure Name Priority Date/Time Associated Diagnosis Comme nts LIPID PANEL, S Routine 02/15/2017 7:57 Hyperlipidemia Mixed Re sults for this AM CREDIT ADJUSTER procedure are i n the results section. PROSTATE-SPECIFIC AG Routine 02/15/2017 7:57 Screening Examina tion Results for this (PSA) SCRN, S AM CREDIT ADJUSTER Prostate Cancer procedure a re in the results section. ASPARTATE Routine 02/15/2017 7:57 Hyperlipidemia Mixed Resu lts for this AMINOTRANSFERASE (AST), AM CREDIT ADJUSTER proc edure are in S/P the results section. documented in this encounter Results PSA (Prostate-Specific Antigen) Screen (02/15/2017 7:57 AM CREDIT ADJUSTER) P athologist Signature Prostate-Specif 3.2 <=4.5 02/15/2017 [facility] ic Ag ng/mL 7:01 PM [facility] [employer] LAB Comment: Biotin has been identified by the mili garcia as a potential interfering substance. ??Higher concentr ations of biotin may be found in multivitamins, hair/nail supple ments, and workout supplements. ??If the result does not [facility] clinical observations, repeat testing after [...] 02/15/2017 7:57 AM 02/16/20 17 6:25 Venous) CREDIT ADJUSTER PM CREDIT ADJUSTER Karma Philip APRN, C.N.P. LAB BLOOD ADD-ON Performing Organization Address City/State/ZIP Code Phon e Number [facility] [place] [address] [place] [address] LAB AST (Aspartate Aminotransferase) (02/15/2017 7:57 AM CREDIT ADJUSTER) Patholo gist Method Time Signature Aspartate 19 8 - 48 02/15/2017 [facility] Aminotransferase U/L 7:19 PM [facility] [place] LAB Specimen Anatomical Collection Method Collection Time Receive d Time (Source) Location / / Volume Laterality Blood 02/15/2017 7:57 AM 7 6:23 CREDIT ADJUSTER PM CREDIT ADJUSTER Karma Philip APRN, C.N.P. LAB BLOOD ADD-ON Performing Organization Address City/State/ZIP Code Phon e Number [facility] [address] [place] [address] LAB (ABNORMAL) Lipid Panel (02/15/2017 7:57 AM CREDIT ADJUSTER) P athologist Signature Cholesterol, 132 mg/dL 02/15/2017 [facility] Total 7:19 PM [facility] Comment: ----REFERENCE VALUE---- Desirable: < 200 Borderline high: 200 - 239 High: > or = 240 Triglycerides 170 (H) mg/dL 02/15/2017 7:19 PM [facility] [place] Comment: ----REFERENCE VALUE---- Normal: <150 Borderline high: 150-199 High: 200-499 Very high: > or =500 Cholesterol, HDL, S 40 >=40 mg/dL 02/15/2017 7:19 PM [facility] [place] Calculated LDL 58 mg/dL 02/15/2017 7:19 PM [facility] [place] LAB Comment: ----REFERENCE VALUE---- Desirable: <100 Above Desirable: 100-129 Borderline high: 130-159 High: 160-189 Very high: > or =190 Cholesterol, Non-HDL, 92 mg/dL 02/15/2017 7:19 PM [facility] [place] B Comment: ----REFERENCE VALUE---- Desirable: <130 Above Desirable: 130-159 Borderline high: 160-189 High: 190-219 Very high: > or =220 Specimen Anatomical Collection Method Collection Time Receive d Time (Source) Location / / Volume Laterality Blood 02/15/2017 7:57 AM 7 6:23 CREDIT ADJUSTER PM CREDIT ADJUSTER Karma Philip APRN, C.N.P. LAB BLOOD ADD-ON Performing Organization Address City/State/ZIP Code Phon e Number [facility] [address] [place] [address] LAB documented in this encounter Visit Diagnoses Diagnosis Hyperlipidemia Mixed Screening Examination Prostate Cancer Diabetes Mellitus Type 2 (HCC) documented in this encounter Care Teams Health Teacher Relationship Specialty Start Date End Date Karma Philip APRN C.N.P. PCP - General 08/17/[address] [place] [address] documented as of this encounter
--- OUTSIDE RECORDS SUMMARY | 2021-11-24 08:48 | XMS_ITS | Encounter Summary ---
:1955 Author Organization [facility] Address [address] [place] [address] Care Team Providers Name Role Phone Unavailable Primary Care Provider Unavailable Encounter Details Date Type Department Care Team Description 09/03/2015 Hospital Encounter HX [facility] Jose Alfredo Mcclellan APRN, C.N.P., M.S.N. [address] [place] [address] (Wo rk) Social History Tobacco Use Types Packs/Day Years Used Date Smoking Tobacco: Never Assessed Alcohol Habits Answer Date Recorded How often [...] week 06/23/2020 How often do you attend holiness or anabaptism services? 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 documented as of this encounter Last Filed Vital Signs Vital Sign Reading Time Taken Comments Blood Pressure 130/74 09/03/2015 10:14 AM CDT Pulse 62 09/03/2015 10:14 AM CDT Temperature - - Respiratory Rate 16 09/03/2015 10:14 AM CDT Oxygen Saturation - - Inhaled Oxygen Concentration - - Weight 118 kg (259 lb 11.2 oz) 09/03/2015 10:14 AM CDT Height 186 cm (6' 1.23) 09/03/2015 10:14 AM CDT Body Mass Index 34.05 09/03/2015 10:14 AM CDT documented in this encounter Medications at Time of Discharge Medication Sig Dispensed Refills Start Date End Date aspirin [address] tablet Take 1 tablet by 0 2015 mouth daily. gemfibrozil (for_LOPID) Take 600 mg by 0 08/05/19 10 10/10/2017 600 mg tablet mouth. documented as of this encounter Progress Notes Jose Alfredo Mcclellan, AURELIO, LACE PINNER - 09/03/2015 9:59 AM CDT [id number] CHIEF COMPLAINT/REASON FOR VISIT Follow up skin infection. HISTORY OF PRESENT ILLNESS A very pleasant 58-year-old male presents with facial skin infection. Patient last initially seen on08/27/2015, was prescribed clindamycin and later seen on 08/30 where mupirocin was added to his regimen and there was some improvement in the infection. The patient states that he continues to have a sore throat and feels as though he may have a sore on the left side of his throat. Solid foods exacerbate the pain and he says it is mild in intensity. No fevers, no chills, no headache, neck pain, chestpain, shortness of breath, abdominal pain, nausea, vomiting or diarrhea. MEDICATIONS Reviewed today. See EMR medication list. ALLERGIES Reviewed today. See EMR allergy list. SYSTEMS REVIEW Negative except for pertinent positives in HPI. PAST MEDICAL/SURGICAL HISTORY Reviewed today. See EMR history and procedures. SOCIAL HISTORY Reviewed today. No changes. FAMILY HISTORY Reviewed today. No changes. VITAL SIGNS Refer to EMR vital signs flow sheet. PHYSICAL EXAMINATION GENERAL: Well appearing. No distress. SKIN: Left frontal cheek continues to have a 2 to 3 cm area of erythema and edema with black center.Previous areas on his cheek are healing well. Scabbed areas have sloughed off. HEENT: Ears: Bilateral TMs and canals without erythema edema or exudate. Positive light reflex bilaterally. No pain over bilateral tragi. Nose: Bilateral nasal turbinates 2+, pink and moist. Oropharynx: No ulcerations seen. There is no erythema, no edema, no exudate. Tongue moist. NECK: Supple. Trachea midline. No lymphadenopathy. CARDIAC: Regular rate and rhythm. Normal S1, S2. No murmurs, rubs, or clicks. LUNGS: Lungs clear without wheezing, rhonchi, or rales. ABDOMEN: Soft. No tenderness on palpation. Normoactive bowel sounds. IMPRESSION/REPORT/PLAN Skin infection. Continue current treatment plan. Did encourage patient to go ahead and follow up on Sunday due to his new onset of throat pain. Again encouraged patient to follow up sooner if needed. Go to emergency room if any conditions became life-threatening. He verbalized good understanding. Ruby Mallyo -C./jesus Electronically Signed By: JOSE ALFREDO MCCLELLAN CNP On: 09/22/2015 03:11 PM Source: [facility] MHSDOLBEYNONRADSYS Document Id: [id number] documented in this encounter Miscellaneous Notes Miscellaneous - Gisselle Vázquez, LFrederickP.N. - 09/03/2015 10:14 AM CDT Adult Veneer Sorter Intake/History Adult Veneer Sorter Intake/History Entered On: 09/03/2015 10:18 CDT Performed On: 09/03/2015 10:14 CDT by GISSELLE VÁZQUEZ PAINT MAKER Intake Chief Complaint : sore throat, teeth hurt when drinking cold things states just had a filling done on that side ( left) pain in left ear states slight KAKE. Onset of Symptoms : 5 days Temperature Core : 36.9 DegC(Converted to: 98.4 DegF) Peripheral Pulse Rate : 62 /min Respiratory Rate : 16 /min Systolic Blood Pressure : 130 mmHg Diastolic Blood Pressure : 74 mmHg NIBP Mean : 93 mmHg BP Location : Right upper extremity Blood Pressure Cuff Size : Large Height : 186 cm(Converted to: 6 ft 1 inch(es), 73 inch(es)) Actual Weight : 117.8 kg(Converted to: 259 lb 11 oz) Weight Source : Standing scale Dosing Weight Clinic : 117.8 kg Clinic BSA : 2.47 Body Mass Index : 34.05 kg/m2 GISSELLE VÁZQUEZ LPN 09/03/2015 10:14 CDT General Info Information Given By : Patient Preferred Communication Mode : Verbal Languages : Slovak Is Patient Female and 13-50 no hysterectomy : No GISSELLE VÁZQUEZ LPN 09/03/2015 10:14 CDT Subjective Pain Symptoms : Yes GISSELLE VÁZQUEZ LPN 09/03/2015 10:14 CDT Pain Scale Pain Scale Verbal 0-10 : Open GISSELLE VÁZQUEZ LPN 09/03/2015 10:14 CDT Pain Pain Assessment Grid Pain 1 Pain 2 Pain 3 Location : Throat Tooth Ear Laterality : Bilateral Left Left Intensity : 2 0 (Comment: states tooth only hurts when he drinks/eats cold things [GISSELLE VÁZQUEZ LPN 09/03/2015 10:14 CDT] ) 3 Duration : 1 week 1 week 1 week GISSELLE VÁZQUEZ LPN 09/03/2015 10:14 CDT GISSELLE VÁZQUEZ LPN 09/03/2015 10:14 CDT GISSELLE VÁZQUEZ LPN 09/03/2015 10:14 CDT Dependent Habits Exposure to Tobacco Smoke : Other: Never Smoking Status : Never smoker Tobacco 2A : No Tobacco Use/Currently Using : No Tobacco Use/Last 30 Days : No Tobacco Use/Last 12 months : No Alcohol Use : Yes GISSELLE VÁZQUEZ LPN 09/03/2015 10:14 CDT Caffeine Use Grid Caffeine Use : Current Type : Coffee Frequency : Daily Amount : 6 cups Last Use : 09/03/2015 GISSELLE VÁZQUEZ LPN - 09/03/2015 10:14 CDT Recreational Drug Use Grid Drug Use : None GISSELLE VÁZQUEZ LPN - 09/03/2015 10:14 CDT Source: [facility] [employer] Document Id: [id number] CDT!62 documented in this encounter Plan of Treatment Not on filedocumented as of this encounter Visit Diagnoses Not on filedocumented in this encounter
--- OUTSIDE RECORDS SUMMARY | 2021-11-24 08:48 | XMS_ITS | Encounter Summary ---
:1955 Author Organization [facility] Address [address] [place] [address] Care Team Providers Name Role Phone Karma Philip APRN C.N.PFrederick Primary Care Provider [phone] Reason for Visit Reason Comments Communication Encounter Details Date Type Department Care Team Description 02/22/2017 [facility] in [address] [phone] Social History Tobacco Use Types Packs/Day Years [...] How often do you attend christian or protestant services? Never 06/23/2020 Do you belong to [...] or slept in a assisted (including now)? 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 - 02/22/2017 11:53 AM CONCRETE BUCKET UNLOADER Patient notified of xray results and will think about whether he would like a R GHJ injection and let us know. RETE BUCKET UNLOADER documented in this encounter Plan of Treatment Not on filedocumented as of this encounter Visit Diagnoses Not on filedocumented in this encounter Care Teams Manager Labor Delivery Relationship Specialty Start Date End Date Karma Philip, AURELIO, C.N.P. PCP - General 08/17/16 [address], [place] [address] documented as of this encounter
--- OUTSIDE RECORDS SUMMARY | 2021-11-24 08:48 | XMS_ITS | Encounter Summary ---
:1955 Author Organization [facility] Address [address] [place] [address] Care Team Providers Name Role Phone Karma Philip APRN, C.N.P. Primary Care Provider [phone] Encounter Details Date Type Department Care Team Description 09/28/2017 Clinical Communication Department of [facility] [place] Philip, Medicine, [place] AURELIO, C.N.P. [facility], in [address] [place], [place] [address] [address] [place], [place] [phone] [address] (Work) [phone] Social History Tobacco Use Types Packs/Day Years [...] How often do you attend catholic or hindu services? 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 PCP - General 08/17/16 [address], [place] [phone] documented as of this encounter
--- OUTSIDE RECORDS SUMMARY | 2021-11-24 08:48 | XMS_ITS | Encounter Summary ---
:[address] [facility] Address [address] [place] [address] Care Team Providers Name Role Phone Unavailable Primary Care Provider Unavailable Encounter Details Date Type Department Care Team Description 07/24/2016 Hospital Encounter HX [facility] Adan Villalobos FBOP M.D. Social History Tobacco Use Types Packs/Day Years [...] week 06/23/2020 How often do you attend sikh or alevism services? 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 bisacodyl (for_DULCOLAX) Take 2 tablets by 0 /09/201610/10/2017 5 mg EC tablet mouth once. gemfibrozil (for_LOPID) Take 600 mg by 0 08/05/19 10 10/10/2017 600 mg tablet mouth. magnesium citrate Take 300 mL by mouth 0 06/30/19 17 10/10/2017 (for_CITROMA) solution once. POLYETHYLENE GLYCOL 3350 Take 238 g by mouth 0 10/10/2017 ORAL once. documented as of this encounter Miscellaneous Notes Miscellaneous - Lissett Prado C.M.A. - 12/05/2016 3:25 PM CDT Med Management-Losartan Document Contains Addenda Addendum by ELLE MILLS APRN, CNP on December 06, 2016 10:27:08 CDT From: ELLE MILLS APRN, CNP Sent: 12/06/2016 10:27:08 CDT Subject: RE:Med Management-Losartan Approved Order:losartan (losartan 50 mg oral tablet) 1 tab(s) PO Daily Qty: 90 tab(s) Refills: 1 Route To [facility]acy - [facility] Signed by ELLE MILLS APRN, CNP 12/06/2016 10:27:03 From: LISSETT PRADO CMA ( Dermatology Nurse) To: ELLE MILLS APRN, CNP; Sent: 12/05/2016 15:25:20 CDT Subject: Med Management-Losartan On hold pending signature Order:losartan (losartan 50 mg oral tablet) 1 tab(s) PO Daily Qty: 90 tab(s) Refills: 1 Route To Pharmacy - [facility] Caller is: ( ) Patient ( ) Mother ( ) Father ( ) Spouse ( ) Daughter ( ) Son ( x ) Pharmacy ( ) Other: Provider: Elle Mills [facility] Name of Medications Needing Refill:Losartan Last Refill Date: Additional Information: Last / Future Appointment: Disposition: ( x ) Send to Pharmacy ( ) Call to Pharmacy ( ) Patient will case picker Script ( ) Mail Rxto Patient Source: [facility] POWERCHART Document Id: [id number] Miscellaneous - Lissett Prado C.M.A. - 12/05/2016 3:23 PM CDT Med Management-Atorvastatin, lantus and glimepiride Document Contains Addenda Addendum by ELLE MILLS APRN, CNP on December 06, 2016 10:27:41 CDT From: ELLE MILLS APRN, CNP Sent: 12/06/2016 10:27:41 CDT Subject: RE:Med Management-Atorvastatin, lantus and glimepiride Approved with modifications: Order:atorvastatin (atorvastatin 20 mg oral tablet) 1 tab(s) PO Bedtime Qty: 90 tab(s) Refills: 0 Substitutions Allowed Route To Pharmacy - [facility] Signed by ELLE MILLS APRN, CNP 12/06/2016 10:27:37 Approved with modifications: Order:insulin glargine (Lantus Solostar Pen 100 units/mL subcutaneous solution) 37 units Subcut. Bedtime Qty: 45 mL Refills: 0 Route To Pharmacy - [facility] Signed by ELLE MILLS APRN, CNP 12/06/2016 10:27:36 Approved with modifications: Order:glimepiride (glimepiride 4 mg oral tablet) 2 tab(s) PO Daily with breakfast Qty: 180 tab(s) Refills: 0 Route To Pharmacy - [facility] Signed by ELLE MILLS APRN, CNP 12/06/2016 10:27:36 From: LISSETT PRADO CMA ( Dermatology Nurse) To: ELLE MILLS APRN FOOD ANALYST; Sent: 12/05/2016 15:23:42 CDT Subject: Med Management-Atorvastatin, lantus and glimepiride On hold pending signature Order:atorvastatin (atorvastatin 20 mg oral tablet) 1 tab(s) PO Bedtime Qty: 90 tab(s) Refills: 1 Substitutions Allowed Route To Pharmacy - [facility] On hold pending signature Order:glimepiride (glimepiride 4 mg oral tablet) 2 tab(s) PO Daily with breakfast Qty: 180 tab(s) Refills: 1 Route To Pharmacy - [facility] On hold pending signature Order:insulin glargine (Lantus Solostar Pen 100 units/mL subcutaneous solution) 37 units Subcut. Bedtime Qty: 45 mL Refills: 3 Route To Pharmacy - [facility] Caller is: ( ) Patient ( ) Mother ( ) Father ( ) Spouse ( ) Daughter ( ) Son ( x ) Pharmacy ( ) Other: Provider:Elle Mills Pharmacy:[facility] Name of Medications Needing Refill:Glimepiride 4mg tabs, Atorvastatin 20mg tabs and Lantus Solostar pen 100 u/ml Last Refill Date: Additional Information: Last / Future Appointment:Last visit was on 06/15/16, no future appointment scheduled. Disposition: ( x ) Send to Pharmacy ( ) Call to Pharmacy ( ) Patient will case picker Script ( ) Mail Rxto Patient Source: [facility] POWERCHART Document Id: [id number] documented in this encounter Plan of Treatment Not on filedocumented as of this encounter Visit Diagnoses Not on filedocumented in this encounter
--- OUTSIDE RECORDS SUMMARY | 2021-11-24 08:48 | XMS_ITS | Encounter Summary ---
:1955 Author Organization [facility] Address [address] [place] [address] Care Team Providers Name Role Phone Karma Philip APRN C.N.P. Primary Care Provider [phone] Encounter Details Date Type Department Care Team Description 02/15/2017 Hospital Encounter Department of [facility] n Shoulder Right Radiology in [place], [address], [place] [address] [place] [phone] Social History Tobacco Use Types Packs/Day Years [...] How often do you attend uatsdin or buddhism services? 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 documented in this encounter Results DX Shoulder Right 2+ Views (02/15/2017 9:25 AM AUTOMATION MANAGER) Anatomical Region Laterality Modality Upper Extremity, Shoulder Right Digital Radiog sabina Specimen (Source) Anatomical Collection Method Collection Time Re ceived Time Location / / Volume Laterality 02/15/2017 12:02 PM AUTOMATION MANAGER Impressions 02/15/2017 12:03 PM AUTOMATION MANAGER IMPRESSION: Comparison 12/01/08. Severe glenohumeral degenerative joint disease with complete joint space loss, large os teophytes, subchondral sclerosis, and several intra-articular ossicles. Severe acromioclavicular degenerative joint disease with large inferior osteophytes. No fracture or dislocation. Narrative 02/15/2017 12:03 PM AUTOMATION MANAGER EXAM: DX SHOULDER RIGHT 2+ VIEWS Procedure Note Tapan Garcia M.D. - 02/15/2017 EXAM: DX SHOULDER RIGHT 2+ VIEWS IMPRESSION: Comparison 12/01/08. Severe g lenohumeral degenerative joint disease with complete joint space loss, large os teophytes, subchondral sclerosis, and several intra-articular ossicles. Severe acromioclavicular degenerative joint disease with large inferior osteophytes. No fracture or dislocation. [facility] LINDY PEREZ documented in this encounter Visit Diagnoses Diagnosis Pain Shoulder Right documented in this encounter Care Teams Exploitation Analyst Relationship Specialty Start Date End Date Karma Philip, CIVIL DIVISION COMMANDER DEPUTY SHERIFF, C.N.P. PCP - General 08/17/[address] [place] [phone] documented as of this encounter
--- OUTSIDE RECORDS SUMMARY | 2021-11-24 08:48 | XMS_ITS | Encounter Summary ---
:1955 Author Organization [facility] Address [address] [place] [address] Care Team Providers Name Role Phone Unavailable Primary Care Provider Unavailable Encounter Details Date Type Department Care Team Description 09/07/2015 Hospital Encounter HX [facility] FAMILYPRA Tanna Mcclellan APRN, C.N.P., M.S.N. [address] [place] [address] (Wo rk) Social History Tobacco Use Types [...] week 06/23/2020 How often do you attend oriental orthodox or catholic services? Never 06/23/2020 Do you belong to any clubs or organizations such as oriental orthodox N o 06/23/2020 groups, unions, fraternal [...] place to sleep or slept in a penitentiary (including now)? 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 documented as of this encounter Last Filed Vital Signs Vital Sign Reading Time Taken Comments Blood Pressure 138/72 09/07/2015 4:07 PM CDT Pulse 72 09/07/2015 4:07 PM CDT Temperature - - Respiratory Rate 16 09/07/2015 4:07 PM CDT Oxygen Saturation - - Inhaled Oxygen Concentration - - Weight 118 kg (260 lb 2.3 oz) 09/07/2015 4:07 PM CDT Height 186 cm (6' 1.23) 09/07/2015 4:07 PM CDT Body Mass Index 34.11 09/07/2015 4:07 PM CDT documented in this encounter Medications at Time of Discharge Medication Sig Dispensed Refills Start Date End Date aspirin [address] tablet Take 1 tablet by 0 2015 mouth daily. gemfibrozil (for_LOPID) Take 600 mg by 0 08/05/19 10 10/10/2017 600 mg tablet mouth. documented as of this encounter Progress Notes Tanna Mcclellan, AURELIO, CYBER THREAT ANALYST - 09/07/2015 4:01 PM CDT [id number] CHIEF COMPLAINT/REASON FOR VISIT Follow up skin infection and ear plugging. HISTORY OF PRESENT ILLNESS A very pleasant, 60-year-old male presents for followup of skin infection. Patient has been treated with clindamycin and feels like the skin infection is clearing up well. Itching has resolved but patient also states he is now having some bilateral ear plugging the left greater than right and he has been having some trouble with cerumen buildup. Has flushed his ears twice at home but still unable to hear out of the left. Denies any recent fevers, chills, headache, neck pain, chest pain, shortness ofbreath, abdominal pain, nausea, vomiting, or diarrhea. MEDICATIONS Reviewed today. See EMR medication list. ALLERGIES Reviewed today. See EMR allergy list. SYSTEMS REVIEW Negative except for pertinent positives in HPI. PAST MEDICAL/SURGICAL HISTORY Reviewed today. See EMR history and procedures. SOCIAL HISTORY Reviewed today. No changes. FAMILY HISTORY Reviewed today. No changes. VITAL SIGNS Refer to EMR vital signs flow sheet. PHYSICAL EXAMINATION GENERAL: Well appearing. No distress. HEENT: Ears: Bilateral TMs unable to visualize due to cerumen impaction. Bilateral ear lavage performed with complete success. TMs are without erythema, edema or exudate. Patient able to hear. Nose: Bilateral nasal turbinates 2+, pink and moist. Oropharynx: Without injection, erythema, edema or exudate. Tongue moist. NECK: Supple. Trachea midline. No lymphadenopathy. CARDIAC: Regular rate and rhythm. Normal S1, S2. No murmurs, rubs, or clicks. LUNGS: Lungs clear without wheezing, rhonchi, or rales. ABDOMEN: Soft. No tenderness on palpation. Normoactive bowel sounds. IMPRESSION/REPORT/PLAN 1. Skin infection. Skin infection is resolving nicely. Still to his anterior right cheek is some mild erythema and black crusting but markedly improved since last visit on September 02. Continue current treatment plan and follow up if symptoms worsen in any way. He verbalized good understanding. 2. Cerumen impaction. Bilateral ears flushed as above and discussed some home treatments and [id number] products to use to help with wax buildup. The patient verbalized good understanding and will follow up if there is any further ear plugging. Ruby Malloy -C./jesus Electronically Signed By: TANNA MCCLELLAN CNP On: 09/22/2015 12:14 PM Source: [facility] [id number] Document Id: [id number] documented in this encounter Nursing Notes Mike Villela L.P.N. - 05/04/2016 10:52 AM CST colon 3rd attempt made to reach patient to schedule colonoscopy. Electronically Signed By: MIKE VILLELA LPN On: 05/04/2016 10:52 AM Source: [facility] POWERCHART Document Id: [id number] ER LUGGAGE documented in this encounter Miscellaneous Notes Miscellaneous - Sherrill Lind RJamilah - 04/25/2016 11:48 AM CST refill request - Januvia Document Contains Addenda Addendum by ELLE MILLS APRN, CNP on April 25, 2016 11:52:16 PORTER LUGGAGE From: ELLE MILLS APRN, CNP Sent: 04/25/2016 11:52:16 PORTER LUGGAGE Subject: RE:refill request - Januvia Approved Order:SITagliptin (Januvia 100 mg oral tablet) 1 tab(s) PO Daily Appointment needed for further refills. Qty: 90 tab(s) Refills: 0 Substitutions Allowed Route To Pharmacy - [facility] Signed by ELLE MILLS APRN, CNP 04/25/2016 11:52:12 From: SHERRILL LIND RN ( [place] Medication Refill) To: ELLE MILLS APRN, CNP; Sent: 04/25/2016 11:48:59 PORTER LUGGAGE Subject: refill request - Januvia On hold pending signature Order:SITagliptin (Januvia 100 mg oral tablet) 1 tab(s) PO Daily Appointment needed for further refills. Qty: 90 tab(s) Refills: 0 Substitutions Allowed Route To Pharmacy - [facility] Caller is: ( _ ) Patient ( _ ) Mother ( _ ) Father ( _ ) Spouse ( _ ) Daughter ( _ ) Son ( x ) Pharmacy ( _ ) Other: _ Provider: [place] [facility]: [facility] Name of Medications Needing Refill: Januvia Last Refill Date: _ Additional Information: was due for appointment in November per last DM check. nothing scheduled. Last / Future Appointment: 09/02/15; Seen by Juanito Mcclellan for skin issues 09/02 and 09/07/15. Disposition: ( x ) Send to Pharmacy ( _ ) Call to Pharmacy ( _ ) Patient will picking tech Script ( _ ) Mail Rx to Patient Source: [facility] POWERCHART Document Id: [id number] Electronically signed by Conversion, [facility] Direct Support Staff Member [id number] at 07/29/2016 10:16 PM CDT Miscellaneous - Deborah Vázquez L.P.N. - 09/07/2015 4:07 PM CDT Adult Line Driver Intake/History Adult Line Driver Intake/History Entered On: 09/07/2015 16:09 CDT Performed On: 09/07/2015 16:07 CDT by DEBORAH VÁZQUEZ LPN Intake Chief Complaint : recheck Temperature Core : 37.0 DegC(Converted to: 98.6 DegF) Peripheral Pulse Rate : 72 /min Respiratory Rate : 16 /min Systolic Blood Pressure : 138 mmHg Diastolic Blood Pressure : 72 mmHg NIBP Mean : 94 mmHg BP Location : Right upper extremity Blood Pressure Cuff Size : Large Height : 186 cm(Converted to: 6 ft 1 inch(es), 73 inch(es)) Actual Weight : 118.0 kg(Converted to: 260 lb 2 oz) Weight Source : Standing scale Dosing Weight Clinic : 118 kg Clinic BSA : 2.47 Body Mass Index : 34.11 kg/m2 DEBORAH VÁZQUEZ LPN - 09/07/2015 16:07 CDT General Info Information Given By : Patient Preferred Communication Mode : Verbal Languages : Estonian Is Patient Female and 13-50 no hysterectomy : No DEBORAH VÁZQUEZ LPN - 09/07/2015 16:07 CDT Subjective Pain Symptoms : No DEBORAH VÁZQUEZ LPN - 09/07/2015 16:07 CDT Dependent Habits Exposure to Tobacco Smoke : Other: Never Smoking Status : Never smoker Tobacco 2A : No Tobacco Use/Currently Using : No Tobacco Use/Last 30 Days : No Tobacco Use/Last 12 months : No Alcohol Use : Yes DEBORAH VÁZQUEZ LPN - 09/07/2015 16:07 CDT Caffeine Use Grid Caffeine Use : Current Type : Coffee Frequency : Daily Amount : 6 cups Last Use : 09/07/2015 DEBORAH VÁZQUEZ LPN - 09/07/2015 16:07 CDT Recreational Drug Use Grid Drug Use : None DEBORAH VÁZQUEZ LPN - 09/07/2015 16:07 CDT Source: [facility] POWERCHART Document Id: [id number] CDT!42 documented in this encounter Plan of Treatment Not on filedocumented as of this encounter Visit Diagnoses Not on filedocumented in this encounter
--- OUTSIDE RECORDS SUMMARY | 2021-11-24 08:48 | XMS_ITS | Encounter Summary ---
:1955 Author Organization [facility] Address [address] [place] [address] Care Team Providers Name Role Phone Karma Philip APRN, C.N.P. Primary Care Provider [phone] Encounter Details Date Type Department Care Team Description 02/18/2017 Orders Only Department of Family Karma Philip, Hyp ertension Essential Primary (Primary Dx); Medicine, [place] AURELIO C.N.P. Fdc Use Of Insulin Active (HCC); Clinic, in [facility] [address] Diabetes Mellitus Type 2 (HCC); [place], [place] Hyperlipidemia Mixed; [address] [id number] Screening Examination Prostate Cancer [place], [place] [phone] (Work) [phone] Social History Tobacco Use Types Packs/Day Years [...] How often do you attend adventism or rastafarian services? 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 documented as of this encounter Plan of Treatment Not on filedocumented as of this encounter Results (ABNORMAL) Lipid Panel (10/09/2017 8:18 AM CDT) athologist Signature Cholesterol, 121 mg/dL 10/09/2017 [facility] Total 11:43 AM T [facility] LAB Comment: ----REFERENCE VALUE---- Desirable: < 200 Borderline high: 200 - 239 High: > or = 240 Triglycerides 129 mg/dL 10/09/2017 11:43 AM CDT [facility] [place] LAB Comment: ----REFERENCE VALUE---- Normal: <150 Borderline high: 150-199 High: 200-499 Very high: > or =500 Cholesterol, HDL, S 38 (L) >=40 mg/dL 10/09/2017 11:[address] [facility] [place] [facility] Calculated LDL 57 mg/dL 10/09/2017 11:43 AM CDT [facility] [place] [facility] Comment: ----REFERENCE VALUE---- Desirable: <100 Above Desirable: 100-129 Borderline high: 130-159 High: 160-189 Very high: > or =190 Cholesterol, Non-HDL, 83 mg/dL 10/09/2017 11:43 A M CDT [facility]- [place] B Comment: ----REFERENCE VALUE---- Desirable: <130 Above Desirable: 130-159 Borderline high: 160-189 High: 190-219 Very high: > or =220 Specimen Anatomical Collection Method Collection Time Receive d Time (Source) Location / / Volume Laterality Blood 10/09/2017 8:18 AM 8 CDT 11:09 AM CDT Allison Stone APRNN.P. LAB BLOOD ADD-ON Performing Organization Address City/[facility]/ZIP Code Phon e Number [facility] [address] [place] [address] LAB (ABNORMAL) Glucose, Fasting (10/09/2017 8:18 AM CDT) athologist Signature Glucose, 125 (H) 70 - 99 10/09/2017 [facility] Fasting, S mg/dL 11:43 AM T [facility] LAB Specimen Anatomical Collection Method Collection Time Receive d Time (Source) Location / / Volume Laterality Blood 10/09/2017 8:18 AM 8 CDT 11:09 AM CDT Allison Stone APRNN.P. LAB BLOOD NON ADD-ON Performing Organization Address City/State/ZIP Code Phon e Number [facility] [address] [place] [address] LAB CBC with Differential (10/09/2017 8:18 AM CDT) athologist Signature Hemoglobin 15.0 13.2 - 10/09/2017 [facility] 16.6 g/dL 9:08 AM T uTaP- [facility] LAB Hematocrit 45.5 38.3 - 10/09/2017 [facility] 48.6 % 9:08 AM T [facility] Erythrocytes 5.30 4.35 - 10/09/2017 [facility] 5.65 9:08 AM T [place] x10(12)/L SYSTEM[facility]res [place] LAB MCV 85.8 78.2 - 10/09/2017 [facility] 97.9 fL 9:08 AM T [facility] [place] [facility] RBC Distrib Width 13.4 11.8 - 10/09/2017 [facility] 14.5 % 9:08 AM T [facility] [place] [facility] Platelet Count 277 135 - 317 10/09/2017 [facility] x10(9)/L 9:08 AM CDT [facility] [place] [facility] Leukocytes 8.7 3.4 - 9.6 10/09/2017 [facility] x10(9)/L 9:08 AM CDT [facility] Neutrophils 5.11 1.56 - 10/09/2017 [facility] 6.45 9:08 AM CDT HEALTH x10(9)/L SYSTEM- [place] [facility] Lymphocytes 2.73 0.95 - 10/09/2017 [facility] 3.07 9:08 AM CDT HEALTH x10(9)/L SYSTEM- [place] [facility] Monocytes 0.73 0.26 - 10/09/2017 [facility] 0.81 9:08 AM CDT HEALTH x10(9)/L SYSTEM- [place] [facility] Eosinophils 0.14 0.03 - 10/09/2017 [facility] 0.48 9:08 AM CDT HEALTH x10(9)/L SYSTEM- [place] [facility] Basophils 0.02 0.01 - 10/09/2017 [facility] 0.08 9:08 AM CDT HEALTH x10(9)/L SYSTEM- [place] [facility] Specimen Anatomical Collection Method Collection Time Receive d Time (Source) Location / / Volume Laterality Blood 10/09/2017 8:18 AM 8 8:21 CDT AM CDT Karma Philip APRN CFrederickN.P. LAB BLOOD ADD-ON Performing Organization Address City/State/ZIP Code Phon e Number [facility]- [address] [place] [id number]- [address] [place] [address] [place] [facility] BMP (Basic Metabolic Panel) (10/09/2017 8:18 AM CDT) P athologist Signature Potassium, S 4.8 3.6 - 5.2 10/09/2017 [facility] mmol/L 11:43 AM CDT [facility] [place] [facility] Sodium, S 140 135 - 145 10/09/2017 [facility] mmol/L 11:43 AM CDT [facility] [place] [facility] Chloride, S 103 98 - 107 10/09/2017 [facility] mmol/L 11:43 AM CDT [facility] [place] [facility] Bicarbonate, S 26 22 - 29 10/09/2017 [facility] mmol/L 11:43 AM [facility] [place] [facility] Anion Gap 11 7 - 15 10/09/2017 [facility] 11:43 AM [facility] [place] [facility] BUN (Blood Urea 13 8 - 24 10/09/2017 [facility] Nitrogen), S mg/dL 11:43 AM [facility] [place] [facility] Creatinine 0.89 0.74 - 10/09/2017 [facility] 1.35 mg/dL 11:43 AM [facility] [place] [facility] eGFR-Non >90 >=60 10/09/2017 [facility] Black/ mL/min/BSA 11:43 AM [facility] [place] [facility] Comment: ----ADDITIONAL INFORMATION---- Estimated GFR calculated using the 2009 CKD_EPI creatinine equation. eGFR-Black/ >90 >=60 mL/min/BSA 2017 11:43 [facility]- [place] [facility] Comment: ----ADDITIONAL INFORMATION---- Estimated GFR calculated using the 2009 CKD_EPI creatinine equation. Calcium, Total, S 9.8 8.8 - 10.2 mg/dL 10/09/2017 11:[address] [facility]- [place] LAB Glucose, S CANCELED mg/dL 10/09/2017 11:09 AM [facility] [place] [facility] Comment: Test not performed. See Fasting Glucose result. Result canceled by the ancillary Specimen Anatomical Collection Method Collection Time Receive d Time (Source) Location / / Volume Laterality Blood 10/09/2017 8:18 AM 8 CDT 11:09 AM CDT Karma Philip APRN C.N.PFrederick LAB BLOOD ADD-ON Performing Organization Address City/State/ZIP Code Phon e Number [facility] [employer] [address] [place] [address] LAB AST (Aspartate Aminotransferase) (10/09/2017 8:18 AM CDT) [facility] gist Method Time Signature Aspartate 18 8 - 48 10/09/2017 [facility] Aminotransferase U/L 11:43 AM [facility] [place] (AST), S SYSTEM- [place] LAB Specimen Anatomical Collection Method Collection Time Receive d Time (Source) Location / / Volume Laterality Blood 10/09/2017 8:18 AM 8 CDT 11:09 AM CDT Karma Philip APRN, C.N.P. LAB BLOOD ADD-ON Performing Organization Address City/State/ZIP Code Phon e Number [facility] [place] [address] [place] [address] LAB (ABNORMAL) Hemoglobin A1c (10/09/2017 8:18 AM CDT) athologist Signature Hemoglobin A1c, 6.8 (H) 4.2 - 5.6 10/09/2017 [facility] B % 11:48 AM CDT [facility] LAB Comment: Hemoglobin A1c values greater than or eq ual to 6.5 percent are diagnostic for diabetes mellitus. ?? Diagnosis should be confirmed by repeat testing. ??In diabet ic patients, HbA1c goals should be discussed with healthcar e provider. Specimen Anatomical Collection Method Collection Time Receive d Time (Source) Location / / Volume Laterality Blood 10/09/2017 8:18 AM 8 CDT 11:09 AM CDT Allison Stone APRNN.P. LAB BLOOD ADD-ON Performing Organization Address City/State/ZIP Code Phon e Number [facility] [place] [address] [place] [address] LAB Microalbumin, Random, Urine (10/09/2017 8:14 AM CDT) athologist Signature Microalbumin <7.0 mg/L 10/09/2017 [facility] 12:39 PM CDT [facility] LAB Creatinine 162 mg/dL 10/09/2017 [facility] 12:39 PM CDT [facility] LAB Albumin/Creatinin <4 <17 mg/g 10/09/2017 [facility] e Ratio 12:39 PM CDT [facility] LAB Comment: This ratio may not correspond [...] Organization Address City/State/ZIP Code Phon e Number [facility] [address] [place] [address] LAB documented in this encounter Visit Diagnoses Diagnosis Hypertension Essential Primary - Primary Fdc Use Of Insulin Active (HCC) Diabetes Mellitus Type 2 (HCC) Hyperlipidemia Mixed Screening Examination Prostate Cancer documented in this encounter Care Teams General Pediatrician Relationship Specialty Start Date End Date Karma Philip APRN C.N.P. PCP - General 08/17/162[address], [place] [address] documented as of this encounter
--- OUTSIDE RECORDS SUMMARY | 2021-11-24 08:49 | XMS_ITS | Encounter Summary ---
:1955 Author Organization [facility] Address [address] [place] [address] Care Team Providers Name Role Phone Unavailable Primary Care Provider Unavailable Encounter Details Date Type Department Care Team Description 12/28/2014 Hospital Encounter HX [facility] LAB Elle Mills, Lola MORAES, C.N.P. [address], [place] [address] (Wo rk) Social History [...] week 06/23/2020 How often do you attend jehovah's witness or catholic services? Never 06/23/2020 Do you belong to any clubs or organizations such as jehovah's witness N o 06/23/2020 groups, unions, fraternal or [...] or slept in a ch[facility] (including now)? 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 documented as of this encounter Miscellaneous Notes Miscellaneous - Elle Mills APRN, C.N.P. - 12/28/2014 3:27 PM CDT Schedule Follow-Up Visit 28 December 2014 HUGH DENNIS [address] [place] [phone] Dear HUGH DENNIS, Thank you for choosing [facility] for your health care needs. You recently had laboratory work performed to assess your overall health. This letter contains the results of your testing and standard ranges to help explain the results. A1c is still elevated. Increase Lantus to 35 units daily. Recheck A1c in 3 months. If you have questions prior to our appointment, please contact our office. Result Name Current Result Previous Result Normal Range Hgb A1c (% A1C) (H) 8.1 12/28/2014 (H) 8.5 09/25/2014 - <=5.6 Sincerely, ELLE MILLS [address] [place] [address] Electronic Signature Electronically Signed By: LELE MILLS CNP On: 28 December 2014 This document has images extracted. Source: [facility] POWERCHART Document Id: [id number] Electronically signed by Carlo, [facility] [place] Body Masker [id number] at 07/31/2016 5:12 AM CDT Miscellaneous - Elle Mills APRN, C.N.P. - 12/28/2014 3:26 PM CDT From: ELLE MILLS CNP To: ABDULLAHILITTLEHUGH RUIZ Sent: 12/28/2014 15:26:56 CDT Hugh, A1c is still elevated. Increase Lantus to 35 units daily. Recheck A1c in 3 months. Elle Results: Date Result Name Ind Value Ref Range 12/28/2014 08:12 Hgb A1c (H) 8.1 % A1C ( - <=5.6) Source: [facility] POWERCHART Document Id: [id number] Electronically signed by Conversion, [facility] [place] Body Masker [id number] at 07/31/2016 5:12 AM CDT documented in this encounter Plan of Treatment Not on filedocumented as of this encounter Procedures Procedure Name Priority Date/Time Associated Diagnosis Comme nts HEMOGLOBIN A1C, B Routine 12/28/2014 8:12 AM Resu lts for this CDT procedure are i n the results section. documented in this encounter Results (ABNORMAL) Hemoglobin A1c (12/28/2014 8:12 AM CDT) P athologist Signature Hemoglobin A1c, 8.1 (H) <=5.6 A1C POWERCHART B Specimen (Source) Anatomical Collection Method Collection Time Re ceived Time Location / / Volume Laterality Blood 12/28/2014 8:12 AM CDT Elle Mills TACKER ELASTIC BAND, C.N.P. LAB BLOOD ADD-ON Performing Organization Address City/State/ZIP Code Phon e Number POWERCHART documented in this encounter Visit Diagnoses Not on filedocumented in this encounter Additional Health Concerns Assessment Noted Time PHQ-9 Depression Total Score: 1 07/17/2013 10:14 AM CD T documented as of this encounter
--- OUTSIDE RECORDS SUMMARY | 2021-11-24 08:49 | XMS_ITS | Encounter Summary ---
:1955 Author Organization [facility] Address [address] [place] [address] Care Team Providers Name Role Phone Unavailable Primary Care Provider Unavailable Encounter Details Date Type Department Care Team Description 05/09/2012 Hospital Encounter HX [facility] MyrChristiana franco, TRANSFER PUMPER, C.N.P. [address] [place] [address] (Wo rk) Social History Tobacco [...] How often do you attend buddhist or pentecostalism services? Never 06/23/2020 Do you [...] or slept in a fci (including now)? Sex Assigned at Date Recorded Male 02/12/2017 11:58 AM PA[employer] INTERNSH[employer] documented as of this encounter Last Filed Vital Signs Vital Sign Reading Time Taken Comments Blood Pressure 138/82 05/09/2012 8:16 AM PAID INTERNSHIP Pulse 76 05/09/2012 8:13 AM PAID INTER[employer] Temperature - - Respiratory Rate 18 05/09/2012 8:13 AM PAID INTER[employer]IP Oxygen Saturation - - Inhaled Oxygen Concentration - - Weight 117 kg (258 lb 2.5 oz) 05/09/2012 8:13 AM PAID INTERNSHIP Height 188 cm (6' 2.02) 05/09/2012 8:13 AM PAID INTERNSHIP Body Mass Index 33.13 05/09/2012 8:13 AM PA[employer] INTERNS[employer]IP documented in this encounter Medications at Time of Discharge Medication Sig Dispensed Refills Start Date End Date gemfibrozil (for_LOPID) Take 600 mg by 0 08/05/19 10 10/10/2017 600 mg tablet mouth. documented as of this encounter Progress Notes Elle Mills, AURELIO, C.N.P. - 05/09/2012 7:55 AM CST [id number] CHIEF COMPLAINT/REASON FOR VISIT 1. Diabetes type 2 uncontrolled. 2. Hyperlipidemia 3. Hypertension 4. Trigger finger. HISTORY OF PRESENT ILLNESS 1. Hugh is here for recheck on diabetes type 2. Today his A1c is 8.2. He states he never has hypoglycemia. He continues with Lantus 20 units at bedtime and glimepiride 4 mg in the morning. We are goingto increase his glimepiride to 8 mg in the morning. He is going to work hard on diet and exercise aswell. Will recheck A1c and 3 months. 2. Hyperlipidemia. LDL meets goal at 86. 3. Hypertension. Blood pressure elevated on the first check but meets goal on second check. We are going to continue to watch carefully. We discussed today that we may need to increase his blood pressure medication as well 4. Trigger finger left thumb. He states his left thumb has been triggering off and on for the past few months. He had similar symptoms in the right thumb and wore a splint for awhile and it resolved sohe is wearing a splint on the left now. He will let me know if it is worsening. CURRENT MEDICATIONS See depart summary from today. ALLERGIES None. SYSTEMS REVIEW Positive for that mentioned in history of present illness and noted in the past medical history in the EMR all other systems were reviewed and negative PREVENTIVE foot exam and diabetes education done today. He is due for dilated eye exam [facility]. He will have them fax us completed form. VITAL SIGNS See EMR PHYSICAL EXAMINATION GENERAL: Well developed well nourished male in no acute distress. SKIN: Warm and dry. ENT: TMs clear. Throat clear. NECK: Supple. No lymphadenopathy or thyromegaly. HEART: Regular rate and rhythm LUNGS: Clear to auscultation. ABDOMEN: Soft, nontender, no hepatosplenomegaly. EXTREMITIES: Left thumb no triggering this morning, tender over the proximal PIP joint. Lower extremities warm, dry, no peripheral edema. Normal sensation tops and bottoms of feet with monofilament. IMPRESSION/REPORT/PLAN 1. Diabetes type 2 uncontrolled. A1c elevated at 8.2 today. Increase glimepiride to 8 mg every morning. Plan to recheck A1c in 3 months. He will schedule for dilated eye exam and have form faxed to us.Diabetes education was done today please see consumer educator intake form in the EMR 2. Hyperlipidemia. Most recent LDL meets goal. No changes. 3. Hypertension. Blood pressure elevated on first check today okay on second check. Will continue tomonitor closely. We discussed we may need to increase medication if it continues over 140/90 4. Trigger finger left thumb. He will let me know how it is doing and if symptoms are worsening willhave him see Dr. Felix for possible injection Elle Mills CNP/yuriy DOCID: [id number] Electronically Signed By: ELLE MILLS CNP On: 05/09/2012 10:55 AM Source: [facility] Document Id: [id number] INTERNSHIP documented in this encounter Nursing Notes Elle Mills APRN, C.N.P. - 05/09/2012 8:35 AM CST Director Of Cath Lab Intake (Adult) Director Of Cath Lab Intake (Adult) Entered On: 05/09/2012 8:36 PAID INTERNSHIP Performed On: 05/09/2012 8:35 PAID INTERNSHIP by ELLE MILLS CNP Assessment Program Type : Non-Program Diabetes Referring Provider : ELLE MILLS CNP Special needs : None Method Used for DSME : Individual Last Educator Visit Date : 05/09/2012 [employer] INTERNSHIP Diabetes Type : Type 2 19 years and older Ethnicity : White/ Diabetes Onset : 1997 Current Treatment : Insulin pen, Oral agents Medication Compliance : Takes meds as prescribed Diabetes Medications Reviewed : Yes Medication Categories : Biguanide, Insulin, Sulfonylurea ELLE MILLS CNP - 05/09/2012 8:35 [employer] INTER[employer]HIP Foot Problems No foot problems : Left, Right ELLE MILLS CNP - 05/09/2012 8:35 [employer]ID INTERNSHIP Dilated eye exam every year : Yes Exercise Type : Walking Exercise Frequency : 2-3 times per week Duration : 15-30 minutes Time Spent With Patient : 15 Minutes ELLE MILLS CNP - 05/09/2012 8:35 PAID INTER[employer]HIP Education Diabetes Education Grid Topics : Medications/Effectiveness - Oral Agents, Monitoring - Blood Glucose, Using Results - Blood Glucose, Problem Solving/Goal Setting - Compliance Strategies, Problem Solving/Goal Setting - Treatment/Management Goals Individuals Taught : Patient Barriers to Learning : None evident Teaching Method : Explanation Teaching Evaluation : Verbalizes understanding ELLE MILLS CNP - 05/09/2012 8:35 PAID [employer]IP Comprehensive Program Goals Diabetes Education Goals Grid Diabetes Education Goal #1 row Diabetes Education Goal #2 row Diabetes Education Goal #3 row Date Goal Set : 05/09/2012 PAID INTERNSHIP 05/09/2012 PAID INTERNSHIP 05/09/2012 PAID INTERNSHIP Goal : A1c less than 8.0 Blood pressure less than 140/90 LDL less than 100 Related Content Area : Healthy eating Medication Medication ELLE MILLS CNP - 05/09/2012 8:35 PAID INTERNSHIP ELLE MILLS CNP - 05/09/2012 8:35 PAID INTERNSHIP ELLE MILLS - 05/09/2012 8:35 PAID INTERNSHIP Source: [facility] Document Id: [id number] INTERNSHIP documented in this encounter Miscellaneous Notes Miscellaneous - Elle Mills APRN, C.N.P. - 05/09/2012 8:43 AM CST Ambulatory Patient Summary [address] [place] [address] Visit Information Name: HUGH DENNIS [facility] Number: [id number] Current Date: 05/09/2012 08:43:08 Physicians Attending Provider: ELLE MILLS CNP Primary Care Provider: ELLE MILLS CNP Your Medications Here is a list of your medications. It is important to take your medications as directed. Use a pillbox or chart to help remind you to take your medications. Please let your doctor or nurse know if you have problems taking your medications. Medication/Strength Dose Route Frequency Indications/Special Instructions/Comments glimepiride (glimepiride 4 mg oral tablet) 8 mg Oral once a day with breakfast losartan (losartan 50 mg oral tablet) 50 mg Oral once a day gemfibrozil (gemfibrozil 600 mg oral tablet) 600 mg Oral two times a day metformin (metformin 500 mg oral tablet, extended release) 2,000 mg Oral Daily Supper insulin glargine (Lantus Solostar Pen 100 units/mL subcutaneous solution) 20 units Subcutaneous oncea day (at bedtime) aspirin (aspirin 81 mg oral enteric coated tablet) 81 mg Oral once a day Attention: If you have any medications at home that are not on this list, DO NOT take them until youcontact your provider for clarification. Your Allergies & Intolerances Substance Reaction Symptoms Category Comments No Known Allergies Drug Your Problem List Problem Status Onset Comments Hyperlipidemia Active Hypertension Active Obesity NOS Active DM II (or NOS), uncontrolled Active 08/17/1997 Neuropathy Ulnar Nerve Active Trigger finger Active 03/19/2012 05/09/12 left thumb Your Upcoming Appointments Date Time Location Reason Provider No Appointments found Your Goals/Additional instructions: Source: [facility] Document Id: [id number] INTERNSHIP Miscellaneous - Elle Mills APRN, C.N.P. - 05/09/2012 8:43 AM CST Ambulatory Depart Summary [id number] [place] [address] Visit Information Name: HUGH DENNIS [facility] Number: [id number] Visit Date: 05/09/2012 08:43:07 Attending Provider: ELLE MILLS CNP Primary Care Provider: ELLE MILLS CNP HUGH DENNIS has been given the following list of medications: Your Medications It is important to take your medications as directed. Use a pill box or chart to help remind you to take your medications. Please let your doctor or nurse know if you have problems taking your medications. Medication/Strength Dose Route Frequency Indications/Special Instructions/Comments glimepiride (glimepiride 4 mg oral tablet) 8 mg Oral once a day with breakfast losartan (losartan 50 mg oral tablet) 50 mg Oral once a day gemfibrozil (gemfibrozil 600 mg oral tablet) 600 mg Oral two times a day metformin (metformin 500 mg oral tablet, extended release) 2,000 mg Oral Daily Supper insulin glargine (Lantus Solostar Pen 100 units/mL subcutaneous solution) 20 units Subcutaneous oncea day (at bedtime) aspirin (aspirin 81 mg oral enteric coated tablet) 81 mg Oral once a day Attention: If you have any medications at home that are not on this list, DO NOT take them until youcontact your provider for clarification. Additional Information: Source: [facility] Document Id: [id number] INTERNSHIP Miscellaneous - Elle Mills APRN, C.N.P. - 05/09/2012 8:35 AM CST Quality Measures Quality Measures Entered On: 05/09/2012 8:35 PAID INTERNSHIP Performed On: 05/09/2012 8:35 [employer]IP by ELLE MILLS CNP Diabetes Date of Last Foot Exam : 05/09/2012 PAID INTERNSHIP Date of Last Diabetes Education : 05/09/2012 PAID INTERNSHIP ELLE MILLS Blas [facility] - 05/09/2012 8:35 PAID INTERNSHIP Foot Exam Grid Left foot exam Right foot exam Dorsalis Pedis Pulse : Normal Normal Capillary Refill : Less than 3 seconds Less than 3 seconds 10 gm Monofilament Sensation Check : Intact Intact CHRISTIANA MILLSOscar Odonnell [facility] - 05/09/2012 8:35 PAID INTERNSHIP GENE ELLE Odonnell [facility] - 05/09/2012 8:35 PAID INTERNSHIP Source: [facility] Document Id: [id number] INTERNSHIP Miscellaneous - Niels Miller L.P.N. - 05/09/2012 8:17 AM CST Health Assessment Health Assessment Entered On: 05/09/2012 8:17 PAID INTERNSHIP Performed On: 05/09/2012 8:17 PAID INTERNSHIP by NIELS MILLER Health Assessment Complete Health Assessment Complete or Modified : Annual Health Assessment Annual Health Assessment Completed : Yes NIELS MILLER - 05/09/2012 8:17 PAID INTERNSHIP Nutrition Nutrition Risk Factors by History Adult : None NIELS MILLER - 05/09/2012 8:17 PAID INTERNSHIP Functional Current Daily Living Assistance : None INELS MILLER - 05/09/2012 8:17 PAID INTERNSHIP Dependent Habits Tobacco Use/Currently Using : No Smoking Status : Never smoker NIELS MILLER - 05/09/2012 8:17 PAID INTERNSHIP Tobacco Use Grid Other Tobacco Frequency : NON Last Use : never NIESL MILLER - 05/09/2012 8:17 PAID INTERNSHIP Caffeine Use Grid Caffeine Use : Current Type : Coffee Frequency : Daily NIELS MILLER - 05/09/2012 8:17 PAID INTERNSHIP Recreational Drug Use Grid Drug Use : None NIELS MILLER - 05/09/2012 8:17 PAID INTERNSHIP Psychosocial Domestic Abuse Concerns : None NIELS MILLER - 05/09/2012 8:17 PAID INTERNSHIP Advance Directive Advanced Directives : No NIELS MILLER - 05/09/2012 8:17 PAID INTERNSHIP Educ Needs Learning Style Preference Adult Grid Patient : Verbal explanation Family : Verbal explanation NIELS MILLER - 05/09/2012 8:17 PAID INTERNSHIP [facility] Document Id: [id number] INTERNSHIP Miscellaneous - Niels Miller L.PFrederickNFrederick - 05/09/2012 8:16 AM CST Ambulatory Vitals Height Weight Ambulatory Vitals Height Weight Entered On: 05/09/2012 8:16 PAID INTERNSHIP Performed On: 05/09/2012 8:16 PAID INTERNSHIP by NIELS MILLER Vitals/Ht/Wt Systolic Blood Pressure : 138mmHg Diastolic Blood Pressure : 82mmHg NIBP Mean : 101mmHg NIELS MILLER - 05/09/2012 8:16 PAID INTERNSHIP [facility] Document Id: [id number] INTERNSHIP Miscellaneous - Niels Miller L.PFrederickNFrederick - 05/09/2012 8:13 AM CST Adult General Farmer Intake/History Adult General Farmer Intake/History Entered On: 05/09/2012 8:15 PAID INTERNSHIP Performed On: 05/09/2012 8:13 PAID INTERNSHIP by NIELS MILLER Intake Chief Complaint : diabetes Temperature Core : 36.8C(Converted to: 98.2DegF) Peripheral Pulse Rate : 76/min Respiratory Rate : 18/min Systolic Blood Pressure : 148mmHg (HI) Diastolic Blood Pressure : 76mmHg NIBP Mean : 100mmHg Height : 188cm(Converted to: 6ft 2inch(es), 74.02inch(es)) Actual Weight : 117.1kg(Converted to: 258lb 3oz) Dosing Weight Clinic : 117.10kg Clinic BSA : 2.47 Body Mass Index : 33.13kg/m2 NIELS MILLER - 05/09/2012 8:13 PAID INTERNSHIP General Info Information Given By : Patient Languages : [place] Islander NIELS MILLER - 05/09/2012 8:13 PAID INTERNSHIP Subjective Pain Symptoms : Yes NIELS MILLERN - 05/09/2012 8:13 PAID INTERNSHIP Pain Pain Assessment Grid Pain 1 Location : Finger Laterality : Left NIELS MILLERN - 05/09/2012 8:13 PAID INTERNSHIP Dependent Habits Tobacco Use/Currently Using : No Smoking Status : Never smoker NIELS MILLERN - 05/09/2012 8:13 PAID INTERNSHIP Tobacco Use Grid Other Tobacco Frequency : NON Last Use : never NIELS MILLER TOY - 05/09/2012 8:13 PAID INTERNSHIP Caffeine Use Grid Caffeine Use : Current Type : Coffee Frequency : Daily NIELS MILLER TOY - 05/09/2012 8:13 PAID INTERNSHIP Recreational Drug Use Grid Drug Use : None NIELS MILLER TOY - 05/09/2012 8:13 PAID INTERNSHIP Allergy Allergies (Active) NKA Estimated Onset Date: Unspecified ; Created By: ELLE MILLS CNP; Reaction Status: Active ; Category: Drug ; Substance: NKA ; Type: Allergy ; Updated By: ELLE MILLS CNP; Reviewed Date: 11/02/2011 8:14 CDT Source: [facility] Document Id: [id number] INTERNSHIP documented in this encounter Plan of Treatment Not on filedocumented as of this encounter Visit Diagnoses Not on filedocumented in this encounter
--- OUTSIDE RECORDS SUMMARY | 2021-11-24 08:49 | XMS_ITS | Encounter Summary ---
:1955 Author Organization [facility] Address [address] [place] [address] Care Team Providers Name Role Phone Unavailable Primary Care Provider Unavailable Encounter Details Date Type Department Care Team Description 10/05/2014 Hospital Encounter HX [facility] MyrChristiana franco, HEAD COOK, C.N.P. [address] [place] [address] (Wo rk) Social History Tobacco [...] week 06/23/2020 How often do you attend mosque or orthodox services? 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 documented as of this encounter Last Filed Vital Signs Vital Sign Reading Time Taken Comments Blood Pressure 142/80 10/05/2014 8:24 AM CDT Pulse 72 10/05/2014 8:22 AM CDT Temperature - - Respiratory Rate 20 10/05/2014 8:22 AM CDT Oxygen Saturation - - Inhaled Oxygen Concentration - - Weight 118 kg (261 lb 3.9 oz) 10/05/2014 8:22 AM CDT Height 186 cm (6' 1.23) 10/05/2014 8:24 AM CDT Body Mass Index 34.25 10/05/2014 8:22 AM CDT documented in this encounter Medications at Time of Discharge Medication Sig Dispensed Refills Start Date End Date gemfibrozil (for_LOPID) Take 600 mg by 0 08/05/19 10 10/10/2017 600 mg tablet mouth. documented as of this encounter Progress Notes Elle Mills, AURELIO, CFrederickNLeslie. - 10/05/2014 7:56 AM CDT [id number] CHIEF COMPLAINT/REASON FOR VISIT Diabetes, type 2, uncontrolled; hypertension and hyperlipidemia. HISTORY OF PRESENT ILLNESS 1. Hugh is here for diabetes recheck. He had A1c drawn on a 09/25/2014. It came back elevated at 8.5. It has actually gone up since his last visit in June. It was 8.2. He states he was on vacation for10 days and did not take any of his medications while on vacation. 2. Hypertension. Blood pressure is elevated on 2 checks today. He states he has been having increased stress at work. He does not find his blood pressure elevated at home. I am going to have him returnin a week to recheck blood pressure. We did discuss if it is elevated again we will need to increasehis medication. 3. Hyperlipidemia, stable on atorvastatin 20 mg daily. MEDICATIONS See depart summary from today. ALLERGIES None. SYSTEMS REVIEW Positive for that mentioned in the history of present illness and noted in the past medical history in the EMR. All other systems were reviewed and were negative. PREVENTIVE Has dilated eye exam scheduled for October 26. Will have copy of report sent to us. SOCIAL HISTORY He does not smoke. FAMILY HISTORY Reviewed from [facility] family history tab in the EMR. VITAL SIGNS Reviewed from [facility] evaluation under the vitals tab in the EMR. PHYSICAL EXAMINATION GENERAL: Well-developed, well-nourished male in no acute distress. SKIN: Warm and dry. HEART: Regular rate and rhythm. LUNGS: Clear to auscultation. ABDOMEN: Soft, nontender. No hepatosplenomegaly. EXTREMITIES: Warm, dry. No peripheral edema. IMPRESSION/REPORT/PLAN 1. Diabetes, type 2, uncontrolled. We discussed increasing Lantus insulin to 30 units daily. Work ondiet and exercise with weight loss. Have dilated eye exam report sent to our office for documentation. Return for A1c in 3 months. 2. Hypertension. Blood pressure elevated on 2 checks today. Return in 1 week for recheck. If blood pressure remains elevated, will increase medication. 3. Hyperlipidemia, stable on atorvastatin. No change in medication. Elle Mills CNP/jesus Electronically Signed By: ELLE MILLS CNP On: 10/05/2014 01:49 PM Source: [facility] MHSDOLBEYNONRADSYS Document Id: [id number] documented in this encounter Nursing Notes Analisa Calvillo - 06/08/2015 10:52 AM CDT panel management Pt will be due for office visit with lab for management of diabetes. Attempted to contact pt to schedule, message left for pt to return call. Electronically Signed By: ANALISA CALVILLO LPN On: 06/08/2015 10:53 AM Source: [facility] POWERCHART Document Id: [id number] Analisa Calvillo - 03/09/2015 3:21 PM CST panel management Pt due for A1c recheck later this month. Also had elevated BP on last visit, orders also available for BP recheck. Pt contacted and transferred to scheduling. Electronically Signed By: ANALISA CALVILLO LPN On: 03/09/2015 03:22 PM Source: [facility] POWERCHART Document Id: [id number] CARE ASSISTANT Elle Mills APRN, C.N.P. - 10/05/2014 8:38 AM CDT Ambulatory Patient Education The following Patient [...] or tender areas of the foot ?? [id number] [place] [address]. All rights reserved. This information is not intended as a substitute for professional medical care. Always follow your healthcare professional's instructions. Source: [facility] POWERCHART Document Id: [id number] documented in this encounter Miscellaneous Notes Miscellaneous - Deana Acuña, RFrederickN. - 08/24/2015 9:48 AM CDT *Medication Refill Msg From: DEANA ACUÑA RN ([facility] Medication Refill) To: ELLE MILLS APRN COAL SHOOTER; Sent: 08/24/2015 09:48:30 CDT Subject: *Medication Refill Msg Caller is: ( ) Patient ( ) Mother ( ) Father ( ) Spouse ( ) Daughter ( ) Son ( ) Pharmacy ( ) Other: Provider: [facility]: Name of Medications Needing Refill: metformin er 500 mg Last Refill Date: qt 360 Additional Information:4 tabs po with evening meal....pt was to have lab draw in June and has not... Name of Medications Needing Refill: glimepiride 4 mg Last Refill Date: qt 180 Additional Information: no lab draw in June....2 tabs with breakfast.... 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 - 10/05/2014 8:38 AM CDT Ambulatory Patient Summary [address] [id number] Visit Information Name: HUGH DENNIS [facility] Number: [id number] Current Date: 10/05/2014 08:38:24 Physicians Attending Provider: ELLE MILLS CNP Primary [...] Medication Changes/Routing aspirin (aspirin 81 mg oral enteric coated tablet) 1 Tablet(s), Oral, once a day atorvastatin (atorvastatin 20 mg oral tablet) 1 Tablet(s), Oral, once a day (at bedtime) glimepiride (glimepiride 4 mg oral tablet) 2 Tablet(s), Oral, once a day with breakfast insulin glargine (Lantus Solostar Pen 100 units/mL subcutaneous solution) 30 units, Subcutaneous, once a day (at bedtime) This is a CHANGE Routed to [address] [id number] losartan (losartan 50 mg oral tablet) 1 Tablet(s), Oral, once a day metFORMIN (metformin 500 mg oral tablet, extended release) 4 Tablet(s), Oral, Daily Supper with evening meal Stop Taking the Following Medications: Medication list as of 10-05-14 08:38 Attention: If you have any medications at [...] of emergency. Electronically Signed By: ELLE MILLS CNP Signed On:05-OCT-2014 08:38:00 Your Allergies & Intolerances Substance Reaction Symptoms Category Comments No Known Allergies Drug Your Problem List Problem Status Onset Comments Hyperlipidemia Active Hypertension Active Obesity NOS Active DM II (or NOS), uncontrolled Active 08/17/1997 Neuropathy Ulnar Nerve Active Trigger finger Active 03/19/2012 05/09/12 left thumb Low back pain Active 06/08/2012 08/08/12 right Your Upcoming Appointments Date Time Location Provider [...] or tender areas of the foot ?? [id number] [place] [address]. All rights reserved. This information is not [...] dont have one. Go to [email or web address] and click on Create Your Account. Then, follow the directions to complete the online form. Youll be asked for your [facility] number which you can find at the top of this document. Your Goals/Additional instructions: Source: [facility] POWERCHART Document Id: [id number] Miscellaneous - Elle Mills APRN, C.N.P. - 10/05/2014 8:38 AM CDT Ambulatory Discharge Medication List [address] [place] [id number] Visit Information Name: HUGH DENNIS [facility] Number: [id number] Visit Date: 10/05/2014 08:38:23 Attending Provider: ELLE MILLS CNP Primary Care [...] Medication Changes/Routing aspirin (aspirin 81 mg oral enteric coated tablet) 1 Tablet(s), Oral, once a day atorvastatin (atorvastatin 20 mg oral tablet) 1 Tablet(s), Oral, once a day (at bedtime) glimepiride (glimepiride 4 mg oral tablet) 2 Tablet(s), Oral, once a day with breakfast insulin glargine (Lantus Solostar Pen 100 units/mL subcutaneous solution) 30 units, Subcutaneous, once a day (at bedtime) This is a CHANGE Routed to [address] [id number] losartan (losartan 50 mg oral tablet) 1 Tablet(s), Oral, once a day metFORMIN (metformin 500 mg oral tablet, extended release) 4 Tablet(s), Oral, Daily Supper with evening meal Stop Taking the Following Medications: Medication list as of 10-05-14 08:38 Attention: If you have any medications at [...] of emergency. Electronically Signed By: ELLE MILLS CNP Signed On:05-OCT-2014 08:38:00 Additional Information: Source: [facility] POWERCHART Document Id: [id number] Miscellaneous - Christa Swanson L.P.N. - 10/05/2014 8:24 AM CDT Ambulatory Vitals Height Weight Ambulatory Vitals Height Weight Entered On: 10/05/2014 8:24 CDT Performed On: 10/05/2014 8:24 CDT by CHRISTA SWANSON LPN Vitals/Ht/Wt Systolic Blood Pressure : 142 mmHg (HI) Diastolic Blood Pressure : 80 mmHg NIBP Mean : 101 mmHg BP Location : Left upper extremity Blood Pressure Cuff Size : Regular Height : 186 cm(Converted to: 6 ft 1 inch(es), 73 inch(es)) CHRISTA SWANSON LPN - 10/05/2014 8:24 CDT Source: [facility] Document Id: [id number] CDT!8 Miscellaneous - Christa Swanson L.PFrederickNFrederick - 10/05/2014 8:22 AM CDT Adult Slot Floorperson Intake/History Adult Slot Floorperson Intake/History Entered On: 10/05/2014 8:24 CDT Performed On: 10/05/2014 8:22 CDT by CHRISTA SWANSON LPN Intake Chief Complaint : Diabetic check No concerns. Not fasting. Needs refill of lantus. Temperature Core : 36.9 DegC(Converted to: 98.4 DegF) Peripheral Pulse Rate : 72 /min Respiratory Rate : 20 /min Heart Rhythm : Regular Systolic Blood Pressure : 152 mmHg (HI) Diastolic Blood Pressure : 80 mmHg NIBP Mean : 104 mmHg BP Location : Left upper extremity Blood Pressure Cuff Size : Regular Height : 186 cm(Converted to: 6 ft 1 inch(es), 73 inch(es)) Actual Weight : 118.5 kg(Converted to: 261 lb 4 oz) Weight Source : Standing scale Dosing Weight Clinic : 118.5 kg Clinic BSA : 2.47 Body Mass Index : 34.25 kg/m2 CHRISTA SWANSON LOU JARA - 10/05/2014 8:22 CDT General Info Information Given By : Patient Preferred Communication Mode : Verbal Languages : Kyrgyz Is Patient Female and 13-50 no hysterectomy : No CELESTINAJUSTICECHRISTA LOU JARA - 10/05/2014 8:22 CDT Subjective Pain Symptoms : No CHRISTA SWANSON LOU JARA - 10/05/2014 8:22 CDT Dependent Habits Tobacco Use/Currently Using : No Exposure to Tobacco Smoke : Other: Never Smoking Status : Never smoker TREVOR SWANSONRONDA BLAKE LPN - 10/05/2014 8:22 CDT Tobacco Use Grid Other Tobacco Frequency : NON CELESTINAJUSTICE CHRISTA BLAKE LPN - 10/05/2014 8:22 CDT Caffeine Use Grid Caffeine Use : Current Type : Coffee Frequency : Daily SKYTREVORCHRISTARONDA BLAKE LPN - 10/05/2014 8:22 CDT Recreational Drug Use Grid Drug Use : None CHRISTA SWANSON LPN - 10/05/2014 8:22 CDT Source: [facility] Document Id: [id number] CDT!40 Miscellaneous - Christa Swanson, L.P.N. - 10/05/2014 8:21 AM CDT Health Assessment Health Assessment Entered On: 10/05/2014 8:22 CDT Performed On: 10/05/2014 8:21 CDT by CHRISTA SWANSON LPN Health Assessment Complete Health Assessment Complete or Modified : Annual Health Assessment Annual Health Assessment Completed : Yes CHRISTA SWANSON LPN - 10/05/2014 8:21 CDT Nutrition Nutrition Risk Factors by History Adult : None CHRISTA SWANSON LPN - 10/05/2014 8:21 CDT Functional Current Daily Living Assistance : None CHRISTA SWANSON LPN - 10/05/2014 8:21 CDT Dependent Habits Tobacco Use/Currently Using : No Exposure to Tobacco Smoke : Other: Never Smoking Status : Never smoker CHRISTA SWANSON LPN - 10/05/2014 8:21 CDT Tobacco Use Grid Other Tobacco Frequency : NON CHRISTA SWANSON [facility] - 10/05/2014 8:21 CDT Caffeine Use Grid Caffeine Use : Current Type : Coffee Frequency : Daily CHRISTA SWANSON [facility] - 10/05/2014 8:21 CDT Recreational Drug Use Grid Drug Use : None CHRISTA SWANSON [facility] - 10/05/2014 8:21 CDT Psychosocial Domestic Abuse Concerns : None Behavioral Health Screen/Safety Assmt : No Congregational Preference : Unknown CHRISTA SWANSON [facility] - 10/05/2014 8:21 CDT Advance Directive Advanced Directives : Yes Advance Directive Type : Other Advance Directive Location : Other: Will bring in CHRISTA SWANSON [facility] - 10/05/2014 8:21 CDT Educ Needs Learning Style Preference Adult Grid Patient : Printed materials, Verbal explanation Family : Verbal explanation, Printed materials CHRISTA SWANSON NURSING AIDE - 10/05/2014 8:21 CDT [facility] Document Id: [id number] CDT!35 documented in this encounter Plan of Treatment Not on filedocumented as of this encounter Visit Diagnoses Not on filedocumented in this encounter Additional Health Concerns Assessment Noted Time PHQ-9 Depression Total Score: 1 07/17/2013 10:14 AM CD T documented as of this encounter
--- OUTSIDE RECORDS SUMMARY | 2021-11-24 08:49 | XMS_ITS | Encounter Summary ---
:1955 Author Organization [facility] Address [address] [place] [address] Care Team Providers Name Role Phone Unavailable Primary Care Provider Unavailable Encounter Details Date Type Department Care Team Description 03/31/2015 Hospital Encounter HX [facility] Elle Mills, Lola MORAES, C.N.P. [address], [place] [phone] (Wo rk) Social History [...] week 06/23/2020 How often do you attend rastafarian or yarsani services? 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 documented as of this encounter Miscellaneous Notes Telephone Encounter - Alisha De Santiago C.M.A. - 04/01/2015 2:42 PM CST FW: New medication Document Contains Addenda Addendum by ELLE MILLS APRN, CNP on 01 April 2015 14:48:10 COMMUNITY HEALTH COUNSELOR From: ELLE MILLS APRN, CNP To: HUGH DENNIS Sent: 04/01/2015 14:48:10 COMMUNITY HEALTH COUNSELOR Subject: RE: New medication Hugh, Yes, we can do that. I sent a prescription for Januvia 100 mg, one daily (#90) to [facility]. When you are close to running out let me know and I will do the combo pill. Elle Addendum by ELLE MILLS APRN, CNP on 01 April 2015 14:46:35 COMMUNITY HEALTH COUNSELOR From: ELLE MILLS APRN, CNP To: Family Medicine Nurse; Sent: 04/01/2015 14:46:35 COMMUNITY HEALTH COUNSELOR Subject: RE: New medication Hugh, Yes, we can do that. I sent a prescription for Januvia 100 mg, one daily (#90) to [facility]. When you are getting close to running out let me know and I will do the combo pill at that time. Elle From: ALISHA DE SANTIAGO CMA ( Family Medicine Nurse) To: ELLE MILLS APRN, CNP; Sent: 04/01/2015 14:42:25 COMMUNITY HEALTH COUNSELOR Subject: FW: New medication [facility] Sent: 04/01/2015 02:25 p.m. COMMUNITY HEALTH COUNSELOR Subject: RE: New medication Thank you for your message. It has been successfully sent to the appropriate care team. Elle, I just renewed my Metformin for another 3-mo supply. Received same early this week. Is it possible to simply add Januvia for this three month period and afterward move into a Janumet prescription? Regards, Hugh From: ELLE MILLS CNP To: HUGH DENNIS Sent: 03/31/2015 14:10:48 COMMUNITY HEALTH COUNSELOR Hugh, I would like to start you on Januvia, another oral diabetes medication to get A1c less than 8.0. Januvia and metformin do come in a combination pill called Janumet. Let me know if I can send a prescription to your pharmacy. Recheck A1c and fasting labs the end of June. Elle Results: Date Result Name Ind Value Ref Range 03/31/2015 08:07 Hgb A1c (H) 8.4 % A1C ( - <=5.6) Source: [facility] POWERCHART Document Id: [id number] Miscellaneous - Elle Mills APRN, C.N.P. - 03/31/2015 2:10 PM CST From: ELLE MILLS CNP To: HUGH DENNIS Sent: 03/31/2015 14:10:48 COMMUNITY HEALTH COUNSELOR Hugh, I would like to start you on Januvia, another oral diabetes medication to get A1c less than 8.0. Januvia and metformin do come in a combination pill called Janumet. Let me know if I can send a prescription to your pharmacy. Recheck A1c and fasting labs the end of June. Elle Results: Date Result Name Ind Value Ref Range 03/31/2015 08:07 Hgb A1c (H) 8.4 % A1C ( - <=5.6) Source: [facility] POWERCHART Document Id: [id number] documented in this encounter Plan of Treatment Not on filedocumented as of this encounter Procedures Procedure Name Priority Date/Time Associated Diagnosis Comme nts HEMOGLOBIN A1C, B Routine 03/31/2015 8:07 AM Resu lts for this COMMUNITY HEALTH COUNSELOR procedure are i n the results section. documented in this encounter Results (ABNORMAL) Hemoglobin A1c (03/31/2015 8:07 AM COMMUNITY HEALTH COUNSELOR) P athologist Signature Hemoglobin A1c, 8.4 (H) <=5.6 A1C POWERCHART B Specimen (Source) Anatomical Collection Method Collection Time Re ceived Time Location / / Volume Laterality Blood 03/31/2015 8:07 AM COMMUNITY HEALTH COUNSELOR Elle Mills APRN, C.N.P. LAB BLOOD ADD-ON Performing Organization Address City/State/ZIP Code Phon e Number POWERCHART documented in this encounter Visit Diagnoses Not on filedocumented in this encounter Additional Health Concerns Assessment Noted Time PHQ-9 Depression Total Score: 1 07/17/2013 10:14 AM CD T documented as of this encounter
--- OUTSIDE RECORDS SUMMARY | 2021-11-24 08:49 | XMS_ITS | Encounter Summary ---
:1955 Author Organization [facility] Address [address] [place] [address] Care Team Providers Name Role Phone Unavailable Primary Care Provider Unavailable Encounter Details Date Type Department Care Team Description 09/25/2014 Hospital Encounter HX [facility] Karma Philip, Lola MORAES, C.N.P. [address], [place] [phone] (Wo rk) Social History [...] How often do you attend hindu or episcopalian services? 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 documented as of this encounter Plan of Treatment Not on filedocumented as of this encounter Procedures Procedure Name Priority Date/Time Associated Diagnosis Comme nts HEMOGLOBIN A1C, B Routine 09/25/2014 8:29 AM Resu lts for this CDT procedure are i n the results section. documented in this encounter Results (ABNORMAL) Hemoglobin A1c (09/25/2014 8:29 AM CDT) P athologist Signature Hemoglobin A1c, 8.5 (H) <=5.6 A1C POWERCHART B Specimen (Source) Anatomical Collection Method Collection Time Re ceived Time Location / / Volume Laterality Blood 09/25/2014 8:29 AM CDT Karma Philip APRN, C.N.P. LAB BLOOD ADD-ON Performing Organization Address City/State/ZIP Code Phon e Number POWERCHART documented in this encounter Visit Diagnoses Not on filedocumented in this encounter Additional Health Concerns Assessment Noted Time PHQ-9 Depression Total Score: 1 07/17/2013 10:14 AM CD T documented as of this encounter
--- OUTSIDE RECORDS SUMMARY | 2021-11-24 08:49 | XMS_ITS | Encounter Summary ---
:1955 Author Organization [facility] Address [address] [place] [address] Care Team Providers Name Role Phone Unavailable Primary Care Provider Unavailable Encounter Details Date Type Department Care Team Description 08/08/2012 Hospital Encounter HX [facility] MyrChristiana franco, HUMAN INTELLIGENCE, C.N.P. [address] [place] [address] (Wo rk) Social History Tobacco [...] How often do you attend jewish or catholic services? 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 documented as of this encounter Last Filed Vital Signs Vital Sign Reading Time Taken Comments Blood Pressure 116/80 08/08/2012 8:27 AM CDT Pulse 72 08/08/2012 8:27 AM CDT Temperature - - Respiratory Rate 16 08/08/2012 8:27 AM CDT Oxygen Saturation - - Inhaled Oxygen Concentration - - Weight 113 kg (250 lb 3.6 oz) 08/08/2012 8:27 AM CDT Height 187 cm (6' 1.62) 08/08/2012 8:27 AM CDT Body Mass Index 32.46 08/08/2012 8:27 AM CDT documented in this encounter Medications at Time of Discharge Medication Sig Dispensed Refills Start Date End Date gemfibrozil (for_LOPID) Take 600 mg by 0 08/05/19 10 10/10/2017 600 mg tablet mouth. documented as of this encounter Progress Notes Elle Mills, AURELIO, CFrederickNFrederickP. - 08/08/2012 8:14 AM CDT [id number] CHIEF COMPLAINT/REASON FOR VISIT 1. Diabetes type 2 uncontrolled. 2. Hyperlipidemia. 3. Hypertension. 4. Right low back pain. HISTORY OF PRESENT ILLNESS 1. Hugh is here for diabetes recheck. He the last A1c 3 months ago was 8.2. He did have blood drawn this morning. New A1c is not back yet. 2. He has history of hyperlipidemia. Lipids will be due the end of October. He will return fasting. 3. Hypertension. Blood pressure excellent today. He will be due for basic metabolic panel end of October. 4. He has complaints of right low back pain. He states it has been going on for a couple months. He has had no injury. He has seen a chiropractor bout 10 times and does not feel that he has any better.He feels he has a lot of spasm especially at night. No pain down into the leg but it does bother more when he is riding in the car going over bumps or riding lawnmower or on his bike. CURRENT MEDICATIONS See depart summary from today. ALLERGIES None. SYSTEMS REVIEW Positive for that mentioned in history of present illness and noted in the past medical history in the EMR all other systems reviewed and were negative. PREVENTIVE: Due for dilated eye exam plans to schedule soon. VITAL SIGNS See EMR. PHYSICAL EXAMINATION GENERAL: Well developed well nourished male in no acute distress. SKIN: Warm and dry. ENT: TMs clear. Throat clear. NECK: Supple. LUNGS: Clear to auscultation. HEART: Regular rate and rhythm. ABDOMEN: Soft, nontender, hepatosplenomegaly. EXTREMITIES: Warm, dry, no peripheral edema. SPINE: Normal range of motion of the thoracic and lumbar spine. Tenderness to palpation over the right lumbosacral paraspinal musculature. Deep tendon reflexes 2+ and symmetrical. Straight leg raising positive on the right at 40 degrees. Discomfort with twisting to the right. IMPRESSION/REPORT/PLAN 1. Diabetes type 2 uncontrolled. Pending A1c today. I will mail him results. 2. Hyperlipidemia. Return fasting end of October for lipids. 3. Hypertension currently controlled. No changes in medication. Will check basic metabolic panel when he returns for labs in October. 4. Right low back pain. Medrol Dosepak per package instructions. Flexeril 10 mg one to three times daily as needed for muscle spasms. He understands it may make him drowsy and will use caution. Referral to [facility]. Recheck if no improvement. Elle Mills CNP/yuriy Electronically Signed By: ELLE MILLS CNP On: 08/18/2012 12:31 PM Source: [facility] MHSDOLBEYNONRADSYS Document Id: [id number] documented in this encounter Nursing Notes Camilo Whitten L.P.N. - 06/12/2013 11:51 AM CDT Diabetic call Attempted to contact patient in regards to being due for fasting diabetic labs and office visit with Tammie. Message left for patient to return my call. Electronically Signed By: CAMILO WHITTEN LPN On: 06/12/2013 11:53 AM Source: [employer] Document Id: [id number] Camilo hWitten L.P.N. - 02/10/2013 3:20 PM CST diabetic call Contacted patient in regards to being due for fasting diabetic labs ordered by Tammie. Patient will call back to schedule. Electronically Signed By: CAMILO WHITTEN LPN On: 02/10/2013 03:22 PM Source: [employer] Document Id: [id number] [place] LOAN ORIGINATOR ASSISTANT Christa Swanson L.P.N. - 12/16/2012 9:25 AM CDT Diabetic Call Document Contains Addenda Addendum by CHRISTA SWANSON LPN on 23 December 2012 10:42 CDT 2nd attempt this month to contact Hugh in regards to fasting diabetic labs/office visit that are due with Elle Mills CNP. Message left to return our call. Modified by and Electronically Signed by: CHRISTA SWANSON LPN On: 12/23/2012 10:42 AM 1st attempt this month to contact Hugh in regards to fasting diabetic labs/office visit that are due with Elle Mills CNP. Message left to return our call. Electronically Signed By: CHRISTA SWANSON LPN On: 12/16/2012 09:28 AM Source: [facility] Document Id: [id number] documented in this encounter Miscellaneous Notes Miscellaneous - Elle Mills APRN, C.N.PFrederick - 04/15/2014 1:01 PM CST Addendum by CHRISTA SWANSON LPN on 15 April 2014 15:12:02 RETAIL LOAN ORIGINATOR ASSISTANT Attempted to contact Hugh in regards to Rx refill and the need to schedule appointment for lab and follow up with Elle Mills CNP. Message left to return my call. From: ELLE MILLS CNP To: TATIANNA Mills Nurse; Sent: 04/15/2014 13:01:53 RETAIL LOAN ORIGINATOR ASSISTANT I refilled Lantus. He is due for an appointment and lab before next refill. Source: [employer] Document Id: [id number] Electronically signed by Conversion, [facility] Dry Roaster [id number] at 08/02/2016 12:07 AM CDT Miscellaneous - Elle Mills APRN, C.N.P. - 03/04/2013 2:29 PM CST General Message From: ELLE MILLS CNP Sent: 03/04/2013 14:29:24 RETAIL LOAN ORIGINATOR ASSISTANT Subject: General Message Phone call with elevated LDL. Will discontinue gemfibrozil and start atorvastatin 20mg daily. Recheck fasting lipids and ast in 2 months. Source: [employer] Document Id: [id number] Miscellaneous - Elle Mills APRN, C.N.P. - 08/08/2012 2:05 PM CDT Normal Results Letter 08 August 2012 HUGH DENNIS [address] [place] [address] [id number] Dear HUGH DENNIS, I am pleased to report that your results from the following diagnostic test(s) are normal. Please follow up with us as we discussed during your visit or sooner if you have any concerns. If you have questions or concerns, please do not hesitate to call our office. Great Job! Result Name Current Result Normal Range Hgb A1c (%) (H) 6.9 08/08/2012 4.0 - 6.0 Sincerely, ELLE MILLS [address] [place] [address] Electronic Signature Electronically Signed By: ELLE MILLS CNP On: 08 August 2012 This document has images extracted. Source: [facility] POWERCHART Document Id: [id number] Miscellaneous - Elle Mills APRN C.N.P. - 08/08/2012 8:46 AM CDT Ambulatory Patient Summary [address] [address] Visit Information Name: HUGH DENNIS [facility] Number: [id number] Current Date: 08/08/2012 08:46:37 Physicians Attending Provider: ELLE MILLS CNP Primary Care Provider: ELLE MILLS CNP Your Medications Here is a list of your medications. It is important to take your medications as directed. Use a pillbox or chart to help remind you to take your medications. Please let your doctor or nurse know if you have problems taking your medications. Medication/Strength Dose Route Frequency Indications/Special Instructions/Comments cyclobenzaprine (Flexeril 10 mg oral tablet) 10 mg Oral three times a day as needed for Muscle spasm methylPREDNISolone (Medrol Dosepak 4 mg oral tablet) See special instructions Oral as directed for 6Days metformin (metformin 500 mg oral tablet, extended release) 2,000 mg Oral Daily Supper insulin glargine (Lantus Solostar Pen 100 units/mL subcutaneous solution) 20 units Subcutaneous oncea day (at bedtime) glimepiride (glimepiride 4 mg oral tablet) 8 mg Oral once a day with breakfast losartan (losartan 50 mg oral tablet) 50 mg Oral once a day gemfibrozil (gemfibrozil 600 mg oral tablet) 600 mg Oral two times a day aspirin (aspirin 81 mg oral enteric coated [...] right Your Upcoming Appointments Date Time Location Reason Provider 11/01/2012 08:15 [facility] Lab Your Goals/Additional instructions: Source: [facility] POWERCHART Document Id: [id number] Miscellaneous - Elle Mills APRN, C.N.P. - 08/08/2012 8:46 AM CDT Ambulatory Depart Summary [address] [address] Visit Information Name: HUGH DENNIS [facility] Number: [id number] Visit Date: 08/08/2012 08:46:36 Attending Provider: ELLE MILLS CNP Primary Care Provider: ELLE MILLS BACTERIOLOGIST SOIL HUGH DENNIS has been given the following list of medications: Your Medications It is important to take your medications as directed. Use a pill box or chart to help remind you to take your medications. Please let your doctor or nurse know if you have problems taking your medications. Medication/Strength Dose Route Frequency Indications/Special Instructions/Comments cyclobenzaprine (Flexeril 10 mg oral tablet) 10 mg Oral three times a day as needed for Muscle spasm methylPREDNISolone (Medrol Dosepak 4 mg oral tablet) See special instructions Oral as directed for 6Days metformin (metformin 500 mg oral tablet, extended release) 2,000 mg Oral Daily Supper insulin glargine (Lantus Solostar Pen 100 units/mL subcutaneous solution) 20 units Subcutaneous oncea day (at bedtime) glimepiride (glimepiride 4 mg oral tablet) 8 mg Oral once a day with breakfast losartan (losartan 50 mg oral tablet) 50 mg Oral once a day gemfibrozil (gemfibrozil 600 mg oral tablet) 600 mg Oral two times a day aspirin (aspirin 81 mg oral enteric coated tablet) 81 mg Oral once a day Attention: If you have any medications at home that are not on this list, DO NOT take them until youcontact your provider for clarification. Additional Information: Source: [facility] POWERCHART Document Id: [id number] Miscellaneous - Niels Miller L.P.N. - 08/08/2012 8:27 AM CDT Adult Pantograph Machine Set Up Operator Intake/History Adult Pantograph Machine Set Up Operator Intake/History Entered On: 08/08/2012 8:30 CDT Performed On: 08/08/2012 8:27 CDT by NIELS MILLER Intake Chief Complaint : diabetes, back pain Temperature Core : 36.7 DegC(Converted to: 98.1 DegF) Peripheral Pulse Rate : 72 /min Respiratory Rate : 16 /min Systolic Blood Pressure : 116 mmHg Diastolic Blood Pressure : 80 mmHg NIBP Mean : 92 mmHg Height : 187 cm(Converted to: 6 ft 2 inch(es), 73.62 inch(es)) Actual Weight : 113.5 kg(Converted to: 250 lb 4 oz) Dosing Weight Clinic : 113.5 kg Clinic BSA : 2.43 Body Mass Index : 32.46 kg/m2 NIELS MILLER - 08/08/2012 8:27 CDT General Info Information Given By : Patient Languages : Uruguayan PAUL NIELS YEAGER - 08/08/2012 8:27 CDT Subjective Pain Symptoms : Yes NIELS MILLER - 08/08/2012 8:27 CDT Pain Pain Assessment Grid Pain 1 Location : Lower back Laterality : Right Intensity : 4 MILLER NIELS YEAGER - 08/08/2012 8:27 CDT Dependent Habits Tobacco Use/Currently Using : No Smoking Status : Never smoker NIELS MILLER - 08/08/2012 8:27 CDT Tobacco Use Grid Other Tobacco Frequency : NON Last Use : never NIELS MILLER - 08/08/2012 8:27 CDT Caffeine Use Grid Caffeine Use : Current Type : Coffee Frequency : Daily NIELS MILLER - 08/08/2012 8:27 CDT Recreational Drug Use Grid Drug Use : None NIELS MILELR - 08/08/2012 8:27 CDT Source: [facility] Document Id: [id number] CDT!40 documented in this encounter Plan of Treatment Not on filedocumented as of this encounter Visit Diagnoses Not on filedocumented in this encounter
--- OUTSIDE RECORDS SUMMARY | 2021-11-24 08:49 | XMS_ITS | Encounter Summary ---
:1955 Author Organization [facility] Address [address] [place] [address] Care Team Providers Name Role Phone Unavailable Primary Care Provider Unavailable Encounter Details Date Type Department Care Team Description 11/02/2011 Hospital Encounter HX [facility] MyrChristiana franco, DETECTIVE INVESTIGATOR, C.N.P. [address] [place] [address] (Wo rk) Social History Tobacco [...] How often do you attend jewish or amish services? 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 documented as of this encounter Progress Notes Elle Philip, AURELIO, C.N.P. - 11/02/2011 8:08 AM CDT [id number] CHIEF COMPLAINT/REASON FOR VISIT 1. Diabetes type 2 uncontrolled. 2. Hypertension 3. Hyperlipidemia HISTORY OF PRESENT ILLNESS 1. Hugh is here for recheck. He had diabetes labs drawn before his appointment today. A1c has improved from 8.1 to 7.8. He was congratulated on being at goal now. He states he will get his flu shot through his employer and he plans to schedule for dilated eye exam at [facility]. 2. Hypertension. Blood pressure excellent on Losartan 50 mg daily checking basic metabolic panel today 3. Hyperlipidemia. Checking fasting lipids. He is currently on gemfibrozil 600 mg twice daily. Has been at goal with LDL CURRENT MEDICATIONS See depart summary from today. ALLERGIES None. SYSTEMS REVIEW Positive for that mentioned in history present illness and noted in the past medical history in the EMR all other systems reviewed and were negative. PREVENTIVE: Due for dilated eye exam plans to schedule at [facility] VITAL SIGNS See EMR PHYSICAL EXAMINATION GENERAL: Well developed obese male in no acute distress. SKIN: Warm and dry. ENT: TMS clear. Throat clear. NECK: Supple. No lymphadenopathy or thyromegaly. HEART: Regular rate and rhythm LUNGS: Clear to auscultation. ABDOMEN: Soft, nontender, hepatosplenomegaly. EXTREMITIES: Warm, dry, no peripheral edema. IMPRESSION/REPORT/PLAN 1. Diabetes type 2 controlled. He was congratulated on the improvement in his A1c. He will continue to work on weight loss and plan to see him back for A1c in 6 months. He will get flu shot through hisemployer and have [facility] send report of his dilated eye exam as soon as that is completed. 2. Hypertension currently controlled no changes. He will have pharmacy fax for refills on Losartan as needed and I will let him know basic metabolic panel results. 3. Hyperlipidemia. He will continue gemfibrozil. I will send him results of fasting lipids Elle Philip CNP/yuriy Electronically Signed By: ELLE PHILIP CNP On: 11/07/2011 08:01 AM Source: [facility] MHSDOLBEYNONRADSYS Document Id: [id number] documented in this encounter Nursing Notes Augustus Swanson L.PFrederickNFrederick - 05/07/2012 10:45 AM CST Diabetic Call Contacted Hugh in regards to diabetic lab and follow up with Elle Philip CNP that is due. Transferred to scheduling to schedule. Electronically Signed By: AUGUSTUS SWANSON LPN On: 05/07/2012 10:48 AM Source: [facility] POWERCHART Document Id: [id number] RAM PRODUCTION SPECIALIST documented in this encounter Miscellaneous Notes Miscellaneous - Elle Philip APRN, C.N.P. - 11/02/2011 8:33 AM CDT Ambulatory Depart Summary [address] [address] Visit Information Name: HUGH DENNIS Visit Date: 11/02/2011 08:33:40 Attending Provider: ELLE PHILIP CNP Primary Care Provider: ELLE PHILIP CNP HUGH DENNIS has been given the following list of medications: Your Medications It is important to take your medications as directed. Use a pill box or chart to help remind you to take your medications. Please let your doctor or nurse know if you have problems taking your medications. Medication/Strength Dose Route Frequency Indications/Special Instructions/Comments glimepiride (glimepiride 4 mg oral tablet) 4 mg Oral once a day Pt req 90 day supply losartan (losartan 50 mg oral tablet) 50 mg Oral once a day insulin glargine (Lantus Solostar Pen 100 units/mL subcutaneous solution) 20 units Subcutaneous oncea day (at bedtime) gemfibrozil (gemfibrozil 600 mg oral tablet) 600 mg Oral two times a day Pt req 90 day supply metformin (metformin 500 mg oral tablet, extended release) 2,000 mg Oral Daily Supper aspirin (aspirin 81 mg oral enteric coated tablet) 81 mg Oral once a day Attention: If you have any medications at home that are not on this list, DO NOT take them until youcontact your provider for clarification. Additional Information: Source: [facility] POWERCHART Document Id: [id number] Miscellaneous - Elle Philip APRN, C.N.P. - 11/02/2011 8:33 AM CDT Ambulatory Patient Summary [address] [address] Visit Information Name: HUGH DENNIS Current Date: 11/02/2011 08:33:41 Physicians Attending Provider: ELLE PHILIP CNP Primary Care Provider: ELLE PHILIP CNP Your Medications Here is a list of your medications. It is important to take your medications as directed. Use a pillbox or chart to help remind you to take your medications. Please let your doctor or nurse know if you have problems taking your medications. Medication/Strength Dose Route Frequency Indications/Special Instructions/Comments glimepiride (glimepiride 4 mg oral tablet) 4 mg Oral once a day Pt req 90 day supply losartan (losartan 50 mg oral tablet) 50 mg Oral once a day insulin glargine (Lantus Solostar Pen 100 units/mL subcutaneous solution) 20 units Subcutaneous oncea day (at bedtime) gemfibrozil (gemfibrozil 600 mg oral tablet) 600 mg Oral two times a day Pt req 90 day supply metformin (metformin 500 mg oral tablet, extended release) 2,000 mg Oral Daily Supper aspirin (aspirin 81 mg oral enteric coated [...] Hyperlipidemia Active Hypertension Active Obesity NOS Active Neuropathy Ulnar Nerve Active DM II (or NOS), controlled Active Your Upcoming Appointments Date Time Location Reason Provider No Appointments found Your Goals/Additional instructions: Source: [facility] POWERCHART Document Id: [id number] Miscellaneous - Elizabeth Miller L.P.N. - 11/02/2011 8:10 AM CDT Adult Credentialing Coordinator Intake/History Adult Credentialing Coordinator Intake/History Entered On: 11/02/2011 8:10 CDT Performed On: 11/02/2011 8:10 CDT by ELIZABETH MILLER Intake Chief Complaint : Diabetes Temperature Core : 36.8C(Converted to: 98.2DegF) Peripheral Pulse Rate : 84/min Respiratory Rate : 16/min Systolic Blood Pressure : 132mmHg Diastolic Blood Pressure : 78mmHg NIBP Mean : 96mmHg Actual Weight : 119.0kg(Converted to: 262lb 6oz) Dosing Weight Clinic : 119.00kg ELIZABETH MILLER - 11/02/2011 8:10 CDT Subjective Pain Symptoms : No ELIZABETH MILLER - 11/02/2011 8:10 CDT Dependent Habits Tobacco Use/Currently Using : No Smoking Status : Never smoker MILLER ELIZABETH YEAGER - 11/02/2011 8:10 CDT Tobacco Use Grid Other Tobacco Frequency : NON Last Use : never ELIZABETH MILLER TOY - 11/02/2011 8:10 CDT Caffeine Use Grid Caffeine Use : Current Type : Coffee Frequency : Daily MILLER ELIZABETH TOY - 11/02/2011 8:10 CDT Recreational Drug Use Grid Drug Use : None MILLER ELIZABETH TOY - 11/02/2011 8:10 CDT Allergy Allergies (Active) NKA Estimated Onset Date: Unspecified ; Created By: ELLE PHILIP CNP; Reaction Status: Active ; Category: Drug ; Substance: NKA ; Type: Allergy ; Updated By: ELLE PHILIP CNP; Reviewed Date: 08/03/2011 15:19 CDT [facility] Document Id: [id number] documented in this encounter Plan of Treatment Not on filedocumented as of this encounter Visit Diagnoses Not on filedocumented in this encounter
--- OUTSIDE RECORDS SUMMARY | 2021-11-24 08:49 | XMS_ITS | Encounter Summary ---
:1955 Author Organization [facility] Address [address] [place] [address] Care Team Providers Name Role Phone Unavailable Primary Care Provider Unavailable Encounter Details Date Type Department Care Team Description 03/31/2015 Hospital Encounter HX [facility] FB NURSE ONChristiana Bryant, WORKERS COMPENSATION CLAIMS EXAMINER, C.N.P. [address] [address] (Wo rk) Social History Tobacco [...] How often do you attend lutheran or denominational services? 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 documented as of this encounter Miscellaneous Notes Miscellaneous - Cata Austin C.MRachel - 03/31/2015 8:39 AM CST *General Message Document Contains Addenda Addendum by ELLE MILLS CNP on 31 March 2015 08:53:17 SHEET METAL SMITH From: ELLE MILLS CNP To: CATA ASUTIN CMA; Sent: 03/31/2015 08:53:17 SHEET METAL SMITH Subject: RE: *General Message Thank you. From: CATA AUSTIN CMA To: ELLE MILLS CNP; Sent: 03/31/2015 08:39:59 SHEET METAL SMITH Subject: *General Message Patient was in for B/P check today B/P 146/74 Pulse 79 I waited five minutes and took B/P again. B/P 136/72 Pulse 80 Source: [facility] POWERCHART Document Id: [id number] Electronically signed by Carlo, [facility] Oncology Social Work [id number] at 07/29/2016 7:11 AM CDT Miscellaneous - Cata Austin C.MFrederickA. - 03/31/2015 8:25 AM CST Ambulatory Vitals Height Weight Ambulatory Vitals Height Weight Entered On: 03/31/2015 8:25 SHEET METAL SMITH Performed On: 03/31/2015 8:25 SHEET METAL SMITH by CATA AUSTIN CMA Vitals/Ht/Wt Peripheral Pulse Rate : 80 /min Systolic Blood Pressure : 136 mmHg Diastolic Blood Pressure : 72 mmHg NIBP Mean : 93 mmHg BP Location : Left upper extremity Blood Pressure Cuff Size : Regular Height : 186 cm(Converted to: 6 ft 1 inch(es), 73 inch(es)) CATA AUSTIN [facility] - 03/31/2015 8:20 SHEET METAL SMITH Source: [employer] Document Id: [id number] SHEET METAL SMITH!9 T METAL SMITH Miscellaneous - Cata Austin, C.M.A. - 03/31/2015 8:19 AM CST Ambulatory Vitals Height Weight Ambulatory Vitals Height Weight Entered On: 03/31/2015 8:20 SHEET METAL SMITH Performed On: 03/31/2015 8:19 SHEET METAL SMITH by CATA AUSTIN CMA Vitals/Ht/Wt Peripheral Pulse Rate : 79 /min Systolic Blood Pressure : 146 mmHg (HI) Diastolic Blood Pressure : 74 mmHg NIBP Mean : 98 mmHg BP Location : Left upper extremity Blood Pressure Cuff Size : Regular Height : 186 cm(Converted to: 6 ft 1 inch(es), 73 inch(es)) CATA AUSTIN [facility] - 03/31/2015 8:19 SHEET METAL SMITH Source: [employer] Document Id: [id number] SHEET METAL SMITH!9 T METAL SMITH documented in this encounter Plan of Treatment Not on filedocumented as of this encounter Visit Diagnoses Not on filedocumented in this encounter Additional Health Concerns Assessment Noted Time PHQ-9 Depression Total Score: 1 07/17/2013 10:14 AM CD T documented as of this encounter
--- OUTSIDE RECORDS SUMMARY | 2021-11-24 08:49 | XMS_ITS | Encounter Summary ---
:1955 Author Organization [facility] Address [address] [place] [address] Care Team Providers Name Role Phone Unavailable Primary Care Provider Unavailable Encounter Details Date Type Department Care Team Description 08/08/2012 Hospital Encounter [facility]X [facility] Elle Mills, Lola MORAES, C.N.P. [address], [place] [phone] (Wo rk) Social History [...] How often do you attend orthodox or pentecostal services? 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 documented as of this encounter Miscellaneous Notes Miscellaneous - Elle Mills, AURELIO, C.N.P. - 08/08/2012 8:49 AM CDT Normal Results Letter 08 August 2012 HUGH DENNIS [address] [place] [id number] Dear HUGH DENNIS, I am pleased to report that your results from the following diagnostic test(s) are normal. Please follow up with us as we discussed during your visit or sooner if you have any concerns. If you have questions or concerns, please do not hesitate to call our office. Great job! Result Name Current Result Previous Result Normal Range Hgb A1c (%) (H) 6.9 08/08/2012 (H) 8.2 05/09/2012 (H) 7.8 11/02/2011 (H) 8.1 08/03/2011 4.0 - 6.0 Sincerely, ELLE MILLS [address] [place] [address] Electronic Signature Electronically Signed By: ELLE MILLS [facility] On: 08 August 2012 This document has images extracted. Source: [facility] POWERCHART Document Id: [id number] Electronically signed by Conversion, [facility] Entry Level Software Engineer [id number] at 08/02/2016 12:07 AM CDT documented in this encounter Plan of Treatment Not on filedocumented as of this encounter Procedures Procedure Name Priority Date/Time Associated Diagnosis Comme nts HEMOGLOBIN A1C, B Routine 08/08/2012 8:16 AM Resu lts for this CDT procedure are i n the results section. documented in this encounter Results (ABNORMAL) Hemoglobin A1c (08/08/2012 8:16 AM CDT) P athologist Signature Hemoglobin A1c, 6.9 (H) 4.0 - 6.0 POWERCHART B Specimen (Source) Anatomical Collection Method Collection Time Re ceived Time Location / / Volume Laterality Blood 08/08/2012 8:16 AM CDT Elle Mills APRN C.N.P. LAB BLOOD ADD-ON Performing Organization Address City/State/ZIP Code Phon e Number POWERCHART documented in this encounter Visit Diagnoses Not on filedocumented in this encounter
--- OUTSIDE RECORDS SUMMARY | 2021-11-24 08:49 | XMS_ITS | Encounter Summary ---
:1955 Author Organization [facility] Address [address] [place] [address] Care Team Providers Name Role Phone Unavailable Primary Care Provider Unavailable Encounter Details Date Type Department Care Team Description 06/24/2014 Hospital Encounter [facility]X [facility] Karma Philip, Lola MORAES, C.N.P. [address], [place] [phone] (Wo rk) Social History [...] week 06/23/2020 How often do you attend tenriism or voodoo services? Never 06/23/2020 Do you belong to any clubs or organizations such as tenriism N o 06/23/2020 groups, unions, fraternal or [...] or slept in a mcc (including now)? 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 documented in this encounter Results (ABNORMAL) Hemoglobin A1c (06/24/2014 7:25 AM CDT) Analysis Performed At Patho logist Time Signature Hemoglobin A1c, 8.20 (H) <=5.60 A1C POWERCHART B Specimen (Source) Anatomical Collection Method Collection Time Re ceived Time Location / / Volume Laterality Blood 06/24/2014 7:25 AM CDT Karma Philip APRN, C.N.P. LAB BLOOD ADD-ON Performing Organization Address City/State/ZIP Code Phon e Number POWERCHART documented in this encounter Visit Diagnoses Not on filedocumented in this encounter Additional Health Concerns Assessment Noted Time PHQ-9 Depression Total Score: 1 07/17/2013 10:14 AM CD T documented as of this encounter
--- OUTSIDE RECORDS SUMMARY | 2021-11-24 08:49 | XMS_ITS | Encounter Summary ---
:1955 Author Organization [facility] Address [address] [place] [address] Care Team Providers Name Role Phone Unavailable Primary Care Provider Unavailable Encounter Details Date Type Department Care Team Description 06/24/2014 Hospital Encounter [facility]X [facility] Karma Philip, Lola MORAES, C.N.P. [address], [place] [phone] (Wo rk) Social History [...] week 06/23/2020 How often do you attend mandaeism or hoahaoism services? 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 documented as of this encounter Plan of Treatment Not on filedocumented as of this encounter Procedures Procedure Name Priority Date/Time Associated Comments Diagnosis ALBUMIN, RANDOM, U Routine 06/24/2014 7:30 Result s for this AM CDT procedure are i n the results section. ASPARTATE Routine 06/24/2014 7:25 Results for this AMINOTRANSFERASE (AST), AM CDT proc edure are in S/P the results section. BASIC METABOLIC PANEL, Routine 06/24/2014 7:25 Re sults for this S/P AM CDT procedure are i n the results section. documented in this encounter Results Microalbumin, Random, Urine (06/24/2014 7:30 AM CDT) P athologist Signature HXU Albumin % 23.2 MGL POWERCHART Creatinine, 249.5 MGDL POWERCHART Random, U Albumin/Creatin 9 0 - 17 MGG POWERCHART ine Ratio Specimen (Source) Anatomical Collection Method Collection Time Re ceived Time Location / / Volume Laterality Urine 06/24/2014 7:30 AM CDT Karma Philip APRN, C.N.P. LAB URINE ORDERABLES Performing Organization Address City/State/ZIP Code Phon e Number POWERCHART AST (Aspartate Aminotransferase) (06/24/2014 7:25 AM CDT) Patholo gist Method Time Signature Aspartate 16 8 - 48 POWERCHART Aminotransferase UNITL (AST), S Specimen (Source) Anatomical Collection Method Collection Time Re ceived Time Location / / Volume Laterality Blood 06/24/2014 7:25 AM CDT Karma Philip APRN C.N.P. LAB BLOOD ADD-ON Performing Organization Address City/State/ZIP Code Phon e Number POWERCHART (ABNORMAL) BMP (Basic Metabolic Panel) (06/24/2014 7:25 AM CDT) P athologist Signature BUN (Blood Urea 10 8 - 24 POWERCHART Nitrogen), S MGDL Chloride, S 104 98 - 107 POWERCHART MMOLL CO2 Total 27 22 - 29 POWERCHART MMOLL Creatinine 0.8 0.8 - 1.3 POWERCHART MGDL Glucose, 205 (H) 70 - 99 POWERCHART Fasting, S MGDL Calcium, Total, 9.7 8.8 - 10.3 POWERCHART S MGDL Sodium, S 141 135 - 145 POWERCHART MMOLL Potassium, S 4.4 3.6 - 5.2 POWERCHART MMOLL HXeGFR (MDRD) >60 >=60 POWERCHART [id number] eGFR >60 >=60 POWERCHART Black/ [id number] Chilean Specimen (Source) Anatomical Collection Method Collection Time [...]
--- OUTSIDE RECORDS SUMMARY | 2021-11-24 08:49 | XMS_ITS | Encounter Summary ---
:1955 Author Organization [facility] Address [address] [place] [address] Care Team Providers Name Role Phone Unavailable Primary Care Provider Unavailable Encounter Details Date Type Department Care Team Description 09/02/2015 Hospital Encounter HX [facility] Elle Mills, Lola MORAES, C.N.P. [address], [place] [phone] (Wo rk) Social History [...] week 06/23/2020 How often do you attend buddhism or scientologist services? Never 06/23/2020 Do you belong to any clubs or organizations such as buddhism N o 06/23/2020 groups, unions, fraternal or [...] slept in a nursing home (including now)? 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 - 09/02/2015 1:24 PM CDT From: ELLE MILLS APRN SHIPPING ORDER CLERK To: HUGH DENNIS Sent: 09/02/2015 13:24:39 CDT Hugh, Labs are stable, A1c should be checked again in 6 months. Elle Results: Date Result Name Ind Value Ref Range 09/02/2015 09:16 U Albumin <7.0 mg/L 09/02/2015 09:16 U Creatinine 116 mg/dL (40 - 278) 09/02/2015 09:16 U Alb/Creatinine Ratio not performed mg/g (0 - 17) 09/02/2015 09:15 Sodium Lvl 140 mmol/L (135 - 145) 09/02/2015 09:15 Potassium Lvl 5.0 mmol/L (3.6 - 5.2) 09/02/2015 09:15 Chloride 102 mmol/L (98 - 107) 09/02/2015 09:15 CO2 28 mmol/L (22 - 29) 09/02/2015 09:15 AGAP 10 mmol/L (7 - 15) 09/02/2015 09:15 Glucose Fasting (H) 126 mg/dL (70 - 99) 09/02/2015 09:15 Creatinine 0.97 mg/dL (0.80 - 1.30) 09/02/2015 09:15 EGFR (MDRD) >60 mL/min/1.73m2 (>=60 - ) 09/02/2015 09:15 EGFR (MDRD) >60 mL/min/1.73m2 (>=60 - ) 09/02/2015 09:15 BUN 13 mg/dL (8 - 24) 09/02/2015 09:15 Calcium Lvl (H) 10.6 mg/dL (8.8 - 10.3) 09/02/2015 09:15 AST 17 unit/L (8 - 48) 09/02/2015 09:15 Cholesterol 115 mg/dL ( - <=199) 09/02/2015 09:15 Trig (H) 196 mg/dL ( - <=149) 09/02/2015 09:15 HDL (L) 37 mg/dL (>=40 - ) 09/02/2015 09:15 LDL Calculated 39 mg/dL ( - <=129) 09/02/2015 09:15 Chol/HDL Ratio 3.11 09/02/2015 09:15 LDL/HDL 1 09/02/2015 09:15 Hgb A1c (H) 7.9 % A1C ( - <=5.6) Source: [facility] POWERCHART Document Id: [id number] Electronically signed by Conversion, [facility] American Sign Language Interpreter [id number] at 07/29/2016 6:00 PM CDT documented in this encounter Plan of Treatment Not on filedocumented as of this encounter Procedures Procedure Name Priority Date/Time Associated Comments Diagnosis ALBUMIN, RANDOM, U Routine 09/02/2015 9:16 Result s for this AM CDT procedure are i n the results section. LIPID PANEL, S Routine 09/02/2015 9:15 Results fo r this AM CDT procedure are i n the results section. ASPARTATE Routine 09/02/2015 9:15 Results for this AMINOTRANSFERASE (AST), AM CDT proc edure are in S/P the results section. HEMOGLOBIN A1C, B Routine 09/02/2015 9:15 Results for this AM CDT procedure are i n the results section. BASIC METABOLIC PANEL, Routine 09/02/2015 9:15 Re sults for this S/P AM CDT procedure are i n the results section. documented in this encounter Results Microalbumin, Random, Urine (09/02/2015 9:16 AM CDT) P athologist Signature Creatinine, 116 40 - 278 POWERCHART Random, U MGDL HXU Albumin % <7.0 MGL POWERCHART Comment: Result is below the linear limi t of test method.Calculation not performed. Albumin/Creatinine Ratio not performed 0 - 17 MGG POWERCHART Specimen (Source) Anatomical Collection Method Collection Time Re ceived Time Location / / Volume Laterality Urine 09/02/2015 9:16 AM CDT Allison Stone APRNNFrederickPFrederick LAB URINE ORDERABLES Performing Organization Address City/State/ZIP Code Phon e Number POWERCHART (ABNORMAL) Lipid Panel (09/02/2015 9:15 AM CDT) athologist Signature Calculated LDL 39 <=129 MGDL POWERCHART Comment: 2013 National Lipid Association recommen dations for LDL-C in adults ages 18 and up: Desirable <100 mg/dL Above desirable 100-129 mg/dL Borderline high 130-159 mg/dL High 160-189 mg/dL Very High 190 mg/dL 2014 National Lipid Association recommen dations for LDL-C in children ages 2 to 17. Acceptable <110 mg/dL Borderline High 110-129mg/dL High 130 mg/dL LDL-C >190mg/dL: The markedly elevated LDL level is suggestive of a genetic condition such as familial hypercholesterolemia(FH) or familial defective apolipoprotein B-100 (FDB). Molecular genetic t esting for FH and FDB is available throu [facility]: FH/ADH Genetic Reflex Garcia el (test ADHP). Acquired (non-genetic) causes of markedly increased LDL cholesterol include cholestatic liver disease due to the presence of LpX. If a genetic form of hypercholesterolemia is suspected, family studies including biochemical testing fo r lipids (total cholesterol,triglycerides, LDL cholesterol and HDL cholesterol) are recommended. ??Please contact the laboratory at or the on-line test catalog at [employer] for information about how to order these kranthi ts or to speak with a genetic counselor. Further interpretation would require clinical information. Total Cholesterol/HDL Ratio 3.11 PO WERCHART Cholesterol, Total 115 <=199 MGDL POWERCHART Comment: 2013 National Lipid Association recommen dations for Total Cholesterol in adults ages 18 and up: Desirable <200 mg/dL Borderline high 200-239 mg/dL High 240 mg/dL 2014 National Lipid Association recommen dations for Total Cholesterol in children ages 2 to 17. Acceptable <170 mg/dL Borderline High 170-199 mg/dL High 200 mg/dL HX HDL 37 (L) >=40 MGDL POWERCHART Comment: 2013 National Lipid Association recommen dations for HDL-C in adults ages 18 and up: Low <40 mg/dL (Men) Low <50 mg/dL (Women) 2014 National Lipid Association recommen dations for HDL-C in children ages 2 to 17. Low <40 mg/dL Borderline Low 40-45 mg/dL Acceptable >45 mg/dL Triglycerides 196 (H) <=149 MGDL POWERCHART Comment: 2013 National Lipid Association recommen dations for Triglycerides in adults ages 18 and up: Normal <150 mg/dL Borderline High 150-199 mg/dL High 200-499 mg/dL Very High 500 mg/dL 2014 National Lipid Association recommen dations for Triglycerides in children ages 2 to 9. Acceptable <75 mg/dL Borderline High 75-99 mg/dL High 100 mg/dL 2014 National Lipid Association recommen dations for Triglycerides in children ages 10 to 17. Acceptable <90 mg/dL Borderline High 90-129 mg/dL High 130 mg/dL Trigs >400mg/dL: Triglycerides >400 mg/ dL. Calculated LDL cholesterol is not valid. Non-HDL cholesterol may be used for risk assessment when triglycerides are >400mg/dL. HXLDL/HDL 1 POWERCHART Specimen (Source) Anatomical Collection Method Collection Time Re ceived Time Location / / Volume Laterality Blood 09/02/2015 9:15 AM CDT Elle Mills APRN, C.N.P. LAB BLOOD ADD-ON Performing Organization Address City/State/ZIP Code Phon e Number POWERCHART AST (Aspartate Aminotransferase) (09/02/2015 9:15 AM CDT) [facility] gist Method Time Signature Aspartate 17 8 - 48 POWERCHART Aminotransferase UNITL (AST), S Specimen (Source) Anatomical Collection Method Collection Time Re ceived Time Location / / Volume Laterality Blood 09/02/2015 9:15 AM CDT Elle Odonnell Tamera CAREY C.N.P. LAB BLOOD ADD-ON Performing Organization Address City/State/ZIP Code Phon e Number POWERCHART (ABNORMAL) Hemoglobin A1c (09/02/2015 9:15 AM CDT) P athologist Signature Hemoglobin A1c, 7.9 (H) <=5.6 A1C POWERCHART B Specimen (Source) Anatomical Collection Method Collection Time Re ceived Time Location / / Volume Laterality Blood 09/02/2015 9:15 AM CDT Elle J Tamera CAREY, C.N.P. LAB BLOOD ADD-ON Performing Organization Address City/State/ZIP Code Phon e Number POWERCHART (ABNORMAL) BMP (Basic Metabolic Panel) (09/02/2015 9:15 AM CDT) Analysis Performed At Patho logist Time Signature Sodium, S 140 135 - 145 POWERCHART MMOLL Potassium, S 5.0 3.6 - 5.2 POWERCHART MMOLL Chloride, S 102 98 - 107 POWERCHART MMOLL CO2 Total 28 22 - 29 POWERCHART MMOLL Glucose, 126 (H) 70 - 99 POWERCHART Fasting, S MGDL BUN (Blood Urea 13 8 - 24 POWERCHART Nitrogen), S MGDL Creatinine 0.97 0.80 - POWERCHART 1.30 MGDL Calcium, Total, 10.6 (H) 8.8 - 10.3 POWERCHART S MGDL Anion Gap 10 7 - 15 POWERCHART MMOLL HXeGFR (MDRD) >60 >=60 POWERCHART [id number] eGFR >60 >=60 POWERCHART Black/ [id number] Singaporean Specimen (Source) Anatomical Collection Method Collection Time Re ceived Time Location / / Volume Laterality Blood 09/02/2015 9:15 AM CDT Elle Mills APRN, C.N.P. LAB BLOOD ADD-ON Performing Organization Address City/State/ZIP Code Phon e Number POWERCHART documented in this encounter Visit Diagnoses Not on filedocumented in this encounter
--- OUTSIDE RECORDS SUMMARY | 2021-11-24 08:49 | XMS_ITS | Encounter Summary ---
:1955 Author Organization [facility] Address [address] [place] [address] Care Team Providers Name Role Phone Unavailable Primary Care Provider Unavailable Encounter Details Date Type Department Care Team Description 06/24/2014 Hospital Encounter [facility]X [facility] Elle Mills, Lola MORAES, C.N.P. [address], [place] [phone] (Wo rk) Social History [...] often do you attend jehovah's witness or confucianism services? 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 documented as of this encounter Miscellaneous Notes Miscellaneous - Elle Mills APRN, C.N.P. - 06/24/2014 2:32 PM CDT Schedule Follow-Up Visit 24 June 2014 HUGH DENNIS [address] [place] [id number] Dear HUGH DENNIS, Thank you for choosing [facility] for your health care needs. You recently had laboratory work performed to assess your overall health. This letter contains the results of your testing and standard ranges to help explain the results. I would recommend follow-up as we previously discussed. If you have questions prior to our appointment, please contact our office. Result Name Current Result Previous Result Normal Range Sodium Lvl (mmol/L) 141 06/24/2014 143 02/19/2013 135 - 145 Potassium Lvl (mmol/L) 4.4 06/24/2014 (H) 5.0 02/19/2013 3.6 - 5.2 Chloride (mmol/L) 104 06/24/2014 102 02/19/2013 98 - 107 CO2 (mmol/L) 27 06/24/2014 28 02/19/2013 22 - 29 Glucose Fasting (mg/dL) (H) 205 06/24/2014 (H) 157 02/19/2013 70 - 99 Creatinine (mg/dL) 0.8 06/24/2014 (L) 0.8 02/19/2013 0.8 - 1.3 EGFR (MDRD) (mL/min/1.73m2) >60 06/24/2014 >60 02/19/2013 >=60 - EGFR (MDRD) (mL/min/1.73m2) >60 06/24/2014 >60 02/19/2013 >=60 - BUN (mg/dL) 10 06/24/2014 14 02/19/2013 8 - 24 Calcium Lvl (mg/dL) 9.7 06/24/2014 10.4 02/19/2013 8.8 - 10.3 AST (unit/L) 16 06/24/2014 20 02/19/2013 8 - 48 Cholesterol (mg/dL) 115 06/24/2014 135 07/17/2013 - <=199 Trig (mg/dL) (H) 151 06/24/2014 100 07/17/2013 - <=149 HDL (mg/dL) 44 06/24/2014 51.0 07/17/2013 >=40 - LDL Calculated (mg/dL) 41 06/24/2014 64 07/17/2013 - <=129 Chol/HDL Ratio 2.61 06/24/2014 LDL/HDL 1 06/24/2014 Hgb A1c (% A1C) (H) 8.20 06/24/2014 (H) 7.9 07/17/2013 - <=5.60 ntbl Sincerely, ELLE MILLS [address] [place], [place] [id number] Electronic Signature Electronically Signed By: ELLE MILLS CNP On: 24 June 2014 This document has images extracted. Source: [facility] POWERCHART Document Id: [id number] Miscellaneous - Elle Mills, AURELIO, C.N.P. - 06/24/2014 2:32 PM CDT From: ELLE MILLS CNP To: HUGH DENNIS Sent: 06/24/2014 14:32:43 CDT Hugh, I see you have an appointment scheduled tomorrow. We will discuss medication adjustment for [id number]. Elle Results: Date Result Name Ind Value Ref Range 06/24/2014 07:25 Sodium Lvl 141 mmol/L (135 - 145) 06/24/2014 07:25 Potassium Lvl 4.4 mmol/L (3.6 - 5.2) 06/24/2014 07:25 Chloride 104 mmol/L (98 - 107) 06/24/2014 07:25 CO2 27 mmol/L (22 - 29) 06/24/2014 07:25 Glucose Fasting (H) 205 mg/dL (70 - 99) 06/24/2014 07:25 Creatinine 0.8 mg/dL (0.8 - 1.3) 06/24/2014 07:25 EGFR (MDRD) >60 mL/min/1.73m2 (>=60 - ) 06/24/2014 07:25 EGFR (MDRD) >60 mL/min/1.73m2 (>=60 - ) 06/24/2014 07:25 BUN 10 mg/dL (8 - 24) 06/24/2014 07:25 Calcium Lvl 9.7 mg/dL (8.8 - 10.3) 06/24/2014 07:25 AST 16 unit/L (8 - 48) 06/24/2014 07:25 Cholesterol 115 mg/dL ( - <=199) 06/24/2014 07:25 Trig (H) 151 mg/dL ( - <=149) 06/24/2014 07:25 HDL 44 mg/dL (>=40 - ) 06/24/2014 07:25 LDL Calculated 41 mg/dL ( - <=129) 06/24/2014 07:25 Chol/HDL Ratio 2.61 06/24/2014 07:25 LDL/HDL 1 06/24/2014 07:25 Hgb A1c (H) 8.20 % A1C ( - <=5.60) Source: [facility] POWERCHART Document Id: [id number] Electronically signed by Conversion, [facility] Seam Rubbing Machine Operator [id number] at 07/30/2016 4:30 PM CDT documented in this encounter Plan of Treatment Not on filedocumented as of this encounter Procedures Procedure Name Priority Date/Time Associated Diagnosis Comme nts LIPID PANEL, S Routine 06/24/2014 7:25 AM Results for this CDT procedure are i n the results section . documented in this encounter Results (ABNORMAL) Lipid Panel (06/24/2014 7:25 AM CDT) P athologist Signature Calculated LDL 41 <=129 MGDL POWERCHART Comment: 2013 National Lipid [...] esting for FH and FDB is available kat [facility]: FH/ADH Genetic Reflex Garcia el (test ADHP). Acquired (non-genetic) causes of markedly increased LDL cholesterol include cholestatic liver disease due to the presence of LpX. If a genetic form of hypercholesterolemia is suspected, family studies including biochemical testing fo r lipids (total cholesterol,triglycerides, LDL cholesterol and HDL cholesterol) are recommended. ??Please contact the laboratory at or the on-line test catalog at [employer] for information about how to order these kranthi ts or to speak with a genetic counselor. Further interpretation would require clinical information. Total Cholesterol/HDL Ratio 2.61 PO WERCHART Cholesterol, Total 115 <=199 MGDL POWERCHART Comment: 2013 National Lipid Association recommen dations for Total Cholesterol in adults ages 18 and up: Desirable <200 mg/dL Borderline high 200-239 mg/dL High 240 mg/dL 2014 National Lipid Association recommen dations for Total Cholesterol in children ages 2 to 17. Acceptable <170 mg/dL Borderline High 170-199 mg/dL High 200 mg/dL HX HDL 44 >=40 MGDL POWERCHART Comment: 2014 National Lipid Association recommen dations for HDL-C in adults ages 18 and up: Low <40 mg/dL (Men) Low <50 mg/dL (Women) 2014 National Lipid Association recommen dations for HDL-C in children ages 2 to 17. Low <40 mg/dL Borderline Low 40-45 mg/dL Acceptable >45 mg/dL Triglycerides 151 (H) <=149 MGDL POWERCHART Comment: 2013 National [...] Volume Laterality Blood 06/24/2014 7:25 AM CDT Elle Mills APRN, C.N.P. LAB BLOOD ADD-ON Performing Organization Address City/State/ZIP Code Phon e Number POWERCHART documented in this encounter Visit Diagnoses Not on filedocumented in this encounter Additional Health Concerns Assessment Noted Time PHQ-9 Depression Total Score: 1 07/17/2013 10:14 AM CD T documented as of this encounter
--- OUTSIDE RECORDS SUMMARY | 2021-11-24 08:49 | XMS_ITS | Encounter Summary ---
:1955 Author Organization [facility] Address [address] [place] [address] Care Team Providers Name Role Phone Unavailable Primary Care Provider Unavailable Encounter Details Date Type Department Care Team Description 07/17/2013 Hospital Encounter HX [facility] MyrChristiana franco, FILLER SIFTER MACHINE, C.N.P. [address] [place] [address] (Wo rk) Social History Tobacco [...] week 06/23/2020 How often do you attend shinto or hindu services? 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 documented as of this encounter Last Filed Vital Signs Vital Sign Reading Time Taken Comments Blood Pressure 132/80 07/17/2013 9:15 AM CDT Pulse 68 07/17/2013 9:12 AM CDT Temperature - - Respiratory Rate 20 07/17/2013 9:12 AM CDT Oxygen Saturation - - Inhaled Oxygen Concentration - - Weight 115 kg (253 lb 8.5 oz) 07/17/2013 9:12 AM CDT Height 186 cm (6' 1.23) 07/17/2013 9:15 AM CDT Body Mass Index 33.24 07/17/2013 9:12 AM CDT documented in this encounter Medications at Time of Discharge Medication Sig Dispensed Refills Start Date End Date gemfibrozil (for_LOPID) Take 600 mg by 0 08/05/19 10 10/10/2017 600 mg tablet mouth. documented as of this encounter Progress Notes Elle Mills, AURELIO, CFrederickNFrederickP. - 07/17/2013 8:47 AM CDT [id number] CHIEF COMPLAINT/REASON FOR VISIT 1. Diabetes type 2, controlled. 2. Hyperlipidemia. 3. Hypertension. 4. Left thumb pain. HISTORY OF PRESENT ILLNESS 1. Hugh is here for diabetes recheck. He had A1c drawn before his appointment. It has gone up slightly but he is still at goal at 7.9. He is going to work on more exercise and watching carbs. 2. He has history of hyperlipidemia. Fasting lipids will be drawn today. They were high at his last check in February at 124. He started Lipitor 20 mg daily. He is having no adverse effects. He needs refill. He is changing pharmacies. He is going to [facility]. 3. Hypertension. Blood pressure at goal today. He will continue with losartan 50 mg daily. 4. Left thumb pain. He has had problems with left trigger thumb in the past. He is icing. He states it is worse after driving for an hour. He is currently commuting to [place] daily. We did discuss having him see Dr. Felix for possible injection. He will let me know when he wants to do that. I did tell would be several weeks to get in so he should consider that. MEDICATIONS See depart summary from today. ALLERGIES None. SYSTEMS REVIEW Positive for that mentioned in the history of present illness and noted in the past medical history in the EMR. All other systems were reviewed and were negative. PREVENTIVE Due for dilated eye exam, advised to schedule. Diabetes education was done today. Diabetes foot examwas done today. VITAL SIGNS See EMR. PHYSICAL EXAMINATION GENERAL: Well-developed, well-nourished male, in no acute distress. SKIN: Warm and dry TMs clear. Throat clear. NECK: Supple. No lymphadenopathy or thyromegaly. HEART: Regular rate and rhythm. LUNGS: Clear to auscultation. ABDOMEN: Soft, nontender. No hepatosplenomegaly. EXTREMITIES: Warm dry no peripheral edema. Normal sensation tops and bottoms feet with monofilament. IMPRESSION/REPORT/PLAN 1. Diabetes type 2, controlled. Plan to recheck A1c again in 6 months. Diabetes education was done today. 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 He is going to work on increasing exerciseand watching carbohydrates to try to lose 10 pounds. 2. Hyperlipidemia. Continue with atorvastatin 20 mg daily. Lipids were drawn today and I will contact him with results. 3. Hypertension, currently controlled. No changes. 4. Left thumb tendinitis. Continue with ice and ibuprofen, and consider a consult with Dr. Felix forinjection. Elle Mills CNP/jesus Electronically Signed By: ELLE MILLS CNP On: 07/17/2013 02:54 PM Source: [facility] [email or web address] Document Id: [id number] documented in this encounter Nursing Notes Anju Calvillo - 06/16/2014 11:46 AM CDT Panel management Pt had overdue lab and office visit orders, also has orders for fasting diabetic labs coming due onor after 07/17/14. Orders consolidated in EMR. Most recent chart note indicates would not be able to refill Lantus until after office visit and labs, but does indicate will not need a refill prior to radha ointment. Transferred to scheduling. Electronically Signed By: ANJU CALVILLO LPN On: 06/16/2014 11:54 AM Source: [employer] Document Id: [id number] Anju Calvillo - 02/09/2014 10:52 AM CST diabetic reminder Pt is overdue for A1c as well as coming due for Creatinine and urine for Microalbumin and diabetic appointment with PEYTON Gao on or after 02/19/14. Attempted to contact pt, message left to return call. 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 - 07/17/2013 9:46 AM CDT Wood Room Supervisor Intake (Adult) Wood Room Supervisor Intake (Adult) Entered On: 07/17/2013 9:47 CDT Performed On: 07/17/2013 9:46 CDT by ELLE MILLS CNP Assessment Program Type : Non-Program Diabetes Referring Provider : ELLE MILLS CNP Special needs : None Method Used for DSME : Individual Last Educator Visit Date : 07/17/2013 CDT Diabetes Type : Type 2 19 years and older Ethnicity : White/ Diabetes Onset : 1997 Current Treatment : Insulin pen, Oral agents Medication Compliance : Takes meds as prescribed Diabetes Medications Reviewed : Yes Medication Categories : Biguanide, Insulin, Sulfonylurea ELLE MILLS CNP - 07/17/2013 9:46 CDT Foot Problems No foot problems : Left, Right ELLE MILLS CNP - 07/17/2013 9:46 CDT Dilated eye exam every year : Yes Exercise Type : Walking Exercise Frequency : 2-3 times per week Duration : 15-30 minutes Time Spent With Patient : 15 Minutes ELLE MILLS CNP - 07/17/2013 9:46 CDT Education Diabetes Education Grid Topics : Nutritional Management - Small Portions, Physical activity, Monitoring - Blood Glucose, Using Results - Blood Glucose, Problem Solving/Goal Setting - Treatment/Management Goals Individuals Taught : Patient Barriers to Learning : None evident Teaching Method : Explanation Teaching Evaluation : Verbalizes understanding ELLE MILLS [facility] - 07/17/2013 9:46 CDT Comprehensive Program Goals Diabetes Education Goals Grid Diabetes Education Goal #1 row Diabetes Education Goal #2 row Diabetes Education Goal #3 row Date Goal Set : 07/17/2013 CDT 07/17/2013 CDT 07/17/2013 CDT Goal : A1c less than 8.0 Blood pressure less than 140/90 LDL less than 100 Related Content Area : Healthy eating Medication Medication ELLE MILLS [facility] - 07/17/2013 9:46 CDT ELLE MILLS [facility] - 07/17/2013 9:46 CDT ELLE MILLS - 07/17/2013 9:46 CDT [facility] Document Id: [id number] CDT!43 documented in this encounter Miscellaneous Notes Miscellaneous - Augustus Swanson L.PFrederickN. - 07/17/2013 10:14 AM CDT PHQ-9 PHQ-9 Entered On: 07/17/2013 10:14 CDT Performed On: 07/17/2013 10:14 CDT by AUGUSTUS SWANSON LPN PHQ-9 Little interest or pleasure in doing things : Not at all Feeling down, depressed, or hopeless : Not at all Trouble falling or staying asleep, or sleeping too much : Not at all Feeling tired or having little energy : Several days Poor appetite or overeating : Not at all Feeling bad about yourself or that you are a failure : Not at all Trouble concentrating on things : Not at all Moving or speaking slowly; restless or fidgety : Not at all Thoughts that you would be better off /hurting self : Not at all PHQ-9 Calculated Score : 1 Problems make work, home, or dealing with others : Not difficult at all AUGUSTUS SWANSON LPN - 07/17/2013 10:14 CDT Source: [employer] Document Id: [id number] CDT!13 Miscellaneous - Elle Mills APRN, C.N.P. - 07/17/2013 9:46 AM CDT Quality Measures Quality Measures Entered On: 07/17/2013 9:46 CDT Performed On: 07/17/2013 9:46 CDT by ELLE MILLS CNP Diabetes Date of Last Foot Exam : 07/17/2013 CDT Date of Last Diabetes Education : 07/17/2013 CDT ELLE MILLS CNP - 07/17/2013 9:46 CDT Foot Exam Grid Left foot exam Right foot exam Dorsalis Pedis Pulse : Normal Normal Capillary Refill : Less than 3 seconds Less than 3 seconds 10 gm Monofilament Sensation Check : Intact Intact ELLE MILLS CNP - 07/17/2013 9:46 CDT ELLE MILLS CNP - 07/17/2013 9:46 CDT Source: [employer] Document Id: [id number] CDT!13 Miscellaneous - Elle Mills APRN, C.N.P. - 07/17/2013 9:27 AM CDT Ambulatory Patient Summary [address] [id number] Visit Information Name: HUGH DENNIS [facility] Number: [id number] Current Date: 07/17/2013 09:27:04 Physicians Attending Provider: ELLE MILLS CNP Primary [...] once a day (at bedtime) Routed to [facility] [address] [place] [address] glimepiride (glimepiride 4 mg oral tablet) 2 Tablet(s), Oral, once a day with breakfast [facility] [address] [place] [address] insulin glargine (Lantus Solostar Pen 100 units/mL subcutaneous solution) 20 units, Subcutaneous, once a day (at bedtime) [facility] [address] [place] [address] losartan (losartan 50 mg oral tablet) 1 Tablet(s), Oral, once a day [facility] [address] [place] [address] metFORMIN (metformin 500 mg oral tablet, extended release) 4 Tablet(s), Oral, Daily Supper with evening meal This is a CHANGE [facility] [address] [place] [address] Stop Taking the Following Medications: Medication list as of 07-17-13 09:27 Attention: If you have any medications at [...] Electronically Signed By: ELLE MILLS CNP Signed On:17-JUL-2013 09:26:43 Your Allergies & Intolerances Substance Reaction Symptoms Category Comments No Known Allergies Drug Your Problem List Problem Status Onset Comments Hyperlipidemia Active Hypertension Active Obesity NOS Active Neuropathy Ulnar Nerve Active DM II (or NOS), controlled Active Trigger finger Active 03/19/2012 05/09/12 left thumb Low back pain Active 06/08/2012 08/08/12 right Your Upcoming Appointments Date Time Location Reason Provider No Appointments found Attention: Contact your local Clinic if further appointment detail needed. [id number] DIET: LOW CHOLESTEROL Cholesterol is needed by the body to build new cells and create certain hormones. There are two kinds of cholesterol in the blood: ?? Good cholesterol prevents fat deposits (plaque) from building up in the arteries. In this way it protects against heart disease and stroke. ?? Bad cholesterol stays in the body and sticks to artery adler. It may eventually block blood flow to the heart and brain causing heart attack or stroke. 75% of the bodys cholesterol is made in the liver. Only 25% of the bodys cholesterol comes from the food you eat. While the amount of cholesterol in your diet should be limited, it is the cholesterol that your body makes that creates the greatest disease risk. The biggest influence on cholesterol madeby your body is the mixture of fat types in your diet. There are two kinds of fats you can eat: ?? Good Fats are the unsaturated fats (mono-saturated and poly-unsaturated). They raise the level ofgood cholesterol and lower the level of bad cholesterol. Good fats are found in vegetable oils such as olive, sunflower, corn and soybean oils, and in nuts and seeds. ?? Bad Fats are the saturated fats (including foods high in cholesterol) and trans fats. These increase the risk of disease. They lower the good cholesterol and raise the level of bad cholesterol. Bad fats are found in meat and whole- milk dairy products. Some plants are also high in bad fats (coconut and palm plants). Trans fats are found in hard (stick) margarines and many fast foods and commercially baked goods. Soft margarine sold in tubs has less trans fats and are safer to use. High blood cholesterol usually is a result of a diet high in saturated fat combined with an inactivelifestyle. In some cases, genetics plays a role in causing high cholesterol. The following tips willhelp you create healthy eating habits that will help lower your blood cholesterol level. STEPS TO CREATING A DIET HIGH IN GOOD FAT, LOW IN BAD FATS (and low in cholesterol) 1. Consult with your doctor before starting a low cholesterol diet or weight loss program. 2. Learn to read nutrition labels and select appropriate portion sizes. 3. When cooking, use plant-based unsaturated vegetable oils (sunflower, corn, soybean, canola, peanut, and olive oils). 4. Avoid saturated oils found in animal products such as meat, dairy (whole- milk, cheese and ice cream), poultry skin, and egg yolks. Plants high in saturated oils include coconut and coconut oil, palmoil and palm kernel oil. 5. If you eat meat, choose smaller portions and lean cuts. 6. Replace meat with fish at least two times a week. Fish is an important source of the unsaturated fat called omega-3 fatty acids. This fat has potential to lower the risk of heart disease. 7. Replace whole-milk dairy products with low-fat or nonfat products. Try soy products. Soy helps toreduce total cholesterol. 8. Supplement your diet with protective fibers. Eat nuts, seeds, and whole grains rather than white rice and bread. These foods lower both cholesterol and triglyceride levels. (Triglycerides are another fat found in the blood.) Walnuts are one of the best sources of an omega-3 fatty acid. 9. Eat plenty of fresh fruits and vegetables daily. Avoid fast foods and commercial baked goods. Assume they contain saturated fat unless labeled otherwise. ?? [address] [place] [address]. All rights reserved. This information is not intended as a substitute for professional medical care. Always follow your healthcare professional's instructions. Your Goals/Additional instructions: This document has images extracted. Please consider using [employer] for all your patient education needs. Source: [facility] POWERCHART Document Id: [id number] Miscellaneous - Elle Mills APRN, C.N.P. - 07/17/2013 9:27 AM CDT Ambulatory Discharge Medication List [place] [address] [facility] [address] [place] [id number] Visit Information Name: HUGH DENNIS [facility] Number: [id number] Visit Date: 07/17/2013 09:27:02 Attending Provider: ELLE MILLS CNP Primary Care [...] once a day (at bedtime) Routed to [facility] [address] [place] [address] glimepiride (glimepiride 4 mg oral tablet) 2 Tablet(s), Oral, once a day with breakfast Routed to [facility] [address] [place] [address] insulin glargine (Lantus Solostar Pen 100 units/mL subcutaneous solution) 20 units, Subcutaneous, once a day (at bedtime) Routed to [facility] [address] [place] [address] losartan (losartan 50 mg oral tablet) 1 Tablet(s), Oral, once a day [facility] [address] [place] [address] metFORMIN (metformin 500 mg oral tablet, extended release) 4 Tablet(s), Oral, Daily Supper with evening meal This is a CHANGE Routed to [facility] [address] [place] [address] Stop Taking the Following Medications: Medication list as of 07-17-13 09:27 Attention: If you have any medications at [...] of emergency. Electronically Signed By: ELLE MILLS [employer] Signed On:17-JUL-2013 09:26:43 Additional Information: Source: [facility] [employer] Document Id: [id number] Miscellaneous - Augustus Swanson L.P.N. - 07/17/2013 9:15 AM CDT Ambulatory Vitals Height Weight Ambulatory Vitals Height Weight Entered On: 07/17/2013 9:15 CDT Performed On: 07/17/2013 9:15 CDT by AUGUSTUS SWANSON LPN Vitals/Ht/Wt Systolic Blood Pressure : 132 mmHg Diastolic Blood Pressure : 80 mmHg NIBP Mean : 97 mmHg BP Location : Left upper extremity Blood Pressure Cuff Size : Regular Height : 186 cm(Converted to: 6 ft 1 inch(es), 73 inch(es)) AUGUSTUS SWANSON LPN - 07/17/2013 9:15 CDT Source: [facility] [employer] Document Id: [id number] CDT!8 Miscellaneous - Augustus Swanson L.P.N. - 07/17/2013 9:12 AM CDT Adult Book Jogger Intake/History Adult Book Jogger Intake/History Entered On: 07/17/2013 9:14 CDT Performed On: 07/17/2013 9:12 CDT by AUGUSTUS SWANSON LPN Intake Chief Complaint : Diabetic check Having pain in left thumb. Temperature Core : 36.8 DegC(Converted to: 98.2 DegF) Peripheral Pulse Rate : 68 /min Respiratory Rate : 20 /min Heart Rhythm : Regular Systolic Blood Pressure : 146 mmHg (HI) Diastolic Blood Pressure : 84 mmHg NIBP Mean : 105 mmHg BP Location : Left upper extremity Blood Pressure Cuff Size : Regular Height : 186 cm(Converted to: 6 ft 1 inch(es), 73 inch(es)) Actual Weight : 115 kg(Converted to: 253 lb 9 oz) Weight Source : Standing scale Dosing Weight Clinic : 115 kg Clinic BSA : 2.44 Body Mass Index : 33.24 kg/m2 AUGUSTUS SWANSON LPN - 07/17/2013 9:12 CDT General Info Information Given By : Patient Languages : Luxembourgish AUGUSTUS SWANSON LPN - 07/17/2013 9:12 CDT Subjective Pain Symptoms : No AUGUSTUS SWANSON LPN - 07/17/2013 9:12 CDT Dependent Habits Tobacco Use/Currently Using : No Smoking Status : Former smoker AUGUSTUS SWANSON LPN - 07/17/2013 9:12 CDT Tobacco Use Grid Other Tobacco Frequency : NON Last Use : never AUGUSTUS SWANSON LPN - 07/17/2013 9:12 CDT Caffeine Use Grid Caffeine Use : Current Type : Coffee Frequency : Daily AUGUSTUS SWANSON LPN - 07/17/2013 9:12 CDT Recreational Drug Use Grid Drug Use : None AUGUSTUS SWANSON LPN - 07/17/2013 9:12 CDT Source: [facility] [employer] Document Id: [id number] CDT!38 Miscellaneous - Augustus Swanson L.P.NFrederick - 07/17/2013 9:11 AM CDT Health Assessment Health Assessment Entered On: 07/17/2013 9:12 CDT Performed On: 07/17/2013 9:11 CDT by AUGUSTUS SWANSON LPN Health Assessment Complete Health Assessment Complete or Modified : Annual Health Assessment Annual Health Assessment Completed : Yes AUGUSTUS SWANSON LPN - 07/17/2013 9:11 CDT Nutrition Nutrition Risk Factors by History Adult : None AUGUSTUS SWANSON [facility] - 07/17/2013 9:11 CDT Functional Current Daily Living Assistance : None AUGUSTUS SWANSON [facility] - 07/17/2013 9:11 CDT Dependent Habits Tobacco Use/Currently Using : No Smoking Status : Former smoker AUGUSTUS SWANSON [facility] 07/17/2013 9:11 CDT Tobacco Use Grid Other Tobacco Frequency : NON Last Use : never AUGUSTUS SWANSON [facility] - 07/17/2013 9:11 CDT Caffeine Use Grid Caffeine Use : Current Type : Coffee Frequency : Daily AUGUSTUS SWANSON [facility] 07/17/2013 9:11 CDT Recreational Drug Use Grid Drug Use : None AUGUSTUS SWANSON [facility] 07/17/2013 9:11 CDT Psychosocial Domestic Abuse Concerns : None AUGUSTUS SWANSON [facility] 07/17/2013 9:11 CDT Advance Directive Advanced Directives : No AUGUSTUS SWANSON [facility] 07/17/2013 9:11 CDT Educ Needs Learning Style Preference Adult Grid Patient : Printed materials, Verbal explanation Family : Verbal explanation, Printed materials AUGUSTUS SWANSON [facility] 07/17/2013 9:11 CDT Source: [employer] Document Id: [id number] CDT!31 documented in this encounter Plan of Treatment Not on filedocumented as of this encounter Visit Diagnoses Not on filedocumented in this encounter Additional Health Concerns Assessment Noted Time PHQ-9 Depression Total Score: 1 07/17/2013 10:14 AM CD T documented as of this encounter
--- OUTSIDE RECORDS SUMMARY | 2021-11-24 08:49 | XMS_ITS | Encounter Summary ---
:[address] [facility] Address [address] [place] [address] Care Team Providers Name Role Phone Unavailable Primary Care Provider Unavailable Encounter Details Date Type Department Care Team Description 08/31/2015 Hospital Encounter HX [facility] Jose Alfredo Mcclellan APRN, C.N.P., M.S.N. [address] [place] [address] (Wo rk) Social History Tobacco Use Types [...] How often do you attend catholic or jain services? Never 06/23/2020 Do you [...] or slept in a long-term (including now)? 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 BABYS[employer] documented as of this encounter Last Filed Vital Signs Vital Sign Reading Time Taken Comments Blood Pressure 138/76 08/31/2015 10:27 AM CDT Pulse 72 08/31/2015 10:27 AM CDT Temperature - - Respiratory Rate 16 08/31/2015 10:27 AM CDT Oxygen Saturation - - Inhaled Oxygen Concentration - - Weight 116 kg (255 lb 8.2 oz) 08/31/2015 10:27 AM CDT Height 186 cm (6' 1.23) 08/31/2015 10:27 AM CDT Body Mass Index 33.5 08/31/2015 10:27 AM CDT documented in this encounter Medications at Time of Discharge Medication Sig Dispensed Refills Start Date End Date aspirin [address] tablet Take 1 tablet by 0 2015 mouth daily. gemfibrozil (for_LOPID) Take 600 mg by 0 08/05/19 10 10/10/2017 600 mg tablet mouth. documented as of this encounter Progress Notes Jose Alfredo Mcclellan, AURELIO, CONICAL MIXER - 08/31/2015 10:24 AM CDT [id number] CHIEF COMPLAINT/REASON FOR VISIT Follow up skin infection. HISTORY OF PRESENT ILLNESS A very pleasant 60-year-old male presents with a skin infection to the face. Patient last seen in this clinic for this problem on 08/27/2015. Before then, the problem had been ongoing since the ; it started at that time. At the time of the last visit the patient's main concern was his leftear and throat was hurting. That has been getting better since his last visit. Patient was started on clindamycin for infection. The patient states that it is starting now to itch. He is not touching his face to scratch but using a paper towel or disposable towel to gently press on the areas. He continues to deny any fevers, chills, headache, neck pain, chest pain, shortness of breath, abdominal pain, nausea, vomiting, or diarrhea. MEDICATIONS [...] GENERAL: Well appearing. No distress. HEENT: Ears: Left ear with improvement. No redness on the outer part as with last visit. Ear canal without edema or erythema. TM normal. No edema, exudate, or erythema. Positive light reflex. Nose: Bilateral nasal turbinates 2+, pink and moist. Oropharynx: Without injection, erythema, edema or exudate. Tongue moist. SKIN: Left frontal cheek with the largest area of redness. A black healing ulceration in the middle.Small areas to his left lateral cheek with the same black, healing scabbed areas and then underneathhis chin and neck and, again, left tragus without. That has resolved. There is no erythemic area. [place]. NECK: Supple. Trachea midline. No lymphadenopathy. CARDIAC: Regular rate and rhythm. Normal S1, S2. No murmurs, rubs, or clicks. LUNGS: Lungs clear without wheezing, rhonchi, or rales. ABDOMEN: Soft. No tenderness on palpation. Normoactive bowel sounds. IMPRESSION/REPORT/PLAN Skin infection. I am presuming this is staph but could be strep. No areas are open and draining, unable to culture at this time. Patient tolerating the clindamycin well. States his sugars have been controlled, below 140. He says he has been doing better each day. No side effects from the medication such as diarrhea. Did encourage patient to follow up again on Sunday and then we will discuss if there is any further need for followup. Skin infection appears to be healing. Went ahead and prescribed some mupirocin ointment that he can add to his regimen to apply 3 times a day and will see if this helpsmove things along quicker for him. Strongly encouraged him to go to the ER as before if he had any signs of fevers, severe headache, neck pain, chest pain, shortness of breath, abdominal pain, nausea, vomiting, or diarrhea, or spreading of the infection on his skin. He did verbalize good understanding. Jose Alfredo Mcclellan, F.N.P,-C./jesus Electronically Signed By: JOSE ALFREDO MCCLELLAN CNP On: 09/22/2015 11:26 AM Source: [facility]SD[facility]EDD[facility] Document Id: [id number] documented in this encounter Miscellaneous Notes Miscellaneous - Gisselle Vázquez L.P.N. 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 Intake/History Entered On: 08/31/2015 10:29 CDT Performed On: 08/31/2015 10:27 CDT by GISSELLE VÁZQUEZ LPN Intake Chief Complaint : Recheck left side of face, red swollen in spots Onset of Symptoms : 2 weeks Temperature Core : 36.8 DegC(Converted to: 98.2 DegF) Peripheral Pulse Rate : 72 /min Respiratory Rate : 16 /min Systolic Blood Pressure : 138 mmHg Diastolic Blood Pressure : 76 mmHg NIBP Mean : 97 mmHg BP Location : Left upper extremity Blood Pressure Cuff Size : Large Height : 186 cm(Converted to: 6 ft 1 inch(es), 73 inch(es)) Actual Weight : 115.9 kg(Converted to: 255 lb 8 oz) Dosing Weight Clinic : 115.9 kg Clinic BSA : 2.45 Body Mass Index : 33.5 kg/m2 GISSELLE VÁZQUEZ LPN - 08/31/2015 10:27 CDT General Info Information Given By : Care provider Preferred Communication Mode : Verbal Languages : [place] Is Patient Female and 13-50 no hysterectomy : No GISSELLE VÁZQUEZ LPN - 08/31/2015 10:27 CDT Subjective Pain Symptoms : Yes GISSELLE VÁZQUEZ LPN - 08/31/2015 10:27 CDT Pain Scale Pain Scale Verbal 0-10 : Open GISSELLE VÁZQUEZ LPN - 08/31/2015 10:27 CDT Pain Pain Assessment Grid Pain 1 Location : Head Laterality : Bilateral Intensity : 4 Duration : 1 week GISSELLE VÁZQUEZ LPN - 08/31/2015 10:27 CDT Dependent Habits Exposure to Tobacco Smoke : Other: Never Smoking Status : Never smoker Tobacco 2A : No Tobacco Use/Currently Using : No Tobacco Use/Last 30 Days : No Tobacco Use/Last 12 months : No GISSELLE VÁZQUEZ LPN - 08/31/2015 10:27 CDT Caffeine Use Grid Caffeine Use : Current Type : Coffee Frequency : Daily Amount : 6 cups Last Use : 08/30/2015 GISSELLE VÁZQUEZ LPN - 08/31/2015 10:27 CDT Recreational Drug Use Grid Drug Use : None GISSELLE VÁZQUEZ LPN - 08/31/2015 10:27 CDT Source: [employer] Document Id: [id number] documented in this encounter Plan of Treatment Not on filedocumented as of this encounter Visit Diagnoses Not on filedocumented in this encounter Additional Health Concerns Assessment Noted Time PHQ-9 Depression Total Score: 1 07/17/2013 10:14 AM CD T documented as of this encounter
--- OUTSIDE RECORDS SUMMARY | 2021-11-24 08:49 | XMS_ITS | Encounter Summary ---
:1955 Author Organization [facility] Address [address] [place] [address] Care Team Providers Name Role Phone Unavailable Primary Care Provider Unavailable Encounter Details Date Type Department Care Team Description 06/25/2014 Hospital Encounter HX [facility] MyrChristiana franco, TALENT ACQUISITION ASSOCIATE, C.N.P. [address] [place] [address] (Wo rk) Social History Tobacco [...] How often do you attend mandaeism or sikhism services? 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 documented as of this encounter Last Filed Vital Signs Vital Sign Reading Time Taken Comments Blood Pressure 134/84 06/25/2014 8:07 AM CDT Pulse 72 06/25/2014 8:07 AM CDT Temperature - - Respiratory Rate 20 06/25/2014 8:07 AM CDT Oxygen Saturation - - Inhaled Oxygen Concentration - - Weight 118 kg (261 lb 3.9 oz) 06/25/2014 8:07 AM CDT Height 186 cm (6' 1.23) 06/25/2014 8:07 AM CDT Body Mass Index 34.25 06/25/2014 8:07 AM CDT documented in this encounter Medications at Time of Discharge Medication Sig Dispensed Refills Start Date End Date gemfibrozil (for_LOPID) Take 600 mg by 0 08/05/19 10 10/10/2017 600 mg tablet mouth. documented as of this encounter Progress Notes Elle Mills, AURELIO, CFrederickNFrederickP. - 06/25/2014 7:51 AM CDT [id number] CHIEF COMPLAINT/REASON FOR VISIT 1. Diabetes type 2, uncontrolled. 2. Hyperlipidemia. 3. Hypertension. HISTORY OF PRESENT ILLNESS 1. Hugh is here for diabetes recheck. He had labs done yesterday. His A1c is elevated at 8.2. Today we discussed increasing his Lantus insulin from 20 units to 25 units. He will continue with glimepiride 8 mg at breakfast and metformin 2000 mg at supper. Will plan to recheck A1c in 3 months. He is duefor dilated eye exam. Diabetes education and foot exam will be done today. 2. Hyperlipidemia. Fasting lipids show LDL at goal at 41. He is on statin. 3. Hypertension. Blood pressure at goal. Currently on losartan 50 mg daily. Will refill that today. BMP within normal limits. MEDICATIONS See depart summary from today. ALLERGIES None. SYSTEMS REVIEW Positive for that mentioned in the history of present illness and noted in the past medical history in the EMR. All other systems were reviewed and were negative. PREVENTIVE Will schedule for dilated eye exam. SOCIAL HISTORY He does not smoke. FAMILY HISTORY Reviewed per EMR on 06/25/2014. VITAL SIGNS See EMR. PHYSICAL EXAMINATION Well-developed, well-nourished male, in no acute distress. SKIN: Warm and dry. HEENT: TMs clear. Throat clear. NECK: Supple. LUNGS: Clear to auscultation. HEART: Regular rate and rhythm. ABDOMEN: Soft, nontender. No hepatosplenomegaly. EXTREMITIES: Warm, dry, no peripheral edema. Normal sensation tops and bottoms of feet with monofilament. IMPRESSION/REPORT/PLAN 1. Diabetes type 2, uncontrolled. Increasing Lantus to 25 units at bedtime. He will call me in 1 week with fasting glucose results, will continue to adjust insulin as needed. Continue with glimepiride 8 mg in the morning and metformin 2000 mg at supper. Schedule dilated eye exam. Return for A1c in 3 months. 2. Hyperlipidemia. Lipids at goal. Continue with atorvastatin daily and will plan to recheck lipids again in a year. 3. Hypertension. Blood pressure at goal. No changes. Continue losartan 50 mg daily. Elle Mills CNP/jesus Electronically Signed By: ELLE MILLS CNP On: 06/25/2014 10:55 AM Source: [facility] MHSDOLBEYNONRADSYS Document Id: [id number] documented in this encounter Nursing Notes Elle Mills APRN, C.N.P. 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) Ranch Helper Intake (Adult) Entered On: 06/25/2014 8:32 CDT Performed On: 06/25/2014 8:32 CDT by ELLE MILLS CNP Assessment Program Type : Non-Program Diabetes Referring Provider : ELLE MILLS CNP Special needs : None Method Used for DSME : Individual Last Educator Visit Date : 06/25/2014 CDT Diabetes Type : Type 2 19 years and older Ethnicity : White/ Diabetes Onset : 1997 Current Treatment : Insulin pen, Oral agents Medication Compliance : Takes meds as prescribed Diabetes Medications Reviewed : Yes Medication Categories : Biguanide, Insulin, Sulfonylurea GENE ELLE Odonnell [facility] - 06/25/2014 8:32 CDT Foot Problems No foot problems : Left, Right BENJAMÍNJONATHAN ELLE Odonnell [facility] - 06/25/2014 8:32 CDT Dilated eye exam every year : Yes Exercise Type : Walking Exercise Frequency : 2-3 times per week Duration : 15-30 minutes Time Spent With Patient : 15 Minutes ELLE MILLS [facility] - 06/25/2014 8:32 CDT Education Diabetes Education Grid Topics : Medications/Effectiveness - Insulin Dose Adjustment, Problem Solving/Goal Setting - Compliance Strategies Individuals Taught : Patient Barriers to Learning : None evident Teaching Method : Explanation Teaching Evaluation : Verbalizes understanding ELLE MILLS [facility] - 06/25/2014 8:32 CDT Comprehensive Program Goals Diabetes Education Goals Grid Diabetes Education Goal #1 row Diabetes Education Goal #2 row Diabetes Education Goal #3 row Date Goal Set : 06/25/2014 CDT 06/25/2014 CDT 06/25/2014 CDT Goal : A1c less than 8.0 Blood pressure less than 140/90 LDL less than 100 Related Content Area : Healthy eating Medication Medication ELLE MILLS [facility] - 06/25/2014 8:32 CDT ELLE MILLS [facility] - 06/25/2014 8:32 CDT ELLE MILLS [facility] - 06/25/2014 8:32 CDT Source: [facility] [employer] Document Id: [id number] CDT!43 Elle Mills APRN, C.N.P. - 06/25/2014 8:22 AM CDT Ambulatory Patient Education The following Patient Education Materials have been given to the patient: Patient Education Materials: Nutrition Diabetes: Understanding Carbohydrates, Fats, and Protein Nutrition Diabetes: Understanding Carbohydrates, Fats, and Protein Food is a source of fuel and nourishment for your body. Its also a source of pleasure. Having diabetes doesnt mean you have to eat special foods or give up desserts. Instead, your dietitian can show you how to plan meals to suit your body. To start, learn how different foods affect blood sugar. Carbohydrates Carbohydrates are the main source of fuel for the body. Carbohydrates raise blood sugar. Many peoplethink carbohydrates are only found in pasta or bread. But carbohydrates are actually in many kinds of foods. ?? Sugars occur naturally in foods such as fruit, milk, honey, and molasses. Sugars can also be added to many foods, from cereals and yogurt to candy and desserts. Sugars raise blood sugar. ?? Starches are found in bread, cereals, pasta, and dried beans. Theyre also found in corn, peas, potatoes, yam, acorn squash, and butternut squash. Starches also raise blood sugar. ?? Fiber is found in foods such as vegetables, fruits, and whole grains. Unlike other carbs, fiber isnt digested or absorbed. So it doesnt raise blood sugar. In fact, fiber can help keep blood sugar from rising too fast. It also helps keep blood cholesterol at a healthy level. Did You Know? Even though carbohydrates raise blood sugar, its best to have some in every meal. Theyare an important part of a healthy diet. Fat Fat is an energy source that can be stored until needed. Fat does not raise blood sugar. However, itcan raise blood cholesterol, increasing the risk of heart disease. Fat is also high in calories, which can cause weight gain. Not all types of fat are the same. More Healthy ?? Monounsaturated fats are mostly found in vegetable oils such as olive, canola, and peanut oils. They are also found in avocados and some nuts. Monounsaturated fats are healthy for your heart. Thats because they lower LDL (unhealthy) cholesterol. ?? Polyunsaturated fats are mostly found in vegetable oils such as corn, safflower, and soybean oils. They are also found in some seeds, nuts, and fish. Polyunsaturated fats lower LDL (unhealthy) cholesterol. So, choosing them instead of saturated fats is healthy for your heart. Less Healthy ?? Saturated fats are found in animal products such as meat, poultry, whole milk, lard, and butter. Saturated fats raise LDL cholesterol and are not healthy for your heart. ?? Hydrogenated oils and trans fats are formed when vegetable oils are processed into solid fats. They are found in many processed foods. Hydrogenated oils and trans fats raise LDL cholesterol and lower HDL (healthy) cholesterol. They are not healthy for your heart. Protein Protein helps the body build and repair muscle and other tissue. Protein has little or no effect on blood sugar. However, many foods that contain protein also contain saturated fat. By choosing low-fatprotein sources, you can get the benefits of protein without the extra fat. ?? Plant protein is found in dry beans and peas, nuts, and soy products such as tofu and soymilk. These sources tend to be cholesterol-free and low in saturated fat. ?? Animal protein is found in fish, poultry, meat, cheese, milk, and eggs. These contain cholesteroland can be high in saturated fat. Aim for lean, lower-fat choices. ?? [id number] [place] [address]. All rights reserved. This information is not intended as a substitute for professional medical care. Always follow your healthcare professional's instructions. This document has images extracted. Please consider using [employer]oneymeets for all your patient education needs. Source: [facility] Document Id: [id number] documented in this encounter Miscellaneous Notes Miscellaneous - Elle Mills APRN, C.N.P. - 06/25/2014 8:30 AM CDT Quality Measures Quality Measures Entered On: 06/25/2014 8:31 CDT Performed On: 06/25/2014 8:30 CDT by ELLE MILLS CNP Diabetes Date of Last Foot Exam : 06/25/2014 CDT Date of Last Diabetes Education : 06/25/2014 CDT ELLE MILLS CNP - 06/25/2014 8:30 CDT Foot Exam Grid Left foot exam Right foot exam Dorsalis Pedis Pulse : Normal Normal Capillary Refill : Less than 3 seconds Less than 3 seconds 10 gm Monofilament Sensation Check : Intact Intact ELLE MILLS CNP - 06/25/2014 8:30 CDT ELLE MILLS CNP - 06/25/2014 8:30 CDT Source: [employer] Document Id: [id number] CDT!13 Miscellaneous - Elle Mills APRN, C.N.P. - 06/25/2014 8:22 AM CDT Ambulatory Patient Summary [address] [id number] Visit Information Name: HUGH DENNIS [facility] Number: [id number] Current Date: 06/25/2014 08:22:20 Physicians Attending Provider: ELLE MILLS CNP Primary Care Provider: ELLE MILLS DIRECTOR PHARMACEUTICAL HUGH DENNIS has been given the following [...] once a day (at bedtime) Routed to [address] [address] glimepiride (glimepiride 4 mg oral tablet) 2 Tablet(s), Oral, once a day with breakfast [facility] [address] [place] [address] insulin glargine (Lantus Solostar Pen 100 units/mL subcutaneous solution) 25 units, Subcutaneous, once a day (at bedtime) This is a CHANGE Routed to [facility] [address] [place] [address] losartan (losartan 50 mg oral tablet) 1 Tablet(s), Oral, once a day Routed to [facility] [address] [place] [address] metFORMIN (metformin 500 mg oral tablet, extended release) 4 Tablet(s), Oral, Daily Supper with evening meal Routed to [facility] [address] [place] [address] Stop Taking the Following Medications: Medication list as of 06-25-14 08:22 Attention: If you have any medications at [...] Electronically Signed By: ELLE MILLS CNP Signed On:25-JUN-2014 08:21:47 Your Allergies & Intolerances Substance Reaction Symptoms Category Comments No Known Allergies Drug Your Problem List Problem Status Onset Comments Hyperlipidemia Active Hypertension Active Obesity NOS Active Neuropathy Ulnar Nerve Active DM II (or NOS), controlled Active 08/17/1997 Trigger finger Active 03/19/2012 05/09/12 left thumb Low back pain Active 06/08/2012 08/08/12 right Your Upcoming Appointments Date Time Location Provider No Appointments found Attention: Contact your local Clinic if further appointment detail needed. Diabetes: Understanding Carbohydrates, Fats, and Protein Food is a source of fuel and nourishment for your body. Its also a source of pleasure. Having diabetes doesnt mean you have to eat special foods or give up desserts. Instead, your dietitian can show you how to plan meals to suit your body. To start, learn how different foods affect blood sugar. Carbohydrates Carbohydrates are the main source of fuel for the body. Carbohydrates raise blood sugar. Many peoplethink carbohydrates are only found in pasta or bread. But carbohydrates are actually in many kinds of foods. ?? Sugars occur naturally in foods such as fruit, milk, honey, and molasses. Sugars can also be added to many foods, from cereals and yogurt to candy and desserts. Sugars raise blood sugar. ?? Starches are found in bread, cereals, pasta, and dried beans. Theyre also found in corn, peas, potatoes, yam, acorn squash, and butternut squash. Starches also raise blood sugar. ?? Fiber is found in foods such as vegetables, fruits, and whole grains. Unlike other carbs, fiber isnt digested or absorbed. So it doesnt raise blood sugar. In fact, fiber can help keep blood sugar from rising too fast. It also helps keep blood cholesterol at a healthy level. Did You Know? Even though carbohydrates raise blood sugar, its best to have some in every meal. Theyare an important part of a healthy diet. Fat Fat is an energy source that can be stored until needed. Fat does not raise blood sugar. However, itcan raise blood cholesterol, increasing the risk of heart disease. Fat is also high in calories, which can cause weight gain. Not all types of fat are the same. More Healthy ?? Monounsaturated fats are mostly found in vegetable oils such as olive, canola, and peanut oils. They are also found in avocados and some nuts. Monounsaturated fats are healthy for your heart. Thats because they lower LDL (unhealthy) cholesterol. ?? Polyunsaturated fats are mostly found in vegetable oils such as corn, safflower, and soybean oils. They are also found in some seeds, nuts, and fish. Polyunsaturated fats lower LDL (unhealthy) cholesterol. So, choosing them instead of saturated fats is healthy for your heart. Less Healthy ?? Saturated fats are found in animal products such as meat, poultry, whole milk, lard, and butter. Saturated fats raise LDL cholesterol and are not healthy for your heart. ?? Hydrogenated oils and trans fats are formed when vegetable oils are processed into solid fats. They are found in many processed foods. Hydrogenated oils and trans fats raise LDL cholesterol and lower HDL (healthy) cholesterol. They are not healthy for your heart. Protein Protein helps the body build and repair muscle and other tissue. Protein has little or no effect on blood sugar. However, many foods that contain protein also contain saturated fat. By choosing low-fatprotein sources, you can get the benefits of protein without the extra fat. ?? Plant protein is found in dry beans and peas, nuts, and soy products such as tofu and soymilk. These sources tend to be cholesterol-free and low in saturated fat. ?? Animal protein is found in fish, poultry, meat, cheese, milk, and eggs. These contain cholesteroland can be high in saturated fat. Aim for lean, lower-fat choices. ?? [id number] V[employer]ctor Craig, [address] [place] [address], [place] [address]. All rights reserved. This information is not intended as a substitute for professional medical care. Always follow your healthcare professional's instructions. Your Goals/Additional instructions: This document has images extracted. Please consider using moneymeets for all your patient education needs. Source: [facility] POWERCHART Document Id: [id number] Miscellaneous - Elle Mills APRN, C.N.P. - 06/25/2014 8:22 AM CDT Ambulatory Discharge Medication List [address] [id number] Visit Information Name: HUGH DENNIS [facility] Number: [id number] Visit Date: 06/25/2014 08:22:19 Attending Provider: ELLE MILLS CNP Primary Care Provider: ELLE MILLS CNP ABDULLAHILITTLEHUGH RUIZ has been given the following list of [...] once a day (at bedtime) Routed to [address] [address] glimepiride (glimepiride 4 mg oral tablet) 2 Tablet(s), Oral, once a day with breakfast Routed to [address] [address] insulin glargine (Lantus Solostar Pen 100 units/mL subcutaneous solution) 25 units, Subcutaneous, once a day (at bedtime) This is a CHANGE Routed to [facility] [address] [place] [address] losartan (losartan 50 mg oral tablet) 1 Tablet(s), Oral, once a day Routed to [address] [address] metFORMIN (metformin 500 mg oral tablet, extended release) 4 Tablet(s), Oral, Daily Supper with evening meal Routed to [address] [address] Stop Taking the Following Medications: Medication list as of 06-25-14 08:22 Attention: If you have any medications at [...] of emergency. Electronically Signed By: ELLE MILLS DIRECTOR PHARMACEUTICAL Signed On:25-JUN-2014 08:21:47 Additional Information: Source: [facility] POWERCHART Document Id: [id number] Miscellaneous - Christa Swanson, LFrederickPFrederickN. - 06/25/2014 8:07 AM CDT Adult Employment Advisor Intake/History Adult Employment Advisor Intake/History Entered On: 06/25/2014 8:10 CDT Performed On: 06/25/2014 8:07 CDT by CHRISTA SWANSON LPN Intake Chief Complaint : Diabetic check and had labs done yesterday. Thumb on left hand is painful. Temperature Core : 36.6 DegC(Converted to: 97.9 DegF) Peripheral Pulse Rate : 72 /min Respiratory Rate : 20 /min Heart Rhythm : Regular Systolic Blood Pressure : 134 mmHg Diastolic Blood Pressure : 84 mmHg NIBP Mean : 101 mmHg BP Location : Right upper extremity Blood Pressure Cuff Size : Regular Height : 186 cm(Converted to: 6 ft 1 inch(es), 73 inch(es)) Actual Weight : 118.5 kg(Converted to: 261 lb 4 oz) Weight Source : Standing scale Dosing Weight Clinic : 118.5 kg Clinic BSA : 2.47 Body Mass Index : 34.25 kg/m2 CHRISTA SWANSON MAREK 06/25/2014 8:07 CDT General Info Information Given By : Patient Preferred Communication Mode : Verbal Languages : Czech Is Patient Female and 13-50 no hysterectomy : No CHRISTA SWANSON [employer] 06/25/2014 8:07 CDT Subjective Pain Symptoms : Yes CHRISTA SWANSON MAREK 06/25/2014 8:07 CDT Pain Scale Pain Scale Verbal 0-10 : Open CHRISTA SWANSON [employer] 06/25/2014 8:07 CDT Pain Pain Assessment Grid Pain 1 Location : Hand (Comment: Thumb [CHRISTA SWANSON [employer] 06/25/2014 8:07 CDT] ) Laterality : Left Intensity : 5 CHRISTA SWANSON [employer] 06/25/2014 8:07 CDT Dependent Habits Tobacco Use/Currently Using : No Exposure to Tobacco Smoke : Other: Never Smoking Status : Never smoker CHRISTA SWANSON [employer] - 06/25/2014 8:07 CDT Tobacco Use Grid Other Tobacco Frequency : NON Last Use : never CHRISTA SWANSON [employer] 06/25/2014 8:07 CDT Caffeine Use Grid Caffeine Use : Current Type : Coffee Frequency : Daily CHRISTA WSANSON [employer] 06/25/2014 8:07 CDT Recreational Drug Use Grid Drug Use : None CHRISTA SWANSON [employer] 06/25/2014 8:07 CDT ID Screen Travel Within Last 21 Days : No Contact with someone with Ebola : No CHRISTA SWANSON MAREK 06/25/2014 8:07 CDT [facility] Document Id: [id number] CDT!52 documented in this encounter Plan of Treatment Not on filedocumented as of this encounter Visit Diagnoses Not on filedocumented in this encounter Additional Health Concerns Assessment Noted Time PHQ-9 Depression Total Score: 1 07/17/2013 10:14 AM CD T documented as of this encounter
--- OUTSIDE RECORDS SUMMARY | 2021-11-24 08:49 | XMS_ITS | Encounter Summary ---
:1955 Author Organization [facility] Address [address] [place] [address] Care Team Providers Name Role Phone Unavailable Primary Care Provider Unavailable Encounter Details Date Type Department Care Team Description 05/09/2012 Hospital Encounter HX [facility] Karma Philip, Lola MORAES, C.N.P. [address], [place] [phone] (Wo rk) Social History [...] How often do you attend sikh or mormon services? 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 documented as of this encounter Plan of Treatment Not on filedocumented as of this encounter Procedures Procedure Name Priority Date/Time Associated Diagnosis Comme nts HEMOGLOBIN A1C, B Routine 05/09/2012 7:53 AM Resu lts for this HOTEL FRONT DESK AGENT procedure are i n the results section. 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 LAB BLOOD ADD-ON Performing Organization Address City/State/ZIP Code Phon e Number POWERCHART documented in this encounter Visit Diagnoses Not on filedocumented in this encounter
--- OUTSIDE RECORDS SUMMARY | 2021-11-24 08:49 | XMS_ITS | Encounter Summary ---
:1955 Author Organization [facility] Address [address] [place] [address] Care Team Providers Name Role Phone Unavailable Primary Care Provider Unavailable Encounter Details Date Type Department Care Team Description 11/02/2011 Hospital Encounter HX [facility] Elle Mills, Lola MORAES, C.N.P. [address], [place] [phone] (Wo rk) Social History [...] week 06/23/2020 How often do you attend islam or quaker services? Never 06/23/2020 Do you belong to any clubs or organizations such as islam N o 06/23/2020 groups, unions, fraternal or [...] at Date Recorded Male 02/12/2017 11:58 AM [employer] documented as of this encounter Medications at Time of Discharge Medication Sig Dispensed Refills Start Date End Date gemfibrozil (for_LOPID) Take 600 mg by 0 08/05/19 10 10/10/2017 600 mg tablet mouth. documented as of this encounter Miscellaneous Notes Miscellaneous - Elle Mills APRN, C.N.P. - 11/07/2011 9:02 AM CDT Results Notification From: ELLE MILLS CNP To: NIELS MILLER Sent: 11/07/2011 09:02:25 CDT ! Show up: 11/07/2011 14:02:25 [facility] Subject: Results Notification Actions: Notify patient of results Source: [facility] EzeecubeCHART Document Id: [id number] Miscellaneous - Elle Mills APRN, C.N.P. - 11/02/2011 9:40 AM CDT Results Notification From: ELLE MILLS CNP To: NIELS MILLER Sent: 11/02/2011 09:40:18 CDT ! Show up: 11/02/2011 14:40:18 [facility] Subject: Results Notification Actions: Notify patient of results Source: [facility] POWERCHART Document Id: [id number] documented in this encounter Plan of Treatment Not on filedocumented as of this encounter Procedures Procedure Name Priority Date/Time Associated Comments Diagnosis ALBUMIN, RANDOM, U Routine 11/02/2011 11:51 Resul ts for this AM CDT procedure are i n the results section. LIPID PANEL, S Routine 11/02/2011 7:11 Results fo r this AM CDT procedure are i n the results section. ASPARTATE Routine 11/02/2011 7:11 Results for this AMINOTRANSFERASE (AST), AM CDT proc edure are in S/P the results section. HEMOGLOBIN A1C, B Routine 11/02/2011 7:11 Results for this AM CDT procedure are i n the results section. BASIC METABOLIC PANEL, Routine 11/02/2011 7:11 Re sults for this S/P AM CDT procedure are i n the results section. documented in this encounter Results Microalbumin, Random, Urine (11/02/2011 11:51 AM CDT) P athologist Signature HXU Albumin % 17 MGDL POWERCHART Creatinine, 195 MGDL POWERCHART Random, U Albumin/Creatin 9 0 - 17 MGGM POWERCHART ine Ratio Specimen (Source) Anatomical Collection Method Collection Time Re ceived Time Location / / Volume Laterality Urine 11/02/2011 11:51 AM CDT Elle Mills APRN, C.N.P. LAB URINE ORDERABLES Performing Organization Address City/State/ZIP Code Phon e Number POWERCHART AST (Aspartate Aminotransferase) (11/02/2011 7:11 AM CDT) Patholo gist Method Time Signature Aspartate 19 8 - 48 POWERCHART Aminotransferase UNITL (AST), S Specimen (Source) Anatomical Collection Method Collection Time Re ceived Time Location / / Volume Laterality Blood 11/02/2011 7:11 AM CDT Elle Mills APRN, C.N.P. LAB BLOOD ADD-ON Performing Organization Address City/[facility]/ZIP Code Phon e Number POWERCHART Lipid Panel (11/02/2011 7:11 AM CDT) Analysis Performed At Patho logist Time Signature Cholesterol, Total 154 0 - 200 POWERCHART MGDL HX HDL 42.0 40.0 - POWERCHART 60.0 MGDL Triglycerides 131 0 - 150 POWERCHART MGDL Calculated LDL 86 0 - 100 POWERCHART MGDL Specimen (Source) Anatomical Collection Method Collection Time Re ceived Time Location / / Volume Laterality Blood 11/02/2011 7:11 AM CDT Elle Mills APRN, C.N.P. LAB BLOOD ADD-ON Performing Organization Address City/State/ZIP Code Phon e Number POWERCHART (ABNORMAL) Hemoglobin A1c (11/02/2011 7:11 AM CDT) P athologist Signature Hemoglobin A1c, 7.8 (H) 4.0 - 6.0 POWERCHART B Specimen (Source) Anatomical Collection Method Collection Time Re ceived Time Location / / Volume Laterality Blood 11/02/2011 7:11 AM CDT Elle Mills APRN, C.N.P. LAB BLOOD ADD-ON Performing Organization Address City/State/ZIP Code Phon e Number POWERCHART (ABNORMAL) BMP (Basic Metabolic Panel) (11/02/2011 7:11 AM CDT) P athologist Signature BUN (Blood Urea 12 7 - 23 POWERCHART Nitrogen), S MGDL Creatinine 1.0 0.9 - 1.4 POWERCHART MGDL Potassium, S 4.6 3.5 - 4.8 POWERCHART MMOLL Sodium, S 141 135 - 145 POWERCHART MMOLL Chloride, S 105 100 - 108 POWERCHART MMOLL CO2 Total 26 22 - 29 POWERCHART MMOLL Calcium, Total, 9.2 8.5 - 10.5 POWERCHART S MGDL BUN/Creatinine 12 POWERCHART Ratio eGFR >60 MLMIN POWERCHART Black/ Glucose, 220 (H) 70 - 99 POWERCHART Fasting, S MGDL HXeGFR (MDRD) >60 MLMIN POWERCHART Specimen (Source) Anatomical Collection Method Collection Time Re ceived Time Location / / Volume Laterality Blood 11/02/2011 7:11 AM CDT Elle Mills APRN, C.N.P. LAB BLOOD ADD-ON Performing Organization Address City/State/ZIP Code Phon e Number POWERCHART documented in this encounter Visit Diagnoses Not on filedocumented in this encounter
--- OUTSIDE RECORDS SUMMARY | 2021-11-24 08:49 | XMS_ITS | Encounter Summary ---
:1955 Author Organization [facility] Address [address] [place] [address] Care Team Providers Name Role Phone Unavailable Primary Care Provider Unavailable Encounter Details Date Type Department Care Team Description 09/02/2015 Hospital Encounter HX [facility] MyrChristiana franco, PRODUCTION SPECIALIST, C.N.P. [address] [place] [address] (Wo rk) Social History Tobacco [...] How often do you attend mu-ism or jain services? 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 documented as of this encounter Last Filed Vital Signs Vital Sign Reading Time Taken Comments Blood Pressure 138/78 09/02/2015 8:28 AM CDT Pulse 68 09/02/2015 8:25 AM CDT Temperature - - Respiratory Rate 16 09/02/2015 8:25 AM CDT Oxygen Saturation - - Inhaled Oxygen Concentration - - Weight 118 kg (259 lb 0.7 oz) 09/02/2015 8:25 AM CDT Height 186 cm (6' 1.23) 09/02/2015 8:28 AM CDT Body Mass Index 33.96 09/02/2015 8:25 AM CDT documented in this encounter Medications at Time of Discharge Medication Sig Dispensed Refills Start Date End Date aspirin [address] tablet Take 1 tablet by 0 2015 mouth daily. gemfibrozil (for_LOPID) Take 600 mg by 0 08/05/19 10 10/10/2017 600 mg tablet mouth. documented as of this encounter Progress Notes Elle Philip, AURELIO, C.N.P. - 09/02/2015 9:01 AM CDT Clinic Full Note CHIEF COMPLAINT/REASON FOR VISIT Diabetic check. Not fasting. Needs refills. No other concerns. HISTORY OF PRESENT ILLNESS Hugh is here for diabetes recheck. States blood sugars have been stable mostly between 90 and 136..Due for diabetes foot exam and education today. Labs will be drawn. Needs medication refills. Scheduled for eye exam in 2 days. MEDICATIONS aspirin 81 mg oral tablet, 81 mg, 1 tab(s), PO, Daily atorvastatin 20 mg oral tablet, 20 mg, 1 tab(s), Need appt and labs..., PO, Bedtime, 0 refills clindamycin 300 mg oral capsule, 300 mg, 1 cap(s), PO, q6hr, 0 refills glimepiride 4 mg oral tablet, 8 mg, 2 tab(s), with breakfastDUE FOR APPOINTMENT AND FASTING LABS, PO, Daily, 0 refills Januvia 100 mg oral tablet, 100 mg, 1 tab(s), PO, Daily, 0 refills Lantus Solostar Pen 100 units/mL subcutaneous solution, 35 units, Subcut., Bedtime, 3 refills losartan 50 mg oral tablet, 50 mg, 1 tab(s), Need appt and labs..., PO, Daily, 0 refills metFORMIN 500 mg oral tablet, extended release, 2,000 mg, 4 tab(s), with evening mealDUE FOR APPOINTMENT AND FASTING LABS., PO, Daily Supper, 0 refills mupirocin 2% topical ointment, 1 radha, Topical, 3xDay, 0 refills ALLERGIES NKA PAST MEDICAL HISTORY Chronic DM II (or NOS), controlled DM II (or NOS), uncontrolled Hyperlipidemia Hypertension [facility] Use Of Insulin Active Low back pain [...] (08/18/2003), Herniorrhaphy (08/17/2001). SOCIAL HISTORY Date Time: 09/02/2015 08:25 Tobacco: Smoking Status: Never smoker Exposure: Other: Never Alcohol: Use: No Results Found Recreational Drugs: Use: None Type: No Results Found FAMILY HISTORY Mother:Positive: Degenerative joint disease Father ( at 64 year(s)):Positive: Diabetes mellitus; Hyperlipidemia; Hypertension; Myocardial infarction Sister: Negative: Brother: Negative: HEALTH MAINTENANCE Due for eye exam. SYSTEMS REVIEW Positive for that mentioned in the History of Present Illness and Past Medical History. All other systems were reviewed and were negative. VITAL SIGNS T: 36.8 ??C (Core) HR: 68 RR: 16 BP: 138 / 78 HT: 186 cm WT: 117.5 kg BMI: 33.96 PHYSICAL EXAMINATION GENERAL: Well-developed, well-nourished, in no acute distress. SKIN: Warm and dry. HEENT: TMs clear. Throat clear. NECK: Supple. No lymphadenopathy or thyromegaly. HEART: Regular rate and rhythm. S1, S2. No murmur. LUNGS: Clear to auscultation. No wheezes or rales. ABDOMEN: Soft, nontender. No hepatosplenomegaly. EXTREMITIES: Warm, dry. No peripheral edema. Normal sensation tops and bottoms of feet with monofilament. LAB RESULTS A1c, BMP, micoralbumin, Lipids and AST are pending. IMPRESSION/REPORT/PLAN DM II (or NOS), uncontrolled Continue working on diet and exercise. Diabetes education done today. Please see Operations Manager/Coordinator Intake form in the Electronic Health Record. Medication refills provided. Send eye exam report to ouroffice. Recheck in 3 months. Ordered: OV Est Pt Level 4 - 84126 - 25 min Hyperlipidemia Stable on atorvastatin without adverse effects. Refill provided. Ordered: OV Est Pt Level 4 - 25026 - 25 min Hypertension Stable, no change in medication. Refills provided. 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 Ordered: OV Est Pt Level 4 - 84478 - 25 min Orders: atorvastatin, 20 mg = 1 tab(s), PO, Bedtime, # 90 tab(s), 1 Refill(s), Maintenance, Pharmacy: [facility] glimepiride, 8 mg = 2 tab(s), PO, Daily, with breakfast, # 180 tab(s), 1 Refill(s), Pharmacy: [facility] insulin glargine, 35 units, Subcut., Bedtime, # 45 mL, 3 Refill(s), Pharmacy: [facility] losartan, 50 mg = 1 tab(s), PO, Daily, # 90 tab(s), 1 Refill(s), Pharmacy: [facility] metFORMIN, 2,000 mg = 4 tab(s), PO, Daily Supper, with evening meal, # 360 tab(s), 1 Refill(s), Pharmacy: [facility] sitaGLIPtin, 100 mg = 1 tab(s), PO, Daily, # 90 tab(s), 1 Refill(s), Maintenance, [facility]: [facility] AST Basic Metabolic Panel, Fasting* Hemoglobin A1c Lipid Panel* UR Microalbumin Random Electronically Signed By: ELLE PHILIP APRN, CNP On: 09/02/2015 09:06 AM Source: [facility] POWERCHART Document Id: [id number] documented in this encounter Nursing Notes Elle Philip APRN C.N.P. - 09/02/2015 9:07 AM CDT Operations Manager/Coordinator Intake (Adult) Operations Manager/Coordinator Intake (Adult) Entered On: 09/02/2015 9:08 CDT Performed On: 09/02/2015 9:07 CDT by ELLE PHILIP APRN, CNP Assessment Program Type : Non-Program Diabetes Referring Provider : ELLE PHILIP CNP Special needs : None Method Used for DSME : Individual Last Educator Visit Date : 09/02/2015 CDT Diabetes Type : Type 2 19 years and older Ethnicity : White/ Diabetes Onset : 1997 Current Treatment : Insulin pen, Oral agents Medication Compliance : Takes meds as prescribed Diabetes Medications Reviewed : Yes Medication Categories : Biguanide, Insulin, Sulfonylurea ELLE PHILIP APRN, CNP - 09/02/2015 9:07 CDT Foot Problems No foot problems : Left, Right ELLE PHILIP APRN, CNP - 09/02/2015 9:07 CDT Dilated eye exam every year : Yes Exercise Type : Walking Exercise Frequency : 2-3 times per week Duration : 15-30 minutes Time Spent With Patient : 15 Minutes ELLE PHILIP APRN, CNP - 09/02/2015 9:07 CDT Education Diabetes Education Grid Topics : Medications/Effectiveness - Oral Agents, Monitoring - Blood Glucose, Using Results - Blood Glucose, Problem Solving/Goal Setting - Compliance Strategies Individuals Taught : Patient Barriers to Learning : None evident Teaching Method : Explanation, Printed materials Teaching Evaluation : Verbalizes understanding ELLE PHILIP APRN, CNP - 09/02/2015 9:07 CDT Comprehensive Program Goals Diabetes Education Goals Grid Diabetes Education Goal #1 row Diabetes Education Goal #2 row Diabetes Education Goal #3 row Date Goal Set : 09/02/2015 CDT 09/02/2015 CDT 09/02/2015 CDT Goal : A1c less than 7-8 Blood pressure less than 140/90 On statin therapy Related Content Area : Healthy eating Medication Medication ELLE PHILIP APRN [facility] - 09/02/2015 9:07 CDT ELLE PHILIP APRN [facility] - 09/02/2015 9:07 CDT ELLE PHILIP APRN [facility] - 09/02/2015 9:07 CDT Source: [facility] POWERCHART Document Id: [id number] CDT!43 Elle Philip APRN, C.N.P. - 09/02/2015 8:49 AM CDT Ambulatory Patient Education The following Patient Education Materials have been given to the patient: Patient Education Materials: Ambulatory HYPERTENSION, Established Ambulatory High Blood Pressure --Established High Blood Pressure (Hypertension) is a chronic disease. The cause is unknown in most cases. It can usually be controlled with lifestyle changes and/or medicines. Symptoms of high blood pressure may include headache, dizziness, visual changes, chest pain and shortness of breath. Sometimes it causes no symptoms at all. However, even if there are no symptoms, untreated high blood pressure increases therisk of heart attack, also known as acute myocardial infarction, or AMI, and stroke. It is a serioushealth risk and should not be ignored. A normal blood pressure is 120/80 or less. The first (top) number is the systolic pressure. The second (bottom) number is the diastolic pressure. Hypertension exists when either the top number is 140 or higher, OR the bottom number is 90 or higher on repeated measurements. Home Care: All patients with high blood pressure should do the following to lower their pressure. If you are onmedicines, then these methods may reduce or eliminate your need for medicines in the future. Begin a weight loss program if you are overweight. Reduce your salt intake. ?? Avoid high salt foods (olives, pickles, smoked meats, salted potato chips, etc.). ?? Do not add salt to your food at the table. ?? Use only small amounts of salt when cooking. Begin an exercise program. Discuss with your doctor what type of exercise program would be best for you. It doesn't have to be difficult. Even brisk walking for 20 minutes three times a week is a good form of exercise. Avoid medicines which contain heart stimulants. This includes many cold and sinus decongestant pillsand sprays as well as diet pills. Check the warnings about hypertension on the label. Stimulants such as amphetamine or cocaine could be lethal for someone with hypertension. Never take these. Limit your caffeine intake or switch to caffeine-free products. Stop smoking. If you are a long-time smoker, this can be hard. Enroll in a stop- smoking program to improve your chance of success. Learning how to handle stress better is an important part of any program to lower blood pressure. Learn about relaxation methods such as meditation, yoga or biofeedback. If medicines were prescribed, take them exactly as directed. Missing doses may cause your blood pressure get out of control. Consider buying an automatic blood pressure machine (available at most pharmacies). Use this to monitor your blood pressure at home and report the results to your doctor. Follow Up: Regular visits to your own physician for blood pressure checks and medicine adjustment is an important part of your care. Make a follow-up appointment as directed by our staff. Get Prompt Medical Attention if any of the following occur: ?? Chest pain or shortness of breath ?? Severe headache ?? Throbbing or rushing sound in the ears ?? Nosebleed ?? Sudden severe abdominal pain ?? Extreme drowsiness, confusion or fainting ?? Dizziness or vertigo (dizziness with spinning sensation) ?? Weakness of an arm or leg or one side of the face ?? Difficulty with speech or vision ?? [id number] [place] [address]. All rights reserved. This information is not intended as a substitute for professional medical care. Always follow your healthcare professional's instructions. This document has images extracted. Please consider using [employer] for all your patient education needs. Source: [facility] POWERCHART Document Id: [id number] documented in this encounter Miscellaneous Notes Miscellaneous - Elle Philip APRN, C.N.P. - 09/02/2015 9:06 AM CDT Quality Measures Quality Measures Entered On: 09/02/2015 9:07 CDT Performed On: 09/02/2015 9:06 CDT by ELLE PHILIP APRN, CNP Diabetes Date of Last Foot Exam : 09/02/2015 CDT Date of Last Diabetes Education : 09/02/2015 CDT ELLE PHILIP APRN, CNP - 09/02/2015 9:06 CDT Foot Exam Grid Left foot exam Right foot exam Dorsalis Pedis Pulse : Normal Normal Capillary Refill : Less than 3 seconds Less than 3 seconds 10 gm Monofilament Sensation Check : Intact Intact ELLE PHILIP APRN MEDICAL SALES REPRESENTATIVE - 09/02/2015 9:06 CDT ELLE PHILIP APRN MEDICAL SALES REPRESENTATIVE - 09/02/2015 9:06 CDT Source: [employer] Document Id: [id number] CDT!13 Miscellaneous - Augustus Swanson L.P.NFrederick - 09/02/2015 8:51 AM CDT PHQ-9 PHQ-9 Entered On: 09/02/2015 8:53 CDT Performed On: 09/02/2015 8:51 CDT by AUGUSTUS SWANSON LPN PHQ-9 Little interest or pleasure in doing things : Not at all Feeling down, depressed, or hopeless : Not at all Trouble falling or staying asleep, or sleeping too much : Not at all Feeling tired or having little energy : Not at all Poor appetite or overeating : Not at all Feeling bad about yourself or that you are a failure : Not at all Trouble concentrating on things : Not at all Moving or speaking slowly; restless or fidgety : Not at all Thoughts that you would be better off /hurting self : Not at all PHQ-9 Calculated Score : 0 AUGUSTUS SWANSON LPN - 09/02/2015 8:51 CDT Source: [employer] Document Id: [id number] CDT!12 Miscellaneous - Elle Philip APRN, C.NFrederickP. - 09/02/2015 8:49 AM CDT Ambulatory Patient Summary [address] [place], [place] [id number] Visit Information Name: HUGH DENNIS [facility] Number: [id number] Current Date: 09/02/2015 08:49:30 Physicians Attending Provider: ELLE PHILIP APRN, CNP Primary Care Provider: ELLE PHILIP APRN MEDICAL SALES REPRESENTATIVE HUGH DENNIS has been given the following [...] once a day (at bedtime) Routed to [address] [address] clindamycin (clindamycin 300 mg oral capsule) 1 cap, Oral, every 6 hours x 10 day(s) glimepiride (glimepiride 4 mg oral tablet) 2 Tablet(s), Oral, once a day with breakfast This is a CHANGE Routed to [facility] [address] [place] [address] insulin glargine (Lantus Solostar Pen 100 units/mL subcutaneous solution) 35 units, Subcutaneous, once a day (at bedtime) Routed to [address] [address] losartan (losartan 50 mg oral tablet) 1 Tablet(s), Oral, once a day Routed to [facility] [address] [place], [place] [id number] metFORMIN (metFORMIN 500 mg oral tablet, extended release) 4 Tablet(s), Oral, Daily Supper with evening meal This is a CHANGE Routed to [facility] [address] [place] [address] mupirocin topical (mupirocin 2% topical ointment) 1 radha, Topical, three times a day x 7 day(s) sitaGLIPtin (Januvia 100 mg oral tablet) 1 Tablet(s), Oral, once a day Routed to [facility] [address] [place] [address] Stop Taking the Following Medications: Medication list as of 09-02-15 08:49 Attention: If you have any medications at home that are not on this list, DO NOT take them until youcontact your provider for clarification. Give a copy of your medication list to your primary care provider. Update your medication list any time medications or doses are changed and carry your medication list at all times in case of emergency. 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 High Blood Pressure --Established High Blood Pressure (Hypertension) is a chronic disease. The cause is unknown in most cases. It can usually be controlled with lifestyle changes and/or medicines. Symptoms of high blood pressure may include headache, dizziness, visual changes, chest pain and shortness of breath. Sometimes it causes no symptoms at all. However, even if there are no symptoms, untreated high blood pressure increases therisk of heart attack, also known as acute myocardial infarction, or AMI, and stroke. It is a serioushealth risk and should not be ignored. A normal blood pressure is 120/80 or less. The first (top) number is the systolic pressure. The second (bottom) number is the diastolic pressure. Hypertension exists when either the top number is 140 or higher, OR the bottom number is 90 or higher on repeated measurements. Home Care: All patients with high blood pressure should do the following to lower their pressure. If you are onmedicines, then these methods may reduce or eliminate your need for medicines in the future. Begin a weight loss program if you are overweight. Reduce your salt intake. ?? Avoid high salt foods (olives, pickles, smoked meats, salted potato chips, etc.). ?? Do not add salt to your food at the table. ?? Use only small amounts of salt when cooking. Begin an exercise program. Discuss with your doctor what type of exercise program would be best for you. It doesn't have to be difficult. Even brisk walking for 20 minutes three times a week is a good form of exercise. Avoid medicines which contain heart stimulants. This includes many cold and sinus decongestant pillsand sprays as well as diet pills. Check the warnings about hypertension on the label. Stimulants such as amphetamine or cocaine could be lethal for someone with hypertension. Never take these. Limit your caffeine intake or switch to caffeine-free products. Stop smoking. If you are a long-time smoker, this can be hard. Enroll in a stop- smoking program to improve your chance of success. Learning how to handle stress better is an important part of any program to lower blood pressure. Learn about relaxation methods such as meditation, yoga or biofeedback. If medicines were prescribed, take them exactly as directed. Missing doses may cause your blood pressure get out of control. Consider buying an automatic blood pressure machine (available at most pharmacies). Use this to monitor your blood pressure at home and report the results to your doctor. Follow Up: Regular visits to your own physician for blood pressure checks and medicine adjustment is an important part of your care. Make a follow-up appointment as directed by our staff. Get Prompt Medical Attention if any of the following occur: ?? Chest pain or shortness of breath ?? Severe headache ?? Throbbing or rushing sound in the ears ?? Nosebleed ?? Sudden severe abdominal pain ?? Extreme drowsiness, confusion or fainting ?? Dizziness or vertigo (dizziness with spinning sensation) ?? Weakness of an arm or leg or one side of the face ?? Difficulty with speech or vision ?? [id number] V[address]ctor Craig, [address] [place] [address], [place] [address]. All rights reserved. This information is not [...] you dont have one. Go to [email or web address] and click on Create Your Account. Then, follow the directions to complete the online form. Youll be asked for your [facility] number which you can find at the top of this document. Your Goals/Additional instructions: This document has images extracted. Please consider using [employer] for all your patient education needs. Source: [facility] POWERCHART Document Id: [id number] Miscellaneous - Elel Philip APRN, C.N.P. - 09/02/2015 8:49 AM CDT Ambulatory Discharge Medication List [address] [id number] Visit Information Name: HUGH DENNIS [facility] Number: [id number] Visit Date: 09/02/2015 08:49:29 Attending Provider: ELLE PHILIP APRN MEDICAL SALES REPRESENTATIVE Primary Care Provider: ELLE PHILIP APRN MEDICAL SALES REPRESENTATIVE HUGH DENNIS has been given the following [...] once a day (at bedtime) [place] [address] clindamycin (clindamycin 300 mg oral capsule) 1 cap, Oral, every 6 hours x 10 day(s) glimepiride (glimepiride 4 mg oral tablet) 2 Tablet(s), Oral, once a day with breakfast This is a CHANGE Routed to [place] [place] [id number] insulin glargine (Lantus Solostar Pen 100 units/mL subcutaneous solution) 35 units, Subcutaneous, once a day (at bedtime) Routed to [address] [address] losartan (losartan 50 mg oral tablet) 1 Tablet(s), Oral, once a day Routed to [address] [address] metFORMIN (metFORMIN 500 mg oral tablet, extended release) 4 Tablet(s), Oral, Daily Supper with evening meal This is a CHANGE Routed to [address] [address] mupirocin topical (mupirocin 2% topical ointment) 1 radha, Topical, three times a day x 7 day(s) sitaGLIPtin (Januvia 100 mg oral tablet) 1 Tablet(s), Oral, once a day Routed to [address] [address] Stop Taking the Following Medications: Medication list as of 09-02-15 08:49 Attention: If you have any medications at home that are not on this list, DO NOT take them until youcontact your provider for clarification. Give a copy of your medication list to your primary care provider. Update your medication list any time medications or doses are changed and carry your medication list at all times in case of emergency. Electronically Signed By: ELLE PHILIP APRN MEDICAL SALES REPRESENTATIVE Signed On:02-SEP-2015 08:49:01 Additional Information: Source: [facility] [employer] Document Id: [id number] Erikacellrobyn - Augustus Swanson L.P.N. - 09/02/2015 8:28 AM CDT Ambulatory Vitals Height Weight Ambulatory Vitals Height Weight Entered On: 09/02/2015 8:28 CDT Performed On: 09/02/2015 8:28 CDT by AUGUSTUS SWANSON LPN Vitals/Ht/Wt Systolic Blood Pressure : 138 mmHg Diastolic Blood Pressure : 78 mmHg NIBP Mean : 98 mmHg BP Location : Left upper extremity Blood Pressure Cuff Size : Regular Height : 186 cm(Converted to: 6 ft 1 inch(es), 73 inch(es)) AUGUSTUS SWANSON LPN - 09/02/2015 8:28 CDT Source: [facility] [employer] Document Id: [id number] CDT!8 Erikacellaneous - Augustus Swanson L.P.N. - 09/02/2015 8:25 AM CDT Adult Flight Control Tower Operator Intake/History Adult Flight Control Tower Operator Intake/History Entered On: 09/02/2015 8:27 CDT Performed On: 09/02/2015 8:25 CDT by AUGUSTUS SWANSON LPN Intake Chief Complaint : Diabetic check. Not fasting. Needs refills. No other concerns. Temperature Core : 36.8 DegC(Converted to: 98.2 DegF) Peripheral Pulse Rate : 68 /min Respiratory Rate : 16 /min Heart Rhythm : Regular Systolic Blood Pressure : 158 mmHg (HI) Diastolic Blood Pressure : 88 mmHg NIBP Mean : 111 mmHg BP Location : Left upper extremity Blood Pressure Cuff Size : Regular Height : 186 cm(Converted to: 6 ft 1 inch(es), 73 inch(es)) Actual Weight : 117.5 kg(Converted to: 259 lb 1 oz) Weight Source : Standing scale Dosing Weight Clinic : 117.5 kg Clinic BSA : 2.46 Body Mass Index : 33.96 kg/m2 AUGUSTUS SWANSON LPN - 09/02/2015 8:25 CDT General Info Information Given By : Patient Preferred Communication Mode : Verbal Languages : Croatian Is Patient Female and 13-50 no hysterectomy : AUGUSTUS Lee LPN - 09/02/2015 8:25 CDT Subjective Pain Symptoms : AUGUSTUS Lee LPN - 09/02/2015 8:25 CDT Dependent Habits Exposure to Tobacco Smoke : Other: Never Smoking Status : Never smoker Tobacco 2A : No Tobacco Use/Currently Using : No Tobacco Use/Last 30 Days : No Tobacco Use/Last 12 months : No AUGUSTUS SWANSON LPN - 09/02/2015 8:25 CDT Caffeine Use Grid Caffeine Use : Current Type : Coffee Frequency : Daily Amount : 6 cups Last Use : 08/30/2015 AUGUSTUS SWANSON LPN - 09/02/2015 8:25 CDT Recreational Drug Use Grid Drug Use : None AUGUSTUS SWANSON LPN - 09/02/2015 8:25 CDT Source: [employer] Document Id: [id number] CDT!42 documented in this encounter Plan of Treatment Not on filedocumented as of this encounter Visit Diagnoses Not on filedocumented in this encounter
--- OUTSIDE RECORDS SUMMARY | 2021-11-24 08:49 | XMS_ITS | Encounter Summary ---
:1955 Author Organization [facility] Address [address] [place] [address] Care Team Providers Name Role Phone Unavailable Primary Care Provider Unavailable Encounter Details Date Type Department Care Team Description 07/17/[address] [facility] LAB Karma Philip, Lola MORAES, C.N.P. [address], [place] [phone] (Wo rk) Social History [...] week 06/23/2020 How often do you attend congregational or mosque services? 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 documented as of this encounter Plan of Treatment Not on filedocumented as of this encounter Procedures Procedure Name Priority Date/Time Associated Diagnosis Comme nts HEMOGLOBIN A1C, B Routine 07/17/2013 9:03 AM Resu lts for this CDT procedure are i n the results section. documented in this encounter Results (ABNORMAL) Hemoglobin A1c (07/17/2013 9:03 AM CDT) P athologist Signature Hemoglobin A1c, 7.9 (H) 4.0 - 6.0 POWERCHART B Specimen (Source) Anatomical Collection Method Collection Time Re ceived Time Location / / Volume Laterality Blood 07/17/2013 9:03 AM CDT Karma Philip APRN, C.N.P. LAB BLOOD ADD-ON Performing Organization Address City/State/ZIP Code Phon e Number POWERCHART documented in this encounter Visit Diagnoses Not on filedocumented in this encounter Additional Health Concerns Assessment Noted Time PHQ-9 Depression Total Score: 1 07/17/2013 10:14 AM CD T documented as of this encounter
--- OUTSIDE RECORDS SUMMARY | 2021-11-24 08:49 | XMS_ITS | Encounter Summary ---
:1955 Author Organization [facility] Address [address] [place] [address] Care Team Providers Name Role Phone Unavailable Primary Care Provider Unavailable Encounter Details Date Type Department Care Team Description 07/17/2013 Hospital Encounter HX [facility] Elle Mills, Lola MORAES, C.N.P. [address], [place] [phone] (Wo rk) Social History [...] How often do you attend protestant or episcopal services? 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 documented as of this encounter Miscellaneous Notes Miscellaneous - Elle Mills APRN, C.N.P. - 07/19/2013 3:57 PM CDT Quality Measures Quality Measures Entered On: 07/21/2013 15:57 CDT Performed On: 07/19/2013 15:57 CDT by ELLE MILLS CNP Diabetes Date of Last Eye Exam : 07/19/2013 CDT ELLE MILLS CNP - 07/21/2013 15:57 CDT Source: [facility] [employer] Document Id: [id number] CDT!3 Miscellaneous - Elle Mills APRN, C.N.P. - 07/17/2013 10:49 AM CDT Normal Results Letter 17 Jul 2013 HUGH DENNIS [address] [place] [id number] Dear HUGH DENNIS, I am pleased to report that your results from the following diagnostic test(s) are normal. Please follow up with us as we discussed during your visit or sooner if you have any concerns. If you have questions or concerns, please do not hesitate to call our office. Result Name Current Result Previous Result Normal Range Cholesterol (mg/dL) 135 07/17/2013 (H) 203 02/19/2013 0 - 200 Trig (mg/dL) 100 07/17/2013 (H) 152 02/19/2013 0 - 150 HDL (mg/dL) 51.0 07/17/2013 49.0 02/19/2013 40.0 - 60.0 LDL Calculated (mg/dL) 64 07/17/2013 (H) 124 02/19/2013 0 - 100 Hgb A1c (%) (H) 7.9 07/17/2013 4.0 - 6.0 Sincerely, ELLE MILLS [address] [place] [address] Electronic Signature Electronically Signed By: ELLE MILLS [facility] On: 17 Jul 2013 This document has images extracted. Source: [facility] POWERCHART Document Id: [id number] documented in this encounter Plan of Treatment Not on filedocumented as of this encounter Procedures Procedure Name Priority Date/Time Associated Diagnosis Comme nts LIPID PANEL, S Routine 07/17/2013 9:35 AM Results for this CDT procedure are i n the results section . documented in this encounter Results Lipid Panel (07/17/2013 9:35 AM CDT) Analysis Performed At Patho logist Time Signature Cholesterol, Total 135 0 - 200 POWERCHART MGDL HX HDL 51.0 40.0 - POWERCHART 60.0 MGDL Triglycerides 100 0 - 150 POWERCHART MGDL Calculated LDL 64 0 - 100 POWERCHART MGDL Specimen (Source) Anatomical Collection Method Collection Time Re ceived Time Location / / Volume Laterality Blood 07/17/2013 9:35 AM CDT Elle Mills RESIDENTIAL TECH, C.N.P. LAB BLOOD ADD-ON Performing Organization Address City/State/ZIP Code Phon e Number POWERCHART documented in this encounter Visit Diagnoses Not on filedocumented in this encounter Additional Health Concerns Assessment Noted Time PHQ-9 Depression Total Score: 1 07/17/2013 10:14 AM CD T documented as of this encounter
--- OUTSIDE RECORDS SUMMARY | 2021-11-24 08:49 | XMS_ITS | Encounter Summary ---
:1955 Author Organization [facility] Address [address] [place] [address] Care Team Providers Name Role Phone Unavailable Primary Care Provider Unavailable Encounter Details Date Type Department Care Team Description 02/19/2013 Hospital Encounter HX [facility] FB NURSE ONChristiana Bryant, DEMONSTRATOR ELECTRIC GAS APPLIANCES, C.N.P. [address] [phone] (Wo rk) Social History Tobacco [...] How often do you attend holiness or orthodoxy services? 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 documented as of this encounter Plan of Treatment Not on filedocumented as of this encounter Visit Diagnoses Not on filedocumented in this encounter
--- OUTSIDE RECORDS SUMMARY | 2021-11-24 08:49 | XMS_ITS | Encounter Summary ---
:1955 Author Organization [facility] Address [address] [place] [address] Care Team Providers Name Role Phone Unavailable Primary Care Provider Unavailable Encounter Details Date Type Department Care Team Description 02/19/2013 Hospital Encounter HX [facility] LAB Elle Mills, Lola MORAES, C.N.P. [address], [place] [phone] (Wo rk) Social History [...] How often do you attend rastafarian or muslim services? 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 documented as of this encounter Miscellaneous Notes Miscellaneous - Elle Mills, AURELIO, C.N.P. - 02/24/2013 8:28 AM CST Schedule Follow-Up Visit 24 February 2013 HGUH DENNIS [address] [place] [id number] Dear HUGH DENNIS, Thank you for choosing [...] contact our office. Result Name Current Result Normal Range U Alb/Creatinine Ratio (mg/gm) 16 02/19/2013 0 - 17 Hgb A1c (%) (H) 7.5 02/19/2013 4.0 - 6.0 AST (unit/L) 20 02/19/2013 8 - 48 BUN (mg/dL) 14 02/19/2013 7 - 23 Creatinine (mg/dL) (L) 0.8 02/19/2013 0.9 - 1.4 Potassium Lvl (mmol/L) (H) 5.0 02/19/2013 3.5 - 4.8 Sodium Lvl (mmol/L) 143 02/19/2013 135 - 145 Chloride (mmol/L) 102 02/19/2013 100 - 108 CO2 (mmol/L) 28 02/19/2013 22 - 30 Calcium Lvl (mg/dL) 10.4 02/19/2013 8.5 - 10.5 EGFR (MDRD) (mL/min) >60 02/19/2013 Glucose Fasting (mg/dL) (H) 157 02/19/2013 70 - 99 Cholesterol (mg/dL) (H) 203 02/19/2013 0 - 200 HDL (mg/dL) 49.0 02/19/2013 40.0 - 60.0 Trig (mg/dL) (H) 152 02/19/2013 0 - 150 LDL Calculated (mg/dL) (H) 124 02/19/2013 0 - 100 Sincerely, ELLE MILLS [address] [place] [address] Electronic Signature Electronically Signed By: ELLE MILLS [facility] On: 24 February 2013 This document has images extracted. Source: [facility] POWERCHART Document Id: [id number] Electronically signed by Conversion, [facility] Photographic Machine Operator [id number] at 08/02/2016 11:05 PM CDT documented in this encounter Plan of Treatment Not on filedocumented as of this encounter Procedures Procedure Name Priority Date/Time Associated Diagnosis Comme nts HEMOGLOBIN A1C, B Routine 02/19/2013 11:24 AM Res ults for this HAT CLEANER procedure are i n the results section. documented in this encounter Results (ABNORMAL) Hemoglobin A1c (02/19/2013 11:24 AM HAT CLEANER) P athologist Signature Hemoglobin A1c, 7.5 (H) 4.0 - 6.0 POWERCHART B Specimen (Source) Anatomical Collection Method Collection Time Re ceived Time Location / / Volume Laterality Blood 02/19/2013 11:24 AM HAT CLEANER Elle Mills APRN, C.N.P. LAB BLOOD ADD-ON Performing Organization Address City/State/ZIP Code Phon e Number POWERCHART documented in this encounter Visit Diagnoses Not on filedocumented in this encounter
--- OUTSIDE RECORDS SUMMARY | 2021-11-24 08:49 | XMS_ITS | Encounter Summary ---
:1955 Author Organization [facility] Address [address] [place] [address] Care Team Providers Name Role Phone Unavailable Primary Care Provider Unavailable Encounter Details Date Type Department Care Team Description 02/19/2013 Hospital Encounter HX [facility] LAB Karma Philip, Lola MORAES, C.N.P. [address], [place] [phone] (Wo rk) Social History [...] How often do you attend spiritism or restorationist services? 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 documented as of this encounter Plan of Treatment Not on filedocumented as of this encounter Procedures Procedure Name Priority Date/Time Associated Comments Diagnosis ALBUMIN, RANDOM, U Routine 02/19/2013 11:30 Resul ts for this AM TRAVEL NURSE procedure are i n the results section. LIPID PANEL, S Routine 02/19/2013 11:24 Results f or this AM TRAVEL NURSE procedure are i n the results section. ASPARTATE Routine 02/19/2013 11:24 Results for this AMINOTRANSFERASE (AST), AM TRAVEL NURSE proc edure are in S/P the results section. BASIC METABOLIC PANEL, Routine 02/19/2013 11:24 R esults for this S/P AM TRAVEL NURSE procedure are i n the results section. documented in this encounter Results Microalbumin, Random, Urine (02/19/2013 11:30 AM TRAVEL NURSE) athologist Signature HXU Albumin % 14 MGDL POWERCHART Creatinine, 90 MGDL POWERCHART Random, U Albumin/Creatin 16 0 - 17 MGGM POWERCHART ine Ratio Specimen (Source) Anatomical Collection Method Collection Time Re ceived Time Location / / Volume Laterality Urine 02/19/2013 11:30 AM TRAVEL NURSE Karma Philip APRN, C.N.P. LAB URINE ORDERABLES Performing Organization Address City/State/ZIP Code Phon e Number POWERCHART AST (Aspartate Aminotransferase) (02/19/2013 11:24 AM TRAVEL NURSE) [facility] Method Time Signature Aspartate 20 8 - 48 POWERCHART Aminotransferase UNITL (AST), S Specimen (Source) Anatomical Collection Method Collection Time Re ceived Time Location / / Volume Laterality Blood 02/19/2013 11:24 AM TRAVEL NURSE Karma Philip APRN, C.N.P. LAB BLOOD ADD-ON Performing Organization Address City/State/ZIP Code Phon e Number POWERCHART (ABNORMAL) BMP (Basic Metabolic Panel) (02/19/2013 11:24 AM TRAVEL NURSE) P athologist Signature BUN (Blood Urea 14 7 - 23 POWERCHART Nitrogen), S MGDL Creatinine 0.8 (L) 0.9 - 1.4 POWERCHART MGDL Potassium, S 5.0 (H) 3.5 - 4.8 POWERCHART MMOLL Sodium, S 143 135 - 145 POWERCHART MMOLL Chloride, S 102 100 - 108 POWERCHART MMOLL CO2 Total 28 22 - 30 POWERCHART MMOLL Calcium, Total, 10.4 8.5 - 10.5 POWERCHART S MGDL HXeGFR (MDRD) >60 MLMIN POWERCHART eGFR >60 MLMIN POWERCHART Black/ Glucose, 157 (H) 70 - 99 POWERCHART Fasting, S MGDL Specimen (Source) Anatomical Collection Method Collection Time Re ceived Time Location / / Volume Laterality Blood 02/19/2013 11:24 AM TRAVEL NURSE Karma Philip APRN, C.N.P. LAB BLOOD ADD-ON Performing Organization Address City/State/ZIP Code Phon e Number POWERCHART (ABNORMAL) Lipid Panel (02/19/2013 11:24 AM TRAVEL NURSE) Patholo gist Method Time Signature Cholesterol, Total 203 (H) 0 - 200 POWERCHART MGDL HX HDL 49.0 40.0 - POWERCHART 60.0 MGDL Triglycerides 152 (H) 0 - 150 POWERCHART MGDL Calculated LDL 124 (H) 0 - 100 POWERCHART MGDL Specimen (Source) Anatomical Collection Method Collection Time Re ceived Time Location / / Volume Laterality Blood 02/19/2013 11:24 AM TRAVEL NURSE Karma Philip APRN, C.N.P. LAB BLOOD ADD-ON Performing Organization Address City/State/ZIP Code Phon e Number POWERCHART documented in this encounter Visit Diagnoses Not on filedocumented in this encounter
--- OUTSIDE RECORDS SUMMARY | 2021-11-24 08:49 | XMS_ITS | Encounter Summary ---
:1955 Author Organization [facility] Address [address] [place] [address] Care Team Providers Name Role Phone Unavailable Primary Care Provider Unavailable Encounter Details Date Type Department Care Team Description 08/27/2015 Hospital Encounter HX [facility] Jose Alfredo Mcclellan APRN, C.N.P., M.S.N. [address] [place] [address] (Wo rk) Social History Tobacco Use Types [...] How often do you attend protestant or taoist services? 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 gemfibrozil (for_LOPID) Take 600 mg by 0 08/05/19 10 10/10/2017 600 mg tablet mouth. documented as of this encounter Progress Notes Jose Alfredo Mcclellan, AURELIO, DATA SOFTWARE ENGINEER - 08/27/2015 7:46 AM CDT [id number] CHIEF COMPLAINT/REASON FOR VISIT Rash. HISTORY OF PRESENT ILLNESS A very pleasant, 60-year-old male presents with rash to left side of the face. Patient states it started on Sunday. Describes it as hard red areas. There is 1 larger area that is on the center of his left cheek and on the outer part of his ear. Patient states he does not really have pain per se, it ismore of a numbing feeling or pressure, but he does state that his throat is now becoming sore and heis having some dental pain on the upper gumline and noticed that the red areas are starting to form underneath his molars. He denies any recent illnesses. No fevers, chills, headache, neck pain, chest pain, shortness of breath, abdominal pain, nausea, vomiting, or diarrhea. Patient does have a historyof diabetes. He states his blood sugars have been regularly under 140. He is taking his medications as prescribed which are metformin and glimepiride and Januvia. MEDICATIONS Reviewed today. See EMR medication list. ALLERGIES Reviewed today. See EMR allergy list. SYSTEMS REVIEW Negative except for pertinent positives in HPI. PAST MEDICAL/SURGICAL HISTORY Reviewed today. See EMR history and procedures. SOCIAL HISTORY Reviewed today. No changes. FAMILY HISTORY Reviewed today. No changes. VITAL SIGNS Refer to EMR vital signs flow sheet. PHYSICAL EXAMINATION GENERAL: Well appearing. No distress. HEENT: Ears: left outer ear with reddened hard areas. Ear canal with edema and erythema. Unable to visualize TM due to swelling. Nose: Bilateral nasal turbinates 2+, pink and moist. Oropharynx: Withoutinjection, erythema, edema or exudate. Tongue moist. NECK: Supple. Trachea midline. No lymphadenopathy. CARDIAC: Regular rate and rhythm. Normal S1, S2. No murmurs, rubs, or clicks. LUNGS: Lungs clear without wheezing, rhonchi, or rales. ABDOMEN: Soft. No tenderness on palpation. Normoactive bowel sounds. SKIN: Eraser-sized to approximately quarter-sized red hard areas to the left cheek, left neck and tothe tragus of the ear. IMPRESSION/REPORT/PLAN Skin infection. No areas are open with exudate, unable to culture, however due to his diabetes extensive education regarding skin infection severity that it can lead to discussed heavily. Strongly encouraged patient to go to emergency room if symptoms worsen in any way. If he spiked a fever, felt lethargic, any shortness of breath, further upper respiratory illness such as cough, severe nasal congestion, facial pain, to go ahead and go to emergency room. Did administer ceftriaxone 1 g today and start clindamycin today. Extensive education regarding medication side effects discussed. Strongly encouraged patient to take yogurt every day or take a probiotic to help with any diarrhea or yeast. Strongly encouraged patient to closely monitor his blood sugars as antibiotics can affect the blood sugars as well as illness. He did verbalize good understanding. Strongly encouraged patient to follow up again on Sunday for re-evaluation, and again go to emergency room if symptoms worsen. The patient verbalized good understanding. Ruby Malloy -C./jesus Electronically Signed By: JOSE ALFREDO MCCLELLAN CNP On: 09/12/2015 10:12 AM Modified by and Electronically Signed by: JOSE ALFREDO MCCLELLAN CNP On: 08/31/2015 04:37 PM Source: [facility] Document Id: [id number] documented in this encounter Miscellaneous Notes Miscellaneous - Gisselle Vázquez L.PFrederickNFrederick - 08/27/2015 7:56 AM CDT Adult Manager Economic Intake/History Adult Manager Economic Intake/History Entered On: 08/27/2015 7:58 CDT Performed On: 08/27/2015 7:56 CDT by GISSELLE VÁZQUEZ LPN Intake Chief Complaint : skin infection on left side of face. States sore throat, sore left ear, and teeth are now bothering him. Onset of Symptoms : 08/23/15 Temperature Core : 36.8 DegC(Converted to: 98.2 DegF) Peripheral Pulse Rate : 76 /min Respiratory Rate : 16 /min Systolic Blood Pressure : 136 mmHg [...] 2.47 Body Mass Index : 34.25 kg/m2 GISSELLE VÁZQUEZ LPN - 08/27/2015 7:56 CDT General Info Information Given By : Patient Preferred Communication Mode : Verbal Languages : Faroese Is Patient Female and 11-50 no hysterectomy : No GISSELLE VÁZQUEZ LPN - 08/27/2015 7:56 CDT Subjective Pain Symptoms : No GISSELLE VÁZQUEZ LPN - 08/27/2015 7:56 CDT Dependent Habits Exposure to Tobacco Smoke : Other: Never Smoking Status : Never smoker Tobacco 2A : No Tobacco Use/Currently Using : No Tobacco Use/Last 30 Days : No Tobacco Use/Last 12 months : No Alcohol Use : Yes GISSELLE VÁZQUEZ LPN - 08/27/2015 7:56 CDT Caffeine Use Grid Caffeine Use : Current Type : Coffee Frequency : Daily Amount : 6 cups Last Use : 08/26/2015 GISSELLE VÁZQUEZ LPN - 08/27/2015 7:56 CDT Recreational Drug Use Grid Drug Use : None GISSELLE VÁZQUEZ LPN - 08/27/2015 7:56 CDT Source: [employer] Document Id: [id number] CDT!43 documented in this encounter Plan of Treatment Not on filedocumented as of this encounter Visit Diagnoses Not on filedocumented in this encounter Additional Health Concerns Assessment Noted Time PHQ-9 Depression Total Score: 1 07/17/2013 10:14 AM CD T documented as of this encounter
--- OUTSIDE RECORDS SUMMARY | 2021-11-24 08:50 | XMS_ITS | Encounter Summary ---
:1955 Author Organization [facility] Address [address] [place] [address] Care Team Providers Name Role Phone Unavailable Primary Care Provider Unavailable Encounter Details Date Type Department Care Team Description 08/03/2011 Hospital Encounter HX [facility] MyrChristiana franco, FEATHER EDGER, C.N.P. [address] [place] [address] (Wo rk) Social History Tobacco [...] week 06/23/2020 How often do you attend gnosticism or druze services? 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 documented as of this encounter Last Filed Vital Signs Vital Sign Reading Time Taken Comments Blood Pressure 132/82 08/03/2011 3:10 PM CDT Pulse 60 08/03/2011 3:10 PM CDT Temperature - - Respiratory Rate 16 08/03/2011 3:10 PM CDT Oxygen Saturation - - Inhaled Oxygen Concentration - - Weight 119 kg (262 lb 5.6 oz) 08/03/2011 3:10 PM CDT Height 184 cm (6' 0.44) 08/03/2011 3:10 PM CDT Body Mass Index 35.15 08/03/2011 3:10 PM CDT documented in this encounter Medications at Time of Discharge Medication Sig Dispensed Refills Start Date End Date gemfibrozil (for_LOPID) Take 600 mg by 0 08/05/19 10 10/10/2017 600 mg tablet mouth. documented as of this encounter Progress Notes Elle Mills, AURELIO, CFrederickNFrederickP. - 08/03/2011 12:00 AM CDT [id number] CHIEF COMPLAINT/REASON FOR VISIT 1. Diabetes type 2 uncontrolled. 2. Hyperlipidemia 3. Hypertension. HISTORY OF PRESENT ILLNESS 1. Hugh is here for a recheck. He states blood sugars have been elevated. A1c was done today and is elevated at 8.1. He states he wants to work harder on diet and exercise. He is currently on glimepiride 4 mg daily and metformin 2000 mg daily and Lantus 20 units every night at bedtime. 2. Hypertension. Blood pressure is acceptable today. He is on Losartan 50 mg daily. 3. Hyperlipidemia. Currently on gemfibrozil 600 mg for high triglycerides. He is tolerating it without adverse effects. Last LDL was in April and was 68 with triglycerides of 116. CURRENT MEDICATIONS See depart summary from today. ALLERGIES None. SYSTEMS REVIEW Positive for that mentioned in the history of present illness and noted in the past medical history in the EMR. All other systems reviewed and were negative. PREVENTIVE He was updated on tetanus and pertussis today with Adacel. VITAL SIGNS See EMR PHYSICAL EXAMINATION GENERAL: Well developed well nourished male in no acute distress. SKIN: Warm and dry. ENT: TMs clear. Throat clear. Neck: Supple. No lymphadenopathy or thyromegaly. HEART: Regular rate and rhythm LUNGS: Clear to auscultation. ABDOMEN: Soft, nontender, no hepatosplenomegaly. EXTREMITIES: Warm, dry, no peripheral edema. IMPRESSION/REPORT/PLAN 1. Diabetes type 2, uncontrolled. He is going to work very hard on diet and exercise. He is going to work on weight loss and carefully watch carbohydrate intake. Will recheck A1c in 3 months. 2. Hypertension currently well controlled on Losartan 50 mg daily. He will have pharmacy fax for refills when needed. No changes. 3. Hyperlipidemia. Tolerating gemfibrozil without any adverse effects. Elle Mills CNP/simi Electronically Signed By: ELLE MILLS CNP On: 09/05/2011 04:36 PM Source: [facility] [email or web address] Document Id: [id number] documented in this encounter Nursing Notes Camilo Whitten, L.P.N. - 05/13/2013 9:52 AM CDT Diabetic call Attempted to contact patient in regards to being due for fasting diabetic labs after 05/20/2013 and office visit with Tammie. Message left for patient to return my call. Electronically Signed By: CAMILO WHITTEN LPN On: 05/13/2013 09:54 AM Source: [facility] POWERCHART Document Id: [id number] documented in this encounter Miscellaneous Notes Miscellaneous - Elle Mills APRN, C.N.P. - 08/03/2011 3:17 PM CDT Ambulatory Depart Summary [address] [place] [address] Visit Information Name: HUGH DENNIS Visit Date: 08/03/2011 15:17:44 Attending Provider: ELLE MILLS CNP Primary Care [...] medications. Medication/Strength Dose Route Frequency Indications/Special Instructions/Comments losartan (losartan 50 mg oral tablet) 50 mg Oral once a day insulin glargine (Lantus Solostar Pen 100 units/mL subcutaneous solution) 20 units Subcutaneous oncea day (at bedtime) gemfibrozil (gemfibrozil 600 mg oral tablet) 600 mg Oral two times a day Pt req 90 day supply metformin (metformin 500 mg oral tablet, extended release) 2,000 mg Oral Daily Supper glimepiride (glimepiride 4 mg oral tablet) 4 mg Oral once a day Pt req 90 day supply aspirin (aspirin 81 mg oral enteric coated tablet) 81 mg Oral once a day Attention: If you have any medications at home that are not on this list, DO NOT take them until youcontact your provider for clarification. Additional Information: Source: [facility] POWERCHART Document Id: [id number] Miscellaneous - Elle Mills APRN, C.N.P. - 08/03/2011 3:17 PM CDT Ambulatory Patient Summary [address] [place] [address] Visit Information Name: HUGH DENNIS Current Date: 08/03/2011 15:17:44 Physicians Attending Provider: ELLE MILLS CNP Primary Care Provider: ELLE MILLS CNP Your Medications Here is a list of your medications. It is important to take your medications as directed. Use a pillbox or chart to help remind you to take your medications. Please let your doctor or nurse know if you have problems taking your medications. Medication/Strength Dose Route Frequency Indications/Special Instructions/Comments losartan (losartan 50 mg oral tablet) 50 mg Oral once a day insulin glargine (Lantus Solostar Pen 100 units/mL subcutaneous solution) 20 units Subcutaneous oncea day (at bedtime) gemfibrozil (gemfibrozil 600 mg oral tablet) 600 mg Oral two times a day Pt req 90 day supply metformin (metformin 500 mg oral tablet, extended release) 2,000 mg Oral Daily Supper glimepiride (glimepiride 4 mg oral tablet) 4 mg Oral once a day Pt req 90 day supply aspirin (aspirin 81 mg oral enteric coated [...] uncontrolled Active 08/17/1997 Neuropathy Ulnar Nerve Active Your Upcoming Appointments Date Time Location Reason Provider No Appointments found Your Goals/Additional instructions: Source: [facility] POWERCHART Document Id: [id number] Miscellaneous - Elizabeth Miller L.PFrederickN. - 08/03/2011 3:10 PM CDT Adult Salesperson Women'S Hats Intake/History Adult Salesperson Women'S Hats Intake/History Entered On: 08/03/2011 15:12 CDT Performed On: 08/03/2011 15:10 CDT by ELIZABETH MILLER Intake Chief Complaint : Physical Temperature Core : 37.2C(Converted to: 99.0DegF) Peripheral Pulse Rate : 60/min Respiratory Rate : 16/min Systolic Blood Pressure : 132mmHg Diastolic Blood Pressure : 82mmHg NIBP Mean : 99mmHg Height : 184cm(Converted to: 6ft 0inch(es), 72.44inch(es)) Actual Weight : 119.0kg(Converted to: 262lb 6oz) Dosing Weight Clinic : 119.00kg Clinic BSA : 2.47 Body Mass Index : 35.15kg/m2 ELIZABETH MILLER - 08/03/2011 15:10 CDT Subjective Pain Symptoms : No ELIZABETH MILLER - 08/03/2011 15:10 CDT Dependent Habits Tobacco Use/Currently Using : No Smoking Status : Never smoker ELIZABETH MILLER - 08/03/2011 15:10 CDT Tobacco Use Grid Other Tobacco Frequency : NON Last Use : never ELIZABETH MILLER - 08/03/2011 15:10 CDT Caffeine Use Grid Caffeine Use : Current Type : Coffee Frequency : Daily ELIZABETH MILLER - 08/03/2011 15:10 CDT Recreational Drug Use Grid Drug Use : None ELIZABETH MILLER - 08/03/2011 15:10 CDT Allergy Allergies (Active) NKA Estimated Onset Date: Unspecified ; Created By: ELLE MILLS CNP; Reaction Status: Active ; Category: Drug ; Substance: NKA ; Type: Allergy ; Updated By: ELLE MILLS CNP; Reviewed Date: 09/15/2010 10:10 CDT Source: [facility] POWERCHART Document Id: [id number] documented in this encounter Plan of Treatment Not on filedocumented as of this encounter Procedures Procedure Name Priority Date/Time Associated Diagnosis Comme nts HEMOGLOBIN A1C, B Routine 08/03/2011 3:35 PM Resu lts for this CDT procedure are i n the results section. documented in this encounter Results (ABNORMAL) Hemoglobin A1c (08/03/2011 3:35 PM CDT) P athologist Signature Hemoglobin A1c, 8.1 (H) 4.0 - 6.0 POWERCHART B Specimen (Source) Anatomical Collection Method Collection Time Re ceived Time Location / / Volume Laterality Blood 08/03/2011 3:35 PM CDT Elle Mills APRN, C.N.PFrederick LAB BLOOD ADD-ON Performing Organization Address City/State/ZIP Code Phon e Number POWERCHART documented in this encounter Visit Diagnoses Not on filedocumented in this encounter
--- OUTSIDE RECORDS SUMMARY | 2021-11-24 08:50 | XMS_ITS | Encounter Summary ---
:1955 Author Organization [facility] Address [address] [place] [address] Care Team Providers Name Role Phone Unavailable Primary Care Provider Unavailable Encounter Details Date Type Department Care Team Description 06/30/2010 Hospital Encounter HX [facility] NURSE ONChristiana Bryant, CONE CLASSIFIER TENDER, C.N.P. [address] [address] (Wo rk) Social History Tobacco [...] week 06/23/2020 How often do you attend pentecostalism or mosque services? 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 documented as of this encounter Miscellaneous Notes Miscellaneous - Conversion, Historical Provider Ser - 06/30/2010 9:47 AM CDT Ambulatory Vitals Height Weight Ambulatory Vitals Height Weight Entered On: 06/30/2010 9:47 CDT Performed On: 06/30/2010 9:47 CDT by KERRI BLACKBURN Vitals/Ht/Wt Peripheral Pulse Rate: 58/min (LOW) Systolic Blood Pressure: 118mmHg Diastolic Blood Pressure: 70mmHg NIBP Mean: 86mmHg BP Location: Left upper extremity Heart Rhythm: Regular KERRI BLACKBURN - 06/30/2010 9:47 CDT Source: [email or web address] Document Id: [id number] CDT!8 Miscellaneous - Conversion, Historical Provider Ser - 06/30/2010 9:47 AM CDT Ambulatory Vitals Height Weight Ambulatory Vitals Height Weight Entered On: 06/30/2010 9:47 CDT Performed On: 06/30/2010 9:47 CDT by KERRI BLACKBURN Vitals/Ht/Wt Systolic Blood Pressure: 118mmHg Diastolic Blood Pressure: 74mmHg NIBP Mean: 89mmHg BP Location: Left upper extremity KERRI BLACKBURN - 06/30/2010 9:47 CDT Source: [email or web address] Document Id: [id number] CDT!6 documented in this encounter Plan of Treatment Not on filedocumented as of this encounter Visit Diagnoses Not on filedocumented in this encounter
--- OUTSIDE RECORDS SUMMARY | 2021-11-24 08:50 | XMS_ITS | Encounter Summary ---
:1955 Author Organization [facility] Address [address] [place] [address] Care Team Providers Name Role Phone Unavailable Primary Care Provider Unavailable Encounter Details Date Type Department Care Team Description 03/13/2011 Hospital Encounter HX [facility] MyrChristiana franco, ELECTRIC INSTALLER, C.N.P. [address] [place] [address] (Wo rk) Social History Tobacco [...] How often do you attend buddhism or amish services? 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 documented as of this encounter Last Filed Vital Signs Vital Sign Reading Time Taken Comments Blood Pressure 130/70 03/13/2011 4:36 PM DRIVERS' CASH CLERK Pulse 80 03/13/2011 4:36 PM DRIVERS' CASH CLERK Temperature - - Respiratory Rate 16 03/13/2011 4:36 PM DRIVERS' CASH CLERK Oxygen Saturation - - Inhaled Oxygen Concentration - - Weight 118 kg (259 lb 11.2 oz) 03/13/2011 4:36 PM DRIVERS' CASH CLERK Height 185 cm (6' 0.84) 03/13/2011 4:36 PM DRIVERS' CASH CLERK Body Mass Index 34.42 03/13/2011 4:36 PM DRIVERS' CASH CLERK documented in this encounter Medications at Time of Discharge Medication Sig Dispensed Refills Start Date End Date gemfibrozil (for_LOPID) Take 600 mg by 0 08/05/19 10 10/10/2017 600 mg tablet mouth. documented as of this encounter Progress Notes Elle Mills, AURELIO, C.N.P. - 03/13/2011 12:00 AM CST [id number] CHIEF COMPLAINT/ REASON FOR VISIT 1. Right ear pain 2. Diabetes type 2 uncontrolled HISTORY OF PRESENT ILLNESS 1. Hugh states he has had right ear pain for the past couple of days. He cannot hear out of his right ear. There is a lot of pressure. He denies any other upper respiratory symptoms. No pain in the left ear. 2. Diabetes type 2 uncontrolled. He is due for A1c foot exam and diabetes education. States blood sugars are still slightly high. He is really not more specific than that. CURRENT MEDICATIONS See depart summary from today ALLERGIES None PREVENTIVE: Will check A1c today diabetes education and foot exam were done. See consumer educator intake form in the EMR VITAL SIGNS See EMR PHYSICAL EXAM Well developed male in no acute distress. SKIN: Warm and dry. ENT: Ear canals are both impacted with cerumen bilaterally. Throat clear. NECK: Supple. LUNGS: Clear to auscultation. HEART: Regular rate and rhythm. ABDOMEN: Soft, nontender, hepatosplenomegaly. EXTREMITIES: Warm, dry, no peripheral edema normal sensation tops bottoms of feet with monofilament. IMPRESSION/REPORT/PLAN 1. Bilateral cerumen impaction. Ears were irrigated with warm water moderate amount of cerumen was removed TMs are clear bilaterally. 2. Diabetes type 2 uncontrolled. Will check A1c today I will contact him with results. Diabetes education foot exam was done today and he will return for fasting lipids next week SJM/clf Signed Elle Mills, MSN, CUSTOMER ORDER CLERK, CDE Family Nurse Practitioner Electronically Signed By: ELLE MILLS CNP On: 03/14/2011 10:24 AM Source: [facility] MHSDOLBEYNONRADSYS Document Id: [id number] ERS' CASH CLERK documented in this encounter Nursing Notes Rubén Galvin L.P.N. - 04/10/2011 9:34 AM CST Diabetic Call Attempted to contact patient in regards to his need for diabetic lab work. Left message for patientto return my call. Electronically Signed By: RUBÉN GALVIN LPN On: 04/10/2011 09:35 AM Source: [facility] POWERCHART Document Id: [id number] ERS' CASH CLERK Elle Mills APRN C.N.P. - 03/13/2011 4:57 PM CST Supervisor Cabinetmaker Intake (Adult) Supervisor Cabinetmaker Intake (Adult) Entered On: 03/13/2011 16:58 DRIVERS' CASH CLERK Performed On: 03/13/2011 16:57 DRIVERS' CASH CLERK by ELLE MILLS CNP Assessment Program Type : Non-Program Diabetes Referring Provider : ELLE MILLS CNP Special needs : None Method Used for DSME : Individual Last Educator Visit Date : 03/13/2011 DRIVERS' CASH CLERK Diabetes Type : Type 2 19 years and older Ethnicity : White/ Diabetes Onset : 1997 Current Treatment : Insulin pen, Oral agents Medication Compliance : Takes meds as prescribed Medication Categories : Biguanide, Insulin, Sulfonylurea ELLE MILLS CNP - 03/13/2011 16:57 DRIVERS' CASH CLERK Foot Problems No foot problems : Left, Right ELLE MILLS CNP - 03/13/2011 16:57 DRIVERS' CASH CLERK Dilated eye exam every year : Yes Exercise Type : Walking Exercise Frequency : 2-3 times per week Duration : 15-30 minutes Time Spent With Patient : 15 Minutes ELLE MILLS [facility] - 03/13/2011 16:57 DRIVERS' CASH CLERK Comprehensive Program Goals Diabetes Education Goals Grid Diabetes Education Goal #1 row Diabetes Education Goal #2 row Diabetes Education Goal #3 row Date Goal Set : 03/13/2011 DRIVERS' CASH CLERK 03/13/2011 DRIVERS' CASH CLERK 03/13/2011 DRIVERS' CASH CLERK Goal : A1c less than 8.0 Blood pressure less than 140/90 LDL less than 100 Related Content Area : Healthy eating Medication Medication ELLE MILLS CNP - 03/13/2011 16:57 DRIVERS' CASH CLERK ELLE MILLS CNP - 03/13/2011 16:57 DRIVERS' CASH CLERK ALFONSO MILLS [facility] - 03/13/2011 16:57 DRIVERS' CASH CLERK Source: [employer] Document Id: [id number] DRIVERS' CASH CLERK!34 ERS' CASH CLERK documented in this encounter Miscellaneous Notes Miscellaneous - Elle Mills APRN, C.N.P. - 03/13/2011 4:58 PM CST Quality Measures Quality Measures Entered On: 03/13/2011 16:58 DRIVERS' CASH CLERK Performed On: 03/13/2011 16:58 DRIVERS' CASH CLERK by ELLE MILLS CNP Diabetes Date of Last Foot Exam : 03/13/2011 DRIVERS' CASH CLERK Date of Last Diabetes Education : 03/13/2011 DRIVERS' CASH CLERK ELLE MILLS CNP - 03/13/2011 16:58 DRIVERS' CASH CLERK Foot Exam Grid Left foot exam Right foot exam Dorsalis Pedis Pulse : Normal Normal Capillary Refill : Less than 3 seconds Less than 3 seconds 10 gm Monofilament Sensation Check : Intact Intact ELLE MILLS CUSTOMER ORDER CLERK - 03/13/2011 16:58 DRIVERS' CASH CLERK ELLE MILLS CNP - 03/13/2011 16:58 DRIVERS' CASH CLERK Source: [employer] Document Id: [id number] DRIVERS' CASH CLERK!13 ERS' CASH CLERK Miscellaneous - Elle Mills APRN, C.N.P. - 03/13/2011 4:55 PM CST Ambulatory Patient Summary [id number] [facility] [place] [address] Visit Information Name: HUGH DENNIS Current Date: 03/13/2011 16:55:46 Primary Care Provider: ELLE MILLS [facility] Your Medications Here is a list of your medications. It is important to take your medications as directed. Use a pillbox or chart to help remind you to take your medications. Please let your doctor or nurse know if you have problems taking your medications. Medication/Strength Dose Route Frequency Indications/Special Instructions/Comments losartan (losartan 50 mg oral tablet) 50 mg Oral once a day metformin (metformin 500 mg oral tablet, extended release) 2,000 mg Oral Daily Supper gemfibrozil (gemfibrozil 600 mg oral tablet) 600 mg Oral two times a day glimepiride (glimepiride 4 mg oral tablet) 4 mg Oral once a day insulin glargine (Lantus Solostar Pen 100 units/mL subcutaneous solution) 20 units Subcutaneous oncea day (at bedtime) aspirin (aspirin 81 mg oral enteric coated tablet) 81 mg Oral once a day Your Allergies & Intolerances Substance Reaction Symptoms Category Comments NKA Drug Your Problem List Problem Status Onset Comments Hyperlipidemia Active Closed fracture of foot NOS Active [id number] Hypertension Active Herniated Disc NOS Active 05/17/2009 cervical Obesity NOS Active DM II (or NOS), uncontrolled Active 08/17/1997 Neuropathy Ulnar Nerve Active Radiculopathy Cervical Active Your Recommendations We want to make sure you get the tests, immunizations, and guidance you need to stay healthy. Here is a customized list of recommendations, based on information we have in your medical record. Your doctor may have additional recommendations for you, based on your personal medical history and risk factors. You can help us by calling us to make an appointment when you are due for your tests. Additional information regarding recommendations: Test/Treatment Last Done Next Due Additional Information Diabetes: Creatinine every 1 year 09/15/2010 09/15/2011 Diabetes: Diabetes Education every 1 year 12/09/2009 12/09/2010 Diabetes: Eye Exam every 1 year 10/20/2010 10/20/2011 Diabetes: Foot Exam every 1 year 12/09/2009 12/09/2010 Diabetes: Microalbumin/Urine Protein every 1 year 09/15/2010 09/15/2011 Diabetes and/or Vascular: LDL every 1 year 09/15/2010 09/15/2011 Health Assessment every 1 year 03/13/2011 03/12/2012 Screening Colonoscopy or Flex Sig or Occult Blood 04/09/2006 04/06/2016 Checks for signs of cancer of the colon. Lipid Panel every 5 years Age 20-75 09/15/2010 09/14/2015 Checks blood for good (HDL) and bad (LDL) cholesterol. Know your numbers, they are one indicator of your risk for heart attack and stroke. Vaccine: Flu every 1 year 01/17/2011 01/17/2012 Immunization to help prevent you from getting the flu strain expected to be a problem for that year's flu season. Vaccine: Pneumococcal Once 12/29/1999 Completed Immunization to help prevent you from getting 23 kinds of pneumococcal bacteria that can lead to pneumonia, bacteremia and meningitis. Vaccine: Tetanus every 10 years 11/13/2003 11/10/2013 Immunization to help prevent you from getting the serious disease Tetanus (Lockjaw). Your Upcoming Appointments Date Time Location Reason Provider No Appointments found Your Goals/Additional instructions: Source: [facility] POWERCHART Document Id: [id number] ERS' CASH CLERK Miscellaneous - Elle Mills APRN, C.N.P. - 03/13/2011 4:55 PM CST Ambulatory Depart Summary [address] [address] Visit Information Name: HUGH DENNIS Current Date: 03/13/2011 16:55:45 Physicians Attending Physician: ELLE MILLS CUSTOMER ORDER CLERK Primary Care Provider: ELLE MILLS CNP HUGH [...] tablet) 50 mg Oral once a day metformin (metformin 500 mg oral tablet, extended release) 2,000 mg Oral Daily Supper gemfibrozil (gemfibrozil 600 mg oral tablet) 600 mg Oral two times a day glimepiride (glimepiride 4 mg oral tablet) 4 mg Oral once a day insulin glargine (Lantus Solostar Pen 100 units/mL subcutaneous solution) 20 units Subcutaneous oncea day (at bedtime) aspirin (aspirin 81 mg oral enteric coated tablet) 81 mg Oral once a day Additional Information: Source: [facility] POWERCHART Document Id: [id number] ERS' CASH CLERK Miscellaneous - Niels Miller L.P.N. - 03/13/2011 4:39 PM CST Health Assessment Health Assessment Entered On: 03/13/2011 16:39 DRIVERS' CASH CLERK Performed On: 03/13/2011 16:39 DRIVERS' CASH CLERK by NIELS MILLER Health Assessment Complete Health Assessment Complete or Modified : Annual Health Assessment Annual Health Assessment Completed : Yes NIELS MILLER - 03/13/2011 16:39 DRIVERS' CASH CLERK Nutrition Nutrition Risk Factors by History Adult : None NIELS MILLER - 03/13/2011 16:39 DRIVERS' CASH CLERK Functional Current Daily Living Assistance : None NIELS MILLER - 03/13/2011 16:39 DRIVERS' CASH CLERK Dependent Habits Tobacco Use/Currently Using : No Smoking Status : Never smoker NIELS MILLER - 03/13/2011 16:39 DRIVERS' CASH CLERK Tobacco Use Grid Other Tobacco Frequency : NON Last Use : never NIELS MILLER - 03/13/2011 16:39 DRIVERS' CASH CLERK Alcohol Use : No NIELS MILLER - 03/13/2011 16:39 DRIVERS' CASH CLERK Caffeine Use Grid Caffeine Use : Current Type : Coffee Frequency : Daily NIELS MILLER - 03/13/2011 16:39 DRIVERS' CASH CLERK Recreational Drug Use Grid Drug Use : None CHANTELLE MILLEROscar YEAGER - 03/13/2011 16:39 DRIVERS' CASH CLERK Psychosocial Domestic Abuse Concerns : None PAUL NIELS YEAGER - 03/13/2011 16:39 DRIVERS' CASH CLERK Advance Directive Advanced Directives : No NIELS MILLER TOY - 03/13/2011 16:39 DRIVERS' CASH CLERK Educ Needs Learning Style Preference Adult Grid Patient : Verbal explanation Family : Verbal explanation PAUL NIELS YEAGER - 03/13/2011 16:39 DRIVERS' CASH CLERK Source: [facility] [employer] Document Id: [id number] DRIVERS' CASH CLERK!32 ERS' CASH CLERK Miscellaneous - Niels Miller L.PJamilah - 03/13/2011 4:36 PM CST Adult [employer] Intake/History Adult [employer] Intake/History Entered On: 03/13/2011 16:38 DRIVERS' CASH CLERK Performed On: 03/13/2011 16:36 DRIVERS' CASH CLERK by NIELS MILLER Intake Chief Complaint : Right ear pain Temperature Core : 36.8C(Converted to: 98.2DegF) Peripheral Pulse Rate : 80/min Respiratory Rate : 16/min Systolic Blood Pressure : 130mmHg Diastolic Blood Pressure : 70mmHg NIBP Mean : 90mmHg Height : 185cm(Converted to: 6ft 1inch(es), 72.83inch(es)) Actual Weight : 117.8kg(Converted to: 259lb 11oz) Dosing Weight Clinic : 117.80kg Clinic BSA : 2.46 Body Mass Index : 34.42kg/m2 NIELS MILLER - 03/13/2011 16:36 DRIVERS' CASH CLERK Subjective Pain Symptoms : No PAUL NIELS YEAGER - 03/13/2011 16:36 DRIVERS' CASH CLERK Dependent Habits Tobacco Use/Currently Using : No Smoking Status : Never smoker NIELS MILLER - 03/13/2011 16:36 DRIVERS' CASH CLERK Tobacco Use Grid Other Tobacco Frequency : NON Last Use : never NIELS MILLER - 03/13/2011 16:36 DRIVERS' CASH CLERK Caffeine Use Grid Caffeine Use : Current Type : Coffee Frequency : Daily NIELS MILLER - 03/13/2011 16:36 DRIVERS' CASH CLERK Recreational Drug Use Grid Drug Use : None NIELS MILLER - 03/13/2011 16:36 DRIVERS' CASH CLERK Allergy Allergies (Active) NKA Estimated Onset Date: Unspecified ; Created By: ELLE MILLS CNP; Reaction Status: Active ; Category: Drug ; Substance: NKA ; Type: Allergy ; Updated By: ELLE MILLS CNP; Reviewed Date: 09/15/2010 10:10 CDT Source: [facility] POWERCHART Document Id: [id number] DRIVERS' CASH CLERK!31 ERS' CASH CLERK documented in this encounter Plan of Treatment Not on filedocumented as of this encounter Procedures Procedure Name Priority Date/Time Associated Diagnosis Comme nts HEMOGLOBIN A1C, B Routine 03/13/2011 4:58 PM Resu lts for this DRIVERS' CASH CLERK procedure are i n the results section. documented in this encounter Results (ABNORMAL) Hemoglobin A1c (03/13/2011 4:58 PM DRIVERS' CASH CLERK) P athologist Signature Hemoglobin A1c, 7.6 (H) 4.0 - 6.0 POWERCHART B Specimen (Source) Anatomical Collection Method Collection Time Re ceived Time Location / / Volume Laterality Blood 03/13/2011 4:58 PM DRIVERS' CASH CLERK Elle Mills APRN, C.N.PFrederick LAB BLOOD ADD-ON Performing Organization Address City/State/ZIP Code Phon e Number POWERCHART documented in this encounter Visit Diagnoses Not on filedocumented in this encounter
--- OUTSIDE RECORDS SUMMARY | 2021-11-24 08:50 | XMS_ITS | Encounter Summary ---
:1955 Author Organization [facility] Address [address] [place] [address] Care Team Providers Name Role Phone Unavailable Primary Care Provider Unavailable Encounter Details Date Type Department Care Team Description 04/20/2011 Hospital Encounter HX [facility] FB NURSE ONChristiana Bryant, QUALITY CONTROL ENGINEERING TECHNICIAN, C.N.P. [address] [address] (Wo rk) Social History Tobacco [...] How often do you attend hindu or restorationist services? Never 06/23/2020 Do you [...] place to sleep or slept in a longterm (including now)? 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 documented as of this encounter Plan of Treatment Not on filedocumented as of this encounter Visit Diagnoses Not on filedocumented in this encounter
--- OUTSIDE RECORDS SUMMARY | 2021-11-24 08:50 | XMS_ITS | Encounter Summary ---
:1955 Author Organization [facility] Address [address] [place] [address] Care Team Providers Name Role Phone Unavailable Primary Care Provider Unavailable Encounter Details Date Type Department Care Team Description 09/15/2010 Hospital Encounter HX [facility] MyrChristiana franco, CERTIFIED PROSTHETIST VICE PRESIDENT, C.N.P. [address] [place] [address] (Wo rk) Social History Tobacco [...] How often do you attend judaism or shinto services? 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 documented as of this encounter Progress Notes Elle Mills, AURELIO, C.N.P. - 09/15/2010 12:00 AM CDT [id number] CHIEF COMPLAINT/ REASON FOR VISIT Preoperative medical evaluation for cervical fusion HISTORY OF PRESENT ILLNESS Hugh is being seen at request of Dr. Artem Roberts for medical evaluation prior to surgery. He is scheduled for cervical fusion with Dr. Roberts at [facility] on 08/30/2010. Hugh has history of diabetes type 2, hyperlipidemia, and hypertension. He has no history of bleeding tendency or blood transfusions. CURRENT MEDICATIONS See depart summary from today ALLERGIES None SYSTEMS REVIEW Constitutional: no weight loss, fever, night sweats Nutrition: eats regular diet with adequate water intake Integumentary: no rashes, pigmentation changes or lesions of concern Head; eyes; ears; nose; throat: denies headache, ear pain or loss of hearing, blurred or double vision, nasal discharge or sore throat Breasts: denies breast pain, tenderness, discharge, lumps Respiratory: no cough or shortness of breath Cardiovascular: history of hyperlipidemia and hypertension Endocrine: history of diabetes Lymphatic: denies lymph node tenderness or swelling Gastrointestinal: no dysphagia, abdominal pain, nausea, vomiting, change in bowel habits, melena, hematochezia Genitourinary: no change in urination or blood in urine Musculoskeletal: history of cervical radiculopathy Neuro: no history of focal neurological symptoms, spells, memory changes Psych: no significant anxiety, depression, or panic PAST MEDICAL HISTORY Diabetes type 2 uncontrolled, cervical radiculopathy, obesity, hypertension, hyperlipidemia PREVENTIVE: Due for dilated eye exam advised to schedule SOCIAL HISTORY He is with two children. Works at [employer]. He does not smoke and drinks alcohol rarely. FAMILY HISTORY Mother degenerative joint disease. Father diabetes, hyperlipidemia, hypertension and of myocardial infarction Vitals see EMR PHYSICAL EXAM AREA EXAM TEXT GENERAL In general the patient is a pleasant male who appears his stated age. SKIN Without lesion. EYES PERRLA, EOMs intact. Fundi sharp discs. Conjunctiva and lids normal. ENT Ear canals are impacted with cerumen bilaterally. Nasal mucosa without erythema or congestion. Mouth without erythema or exudate. LYMPH NODES Neck: Supple, without adenopathy, no thyromegaly. Carotid pulses are equal bilaterally. THYROID No thyromegaly. PERIPHERAL Femoral, dorsal, pedal and posterior tibial pulses are equal. VESSELS HEART Regular rate and rhythm without murmur. LUNGS Clear to auscultation, there is good inspiratory effort. ABDOMEN Soft, nontender, no palpable mass, no hepatosplenomegaly. SPINE Back straight without CVA tenderness. No cervical, thoracic or lumbar tenderness. JOINTS Normal range of motion. EXTREMITIES Warm, dry, no cyanosis or peripheral edema. MENTAL Alert and oriented times three. Grossly nonfocal. NEURO Reflexes are +2 and symmetrical. IMPRESSION/REPORT/PLAN Preoperative medical evaluation. Patient's active problems diagnostically therapeutically optimized for planned procedure. He will stop all aspirin and NSAIDs and fish oil now. He will be NPO after midnight the night before surgery. He will resume all medications after surgery. Appropriate paperwork be completed faxed to [facility] at [phone]. Attention Elvia. All his questions were answered. He is class ASA II SJM/clf Signed Elle Mills, MSN, MOLDING LINE ASSISTANT, CDE Family Nurse Practitioner Electronically Signed By: ELLE MILLS CNP On: 09/15/2010 01:28 PM Source: [facility] MHSDOLBEYNONRADSYS Document Id: [id number] documented in this encounter Nursing Notes Christa Swanson L.P.N. - 03/09/2011 11:19 AM CST Diabetic Call Called Hugh in regards to diabetic labs and follow up with Elle Mills that are due . Message leftto return call. Electronically Signed By: CHRISTA SWANSON LPN On: 03/09/2011 11:20 AM Source: [employer] Document Id: [id number] TRE INSTRUCTOR Rubén Galvin L.P.N. - 02/06/2011 10:40 AM CST Diabetic Call Document Contains Addenda Addendum by CHRISTA SWANSON LPN on 20 February 2011 10:18 THEATRE INSTRUCTOR Second call placed to Hugh in regards to fasting diabetic labs. Left message to return call. Modified by and Electronically Signed by: CHRISTA SWANSON LPN On: 02/20/2011 10:18 AM Attempted to call patient in regards to being due for fasting diabetic labs.Left a message on patient's answering machine for him to return my call. Electronically Signed By: RUBÉN GALVIN LPN On: 02/06/2011 10:41 AM Source: [employer] Document Id: [id number] TRE INSTRUCTOR Christa Swanson L.P.NFrederick - 01/11/2011 10:20 AM CST Diabetic Call Document Contains Addenda Addendum by CHRISTA SWANSON LPN on 17 January 2011 15:33 THEATRE INSTRUCTOR Second call placed to Hugh in regards to fasting diabetic labs and follow up with Elle Mills. Message left on voice mail to return our call. Modified by and Electronically Signed by: CHRISTA SWANSON LPN On: 01/17/2011 03:33 PM Call placed to Hugh in regards to fasting diabetic labs and follow up with Elle Mills. Left message to return call. Electronically Signed By: CHRISTA SWANSON LPN On: 01/11/2011 10:22 AM Source: [employer] Document Id: [id number] TRE INSTRUCTOR documented in this encounter Miscellaneous Notes Miscellaneous - Christa Swanson L.P.N. - 10/20/2010 12:45 PM CDT Quality Measures Quality Measures Entered On: 10/31/2010 12:45 CDT Performed On: 10/20/2010 12:45 CDT by CHRISTA SWANSON LPN Diabetes Date of Last Eye Exam: 10/20/2010 CDT CHRISTA SWANSON LPN - 10/31/2010 12:45 CDT Source: [employer] Document Id: [id number] CDT!3 Miscellaneous - Conversion, Historical Provider Ser - 09/15/2010 10:09 AM CDT Ambulatory Vitals Height Weight Ambulatory Vitals Height Weight Entered On: 09/15/2010 10:10 CDT Performed On: 09/15/2010 10:09 CDT by ALEXANDRA PAZ Vitals/Ht/Wt Systolic Blood Pressure: 128mmHg Diastolic Blood Pressure: 76mmHg NIBP Mean: 93mmHg ALEXANDRA PAZ - 09/15/2010 10:09 CDT Source: [employer] Document Id: [id number] CDT!5 Miscellaneous - Conversion, Historical Provider Ser - 09/15/2010 10:00 AM CDT Adult Safe Deposit Attendant Intake/History Adult Safe Deposit Attendant Intake/History Entered On: 09/15/2010 10:09 CDT Performed On: 09/15/2010 10:00 CDT by ALEXANDRA PAZ Intake Chief Complaint: pre op for cervical fusion Temperature Core: 36.9C(Converted to: 98.4DegF) Peripheral Pulse Rate: 80/min Respiratory Rate: 16/min Systolic Blood Pressure: 130mmHg Diastolic Blood Pressure: 80mmHg NIBP Mean: 97mmHg BP Location: Left upper extremity Height: 176.00cm(Converted to: 5ft 9in, 69.29in) Actual Weight: 118.000kg(Converted to: 260lb 2oz) Weight Source: Standing scale Dosing Weight Clinic: 118.00kg Clinic BSA: 2.40 Body Mass Index: 38.09kg/m2 ALEXANDRA PAZ 09/15/2010 10:00 CDT Subjective Pain Symptoms: No ALEXANDRA PAZ 09/15/2010 10:00 CDT Dependent Habits Tobacco Use/Currently Using: No ALEXANDRA PAZ 09/15/2010 10:00 CDT Tobacco Use Grid Other Tobacco Frequency: NON ALEXANDRA PAZ 09/15/2010 10:00 CDT Caffeine Use Grid Caffeine Use: Current Type: Coffee Frequency: Daily ALEXANDRA PAZ 09/15/2010 10:00 CDT Recreational Drug Use Grid Drug Use: None ALEXANDRA PAZ 09/15/2010 10:00 CDT Allergy Allergies (Active) NKA Estimated Onset Date: Unspecified ; Created By: ELLE MILLS CNP; Reaction Status: Active ; Category: Drug ; Substance: NKA ; Type: Allergy ; Updated By: ELLE MILLS CNP; Reviewed Date: 10/05/2009 14:12 CDT Source: [facility] [employer] Document Id: [id number] CDT!31 documented in this encounter Plan of Treatment Not on filedocumented as of this encounter Procedures Procedure Name Priority Date/Time Associated Diagnosis Comme nts DX CHEST AP OR PA Routine 09/15/2010 10:45 AM Res ults for this AND LATERAL 2 VIEWS CDT procedur e are in the results section. documented in this encounter Results DX Chest AP or PA and Lateral 2 Views (09/15/2010 10:45 AM CDT) Anatomical Region Laterality Modality Chest N/A Radiographic Imaging Specimen (Source) Anatomical Collection Method Collection Time Re ceived Time Location / / Volume Laterality 09/15/2010 10:45 AM CDT Addenda Addendum by Provider, Marilynn Wright 09/15/2010 10:45 AM CDT RAD^^^OW XR Chest 2 Views 09/15/2010 10:45:00 Addendum by Provider, Marilynn Wright 09/15/2010 10:45 AM CDT RAD^^^MA XR CHEST 2 VIEWS 09/15/2010 10:45:00 Narrative 09/15/2010 11:05 AM CDT Exam: ?? Chest 2 view ? Clinical history: Preoperative exam ?? Comparison: None ?? Findings: The heart and mediastinum are within normal limits. ??The bilateral costophrenic angles and hemidi aphragms are sharp. There is no acute interstitial or airspace opacit y identified. There are mild degenerative changes of the thoracic spi ne. ?? Impression: No acute disease. Procedure Note Rafael Guzman M.D. / Provider, Adalid hunter M.D. - 07/27/2016 Exam: Chest 2 view Clinical history: Preoperative exam Comparison: None Findings: The heart and mediastinum are within normal limits. The bilateral costophrenic angles and hemidi aphragms are sharp. There is no acute interstitial or airspace opacit y identified. There are mild degenerative changes of the thoracic spi ne. Impression: No acute disease. Maurice Chavarria(Noman)(M) IMG DIAGNOSTIC IMAGING PROCE CHRIS documented in this encounter Visit Diagnoses Not on filedocumented in this encounter
--- OUTSIDE RECORDS SUMMARY | 2021-11-24 08:50 | XMS_ITS | Encounter Summary ---
:1955 Author Organization [facility] Address [address] [place] [address] Care Team Providers Name Role Phone Unavailable Primary Care Provider Unavailable Encounter Details Date Type Department Care Team Description 12/09/2009 Hospital Encounter HX [facility] FAMILY[facility] MyrChristiana franco, TILLER WORKER, C.N.P. [address] [place] [address] (Wo rk) Social History Tobacco [...] How often do you attend denominational or catholic services? 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 documented as of this encounter Progress Notes Elle Mills, AURELIO, C.N.P. - 12/09/2009 12:00 AM CDT [id number] CHIEF COMPLAINT/ REASON FOR VISIT Diabetes type 2, hyperlipidemia and hypertension. HISTORY OF PRESENT ILLNESS Hugh is here for a recheck on diabetes type 2. He states he has not been testing his blood sugars so he is not really sure were they are at. He is taking his medication. He had a flu shot at work this morning. He is reminded he will be due for a dilated eye exam after 03/01/10. Blood pressure is elevated at two checks today. He is currently on Avapro 75 milligrams daily. He states his insurance is not covering that and wondering if there is something generic, will switch him over to generic Cozaar, will start at 50 milligrams daily and have him come back in 2 weeks for a blood pressure check and adjust medication as needed. He is fasting, will get labs today CURRENT MEDICATIONS See depart summary from today ALLERGIES None PREVENTIVE Up to date see EMR VITAL SIGNS See EMR PHYSICAL EXAM Well developed obese male in no acute distress. SKIN: Warm and dry. HEENT: Unremarkable. HEART: Regular rate and rhythm LUNGS: Clear to auscultation. ABDOMEN: Soft, nontender, no hepatosplenomegaly. EXTREMITIES: Warm, dry, no peripheral edema. Normal sensation tops bottoms of feet with monofilament. IMPRESSION/REPORT/PLAN 1. Diabetes type 2. Refill on Glimepiride, Lantus and metformin. He will schedule for dilated eye exam after 03/01/2010. Labs will be checked today and I will mail him results. Diabetes education done today. Please see parent educator form in the EMR. 2. Hyperlipidemia. Will check fasting lipids and ALT today. He will continue Gemfibrozil and refill was given. 3. Hypertension. Blood pressure elevated. We are switching to generic Cozaar 50 milligrams daily. He was given card to schedule for blood pressure check in 2 weeks and will adjust medications if needed. SJM/sks Signed Elle Mills, MSN, PULMONOLOGIST INTENSIVIST, CDE Family Nurse Practitioner Electronically Signed By:ELLE MILLS CNP On 12/14/2009 11:52 AM Source: [facility] MHSDOLBEYNONRADSYS Document Id: [id number] documented in this encounter Nursing Notes Elle Mills APRN, C.N.P. - 12/09/2009 12:06 PM CDT Focus Puller Intake (Adult) Focus Puller Intake (Adult) Entered On: 12/09/2009 12:08 CDT Performed On: 12/09/2009 12:06 CDT by ELLE MILLS CNP Assessment Program Type: Non-Program Diabetes Referring Provider: ELLE MILLS CNP Special needs: None Method Used for DSME: Individual Last Educator Visit Date: 12/09/2009 CDT Diabetes Type: Type 2 19 years and older Diabetes Onset: 1997 Ethnicity: White/ Current Treatment: Insulin pen, Oral agents Medication Compliance: Takes meds as prescribed Diabetes Medications Reviewed: Yes Medication Categories: Biguanide, Insulin, Sulfonylurea ELLE MILLS CNP - 12/09/2009 12:06 CDT Foot Problems No foot problems: Left, Right ELLE MILLS CNP - 12/09/2009 12:06 CDT Date of Last Foot Exam: 12/09/2009 CDT ELLE MILLS CNP - 12/09/2009 12:06 CDT Foot Exam Grid Left foot exam Right foot exam 10 gm Monofilament Sensation Check: Intact Intact ELLE MILLS CNP - 12/09/2009 12:06 CDT ELLE MILLS CNP - 12/09/2009 12:06 CDT Dilated eye exam every year: Yes Date of Last Eye Exam: 03/01/2009 LOAN ASSISTANT Exercise Type: Walking Exercise Frequency: 2-3 times per week Exercise Duration per Session: 15-30 minutes Time Spent With Patient: 15 Minutes ELLE MILLS CNP - 12/09/2009 12:06 CDT Education Diabetes Education Grid Topics: Disease process, Treatment plan/options, Nutritional Management - Small Portions, Physical activity, Medications/Effectiveness - Insulin, Medications/Effectiveness - Insulin Dose Adjustment, Medications/Effectiveness - Generic/brand names, purpose, action, Medications/Effectiveness - Oral Agents, Monitoring - Blood Glucose, Using Results - Blood Glucose, Acute Complications - Preventing, Chronic Complications - Preventing, Psychosocial Adjustment - Cost Issues Individuals Taught: Patient Barriers to Learning: None evident Teaching Method: Explanation Teaching Evaluation: Verbalizes understanding ELLE MILLS CNP - 12/09/2009 12:06 CDT [facility] Document Id: [id number] CDT!36 documented in this encounter Miscellaneous Notes Miscellaneous - Conversion, Historical Provider Ser - 05/02/2011 3:25 PM LOAN ASSISTANT Reminder Msg for colonoscopy Document Contains Addenda Addendum by TITO HERNANDEZ on April 05, 2016 09:44:37 LOAN ASSISTANT Reminder letter mailed to patient Addendum by RASHAWN MARSHALL CMA on March 13, 2016 10:03:10 LOAN ASSISTANT Left message for patient to call back. From: MISTY MEDEL LPN To: ELLE MILLS CNP; MISTY MEDEL LPN; Sent: 05/02/2011 15:25:46 LOAN ASSISTANT Show up: 03/09/2016 15:25:00 LOAN ASSISTANT Subject: Reminder Msg for colonoscopy Due Date/Time: 04/09/2016 15:25:00 LOAN ASSISTANT Please Remember to: Call patient to schedule a colonoscopy. Last done 2-07-09. Rescope in [address] Craven. PATIENT: ( ) Call Patient ( ) Ask Patient to ( ) ( ) Call Relative ( ) Schedule Patient ( ) ( ) Call for Financial Compliance Examiner ( ) Follow up on Results ( ) Other: PROVIDER: ( ) Call Physician ( ) Call Pharmacist ( ) Call Lab ( ) Other: Special Instructions: Comments: Source: [facility] [employer]ART Document Id: [id number] Miscellaneous - Elle Mills, AURELIO, C.N.P. - 12/09/2009 12:03 PM CDT Ambulatory Patient Summary [address] [address] Visit Information Name: HUGH DENNIS Current Date: 12/09/2009 12:03:05 Primary Care Provider: ELLE MILLS [facility] [phone] Your Medications Here is a list of [...] (Lantus Solostar Pen 100 units/mL subcutaneous solution) 15 units Subcutaneous oncea day (at bedtime) glimepiride (glimepiride 4 mg oral tablet) 4 mg Oral once a day metformin (metformin extended release) 500 mg Oral once a day take 4 tablets with evening meal gemfibrozil (gemfibrozil 600 mg oral tablet) 600 mg Oral two times a day aspirin (aspirin 81 mg oral enteric coated tablet) 81 mg Oral once a day Your Allergies & Intolerances Substance Reaction Symptoms Category Comments NKA Drug Your Problem List Problem Status Onset Comments Diabetes mellitus type II Active 08/17/1997 Hyperlipidemia Active Closed fracture of foot NOS Active [id number] Hypertension Active Herniated Disc NOS Active 05/17/2009 cervical Your Recommendations We want to make sure [...] Last Done Next Due Additional Information Diabetes: Consider aspirin or antiplatelet therapy 10/05/2009 Ongoing May reduce your risk of heart attack and stroke if on aspirin or anti-platelet therapy. Diabetes: Blood Pressure is Uncontrolled (greater than 129/79) 12/09/2009 As Advised by your Provider Keeping your blood pressure less than 130/80 reduces your risk of heart attack, stroke and eye and kidney disease. Diabetes and/or Vascular: LDL every 1 year 11/19/2008 11/19/2009 Screening Colonoscopy or Flex Sig or Barium Enema or Occult Blood X3 04/09/2006 04/06/2016 Checks for signs of cancer of the colon. Vaccine: Flu every 1 year 12/09/2009 12/09/2010 Immunization to help prevent you from getting [...] No Appointments found Your Goals/Additional instructions: Source: [facility] POWERCHART Document Id: [id number] Miscellaneous - Elle Mills, AURELIO, C.N.P. - 12/09/2009 12:03 PM CDT Ambulatory Depart Summary [address] [address] Visit Information Name: HUGH DENNIS Current Date: 12/09/2009 12:03:04 Primary Care Provider: ELLE MILLS [facility] [phone] HUGH DENNIS has been given the following [...] (Lantus Solostar Pen 100 units/mL subcutaneous solution) 15 units Subcutaneous oncea day (at bedtime) glimepiride (glimepiride 4 mg oral tablet) 4 mg Oral once a day metformin (metformin extended release) 500 mg Oral once a day take 4 tablets with evening meal gemfibrozil (gemfibrozil 600 mg oral tablet) 600 mg Oral two times a day aspirin (aspirin 81 mg oral enteric coated tablet) 81 mg Oral once a day Additional Information: Yes - Current list of reconciled medications is provided and explained to the patient and/or family, guardian/caregiver. Source: [facility] [employer] Document Id: [id number] Electronically signed by Conversion, [facility] Fisherman Helper [id number] at 08/07/2016 1:01 AM CDT Miscellaneous - Conversion, Historical Provider Ser - 12/09/2009 11:41 AM CDT Ambulatory Vitals Height Weight Ambulatory Vitals Height Weight Entered On: 12/09/2009 11:41 CDT Performed On: 12/09/2009 11:41 CDT by ANASTASIIA DIAZ LPN Vitals/Ht/Wt Systolic Blood Pressure: 140mmHg Diastolic Blood Pressure: 76mmHg NIBP Mean: 97mmHg BP Location: Left upper extremity ANASTASIIA DIAZ LPN - 12/09/2009 11:41 CDT Source: [facility] [employer] Document Id: [id number] CDT!6 Miscellaneous - Conversion, Historical Provider Ser - 12/09/2009 11:38 AM CDT Adult Briquette Maker Intake/History Adult Briquette Maker Intake/History Entered On: 12/09/2009 11:39 CDT Performed On: 12/09/2009 11:38 CDT by ANASTASIIA DIAZ LPN Intake Chief Complaint: diabetes check Temperature Core: 36.6C(Converted to: 97.9DegF) Peripheral Pulse Rate: 76/min Systolic Blood Pressure: 144mmHg (HI) Diastolic Blood Pressure: 80mmHg NIBP Mean: 101mmHg BP Location: Left upper extremity Height: 183.00cm(Converted to: 6ft 0in, 72.05in) Actual Weight: 120.500kg(Converted to: 265lb 11oz) Dosing Weight Clinic: 120.50kg Clinic BSA: 2.47 Body Mass Index: 36kg/m2 ANASTASIIA DIAZ JACKSON JARA - 12/09/2009 11:38 CDT Subjective Pain Symptoms: No EMILYANASTASIIA JACKSON JARA - 12/09/2009 11:38 CDT Dependent Habits Tobacco Use/Currently Using: No Alcohol Use: No EMILY ANASTASIIA JACKSON JARA - 12/09/2009 11:38 CDT Caffeine Use Grid Caffeine Use: Current Type: Coffee Frequency: Daily EMILYERNIETimothy PAZ LPN - 12/09/2009 11:38 CDT Recreational Drug Use Grid Drug Use: None ANASTASIIA DIAZ LPN - 12/09/2009 11:38 CDT Allergies Latex Screening: No ELLE MILLS CNP - 12/09/2009 12:05 CDT Allergies (Active) NKA Estimated Onset Date: Unspecified ; Created By: ELLE MILLS CNP; Reaction Status: Active ; Category: Drug ; Substance: NKA ; Type: Allergy ; Updated By: ELLE MILLS CNP; Reviewed Date: 10/05/2009 14:12 CDT Health History I Cardiovascular Past Medical History Grid Heart Disease: Father High Blood Pressure: Self High Cholesterol: Self ELLE MILLS CNP - 12/09/2009 12:05 CDT Health History II Musculoskeletal Past Medical Hx Grid Other: Self, DDD cervical ELLE MILLS CNP - 12/09/2009 12:05 CDT Endocrine/Metabolic Past Med Hx Grid Diabetes: Self, Father ELLE MILLS CNP - 12/09/2009 12:05 CDT [facility] Document Id: [id number] CDT!13 documented in this encounter Plan of Treatment Not on filedocumented as of this encounter Visit Diagnoses Not on filedocumented in this encounter
--- OUTSIDE RECORDS SUMMARY | 2021-11-24 08:50 | XMS_ITS | Encounter Summary ---
:1955 Author Organization [facility] Address [address] [place] [address] Care Team Providers Name Role Phone Unavailable Primary Care Provider Unavailable Encounter Details Date Type Department Care Team Description 06/30/2010 Hospital Encounter HX [facility] LAB Karma Philip, Lola MORAES, C.N.P. [address], [place] [address] (Wo rk) Social History [...] often do you attend jehovah's witness or judaism services? Never 06/23/2020 Do you belong to [...] place to sleep or slept in a custodial (including now)? 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 documented as of this encounter Nursing Notes Ktae Galvin, LFrederickP.N. - 12/08/2010 11:33 AM CDT Diabetic Call Document Contains Addenda Addendum by AUGUSTUS SWANSON LPN on 22 December 2010 10:49 CDT Second call to Hugh in regards to diabetic lab work. Message left to return call. Modified by and Electronically Signed by: AUGUSTUS SWANSON LPN On: 12/22/2010 10:49 am Attempted to call patient in regards to diabetic lab work that is needed. Recieved answering machine. Left message for patient to return my call. Electronically Signed By: KATE GALVIN LPN On: 12/08/2010 11:34 am [facility]OWERCH[facility] Document Id: [id number] documented in this encounter Plan of Treatment Not on filedocumented as of this encounter Visit Diagnoses Not on filedocumented in this encounter
--- OUTSIDE RECORDS SUMMARY | 2021-11-24 08:50 | XMS_ITS | Encounter Summary ---
:1955 Author Organization [facility] Address [address] [place] [address] Care Team Providers Name Role Phone Unavailable Primary Care Provider Unavailable Encounter Details Date Type Department Care Team Description 12/01/2008 Hospital Encounter HX NO MAPPING Major Felix M.D. [address] [place] [address] , [address] [place], [place] [id number] (Wo rk) Social History Tobacco Use Types [...] How often do you attend amish or voodoo services? 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 documented in this encounter Results DX Shoulder Right 2+ Views (12/01/2008 11:19 AM CDT) Anatomical Region Laterality Modality Upper Extremity, Shoulder Right Radiographic I maging Specimen (Source) Anatomical Collection Method Collection Time Re ceived Time Location / / Volume Laterality 12/01/2008 11:19 AM CDT Addenda Addendum by ProviderAdriana M.D. o n 12/01/2008 11:19 AM CDT RAD^^^OW XR Shoulder Right 3 view 12/01/2008 11:19:00 Impressions 12/01/2008 11:36 AM CDT Degenerative osteoarthritis primarily involving the glenohumeral joint. Narrative 12/01/2008 11:36 AM CDT HISTORY: Pain. ?? COMPARISON: None. ?? FINDINGS: Soft tissues are unremarkable. No fracture or destructive lesion is identified. There is some billy ical irregularity and subchondral sclerosis and degenerative s purring of the glenohumeral joint which shows no evidence of subluxa tion or dislocation. There is also some milder degenerative spurring o f the acromioclavicular joint. ?? Procedure Note Willi Foley Jr., M.D. / Adriana Alberto M.D. - 08/08/2016 HISTORY: Pain. COMPARISON: None. FINDINGS: Soft tissues are unremarkable. No fracture or destructive lesion is identified. There is some billy ical irregularity and subchondral sclerosis and degenerative s purring of the glenohumeral joint which shows no evidence of subluxa tion or dislocation. There is also some milder degenerative spurring o f the acromioclavicular joint. IMPRESSION: Degenerative osteoarthritis primarily involving the glenohumeral joint. Maurice Chavarria(R)(M) IMG DIAGNOSTIC IMAGING PROCE DURES documented in this encounter Visit Diagnoses Not on filedocumented in this encounter
--- OUTSIDE RECORDS SUMMARY | 2021-11-24 08:50 | XMS_ITS | Encounter Summary ---
:1955 Author Organization [facility] Address [address] [place] [address] Care Team Providers Name Role Phone Unavailable Primary Care Provider Unavailable Encounter Details Date Type Department Care Team Description 04/20/2011 Hospital Encounter HX [facility] Karma Philip, Lola MORAES, C.N.P. [address], [place] [phone] (Wo rk) Social History [...] How often do you attend scientologist or mandaen services? Never 06/23/2020 Do you belong to [...] or slept in a prison (including now)? 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 documented as of this encounter Plan of Treatment Not on filedocumented as of this encounter Procedures Procedure Name Priority Date/Time Associated Comments Diagnosis LIPID PANEL, S Routine 04/20/2011 7:44 Results fo r this AM AITCHBONE BREAKER procedure are i n the results section. ALANINE AMINOTRANSFERASE Routine 04/20/2011 7:44 Results for this (ALT), S/P AM AITCHBONE BREAKER procedure are i n the results section. BASIC METABOLIC PANEL, Routine 04/20/2011 7:44 Re sults for this S/P AM AITCHBONE BREAKER procedure are i n the results section. documented in this encounter Results Lipid Panel (04/20/2011 7:44 AM AITCHBONE BREAKER) Analysis Performed At Patho logist Time Signature Cholesterol, Total 132 0 - 200 POWERCHART MGDL HX HDL 41.0 40.0 - POWERCHART 60.0 MGDL Triglycerides 116 0 - 150 POWERCHART MGDL Calculated LDL 68 0 - 100 POWERCHART MGDL Specimen (Source) Anatomical Collection Method Collection Time Re ceived Time Location / / Volume Laterality Blood 04/20/2011 7:44 AM AITCHBONE BREAKER Karma Philip APRN, C.N.P. LAB BLOOD ADD-ON Performing Organization Address City/State/ZIP Code Phon e Number POWERCHART (ABNORMAL) BMP (Basic Metabolic Panel) (04/20/2011 7:44 AM AITCHBONE BREAKER) P athologist Signature BUN (Blood Urea 14 7 - 23 POWERCHART Nitrogen), S MGDL Creatinine 0.9 0.9 - 1.4 POWERCHART MGDL Potassium, S 4.6 3.5 - 4.8 POWERCHART MMOLL Sodium, S 144 135 - 145 POWERCHART MMOLL Chloride, S 106 100 - 108 POWERCHART MMOLL CO2 Total 26 22 - 29 POWERCHART MMOLL Calcium, Total, 9.3 8.5 - 10.5 POWERCHART S MGDL BUN/Creatinine 15 POWERCHART Ratio HXeGFR (MDRD) >60 MLMIN POWERCHART eGFR >60 MLMIN POWERCHART Black/ Glucose, 182 (H) 70 - 99 POWERCHART Fasting, S MGDL Specimen (Source) Anatomical Collection Method Collection Time Re ceived Time Location / / Volume Laterality Blood 04/20/2011 7:44 AM AITCHBONE BREAKER Karma Philip APRN, C.N.P. LAB BLOOD ADD-ON Performing Organization Address City/State/ZIP Code Phon e Number POWERCHART ALT (Alanine Aminotransferase) (04/20/2011 7:44 AM AITCHBONE BREAKER) P athologist Signature Alanine 25 21 - 72 POWERCHART Amniotransferas UNITL e, LD Specimen (Source) Anatomical Collection Method Collection Time Re ceived Time Location / / Volume Laterality Blood 04/20/2011 7:44 AM AITCHBONE BREAKER Karma Philip APRN, C.N.P. LAB BLOOD ADD-ON Performing Organization Address City/State/ZIP Code Phon e Number POWERCHART documented in this encounter Visit Diagnoses Not on filedocumented in this encounter
--- OUTSIDE RECORDS SUMMARY | 2021-11-24 08:51 | XMS_ITS | Encounter Summary ---
:1955 Author Care Team Providers Name Role Phone Kary Sims CNP Referring Provider [phone] Reason for Visit Post Op Check Assessment and Plan Assessment Note 66 yoM with right hydrocele s/p hydroce lectomy 1. Hydrocele of testis - S/P hydrocelectomy - Healing well, I will have him do 1-2 t imes daily soaks in warm tub to help decrease residual swelling. - Follow up as needed Discussion Note: None recorded.Patient educational handouts: No information available. Plan of Care Reminders Provider Appointments None recorded. ? ? Lab None recorded. ? ? Referral None recorded. ? ? Procedures None recorded. ? ? Surgeries None recorded. ? ? Imaging None recorded. ? ? Medications Name Start Date ? ? amoxicillin 500 mg capsule ? TK FOUR CS PO 1 HOUR B DAPP atorvastatin 20 mg tablet ? TAKE 1 TABLET BY MOUTH DAILY celecoxib 100 mg capsule ? Contour Next Meter ? USE ONCE DAILY Contour Next Test Strips ? USE 1 TEST STRIP DAILY cyclobenzaprine 10 mg tablet ? TAKE 1 TABLET BY MOUTH THREE TIMES DAILY NEEDED FO R LEFT HIP PAIN gemfibrozil 600 mg tablet ? TAKE 1 TABLET BY MOUTH TWICE DAILY glimepiride 4 mg tablet ? TAKE 2 TABLETS BY MOUTH DAILY WITH BREAKFAST Lantus Solostar U-100 Insulin 100 unit/mL (3 mL) subcu taneous pen ? INJECT 40 UNITS UNDER THE SKIN AT BEDTIME losartan 50 mg tablet ? TAKE 1 TABLET BY MOUTH DAILY metformin ER 500 mg tablet,extended release 24 hr ? TAKE 4 TABLETS BY MOUTH DAILY WITH KALYAN KFAST. GENERIC EQUIVALENT FOR GLUCOPHAGE XR methylprednisolone 4 mg tablets in a dose pack ? TAKE 1 TABLET BY MOUTH DIRECTED ON Ana BONILLA. GENERIC EQUIVALENT FOR MEDROL DOSE RUTHIE Microlet Lancet ? TEST ONCE DAILY oxycodone 5 mg tablet ? TAKE 1/2 TO 1 TABLET BY MOUTH EVERY 4-6 HOURS NEEDED MAXIMUM DAILY DOSE IS SIX TABS PER DAY. Medications Administered None recorded. Vitals Height Weight BMI 6 ft 1 in 237 lbs 31.3 kg/m2 Results Lab Results None recorded. Allergies Code Code System Name Reaction Severity Onset NKDA ? ? ? Problems None recorded. Procedures Date Name Performed by ? 03/05/2018 Colonoscopy Information not avai lable Vaccine List None recorded. Social History Tobacco Smoking Status Never Smoker What was the date of your most recent tobacco screening? 09/2021 Family History Relation Problem Onset Age of Age Notes Father No current problems or (No Information) N/A ( No Notes) disability Mother No current problems or (No Information) N/A ( No Notes) disability Functional Status Unknown. Past Encounters 11/09/2021 Hydrocele of Testis Daryl Barraza MD: [id number] [facility] [place] [place] [address], Ph. History of Present Illness Note: <div>66 yoM s/p right hydrocelectomy with 600 cc drained. Patient reports minimal postoperative pain and he is seeing the swelling significantly improve this time is gone by. Some residual but not overly bothersome</div> Review of Systems ? Comprehensive General Adult ROS Reported By: Patient Physical Exam ? Brief Exam Reported By: Patient Male : Penis: no lesions, no discha rge. Scrotum: no tenderness, swelling; Midline incision clean dry a nd intact. Mild residual swelling and some firmness consistent with sma ll hematoma. Testes: palpable bilaterally, not enlarged
--- OUTSIDE RECORDS SUMMARY | 2021-11-24 08:51 | XMS_ITS | Clinical Summary ---
:1955 Author Organization [facility] [place] [address] Care Team Providers Name Role Phone Kary Sims NP Primary Care Provider Allergies No known active allergies Medications Medication Sig Dispensed Refills Start Date End Date Status metformin extended Take 1 tablet by 0 07/22/2009 Active release (GLUCOPHAGE mouth once daily XR) 500 mg tablet with evening meal. Take 4 (500)mg tabs at bedtime. gemfibrozil (LOPID) Take 1 tablet by 0 08/04/2009 Active 600 mg tablet mouth 2 times daily before meals. insulin glargine Inject 30 Units 10 mL 0 08/04/2009 Active (LANTUS) 100 unit/mL subcutaneous before injection bedtime. Take 20 units before bed every day. losartan (COZAAR) 50 Take 50 mg by mouth 0 Active mg tablet once daily. MULTIVITAMIN ORAL Take by mouth. 0 Active ASCORBIC Take by mouth. 0 Activ e ACID/VITAMIN E (VITAMIN C & E COMBINATION ORAL) CALCIUM/MAGNESIUM/ Take by mouth. 0 Active TAMIN D2 (ONE-A-DAY CALCIUM PLUS ORAL) GLYBURIDE ORAL Take 8 mg by mouth. 0 Active atorvastatin Take 20 mg by mouth 0 Active (LIPITOR) 20 mg once daily. tablet glimepiride (AMARYL) Take 4 mg by mouth 0 Active 4 mg tablet WITH BREAKFAST. 2 tabs with breakfast Active Problems Problem Noted Date HTN (hypertension) 09/29/2010 Diabetes mellitus, type 2 09/29/2010 Overview: a system change updated this record. Thi s will not affect patient care or billing. This comment can be deleted. Other and unspecified hyperlipidemia 09/29/2010 Cervical stenosis of spine 04/07/2010 C5-6 and C6-7 Disk herniations with C6 & C7 nerves 04/2009 Brachial neuritis or radiculitis NOS 07/22/2009 Encounters Date Type Specialty Care Team Description 09/21/2021 Office Visit Daryl Barraza Consul t (Hydrocele per [facility] ) 09/21/2021 Travel from Last 3 Months Immunizations Name Administration Dates Next Due COVID-19 vaccine (Moderna 05/29/2020, 05/01/2020 100mcg/0.5mL) PF, MDV DT (Age < 7 years) 11/13/2003 Hepatitis B (Adult) 06/08/2004, 12/24/2003, 11/13/2003 Hepatitis B, Unspecified 06/08/2004, 12/24/2003, 11/13/2003 Influenza Virus, Unspecified 12/17/2013, 02/19/2013, 012, 01/17/2011, 12/09/2009, 11/19/2008 Influenza, High-dose Inactivated 12/04/2018 Influenza, High-dose Quadrivalent 11/30/2020 Inactivated Influenza, IIV3 (Age >=3 years) 12/20/2011, 12/01/2010, 09/2009, 11/19/2008 Influenza, Live, Intranasal Laiv3 12/20/2011 Pneumococcal Poly,23-Valent 06/14/2020, 12/29/1999 (Pneumovax) Pneumococcal conj 13-Valent (Prevnar 01/23/2019 13) Tdap 08/03/2011 Typhoid (injectable) 04/20/2011 Typhoid Parenteral,Killed 04/20/2011 Zoster (Shingrix-RZV, recombinant) 05/03/2021 Social History Tobacco Use Types Packs/Day Years Used Date Never Smoker Smokeless Tobacco: Never Used Tobacco Cessation: Counseling Given: Yes Alcohol Use Standard Drinks/Week Comments Not Currently 0 (1 standard drink = 0.6 oz pure alcoho l) rare Alcohol Habits Answer Date Recorded How often do you have a drink containing alcohol? Not asked How many drinks containing alcohol do you have on a typical Not asked day when you are drinking? How often do you have six or more drinks on one occasion? No t asked Comment: rare 07/22/2009 Sex Assigned at Date Recorded Not on file Obstetrics History Last Filed Vital Signs Vital Sign Reading Time Taken Comments Blood Pressure 135/84 09/21/2021 9:43 AM CDT Pulse 77 09/21/2021 9:43 AM CDT Temperature 36.6 ??C (97.9 ??F) 07/24/2016 8:43 AM CDT Respiratory Rate 18 09/21/2021 9:43 AM CDT Oxygen Saturation 98% 09/21/2021 9:43 AM CDT Inhaled Oxygen - - Concentration Weight 113.8 kg (250 lb 09/21/2021 9:43 AM Pt weighed w ith shoes 12.8 oz) CDT on. Height 185.4 cm (6' 0.99) 08/05/2015 11:36 PM CDT Body Mass Index 33.1 08/05/2015 11:36 PM CDT Plan of Treatment Health Maintenance Due Date Last Done Comments Depression screening for age 12+ 1965 Hepatitis C screening for age 0103/07/1971 18-79 Lipids for age 45-75 1998 BMI (ht and wt on same day) for 08/04/2016 08/05/2015 age 18+ Medicare Wellness for age 65+ 2018 Zoster (shingles) series for age 0406/28/2021 05/03/2021 50+ (2 of 2) Tetanus booster 08/02/2021 08/03/2011 Influenza for age 65+ 11/03/2021 11/30/2020, 12/04/2018, 12/17/2013, Additional history exists Colonoscopy through age 75 07/24/2026 07/24/2016 Tdap Completed 08/03/2011 Pneumococcal series for age 65+ Completed 06/14/2020, 01/04, 12/29/1999 COVID-19 vaccine series Completed 06/21/2021, 01/02/2021, 05/29/2020, Additional history exists Medical Devices Implanted Type Area Commodity Director Device Shelf Model / Identifier Expiration Serial / Date Lot Plate Cerv 37mm Ant Two Level - [id number] N/A: Spine [place] Spine [id number] / Implanted: Qty: 1 on 09/29/2010 at [facility] / Results Not on filefrom Last 3 Months Insurance Payer Benefit Plan / Subscriber ID Effective Dates Phone Addre ss Type Group [employer] MR ADIEL GASCA [id number] 2018-Present [address] [address] [place] PB ONLY [id number] (Home) [place] [id number] Advance Directives Latest Code Status on File Code Status Date Activated Date Inactivated Comments Full Code 07/24/2016 9:05 AM 07/24/2016 1:22 PM Full Code 09/29/2010 8:08 AM 09/30/2010 6:36 PM Care Teams Lube Worker Relationship Specialty Start Date End Date Kary Sims SCHEDULE CLERK PCP - General Emergency Medicine 09/21/21 [address] [facility] [place] [address]
--- OUTSIDE RECORDS SUMMARY | 2021-11-24 08:51 | XMS_ITS ---
:1955 Author Care Team Providers Name Role Phone BILLIE THOMAS PEYTON Referring Provider [phone] Allergies Code Code System Name Reaction Severity Status Onset NKDA ? Medications Name Status Start Date Stop Date ? ? amoxicillin 500 mg capsule Active ? Not a vailable TK FOUR CS PO 1 HOUR B DAPP atorvastatin 20 mg tablet Active ? Not av ailable TAKE 1 TABLET BY MOUTH DAILY celecoxib 100 mg capsule Active ? Not carmine ilable Contour Next Meter Active ? Not available USE ONCE DAILY Contour Next Test Strips Active ? Not carmine ilable USE 1 TEST STRIP DAILY cyclobenzaprine 10 mg tablet Active ? Not available TAKE 1 TABLET BY MOUTH THREE TIMES DAILY NEEDED FOR LEFT HIP PAIN gemfibrozil 600 mg tablet Active ? Not av ailable TAKE 1 TABLET BY MOUTH TWICE DAILY glimepiride 4 mg tablet Active ? Not avai lable Lantus Solostar U-100 Insulin 100 unit/mL (3 mL) subcutaneous pe n Active ? Not available INJECT 40 UNITS UNDER THE SKIN AT BEDTIME losartan 50 mg tablet Active ? Not availa ble TAKE 1 TABLET BY MOUTH DAILY metformin ER 500 mg tablet,extended release 24 hr Active ? Not available methylprednisolone 4 mg tablets in a dose pack Active ? Not available TAKE 1 TABLET BY MOUTH DIRECTED ON Ana BONILLA. GENERIC EQUIVALENT FOR MEDROL DOSE RUTHIE Microlet Lancet Active ? Not available TEST ONCE DAILY oxycodone 5 mg tablet Active ? Not availa ble TAKE 1/2 TO 1 TABLET BY MOUTH EVERY 4-6 HOURS NEEDED MAXIMUM DAILY DOSE IS SIX TABS PER DAY. Problems None recorded. Procedures Date Name Performed by ? 03/05/2018 Colonoscopy Information not avai lable Results Lab Results None recorded. Past Encounters 11/09/2021 Hydrocele of Testis Daryl Barraza MD: [id number] [facility] [place] [address], Ph. Social History Tobacco Smoking Status Never Smoker Vaccine List None recorded. Plan of Care Reminders Provider Appointments None recorded. ? ? Lab None recorded. ? ? Referral None recorded. ? ? Procedures None recorded. ? ? Surgeries None recorded. ? ? Imaging None recorded. ? ? Vitals Height Weight BMI 6 ft 1 in 237 lbs 31.3 kg/m2
[2021-11-24 13:29] LABS: Albumin* 4.4 g/dL (3.3-5.0); Chloride* 104 mmol/L (96-114)
[2021-11-24 13:30] LABS: Potassium* 4.7 mmol/L (3.6-5.1); Sodium* 139 mmol/L (135-149)
[2021-11-24 13:32] LABS: Aspartate Amino Transferase* 22 U/L (12-35); Bilirubin Total* 0.4 mg/dL (0.1-1.5); Blood Urea Nitrogen* 12 mg/dL (7-30); Carbon Dioxide* 25 mmol/L (20-32); Cholesterol* 122 mg/dL (90-199); Creatinine* 0.9 mg/dL (0.5-1.5); Estimated Glomerular Filt Rate 93 ml/min; Total Protein* 7.1 g/dL (6.0-8.3)
[2021-11-24 13:33] LABS: Alanine Aminotransferase* 17 U/L (4-50); Alkaline Phosphatase* 72 U/L (40-150); Glucose* 117 mg/dL (60-115); HDL Cholesterol* 41 mg/dL (>=40); LDL Cholesterol Calculated 49 mg/dL (<100); Triglycerides* 158 mg/dL (40-149)
[2021-11-24 14:01] LABS: Microalbumin Urine 1 mg/dL
[2021-11-24 14:12] LABS: Creatinine Urine 91.4 mg/dL; Microalbumin Creatinine Ratio 10 mg/g (0-30)
== END 2021-11-24 08:40 | disposition home or self-care (01) ==
PROVIDERS: PCP Nurse Practitioner Family; Visit Provider Nurse Practitioner Family
DX: E11.9 Type 2 diabetes mellitus without complications (principal); E78.5 Hyperlipidemia, unspecified; Z51.81 Encounter for therapeutic drug level monitoring; I10 Essential (primary) hypertension
CPT/HCPCS: 36415; 80053; 80061; 82043; 82570; 83036; 84443

== ENCOUNTER 2022-08-15 08:49 | Outpatient (CLI) | payer MEDICARE, BC, SELFPAY ==
--- OUTSIDE RECORDS SUMMARY | 2022-08-15 08:51 | XMS_ITS | Continuity of Care Document ---
Author Name Unknown Organization [facility] Address [address] [place] [address] Phone Care Team Providers Care Print Designer Name Role Phone Elias BRAUN, PhD, Amauri Unavailable Unavai lable Allergies, Adverse Reactions, Alerts Substance Reaction Status Criticality No Known Allergies Active No Inform ation Medications Medication Instructions Dosage Effective Dates (start - stop) Status Comments GLIMEPIRIDE (unknown strength) Not Available - Active LOSARTAN POTASSIUM (unknown strength) Not Available - Active EZETIMIBE-ATORVASTA TIN CALCIUM (unknown strength) Not Available - Active GEMFIBROZIL (unknown strength) Not Available - Active LANTUS (unknown strength) Not Available - Active RIOMET (unknown strength) Not Available - No Longer Active GLYBURIDE (unknown strength) Not Available - No Longer Active Procedures Procedure Date Office/outpatient visit,est, mod 2010 X-ray exam of neck spine2-3 views Postop followup visit X-ray exam of neck spine2-3 views Neck Spine Fuse & Removal Addl 11 Addl Neck Spine Fusion Insert spine fix dev, ant, 2-3 seg Allograft, spine surg, structural PA Neck Spine Fuse & Removal Addl PA Addl Neck Spine Fusion PA Assist Insert spine fix dev, ant, 2-3 seg Office/outpatient visit,new, mod 2010 X-ray exam of neck spine, 4+ views Advance Directives Directive Yes / No Effective Date File Name No Information Encounters Encounter Description Practice Location Reason(s) For Visit Diagnoses Date Provider Providers Copied on Encounter [facility], [address], [place], [place], [id number], [place] tel:[phone] [facility] No Information 3 Elias Baugh. [facility] [place], [address], [place], [address], [place]. tel:[phone] Referring Provider: Sedrick Reynolds, [facility] & [address], [address]. [phone] Office/[facility]pa [facility]ient visit,[facility], mod Z [facility], [address], [place], [address], [place] [phone] [facility] No Information No Information Z [facility] [place], [address] [facility], [place], [address], [place] tel:[phone] [facility] neck pain (chief complaint) No Information No Information Z [facility] [place], [address], [place], [address], [place] tel:[phone] [facility] [place] Diabetes Mellitus Type 2, Uncomplicate dHypertensio n, Unspecified No Information Z [facility] [place], [address] [facility], [place], [address], [place] tel:[phone] [facility] No Information No Information Office/outpa tient visit,new, mod Z [facility] [place], [address], [place], [address], [place] tel:[phone] [facility] No Information No Information Family History Family Member Type Diagnosis Age At Onset Problem (finding) Family history of hyper tension Problem (finding) Family history of osteo arthritis Problem (finding) Family history of Diabe kranthi mellitus Payers Payer name Insurance type Covered alliance [id number] Medicare [facility] [id number] 1 Social History Type Description Quantity Date Captured Comments Alcohol Use Details Unknown Caffeine Use Details Unknown Tobacco Use Status No Information Smoking Status Never smoker Non-Smoking Tobacco Use Details : No Details Available : No Details Available Sex Male Vital Signs Date / Time: Height Weight BMI Pulse Rate Blood Pressure Temperature Respiratory Rate Body Surface Area Head Circumference Head Circ. Percentile Wt./Bryan. Percentile BMI percentile Pulse Ox Inhaled Ox 10:21 AM 73.25 in 112.945 kg (249.00 lbs) 32.6 3 kg/m eter (2) Chief Complaint And Reason For Visit No Information Reason For Referral Reason For Referral No Information Plan Of Treatment Date Type Action Status Appointment Hugh Dennis BOOKED History Of Present Illness Encounter Date Complaint History Of Prese nt Illness No Information Functional Status Date Functional Assessmen t No Information Instructions Date Instruction Additional Infor mation No Information Assessments Type Assessment Date No Information Patient Care Teams Name Effective Dates (start - stop) Status Members No Information
== END 2022-08-15 08:50 | disposition home or self-care (01) ==
LOC: INJ CL 08:50
PROVIDERS: PCP Nurse Practitioner Family; Visit Provider Family Medicine
DX: M54.16 Radiculopathy, lumbar region (principal); M51.36 Other intervertebral disc degeneration, lumbar region
CPT/HCPCS: 62323; J0702; Q9966

== ENCOUNTER 2022-09-26 07:09 | Outpatient (CLI) | payer MEDICARE, BC, SELFPAY ==
--- OUTSIDE RECORDS SUMMARY | 2022-09-26 07:12 | XMS_ITS | Continuity of Care Document ---
Author Name Unknown Organization [facility] Address [address] [place] [address] Phone Care Team Providers Care Setter Up Name Role Phone Elias BRAUN, PhD, Amauri Unavailable Unavai lable Allergies, Adverse Reactions, Alerts Substance Reaction Status Criticality No Known Allergies Active No Inform ation Medications Medication Instructions Dosage Effective Dates (start - stop) Status Comments GLIMEPIRIDE (unknown strength) Not Available - Active LOSARTAN POTASSIUM (unknown strength) Not Available - Active EZETIMIBE-ATORVASTATIN CALCIUM (unknown strength) Not Available - Active GEMFIBROZIL (unknown strength) Not Available - Active LANTUS (unknown strength) Not Available - Active Procedures Procedure Date OFFICE/OUTPATIENT VISIT EST Phone Office/Outpatient Visit,[facility], [facility] [place] Office[facility]outpatient visit,[facility], mod 2010 X-ray exam of neck spine2-3 views Postop followup visit X-ray exam of neck spine2-3 views Neck Spine Fuse & Removal Add 11 Addl Neck Spine Fusion Insert spine fix dev, ant, 2-3 seg Allograft, spine surg, structural PA Neck Spine Fuse & Removal Addl PA Addl Neck Spine Fusion PA Assist Insert spine fix dev, ant, 2-3 seg Office/outpatient visit,[facility], [facility] [place] 2010 X-ray exam of neck spine, 4+ views Advance Directives Directive Yes / No Effective Date File Name No Information Encounters Encounter Description Practice Location Reason(s) For Visit Diagnoses Date Provider Providers Copied on Encounter OFFICE/OUTPA TIENT VISIT EST Phone [facility], [address], [place], [place], [id number], [place] tel:[phone] [facility] No Information [address] [facility], [address], [place], [address], [place]. tel:[phone] Referring Provider: Sedrick Reynolds[address], [address]. tel:[phone] Office/Outpa tient Visit,New, Mod [facility], [address], [place], [place], [address], [place] tel:[phone] [facility] Spinal stenosis, lumbar region with neurogenic claudication 3 Elias Baugh. [facility], [address] [facility] [address], [place], [address], [place]. tel:[phone] Referring Provider: Sedrick Reynolds[address], [address]. tel:[phone] Office/outpa tient visit,est, mod Z [facility], [address] [facility], [place], [address], [place] tel:[phone] [facility] [place] No Information No Information Z [facility], [address], [place], [address], [place] tel:[phone] [facility] [place] neck pain (chief complaint) No Information [address] [facility], [address], [place], [address], [place] tel:[phone] [facility] Diabetes Mellitus Type 2, Uncomplicate dHypertensio n, Unspecified No Information Z [facility], [address], [place], [address], [place] tel:[phone] [facility] No Information No Information Office/outpa tient visit,cary mckeon [facility], [address], [place], [address], [place] tel:[phone] [facility] Jose Luis العراقي No Information 1 No Information Family History Family Member Type Diagnosis Age At Onset Problem (finding) Family history of hyper tension Problem (finding) Family history of osteo arthritis Problem (finding) Family history of Diabe kranthi mellitus Payers Payer name Insurance type Covered green party ID Authoriza tion(s) [facility] [id number] Medicare [facility] [id number] 1 Social History Type Description Quantity Date Captured Comments Sex Male Smoking Status No Information Chief Complaint And Reason For Visit No Information Reason For Referral Reason For Referral No Information History Of Present Illness Encounter Date Complaint History Of Prese nt Illness No Information Functional Status Date Functional Assessmen t No Information Instructions Date Instruction Additional Infor mation No Information Assessments Type Assessment Date No Information Patient Care Teams Name Effective Dates (start - stop) Status Members No Information
== END 2022-09-26 07:10 | disposition home or self-care (01) ==
LOC: INJ CL 07:10
PROVIDERS: PCP Nurse Practitioner Family; Visit Provider Family Medicine
DX: M54.16 Radiculopathy, lumbar region (principal); M48.062 Spinal stenosis, lumbar region with neurogenic claudication; M51.36 Other intervertebral disc degeneration, lumbar region
CPT/HCPCS: 62323; J0702; Q9966

== ENCOUNTER 2023-02-15 14:35 | Outpatient (CLI) | payer MEDICARE, BC, SELFPAY ==
--- OUTSIDE RECORDS SUMMARY | 2023-02-15 14:37 | XMS_ITS | Continuity of Care Document ---
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 Trader Name Role Phone Elias BRAUN, PhD, Amauri [...] Not Available - Active Procedures Procedure Date Office/Outpatient Visit,Est, Mod 2022 OFFICE/OUTPATIENT VISIT EST Phone Office/[place]patient Visit,[place], [facility] [place] Office/outpatient visit,est, mod 2010 X-ray exam of [...] X-ray exam of neck spine, 4+ views 2 Advance Directives Directive Yes / No Effective Date File Name No Information Encounters Encounter Description Practice Location Reason(s) For Visit Diagnoses Date Provider Providers Copied on Encounter [facility], [address], [place], [place], [id number], [place] tel:[phone] [facility] [place] No Information 3 Elias Baugh. [facility], [address], [place], [address], [place]. tel:[phone] Office/Outpa tient Visit,Est, Mod [facility], [address], [place], [place], [address], [place] tel:[phone] [facility] Spinal stenosis, lumbar region with neurogenic claudication 3 Elias Baugh. [facility], [address], [place], [address], [place]. tel:[phone] Referring Provider: Sedrick Reynolds, [facility] ER Physician-D o Not Fax, [place], [address]. tel:[phone] OFFICE/OUTPA TIENT VISIT EST Phone [facility], [address], [place], [place], [address], [place] tel:[phone] [facility] [place] No Information 3 Elias Baugh. [facility], [address], [place], [address], [place]. tel:[phone] Referring Provider: Sedrick Reynolds, [facility] ER Physician-D o Not Fax, [place], [address]. tel:[phone] Office/Outpa tient Visit,New, Mod [facility], [address], [place], [place], [address], [place] tel:[phone] [facility] Spinal stenosis, lumbar region with neurogenic claudication 3 Elias Baugh. [facility] [place], [address], [place], [address], [place]. tel:[phone] Referring Provider: Sedrick Reynolds, [facility] ER Physician-D o Not Fax, [place], [address]. tel:[phone] Office/outpa tient visit,est, mod Z [facility], [address], [place], [address], [place] tel:[phone] [facility] No Information 1 No Information Z [facility], [address], [place], [address], [place] tel:[phone] [facility] neck pain (chief complaint) No Information 1 No Information Z [facility], [address], [place], [address], [place] tel:[phone] [facility] Diabetes Mellitus Type 2, Uncomplicate dHypertensio n, Unspecified 1 No Information Z [facility], [address], [place], [address], [place] tel:[phone] [facility] No Information No Information Office/outpa tient visit,new, mod Z [facility], [address], [place], [address], [place] tel:[phone] [facility] No Information 1 No Information Family History Family Member Type Diagnosis Age At Onset Problem (finding) Family history of hyper tension Problem (finding) Family history of osteo arthritis Problem (finding) Family history of Diabe kranthi mellitus Payers Payer name Insurance type Covered republican ID Authorkaria tivishnu(s) [facility] [id number] Medicare [facility] [id number] 1 Social History Type Description Quantity Date Captured Comments Alcohol Use Details Unknown Caffeine Use Details Unknown Tobacco Use Status No Information Smoking Status No Information Sex Male Chief Complaint And Reason For Visit No Information Reason For Referral Reason For Referral No Information Plan Of Treatment Date Type Action Status Appointment Hugh Dennis BOOKED Appointment Hugh Dennis BOOKED History Of Present Illness Encounter Date Complaint History Of Prese nt Illness No Information Functional Status Date Functional Assessmen t No Information Instructions Date Instruction Additional Infor mation No Information Assessments Type Assessment Date No Information Patient Care Teams Name Effective Dates (start - stop) Status Members No Information
== END 2023-02-15 14:36 | disposition home or self-care (01) ==
PROVIDERS: PCP Nurse Practitioner Family; Visit Provider Nurse Practitioner Family
DX: Z01.818 Encounter for other preprocedural examination (principal)
CPT/HCPCS: 80053; 85025

== ENCOUNTER 2023-06-04 10:45 | Outpatient (RCR) | payer MEDICARE, BC, SELFPAY | END 2023-10-02 23:59 | disposition home or self-care (01) | PROVIDERS: PCP Nurse Practitioner Family; Visit Provider Orthopaedic Surgery Orthopaedic Surgery of the Spine | DX: M48.062 Spinal stenosis, lumbar region with neurogenic claudication (principal); Z98.890 Other specified postprocedural states; Z48.89 Encounter for other specified surgical aftercare | CPT/HCPCS: 97110; 97162 ==

== ENCOUNTER 2023-08-20 15:25 | Outpatient (CLI) | payer MEDICARE, BC, SELFPAY ==
--- OUTSIDE RECORDS SUMMARY | 2023-08-20 08:16 | XMS_ITS | Continuity of Care Document ---
Author Organization [facility] Address [address] [place] [address] Phone Care Team Providers Care Manager Wound Care Name Role Phone Elias BRAUN, PhD, Amauri Arthur Unavai lable Allergies, Adverse Reactions, Alerts Substance Reaction Status Criticality No Known Allergies Active No Inform ation Medications Medication Instructions Dosage Effective Dates (start - stop) Status Comments Medrol (Kong) 4 mg tablets in a dose pack take by Oral route as directed per package instructions - Active hydrocodone 5 mg-acetaminophen 325 mg tablet take 1 - 2 tablet by ORAL route every 4 - 6 hours as needed for postop pain G89.18 - Active GLIMEPIRIDE (unknown strength) Not Available - Active LOSARTAN POTASSIUM (unknown strength) Not Available - Active EZETIMIBE-ATORVASTA TIN CALCIUM (unknown strength) Not Available - Active GEMFIBROZIL (unknown strength) Not Available - Active LANTUS (unknown strength) Not Available - Active Procedures Procedure Date Office/Outpatient Visit,Est, Mod 2023 Postop Followup Visit [facility], Facetectomy/Foraminotomy, Lumbar ( Stenosis) [facility], Facetectomy/Foraminotomy - Additio nal Level(s) - [place] [facility], Facetectomy/Foraminotomy, Lumbar ( Stenosis) [facility], Facetectomy/Foraminotomy - Additio nal Level(s) Office/Outpatient Visit,Est, Mod 2022 OFFICE/OUTPATIENT VISIT EST Phone Office/Outpatient Visit,New, Mod 2022 Office/outpatient visit,est, mod 2010 X-ray exam [...] Diagnoses Date Provider Providers Copied on Encounter Office/Outpa tient Visit,Est, Mod [facility], [address], [place], [place], [id number], [place] tel:[phone] [facility] [place] Encounter for other specified surgical aftercare 4 Elias Baugh. [facility], [address] [facility] [address], [address], [place]. tel:[phone] Referring Provider: Sedrick Reynolds, [facility] ER Physician-D o Not Fax, [place], [address]. tel:[phone] [facility], [address], [place], [address], [place] tel:[phone] [facility] Encounter for other specified surgical aftercare 4 Elias Baugh. [facility], [address], [place], [address], [place]. tel:[phone] Referring Provider: Sedrick Reynolds, [facility] ER Physician-D o Not Fax, [place], [address]. tel:[phone] [facility], [address], [place], [address], [place] tel:[phone] [facility] [place] No Information 4 Elias Baugh. [facility], [address], [place], [address], [place]. tel:[phone] [facility], [address], [place], [place], [address], [place] tel:[phone] [facility] [place] No Information 4 Elias Baugh. [facility], [address], [place], [address], [place]. tel:[phone] [facility], [address], [place], [place], [address], [place] tel:[phone] [facility] No Information 3 Federico Kirkland. [facility], [address], [place], [place], [address], [place]. tel:[phone] Referring Provider: Sedrick Reynolds, [facility] ER Physician-D o Not Fax, [place], [address]. tel:[phone] [facility], [address], [place], [place], [address], [place] tel:[phone] [facility] No Information 3 Elias Baugh. [facility], [address], [place], [address], [place]. tel:[phone] Referring Provider: Sedrick Reynolds, [facility] ER Physician-D o Not Fax, [place], [address]. tel:[phone] Office/Outpa tient Visit,Est, Mod [facility], [address], [place], [place], [address], [place] tel:[phone] [facility] Spinal stenosis, lumbar region with neurogenic claudication 3 Elias Baugh. [facility], [address], [place], [address], [place]. tel:[phone] Referring Provider: Sedrick Reynolds, [facility] ER Physician-D o Not Fax, [place], [address]. tel:[phone] OFFICE/OUTPA TIENT VISIT EST Phone [facility], [address], [place], [place], [address], [place] tel:[phone] [facility] [place] No Information 3 Elias Baugh. [facility], [address], [place], [address], [place]. tel:[phone] Referring Provider: Sedrick Reynolds, [facility] ER Physician-D o Not Fax, [place], [address]. tel:[phone] Office/Outpa tient Visit,New, Mod [facility], [address], [place], [place], [address], [place] tel:[phone] [facility] Spinal stenosis, lumbar region with neurogenic claudication 3 Elias Baugh. [facility], [address], [place], [address], [place]. tel:[phone] Referring Provider: Sedrick Reynolds, [facility] ER Physician-D o Not Fax, [place], [address]. tel:[phone] Office/outpa tient visit,est, mod Z [facility], [address] [facility], [place], [address], [place] tel:[phone] [facility] [place] No Information No Information Z [facility], [address], [place], [address], [place] tel:[phone] [facility] [place] neck pain (chief complaint) No Information 1 No Information Z [facility], [address], [place], [address], [place] tel:[phone] [facility] [place] Diabetes Mellitus Type 2, Uncomplicate dHypertensio n, Unspecified No Information Z [facility], [address], [place], [address], [place] tel:[phone] [facility] No Information No Information Office/outpa tient visit,cary mckeon [facility], [address], [place], [address], [place] tel:[phone] [facility] No Information No Information Family History Family Member Type Diagnosis Age At Onset Problem (finding) Family history of hyper tension Problem (finding) Family history of osteo arthritis Problem (finding) Family history of Diabe kranthi mellitus Payers Payer name Insurance type Covered constitution party ID Authormelania vaughn(s) [facility] [id number] Medicare [facility] BL [id number] 1 Social History Type Description Quantity Date Captured Comments Alcohol Use Details Unknown Caffeine Use Details Unknown Tobacco Use Status No Information Smoking Status No Information Sex Male Vital Signs Date / Time: Height Weight BMI Pulse Rate Blood Pressure Temperature Respiratory Rate Body Surface Area Head Circumference Head Circ. Percentile Wt./Bryan. Percentile BMI percentile Pulse Ox Inhaled Ox 10:07 AM 73.23 in 108.409 kg (239.00 lbs) 31.3 4 kg/m eter (2) Chief Complaint And Reason [...]
--- OUTSIDE RECORDS SUMMARY | 2023-08-20 08:16 | XMS_ITS | Data Portability ---
Author Organization [facility], [facility] Address [address] [place] [address] Assessment Encounter Date Assessment Date Assessment LastModified by Organization Details LastModified Time 11/09/2021 11/09/2021 66 yoM with righ t hydrocele s/p hydrocelectomy [email or web address] Not available 11/09/2021 07:24:22 Plan of Treatment Reminders Order Date Submit Date Provider Last Modified By Organization Details Last Modified Time Details Appointments None record ed. Lab None record ed. Referral None record ed. Procedures None record ed. Surgeries None record ed. Imaging None record ed. Medication Orders None record ed. Patient TargetsNo targets recorded. Patient InstructionsNo instructions recorded. Reason for Referral None Reported. Procedures Surgical History Date Name Laterality Status Provider Name and Address Organization Details Recorded Time 9 colonoscopy completed Lily nguyen [facility] 11/09/2021 12:07:27 Imaging Results None recorded. Procedure Notes None recorded. Medical Equipment None Reported. Allergies No known drug allergies Medications Name Sig Start Date Stop Date Status Note LastModified by Organization Details LastModified Time losartan 50 mg tablet TAKE 1 TABLET BY MOUTH DAILY active Not Available Not Available Not Available cyclobenzapr ine 10 mg tablet TAKE 1 TABLET BY MOUTH THREE TIMES DAILY NEEDED FOR LEFT HIP PAIN active Not Available Not Available No t Available amoxicillin 500 mg capsule TK FOUR CS PO 1 HOUR B DAPP active Not Available Not Available No t Available atorvastatin 20 mg tablet TAKE 1 TABLET BY MOUTH DAILY active Not Available Not Available Not Available gemfibrozil 600 mg tablet TAKE 1 TABLET BY MOUTH TWICE DAILY active Not Available Not Available No t Available glimepiride 4 mg tablet TAKE 2 TABLETS BY MOUTH DAILY WITH BREAKFAST active Not Available Not Available No t Available methylpredni solone 4 mg tablets in a dose pack TAKE 1 TABLET BY MOUTH DIRECTED ON PACKAGE. GENERIC EQUIVALENT FOR MEDROL DOSE RUTHIE active Not Available Not Available No t Available celecoxib 100 mg capsule active Not Available Not Available Not Available metformin ER 500 mg tablet,exten ded release 24 hr TAKE 4 TABLETS BY MOUTH DAILY WITH BREAKFAST. GENERIC EQUIVALENT FOR GLUCOPHAGE XR active Not Available Not Available No t Available Microlet Lancet TEST ONCE DAILY active Not Available Not Available No t Available oxycodone 5 mg tablet TAKE 1/2 TO 1 TABLET BY MOUTH EVERY 4-6 HOURS NEEDED MAXIMUM DAILY DOSE IS SIX TABS PER DAY. active Not Available Not Available No t Available Lantus Solostar U-100 Insulin 100 unit/mL (3 mL) subcutaneous pen INJECT 40 UNITS UNDER THE SKIN AT BEDTIME active Not Available Not Available No t Available Contour Next Test Strips USE 1 TEST STRIP DAILY active Not Available Not Available Not Available Contour Next Meter USE ONCE DAILY active Not Available Not Available No t Available Vitals Date Recorded Body height Body mass index (BMI) Body weight Provider Name and Address Organization Details Last Updated DateTime 11/09/2021 185.42 cm 31.3 kg/m2 230277.39 g Lily Hunt [facility] 11/09/2021 12:06:55 Social History Question Answer Notes LastModified by Organizat ion Details LastModified Time Tobacco Smoking Status Never Smoker Lily nguyen [facility] 11/09/2021 12:07:20 What Was The Date Of Your Most Recent Tobacco Screening? 11/09/2021 [email or web address] Information not available 11/09/2021 Sex: Male Functional Status None recorded. Mental Status None recorded. Family History Relationship Description Onset Age of this Age Resolved Age Notes Father No current problems or disability Mother No current problems or disability Medical History Condition Response Diabetes Y High Blood Pressure Y High Cholesterol Y Past Encounters Encounter ID Performer Location Encounter Start Date Encounter Closed Date Diagnosis/Indication Diagnosis SNOMED-CT Code [id number] Daryl Barraza MD [facility] [address] [id number] 11/09/2021 11:50:10 11/14/2021 15:35:49 Hydrocele of testis [id number] Health Concerns Section Related Observation LastModified by Organization Detai lilli LastModified Time None Recorded Concern Status LastModified by Organization Details LastModified Time None Recorded Advance Directives Directive None Recorded Payers Encounter Date Sequence Insurance Name Policy Number Policy Ascencio Covered Member ID Ascencio Member ID Guarantor Name 11/09/2021 1 [place] - MEDICARE COST [id number] Hugh Dennis [id number] Hugh Dennis Notes Date Note Type Note Provider Name and Address Organization Details Recorded Time 11/09/2021 text/html HPI Notes: 66 yo M s/p right hydrocelectomy with 600 cc drained. Patient reports minimal postoperative pain and he is seeing the swelling significantly improve this time is gone by. Some residual but not overly bothersome Daryl Barraza MD [address] [place] [address],[address], [place], [address], [facility] 11/09/2021 12:48:55
== END 2023-08-20 15:26 | disposition home or self-care (01) ==
PROVIDERS: PCP Nurse Practitioner Family; Visit Provider Nurse Practitioner Family
DX: E11.9 Type 2 diabetes mellitus without complications (principal); E78.5 Hyperlipidemia, unspecified; E78.1 Pure hyperglyceridemia; I10 Essential (primary) hypertension; Z12.5 Encounter for screening for malignant neoplasm of prostate
CPT/HCPCS: 80053; 80061; 82043; 82570; 82607; 84443; G0103

== ENCOUNTER 2024-08-04 08:54 | Outpatient (CLI) | payer MEDICARE, BC, SELFPAY | END 2024-08-04 08:55 | disposition home or self-care (01) | PROVIDERS: PCP Nurse Practitioner Family; Visit Provider Nurse Practitioner Family | DX: E11.65 Type 2 diabetes mellitus with hyperglycemia (principal); I10 Essential (primary) hypertension; E78.5 Hyperlipidemia, unspecified; Z79.899 Other long term (current) drug therapy; Z79.4 Long term (current) use of insulin; Z12.5 Encounter for screening for malignant neoplasm of prostate | CPT/HCPCS: 80053; 80061; 82043; 82570; 82607; 84443; 85025; G0103 ==